=== PATIENT | male | born 1945 | race Caucasian/White ===

== ENCOUNTER → 2018-09-07 08:05 | Outpatient (CLI) | payer MEDICARE, OTHER, SELFPAY ==
--- NOTE | 2018-09-07 09:18 | PM.TREADMILL ---
Cardiac Stress Test Report Referral & Results Date Patient Seen: 09/07/18 Requesting provider: Gulshan Mora Indication: Dyspnea, shortness of breath upon exertion Rest ECG: Unremarkable Procedure Note: After both written and verbal informed consent the patient had an IV started by the diagnostic imaging RN and then was hooked up to the treadmill monitoring system. The patient was placed on the treadmill at 1 mile an hour with no elevation and was then injected with the Rose scan material. The Cardiolite was then immediately administered. The patient spent an additional 2-3 minutes on the treadmill before being returned to the [facility] in the supine position. The patient had a normal response to all infused materials. Impression: Normal response to infuse materials. Perfusion imaging be reported separately. Please note: Actual ECG tracings can be found in the PACS system.
--- NOTE | 2018-09-10 14:17 | DI.NM.S_ITS ---
DATE OF SERVICE: 09/07/2018 PROCEDURE: Pharmacological perfusion study. INDICATION: Dyspnea on exertion, syncope, history of atrial fibrillation, hypertension, hyperlipidemia. RADIOPHARMACEUTICAL: 25.2 mCi technetium-99m Myoview IV was injected at stress, and 24.9 mCi technetium-99m Myoview IV was injected at rest. CARDIAC STRESS: Patient underwent IV Lexiscan perfusion study under the supervision of an attending staff using standard IV Lexiscan protocol. Patient remained hemodynamically stable. No significant symptoms were reported. Baseline rhythm was sinus. Stress EKG did not reveal any obvious inducible ischemic changes. No significant arrhythmias seen. RAW DATA: There is increased subdiaphragmatic activity. Motion seen as well. GATED STUDY: Resting LV ejection fraction 61%. Stress LV ejection fraction 64%. No obvious wall motion abnormalities. Resting end-diastolic volume is 178 mL. No transient ischemic dilatation. TID ratio 0.94, which is within normal limits. Lung/heart ratio 0.28, which is within normal limits. MYOCARDIAL PERFUSION SCAN: Stress supine, resting supine, and stress prone images were compared to each other. Stress supine and resting supine images revealed small-sized minimally decreased perfusion of distal anterior septum, which improved during prone images; however, prone images developed new mid anterior wall defect which was not seen during stress supine images. I don't see any convincing reversible ischemia or obvious infarction pattern. CONCLUSION: I will call this study likely a normal myocardial perfusion study with evidence of some shifting tissue attenuation artifact as stated above. The patient's weight is 215 pounds. No convincing ischemia infarction pattern. Stress LV ejection fraction 64% without any obvious wall motion abnormalities. No transient ischemic dilatation. Normal lung/heart ratio. Overall, this appears to be a low-risk perfusion study. YassineDarryl swann - LIVING SUPERVISOR/fn/kv doc#: [id number]/job#: [id number] dd: 09/10/2018 13:07:00 dt: 09/10/2018 14:09:00 DICTATING MD/COPIES TO: Josué Kevin MD COPIES MNE: HANNAH
== END ==
PROVIDERS: Family Provider Surgery; PCP Internal Medicine; Visit Provider Internal Medicine
DX: R06.00 Dyspnea, unspecified (principal); R55 Syncope and collapse; I48.91 Unspecified atrial fibrillation; I10 Essential (primary) hypertension; E78.5 Hyperlipidemia, unspecified
CPT/HCPCS: 78452; 93016; 93017; 93018; A9502; J2785

== ENCOUNTER → 2018-10-10 09:40 | Outpatient (CLI) | payer MEDICARE, OTHER, SELFPAY ==
[2018-10-10 10:48] LABS: Cholesterol 273 mg/dL (140-199); HDL Cholesterol 57 mg/dL (40-60); LDL Cholesterol Calculated 196 mg/dL (<100); Triglycerides 102 mg/dL (35-150)
== END ==
PROVIDERS: Family Provider Surgery; PCP Internal Medicine; Visit Provider Internal Medicine Cardiovascular Disease
DX: I65.21 Occlusion and stenosis of right carotid artery (principal); I35.0 Nonrheumatic aortic (valve) stenosis
CPT/HCPCS: 36415; 80061

== ENCOUNTER → 2018-10-30 10:35 | Outpatient (CLI) | payer MEDICARE, OTHER, SELFPAY ==
--- NOTE | 2018-10-30 10:47 | DI.RAD.S_ITS ---
PROCEDURE: XR CHEST 2V INDICATIONS: ASPIRATION PNEUMONIA TECHNIQUE: 2 views of the chest were acquired. COMPARISON: [facility], , CHEST 1 VIEW, 07/23/2015, 12:34. FINDINGS: Surgical changes and devices: None. Lungs and pleura: Lungs are clear. No pleural effusions or pneumothorax. Mediastinum: Mediastinal contours are normal. Heart size is normal. Bones and chest wall: No suspicious bony abnormalities. Soft tissues appear unremarkable. IMPRESSION: No acute cardio pulmonary disease or Dictated by: Jeb Hdz M.D. on 10/30/2018 at 12:13 Approved by: Jeb Hdz M.D. on 10/30/2018 at 12:14
[2018-10-30 11:51] LABS: Add Manual Diff / Slide Review NO; Basophils Absolute Auto 0 /uL (0-100); Basophils Percent Auto 0.3 % (0-2); Eosinophils Absolute Auto 100 /uL (0-450); Eosinophils Percent Auto 1.6 % (2-4); Hematocrit 38.8 % (41-53); Hemoglobin 12.9 g/dL (13.5-17.5); Lymphocytes Absolute Auto 1200 /uL (1100-4500); Lymphocytes Percent Auto 26.4 % (25-40); Mean Corpuscular HGB Conc 33.2 % (30-36); Mean Corpuscular Hemoglobin 28.5 PG (26-34); Mean Corpuscular Volume 85.9 fL (80-100); Monocytes Absolute Auto 500 /uL (0-900); Monocytes Percent Auto 11.7 % (3-14); Neutrophils Absolute Auto 2600 /uL (1500-7000); Platelet Count 247 X10^3/uL (150-400); Red Blood Cell Count 4.52 X10^6/uL (4.5-5.9); Red Cell Distribution Width 15.3 % (11.6-14.8); White Blood Cell Count 4.4 X10^3/uL (4.5-11.0)
[2018-10-30 12:33] LABS: Blood Urea Nitrogen 18 mg/dL (9-20); Calcium 9.5 mg/dL (8.4-10.2); Carbon Dioxide 26 mmol/L (22-32); Chloride 102 mmol/L (98-107); Estimated Glomerular Filt Rate > 60.0 mL/min (>60); Glucose 101 mg/dL (80-110); HEMOLYSIS < 15 (0-50); Potassium 4.2 mmol/L (3.4-5.1); Sodium 138 mmol/L (137-145)
== END ==
PROVIDERS: Family Provider Surgery; PCP Internal Medicine; Visit Provider Internal Medicine
DX: J69.0 Pneumonitis due to inhalation of food and vomit (principal)
CPT/HCPCS: 36415; 71046; 80048; 85025

== ENCOUNTER → 2018-11-05 13:41 | Outpatient (CLI) | payer MEDICARE, OTHER, SELFPAY ==
--- NOTE | 2018-11-05 | DI.US.S_ITS ---
PROCEDURE: US ARTERIAL DUPLEX LE LT INDICATIONS: UNK TECHNIQUE: Color and pulse Doppler interrogation was performed of the left lower extremity arterial system, with image documentation. COMPARISON: None. FINDINGS: Common femoral artery: 75 cm/sec, with triphasic flow. Deep femoral artery: 211 cm/sec, with triphasic flow. Proximal superficial femoral artery: 87 cm/sec, with triphasic flow. Mid superficial femoral artery: 55 cm/sec, with triphasic flow. Distal superficial femoral artery: Occluded distal superficial femoral artery with multiple collateral vessels noted. Popliteal artery: 22 cm/sec, with monophasic flow. Posterior tibial artery: 36 cm/sec, with monophasic flow. Anterior tibial artery/dorsalis pedis: 15 cm/sec, with monophasic flow. Martinez-scale imaging description: The scattered plaque, most notably involving the distal superficial femoral artery IMPRESSION: 1. 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 Dictated by: Jimbo Cotton [facility] Interpreted: Herbert Flores MD on 11/05/2018 at 15:52 Approved by: Herbert Flores M.D. on 11/05/2018 at 16:35
== END ==
PROVIDERS: Family Provider Surgery; PCP Internal Medicine; Visit Provider Internal Medicine
DX: I70.202 Unspecified atherosclerosis of native arteries of extremities, left leg (principal)
CPT/HCPCS: 93926

== ENCOUNTER → 2018-12-10 12:45 | Outpatient (CLI) | payer MEDICARE, OTHER, SELFPAY ==
--- NOTE | 2018-12-10 | DI.RAD.S_ITS ---
PROCEDURE: FL BARIUM SWALLOW W SPEECH INDICATIONS: Dysphagia, oropharyngeal phase TECHNIQUE: Examination was conducted in conjunction with speech pathology per standard protocol. In the lateral projection, filming was performed of the patient swallowing. AP projection filming may also be performed with patient swallowing. COMPARISON: None. FINDINGS: Function: The oral preparatory phase appears normal, with proper containment. The subsequent oral propulsive phase, pharyngeal phase, and esophageal phase of swallowing also appear normal with all proffered substances. Silent laryngeal penetration was intermittently observed. No definite tracheal aspiration. There was vallecular pooling. Esophageal dysmotility was observed on the AP view. Morphology: No cricopharyngeal bar is identified. No cervical esophageal webs. No Zenker's diverticulum. No strictures. IMPRESSION: Intermittent silent laryngeal penetration. Dictated by: Favian Sandoval M.D. on 12/10/2018 at 15:06 Approved by: Favian Sandoval M.D. on 12/10/2018 at 15:08
--- NOTE | 2019-02-27 09:18 | ST.SWALLOW ---
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 Mazariegos Reason for Referral Unilateral VF paresis, dysphagia Setting Setting Outpatient Care Patient Information Identification Type Other Patient History The pt is familiar to this Clinician, as he is being seen in outpatient care. He underwent corotid artery surgery on 10/04/18 at [facility] in [place], after which he experienced difficulty swallowing and changes in vocal quality. He was seen during and after his hospital stay by Dr. 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 On 12/06/18, the pt underwent bulk injection to the right VF. He continues to have significant coughing of phlegm, especially before bed and upon waking in the morning , and difficulty swallowing, most notably with sticking sensation at right side of throat near the surgical incision site. He presents today for further evaluation of swallow function and safety to guide POC. Subjective Observations The pt arrived on time. Continues to c/o cough, hoarse voice, difficulty swallowing and describes feeling something like a flap of skin at the right side of throat at level of surgical site. He and his plan to move to [place], where they spends half the year, next week and questioned whether or not he should go. Patient Positioning Position View A/P Imaging Lateral View Textures Administered Trials Presented Thin Liquid via Spoon Thin Liquid via Cup [place] Liquid via Spoon [place] Liquid via Cup Honey Liquid via Spoon Pudding Thick Liquid via Spoon Regular Textures Barium Tablet Oral Phase Source: MBSIMP (TM) (C) Bolus Specific Scoring Grid Lip Closure No Impairment (WNL) Tongue Control During Bolus Hold No Impairment (WNL) Bolus Prep/Mastication No Impairment (WNL) Bolus Transport/Lingual Motion No Impairment (WNL) A/P Lingual Propulsion Delay Yes: Appears to be from dislike of barium taste Number of Seconds Delayed (seconds) 2-4 Oral Residue Mild Impairment Residue Clearing WFL Nasal Regurgitation No Additional Oral Phase Observations Residue of thin liquid observed to spill to vallecula post swallow. Pharyngeal Phase Source: MBSIMP (TM) (C) Bolus Specific Scoring Grid Delayed Initiation of Pharyngeal Swallow Yes Soft Palate Elevation No Impairment (WNL) Residue Along the Tongue Base Yes Clearance of Residue Along Tongue Base WFL Laryngeal Elevation WFL Anterior Hyoid Movement WFL Epiglottic Range of Motion No Impairment (WNL) Vallecular Residue Yes: Trace liquids Clearance of Vallecular Residue No Impairment (WNL) Laryngeal Vestibular Closure Mild Impairment Pharyngeal Stripping Wave Mild Impairment Pharyngeal Contraction No Impairment (WNL) Posterior Pharyngeal Wall Residue Yes Upper Esophageal Sphincter Opening No Impairment (WNL) Residue in the Pyriform Sinuses Yes: Trace liquids Clearance of Residue in the Pyriform No Impairment (WNL) Sinuses Esophageal Clearance Upright Position Moderate Impairment Pharyngoesophageal Backflow Observed Yes: Contained to esophagus; no backflow to pharynx Additional Pharyngeal Phase Observations Mild silent penetration into laryngeal vestibule upon initial thin liquid tsp. No cough response elicited. Pt was prompted to cough, which mostly but not entirely cleared residue. Flash penetration with thin liquid observed on 3rd of 3 consecutive swallows. No aspiration observed. Delayed swallow trigger to level of vallecula noted throughout with all trials, increased to pyriform sinuses with consecutive cup sips of thin liquid. Upon close video review, there appears to be a small diverticulum on posterior pharyngeal wall at level of epiglottis, as well as a cricopharyngeal bar. A/P View Textures Administered Trials Presented [place] Liquid via Spoon Pudding Thick Liquid via Spoon Barium Tablet A/P View Observations Pharyngeal Contraction No Impairment (WNL) Esophageal Function Slowed Clearing Poor Motility Reverse Peristalsis Stasis Esophageal Clearance Upright Position Moderate Impairment Additional Observations Deviation of bolus to left side at upper esophagus. 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 Esophageal dysmotility was observed during A/P view, warranting GI referral. It is possible a pharyngeal diverticulum may be the sourse of the pt's sensation of something like a flap in my throat; recommend follow up with ENT, either with [facility] or vial referral to ENT in [place], [place]. Rehabilitation Potential Good Patient Appropriate for Therapy Yes Recommendations Diet Liquids Order Thin Diet Order Regular Medication Recommendation As Tolerated Additional Dietary Needs Single Sips Aspiration Precautions Recommended Precautions Upright at 90 Degrees Small Bites/Sips Treatment Plan Therapy Recommendations Outpatient Speech Therapy Lingual Exercises Base of Tongue Exercises Vocal Fold Adduction Exercises Compensatory Strategy Education GERD/Vocal Hygiene Education Recommended Referrals GI Consult Additional Recommended Referrals Follow up with ENT Compensatory Strategies Recommendations Sitting Upright (90 deg) Small Bites and Sips Short Term Goals Pt will continue outpatient voice and dysphagia therapy until move to [place] targeting swallow and vocal fold adduction exercises to improve swallow and VF function and reduce risk of aspiration; GERD/LPR education and food/ lifestyle modifications; and vocal hygiene. Half-Way Goals Pt will perform swallow and voice exercises independently to improve swallow and VF function and reduce risk of aspiration. Pt will follow GERD/LPR diet and lifestyle modification recommendations independently to reduce risk of aspiration and effects of GERD/LPR. Pt will tolerate regular diet and thin liquids without s/sx of aspiration. 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 He was in agreement to GI referral and wished to inquire about services at [facility].
== END ==
PROVIDERS: PCP Internal Medicine; Visit Provider Specialist
DX: R13.12 Dysphagia, oropharyngeal phase (principal)
CPT/HCPCS: 74230; 92611

== ENCOUNTER 2018-12-10 15:30 | Outpatient (RCR) | payer MEDICARE, OTHER, SELFPAY ==
--- NOTE | 2019-02-27 09:27 | ST.OPDS ---
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 Follow-up education and treatment was provided same day as MBSS with recommendations for regular diet, thin liquids, meds as tolerated, general aspiration precautions, follow-up with ENT, and HEP of swallow exercises. The pt and his have since moved to [place], [place]. He is discharged from this clinic's skilled intervention at this time. Plan Therapy Recommendations Discharge from Speech Therapy
== END 2019-03-06 14:30 | disposition home or self-care (01) ==
LOC: SP 15:30
PROVIDERS: PCP Internal Medicine; Visit Provider Specialist
DX: J38.01 Paralysis of vocal cords and larynx, unilateral (principal)
CPT/HCPCS: 92526

== ENCOUNTER 2019-10-04 13:34 | Emergency (ER) | payer MEDICARE, OTHER, SELFPAY ==
[2019-10-04 13:37] VITALS: BP 133/83; PULSE 80; RESP 18; TEMP 36; O2SAT 99; BMI 31.1
[2019-10-04 14:08] LABS: Add Manual Diff / Slide Review NO; Basophils Absolute Auto 0 /uL (0-100); Basophils Percent Auto 0.2 % (0-2); Eosinophils Absolute Auto 100 /uL (0-450); Eosinophils Percent Auto 0.9 % (2-4); Hematocrit 34.3 % (41-53); Hemoglobin 11.4 g/dL (13.5-17.5); Lymphocytes Absolute Auto 1100 /uL (1100-4500); Lymphocytes Percent Auto 17.8 % (25-40); Mean Corpuscular HGB Conc 33.2 % (30-36); Mean Corpuscular Hemoglobin 28.6 PG (26-34); Mean Corpuscular Volume 86.1 fL (80-100); Monocytes Absolute Auto 500 /uL (0-900); Monocytes Percent Auto 8.1 % (3-14); Neutrophils Absolute Auto 4700 /uL (1500-7000); Platelet Count 232 X10^3/uL (150-400); Red Blood Cell Count 3.99 X10^6/uL (4.5-5.9); Red Cell Distribution Width 15.3 % (11.6-14.8); White Blood Cell Count 6.4 X10^3/uL (4.5-11.0)
[2019-10-04 14:16] LABS: Alanine Aminotransferase 21 IU/L (<50); Albumin Globulin Ratio 1.6 (1.0-2.8); Alkaline Phosphatase 82 U/L (38-126); Amylase 80 U/L (30-110); Aspartate Aminotransferase 24 IU/L (17-59); BUN Creatinine Ratio 17.3 (6-22); Bilirubin Total 0.6 mg/dL (0.2-1.3); Blood Urea Nitrogen 19 mg/dL (9-20); Calcium 8.8 mg/dL (8.4-10.2); Carbon Dioxide 27 mmol/L (22-32); Chloride 104 mmol/L (98-107); Estimated Glomerular Filt Rate > 60.0 mL/min (>60); Globulin 2.5 g/dL (1.7-4.1); Glucose 108 mg/dL (80-110); HEMOLYSIS < 15 (0-50); Lipase 50 U/L (23-300); Potassium 4.3 mmol/L (3.4-5.1); Sodium 138 mmol/L (137-145); Total Protein 6.5 g/dL (6.3-8.2)
[2019-10-04 14:38] LABS: Bacteria Urine None Seen; WBC Urine None Seen (0-5/HPF)
[2019-10-04 14:58] LABS: Culture Indicated Urine Cult Not Indicated; RBC Urine 0-1/HPF (0-5/HPF); Squamous Epithelial Cell Urine 0-1 /HPF (0-5/HPF)
--- NOTE | 2019-10-04 16:17 | DI.CT.S_ITS ---
PROCEDURE: CT ABDOMEN PELVIS W CON INDICATIONS: Left lower quadrant pain TECHNIQUE: After the administration of intravenous contrast, 5 mm thick sections acquired from the diaphragm to the symphysis. 5 mm coronal and sagittal reformats were acquired. For radiation dose reduction, the following was used: automated exposure control, adjustment of mA and/or kV according to patient size. COMPARISON: None. FINDINGS: Image quality: Excellent. ABDOMEN: Lung bases: Lung bases are clear. Heart size is normal. Small hiatal hernia. Solid organs: Low density nodules in the liver are most likely hepatic cysts. Liver is normal in size and enhancement. Gallbladder is normal. Biliary system is non dilated. Pancreas enhances normally. Spleen is normal in size and enhancement. No adrenal nodules. Kidneys demonstrate normal size and enhancement, without hydronephrosis. Peritoneum and bowel: There are chronic diverticulosis. There is focal thickening and pericolonic stranding at the junction of the distal descending colon and sigmoid colon, consistent with acute diverticulitis. There is no findings to suggest diverticular perforation. No diverticular abscess. Bowel loops demonstrate normal caliber. No free fluid or air. Nodes and vessels: No retroperitoneal or mesenteric adenopathy by size criteria. There is an infrarenal abdominal aortic aneurysm measuring 5.0 cm AP x 4.7 cm transverse. Miscellaneous: No ventral hernias. PELVIS: Genitourinary: Bladder wall thickness is normal. Enlarged prostate. Miscellaneous: There are mildly enlarged left inguinal lymph nodes measuring up to 1.2 cm in short axis. A small fat-containing left inguinal hernia is present. Bones: No suspicious bony lesions. No vertebral body compression fractures. Mild scoliosis. Degenerative and postsurgical changes in lumbar spine. IMPRESSION: 1. Acute diverticulitis involving the junction of the descending colon and sigmoid colon. No diverticular perforation or abscess. 2. A 5.0 x 4.7 cm infrarenal abdominal aortic aneurysm. 3. Left inguinal lymphadenopathy. This finding is nonspecific and may be secondary to infectious, inflammatory or neoplastic etiology. Recommend clinical correlation and follow up. 4. A small fat-containing left inguinal hernia. 5. Enlarged prostate. Dictated by: Jeb Hdz M.D. on 10/04/2019 at 16:48 Approved by: Jeb Hdz M.D. on 10/04/2019 at 16:59
[2019-10-04 16:56] VITALS: BP 148/86; PULSE 72; RESP 14; TEMP 36.7; O2SAT 97
--- NOTE | 2019-10-04 18:08 | ED_ITS ---
HPI - Abdominal Pain <JONATAN Sawyer - Last Filed: 10/04/19 18:11> General Chief Complaint: Abdominal Pain Stated Complaint: diverticulitis Time Seen by Provider: 10/04/19 13:58 Source: patient Mode of arrival: Ambulatory Limitations: no limitations History of Present Illness HPI narrative: The patient is a 73-year-old male nonsmoker with history of diverticulitis who presents with a chief complaint of left lower quadrant pain. Started yesterday. He is concerned about another episode of diverticulitis. He denies any fevers, nausea vomiting or diarrhea. He states that he is having regular bowel movements. Denies any blood in his stool. Denies any dysuria urgency or frequency. Denies any hematuria. States he had an episode of diverticulitis several months ago was placed on antibiotics and did very well. Related Data Home Medications Medication Instructions Recorded Confirmed apixaban [Eliquis] 5 mg PO BID 10/04/19 10/04/19 diclofenac sodium 1 % TOPICAL DIRECTED 10/04/19 10/04/19 diltiazem HCl 180 mg PO DAILY 10/04/19 10/04/19 lansoprazole 15 mg PO BID 10/04/19 10/04/19 lidocaine 1 patch TOPICAL DIRECTED 10/04/19 10/04/19 tadalafil mg 10/04/19 tamsulosin 0.4 mg PO QPM 10/04/19 10/04/19 valsartan [Diovan] 80 mg PO QAM 10/04/19 10/04/19 Previous Rx's Medication Instructions Recorded amoxicillin-pot clavulanate 1 tab PO Q8HR 10 Days #30 tab 10/04/19 [Augmentin] Allergies Allergy/AdvReac Type Severity Reaction Status Date / Time codeine [CODEINE] Allergy Unknown Verified 10/04/19 13:37 [id number] Reductase Allergy Unknown Verified 10/04/19 13:37 Inhibitor [[id number] REDUCTASE INHIBITOR] Review of Systems <JONATAN Sawyer - Last Filed: 10/04/19 18:11> Review of Systems Narrative: GENERAL: Denies chills, fatigue, malaise, fever, sweats. HEENT: Denies sinus pain, ear pain, sore throat, difficulty swallowing, dizziness. RESPIRATORY: Denies dyspnea, cough, wheezing, hemoptysis, sputum. CARDIOVASCULAR: Denies chest pain, palpitations, orthopnea, edema, GASTROINTESTINAL: See HPI : Denies dysuria, frequency, incontinence, hematuria, urinary retention. MUSCULOSKELETAL: denies weakness, joint pain, or bony pain SKIN: Denies rash, skin lesions, or other NEUROLOGIC: Denies weakness, headache, numbness, change in speech, confusion, seizures, incoordination. PSYCHIATRIC: No concerning psychosocial issues. 12 point review of systems is negative except for those stated above Patient History <JONATAN Sawyer - Last Filed: 10/04/19 18:11> Social History Smoking Status: Never smoker Smoking Status: Never smoker alcohol intake frequency: 0-2 drinks per day Substance Use Type: does not use Exam <JONATAN Sawyer - Last Filed: 10/04/19 18:11> Narrative Exam Narrative: GENERAL: This is a well-nourished, well-developed patient, in no acute distress HEAD: Atraumatic. Normocephalic. No temporal or scalp tenderness. EYES: Pupils equal round and reactive. Extraocular motions intact. No scleral icterus. No injection or drainage. ENT: Nose without bleeding, purulent drainage or septal hematoma. Throat without erythema, tonsillar hypertrophy or exudate. Uvula midline. Airway patent. NECK: Trachea midline. No JVD or lymphadenopathy. Supple, nontender, no meningeal signs. CARDIOVASCULAR: Regular rate and rhythm RESPIRATORY: Clear to auscultation. Breath sounds equal bilaterally. No wheezes, rales, or rhonchi. No cough. No increased respiratory effort. No accessory muscle use. GASTROINTESTINAL: Abdomen soft, pain to palpation left lower quadrant, nondistended. No hepato-splenomegaly, or palpable masses. No guarding. Active bowel sounds all 4 quadrants EXTREMITIES: No clubbing, cyanosis, or edema. No joint tenderness, effusion, or edema noted. BACK: Nontender without deformity or crepitance. No flank tenderness. NEURO: AOx3. SKIN: No rash or erythema visible skin Initial Vital Signs Initial Vital Signs: Vital Signs Temperature 96.8 F L 10/04/19 13:37 Pulse Rate 80 10/04/19 13:37 Respiratory Rate 18 10/04/19 13:37 Blood Pressure 133/83 10/04/19 13:37 Pulse Oximetry 99 10/04/19 13:37 <DO Manuel Suarez Last Filed: 10/04/19 19:06> Initial Vital Signs Initial Vital Signs: Vital Signs Temperature 96.8 F L 10/04/19 13:37 Pulse Rate 80 10/04/19 13:37 Respiratory Rate 18 10/04/19 13:37 Blood Pressure 133/83 10/04/19 13:37 Pulse Oximetry 99 10/04/19 13:37 Course <JONATAN Sawyer - Last Filed: 10/04/19 18:11> Orders Ordered: ED Orders 10/04/19 13:50 Amylase Stat Complete Blood Count AUTO DIFF Stat Comprehensive Metabolic Panel Stat Lipase Stat 10/04/19 13:55 Urine Microscopic Stat 10/04/19 16:17 CT abdomen pelvis w con Stat Vital Signs Vital signs: Vital Signs - 8 hr 10/04/19 13:37 10/04/19 16:56 Temperature 96.8 F L 98.1 F Pulse Rate 80 72 Respiratory Rate 18 14 Blood Pressure 133/83 Blood Pressure [Right Arm] 148/86 H Pulse Oximetry 99 97 <Nimco Whitney DO - Last Filed: 10/04/19 19:06> Orders Ordered: ED Orders 10/04/19 13:50 Amylase Stat Complete Blood Count AUTO DIFF Stat Comprehensive Metabolic Panel Stat Lipase Stat 10/04/19 13:55 Urine Microscopic Stat 10/04/19 16:17 CT abdomen pelvis w con Stat Vital Signs Vital signs: Vital Signs - 8 hr 10/04/19 13:37 10/04/19 16:56 Temperature 96.8 F L 98.1 F Pulse Rate 80 72 Respiratory Rate 18 14 Blood Pressure 133/83 Blood Pressure [Right Arm] 148/86 H Pulse Oximetry 99 97 MDM - Abdominal Pain <JONATAN Saweyr Last Filed: 10/04/19 18:11> Lab Data Result diagrams: 10/04/19 13:50 10/04/19 13:50 Labs: Lab Results 10/04/19 10/04/19 10/04/19 Range/Units 13:50 13:50 13:50 WBC 6.4 (4.5-11.0) X10^3/uL RBC 3.99 L (4.5-5.9) X10^6/uL Hgb 11.4 L (13.5-17.5) g/dL Hct 34.3 L (41-53) % MCV 86.1 (80-100) fL MCH 28.6 (26-34) PG MCHC 33.2 (30-36) % RDW 15.3 H (11.6-14.8) % Plt Count 232 (150-400) X10^3/uL Neut % (Auto) 73.0 (50-75) % Lymph % (Auto) 17.8 L (25-40) % [place] % (Auto) 8.1 (3-14) % Eos % (Auto) 0.9 L (2-4) % Baso % (Auto) 0.2 (0-2) % Neut # (Auto) 4700 (5260-1590) /uL Lymph # (Auto) 1100 (8787-2012) /uL [place] # (Auto) 500 (0-900) /uL Eos # (Auto) 100 (0-450) /uL Baso # (Auto) 0 (0-100) /uL Sodium 138 (137-145) mmol/L Potassium 4.3 (3.4-5.1) mmol/L Chloride 104 (98-107) mmol/L Carbon Dioxide 27 (22-32) mmol/L BUN 19 (9-20) mg/dL Creatinine 1.10 (0.66-1.25) mg/dL Estimated GFR > 60.0 (>60) mL/min BUN/Creatinine Ratio 17.3 (6-22) Glucose 108 (80-110) mg/dL Calcium 8.8 (8.4-10.2) mg/dL Total Bilirubin 0.6 (0.2-1.3) mg/dL AST 24 (17-59) IU/L ALT 21 (<50) IU/L Alkaline Phosphatase 82 (38-126) U/L Total Protein 6.5 (6.3-8.2) g/dL Albumin 4.0 (3.5-5.0) g/dL Globulin 2.5 (1.7-4.1) g/dL Albumin/Globulin Ratio 1.6 (1.0-2.8) Amylase 80 (30-110) U/L Lipase 50 (23-300) U/L Urine RBC (0-5/HPF) Urine WBC (0-5/HPF) Ur Squamous Epith Cells (0-5/HPF) Urine Bacteria (None) Ur Culture Indicated? 10/04/19 Range/Units 13:55 WBC (4.5-11.0) X10^3/uL RBC (4.5-5.9) X10^6/uL Hgb (13.5-17.5) g/dL Hct (41-53) % MCV (80-100) fL MCH (26-34) PG MCHC (30-36) % RDW (11.6-14.8) % Plt Count (150-400) X10^3/uL Neut % (Auto) (50-75) % Lymph % (Auto) (25-40) % [place] % (Auto) (3-14) % Eos % (Auto) (2-4) % Baso % (Auto) (0-2) % Neut # (Auto) (8393-6078) /uL Lymph # (Auto) (6087-0828) /uL [place] # (Auto) (0-900) /uL Eos # (Auto) (0-450) /uL Baso # (Auto) (0-100) /uL Sodium (137-145) mmol/L Potassium (3.4-5.1) mmol/L Chloride (98-107) mmol/L Carbon Dioxide (22-32) mmol/L BUN (9-20) mg/dL Creatinine (0.66-1.25) mg/dL Estimated GFR (>60) mL/min BUN/Creatinine Ratio (6-22) Glucose (80-110) mg/dL Calcium (8.4-10.2) mg/dL Total Bilirubin (0.2-1.3) mg/dL AST (17-59) IU/L ALT (<50) IU/L Alkaline Phosphatase (38-126) U/L Total Protein (6.3-8.2) g/dL Albumin (3.5-5.0) g/dL Globulin (1.7-4.1) g/dL Albumin/Globulin Ratio (1.0-2.8) Amylase (30-110) U/L Lipase (23-300) U/L Urine RBC 0-1/hpf (0-5/HPF) Urine WBC None seen (0-5/HPF) Ur Squamous Epith Cells 0-1 /hpf (0-5/HPF) Urine Bacteria None seen (None) Ur Culture Indicated? Cult not indicated Point of care testing: Urine Dip Bedside Urine Glucose Negative Bedside Urine Bilirubin - Negative Bedside Urine Ketone - Negative Urine Specific [place] 1.005 Bedside Urine Occult Blood +/- Bedside Urine pH 6.0 Bedside Urine Protein - Negative Bedside Urine Urobilinogen - Negative Bedside Urine Nitrite - Negative Bedside Urine Leukocytes - Negative Esterase Imaging Data CT scan - abdomen/pelvis: Radiologist's Impression: [address] [address] [address] Scan Report Signed Patient: Darryl Bentley BMR#: [id number] : 4Acct:[id number] Age/Sex: 73 / MDate of Service: 10/04/19 Loc: ED Accession Number: [id number] Procedure: CT abdomen pelvis w con Ordering Provider: Nimco Sanchez SQL SSRS SSIS DEVELOPER-BC PROCEDURE: CT ABDOMEN PELVIS W CON INDICATIONS: Left lower quadrant pain TECHNIQUE: After the administration of intravenous contrast, 5 mm thick sections acquired from the diaphragm to the symphysis. 5 mm coronal and sagittal reformats were acquired. For radiation dose reduction, the following was used: automated exposure control, adjustment of mA and/or kV according to patient size. COMPARISON: None. FINDINGS: Image quality: Excellent. ABDOMEN: Lung bases: Lung bases are clear. Heart size is normal. Small hiatal hernia. Solid organs: Low density nodules in the liver are most likely hepatic cysts. Liver is normal in size and enhancement. Gallbladder is normal. Biliary system is non dilated. Pancreas enhances normally. Spleen is normal in size and enhancement. No adrenal nodules. Kidneys demonstrate normal size and enhancement, without hydronephrosis. Peritoneum and bowel: There are chronic diverticulosis. There is focal thickening and pericolonic stranding at the junction of the distal descending colon and sigmoid colon, consistent with acute diverticulitis. There is no findings to suggest diverticular perforation. No diverticular abscess. Bowel loops demonstrate normal caliber. No free fluid or air. Nodes and vessels: No retroperitoneal or mesenteric adenopathy by size cri teria. There is an infrarenal abdominal aortic aneurysm measuring 5.0 cm AP x 4.7 cm transverse. Miscellaneous: No ventral hernias. PELVIS: Genitourinary: Bladder wall thickness is normal. Enlarged prostate. Miscellaneous: There are mildly enlarged left inguinal lymph nodes measuring up to 1.2 cm in short axis. A small fat-containing left inguinal hernia is present. Bones: No suspicious bony lesions. No vertebral body compression fractures. Mild scoliosis. Degenerative and postsurgical changes in lumbar spine. IMPRESSION: 1. Acute diverticulitis involving the junction of the descending colon and sigmoid colon. No diverticular perforation or abscess. 2. A 5.0 x 4.7 cm infrarenal abdominal aortic aneurysm. 3. Left inguinal lymphadenopathy. This finding is nonspecific and may be secondary to infectious, inflammatory or neoplastic etiology. Recommend clinical correlation and follow up. 4. A small fat-containing left inguinal hernia. 5. Enlarged prostate. Dictated by: Jeb Hdz M.D. on 10/04/2019 at 16:48 Approved by: Jeb Hdz M.D. on 10/04/2019 at 16:59 MDM Narrative Medical decision making narrative: The patient is a 73-year-old male who presents with a chief complaint of left lower quadrant pain. He appears nontoxic, denies any fevers vomiting or diarrhea. CT scan does illustrate diverticulitis. I discussed the option of Cipro and Flagyl, however the right interactions with his blood thinners. I discussed with the patient other treatment options, we elected to use Augmentin q.8 hours. The patient does not on any pain or nausea medications. I discussed at length the importance of follow-up with primary care provider. Patient has no questions or concerns upon discharge and states understanding of return precautions as well as follow-up care <Nimco Whitney, - Last Filed: 10/04/19 19:06> Lab Data Labs: Lab Results 10/04/19 10/04/19 10/04/19 Range/Units 13:50 13:50 13:50 WBC 6.4 (4.5-11.0) X10^3/uL RBC 3.99 L (4.5-5.9) X10^6/uL Hgb 11.4 L (13.5-17.5) g/dL Hct 34.3 L (41-53) % MCV 86.1 (80-100) fL MCH 28.6 (26-34) PG MCHC 33.2 (30-36) % RDW 15.3 H (11.6-14.8) % Plt Count 232 (150-400) X10^3/uL Neut % (Auto) 73.0 (50-75) % Lymph % (Auto) 17.8 L (25-40) % [place] % (Auto) 8.1 (3-14) % Eos % (Auto) 0.9 L (2-4) % Baso % (Auto) 0.2 (0-2) % Neut # (Auto) 4700 (8329-3756) /uL Lymph # (Auto) 1100 (9507-1405) /uL [place] # (Auto) 500 (0-900) /uL Eos # (Auto) 100 (0-450) /uL Baso # (Auto) 0 (0-100) /uL Sodium 138 (137-145) mmol/L Potassium 4.3 (3.4-5.1) mmol/L Chloride 104 (98-107) mmol/L Carbon Dioxide 27 (22-32) mmol/L BUN 19 (9-20) mg/dL Creatinine 1.10 (0.66-1.25) mg/dL Estimated GFR > 60.0 (>60) mL/min BUN/Creatinine Ratio 17.3 (6-22) Glucose 108 (80-110) mg/dL Calcium 8.8 (8.4-10.2) mg/dL Total Bilirubin 0.6 (0.2-1.3) mg/dL AST 24 (17-59) IU/L ALT 21 (<50) IU/L Alkaline Phosphatase 82 (38-126) U/L Total Protein 6.5 (6.3-8.2) g/dL Albumin 4.0 (3.5-5.0) g/dL Globulin 2.5 (1.7-4.1) g/dL Albumin/Globulin Ratio 1.6 (1.0-2.8) Amylase 80 (30-110) U/L Lipase 50 (23-300) U/L Urine RBC (0-5/HPF) Urine WBC (0-5/HPF) Ur Squamous Epith Cells (0-5/HPF) Urine Bacteria (None) Ur Culture Indicated? 10/04/19 Range/Units 13:55 WBC (4.5-11.0) X10^3/uL RBC (4.5-5.9) X10^6/uL Hgb (13.5-17.5) g/dL Hct (41-53) % MCV (80-100) fL MCH (26-34) PG MCHC (30-36) % RDW (11.6-14.8) % Plt Count (150-400) X10^3/uL Neut % (Auto) (50-75) % Lymph % (Auto) (25-40) % [place] % (Auto) (3-14) % Eos % (Auto) (2-4) % Baso % (Auto) (0-2) % Neut # (Auto) (3793-9140) /uL Lymph # (Auto) (3515-8105) /uL [place] # (Auto) (0-900) /uL Eos # (Auto) (0-450) /uL Baso # (Auto) (0-100) /uL Sodium (137-145) mmol/L Potassium (3.4-5.1) mmol/L Chloride (98-107) mmol/L Carbon Dioxide (22-32) mmol/L BUN (9-20) mg/dL Creatinine (0.66-1.25) mg/dL Estimated GFR (>60) mL/min BUN/Creatinine Ratio (6-22) Glucose (80-110) mg/dL Calcium (8.4-10.2) mg/dL Total Bilirubin (0.2-1.3) mg/dL AST (17-59) IU/L ALT (<50) IU/L Alkaline Phosphatase (38-126) U/L Total Protein (6.3-8.2) g/dL Albumin (3.5-5.0) g/dL Globulin (1.7-4.1) g/dL Albumin/Globulin Ratio (1.0-2.8) Amylase (30-110) U/L Lipase (23-300) U/L Urine RBC 0-1/hpf (0-5/HPF) Urine WBC None seen (0-5/HPF) Ur Squamous Epith Cells 0-1 /hpf (0-5/HPF) Urine Bacteria None seen (None) Ur Culture Indicated? Cult not indicated Point of care testing: Urine Dip Bedside Urine Glucose Negative Bedside Urine Bilirubin - Negative Bedside Urine Ketone - Negative Urine Specific [place] 1.005 Bedside Urine Occult Blood +/- Bedside Urine pH 6.0 Bedside Urine Protein - Negative Bedside Urine Urobilinogen - Negative Bedside Urine Nitrite - Negative Bedside Urine Leukocytes - Negative Esterase Discharge Plan Departure Patient Disposition: Home Clinical Impression: Diverticulitis Discharge Date/Time: 10/04/19 17:49 Instructions: DI for Diverticulitis Activity Restrictions/Additional Instructions: Today your CT scan shows diverticulitis. I have sent a prescription of Augmentin to [facility] in [facility]. Please take this 3 times a day for 10 days. Please follow-up with primary care provider the next few days. Please come back to the emergency department for any acute concerns such as inability keep down fluids etcetera. As discussed there were several incidental findings on your CT report including your abdominal aneurysm, or left inguinal inflamed lymph nodes, a left inguinal hernia etcetera. Please follow up with primary care provider. Please come back to the emergency department for any acute concerns Prescriptions: New amoxicillin-pot clavulanate [Augmentin] 875-125 mg tablet 1 tab PO Q8HR 10 Days Qty: 30 RF: 0 No Action diltiazem HCl 180 mg capsule,extended release 24 hr 180 mg PO DAILY RF: 0 valsartan [Diovan] 80 mg tablet 80 mg PO QAM RF: 0 tamsulosin 0.4 mg capsule 0.4 mg PO QPM RF: 0 lidocaine 5 % adhesive patch,medicated 1 patch topical DIRECTED RF: 0 lansoprazole 15 mg capsule,delayed release(DR/EC) 15 mg PO BID RF: 0 tadalafil 5 mg tablet RF: 0 diclofenac sodium 1 % gel 1 % TOPICAL DIRECTED RF: 0 Eliquis 5 mg tablet 5 mg PO BID RF: 0 Referrals: Gulshan Mora MD [Primary Care Provider] -
== END 2019-10-04 17:49 | disposition home or self-care (01) ==
PROVIDERS: Emergency Medicine; Emergency Provider Nurse Practitioner Family; PCP Internal Medicine
DX: K57.92 Diverticulitis of intestine, part unspecified, without perforation or abscess without bleeding (principal); K40.90 Unilateral inguinal hernia, without obstruction or gangrene, not specified as recurrent; I71.4 Abdominal aortic aneurysm, without rupture
CPT/HCPCS: 36415; 74177; 80053; 81003; 81015; 82150; 83690; 85025; 99284; Q9967

== ENCOUNTER → 2019-11-27 15:09 | Outpatient (CLI) | payer MEDICARE, OTHER, SELFPAY ==
[2019-11-27 16:34] LABS: Add Manual Diff / Slide Review NO; Basophils Absolute Auto 0 /uL (0-100); Basophils Percent Auto 0.2 % (0-2); Eosinophils Absolute Auto 100 /uL (0-450); Eosinophils Percent Auto 2.5 % (2-4); Hemoglobin 12.2 g/dL (13.5-17.5); Lymphocytes Absolute Auto 1400 /uL (1100-4500); Lymphocytes Percent Auto 30.2 % (25-40); Mean Corpuscular Hemoglobin 27.5 PG (26-34); Mean Corpuscular Volume 83.4 fL (80-100); Monocytes Absolute Auto 400 /uL (0-900); Monocytes Percent Auto 9.3 % (3-14); Neutrophils Absolute Auto 2600 /uL (1500-7000); Neutrophils Percent Auto 57.8 % (50-75); Platelet Count 225 X10^3/uL (150-400); Red Blood Cell Count 4.44 X10^6/uL (4.5-5.9); Red Cell Distribution Width 15.8 % (11.6-14.8); White Blood Cell Count 4.5 X10^3/uL (4.5-11.0)
[2019-11-27 16:47] LABS: Alanine Aminotransferase 27 IU/L (<50); Albumin 4.1 g/dL (3.5-5.0); Albumin Globulin Ratio 1.4 (1.0-2.8); Alkaline Phosphatase 82 U/L (38-126); Aspartate Aminotransferase 27 IU/L (17-59); Bilirubin Total 0.3 mg/dL (0.2-1.3); Blood Urea Nitrogen 19 mg/dL (9-20); Carbon Dioxide 27 mmol/L (22-32); Chloride 105 mmol/L (98-107); Estimated Glomerular Filt Rate > 60.0 mL/min (>60); Globulin 2.9 g/dL (1.7-4.1); Glucose 98 mg/dL (80-110); HEMOLYSIS < 15 (0-50); Potassium 4.7 mmol/L (3.4-5.1); Sodium 141 mmol/L (137-145)
== END ==
PROVIDERS: PCP Internal Medicine; Referring Provider Internal Medicine; Visit Provider Internal Medicine
DX: Z01.812 Encounter for preprocedural laboratory examination (principal)
CPT/HCPCS: 36415; 80053; 85025

== ENCOUNTER → 2020-01-21 11:53 | Outpatient (CLI) | payer MEDICARE, OTHER, SELFPAY ==
[2020-01-23 04:36] LABS: COVID19 Sendout Not Detected (Not Detected)
== END ==
PROVIDERS: PCP Internal Medicine; Visit Provider Family Medicine
DX: Z11.9 Encounter for screening for infectious and parasitic diseases, unspecified (principal)
CPT/HCPCS: 87635

== ENCOUNTER → 2020-01-28 13:21 | Outpatient (CLI) | payer MEDICARE, OTHER, SELFPAY ==
--- NOTE | 2020-01-28 | DI.RAD.S_ITS ---
PROCEDURE: XR CHEST 2V INDICATIONS: COUGH TECHNIQUE: 2 views of the chest were acquired. COMPARISON: [facility], CR, XR CHEST 2V, 10/30/2018, 10:49. FINDINGS: Surgical changes and devices: None. Lungs and pleura: No pneumothorax. Diffuse interstitial prominence. Bilateral pleural effusions. Patchy bibasilar opacities. No focal consolidations. Mediastinum: The cardiomediastinal contours remain stable. Heart size is normal. Bones and chest wall: No suspicious bony abnormalities. Soft tissues appear unremarkable. IMPRESSION: Diffuse interstitial prominence with patchy bibasilar opacities and bilateral pleural effusions. Findings may represent an infectious/inflammatory process given reported history. No focal consolidations. Pulmonary edema may have a similar appearance if clinically appropriate. Recommend follow up chest radiograph 4-6 weeks after treatment to document resolution of findings and/or return to baseline examination. Dictated by: Miky Cline M.D. on 01/28/2020 at 14:56 Approved by: Miky Cline M.D. on 01/28/2020 at 14:59
[2020-01-28 14:24] LABS: Add Manual Diff / Slide Review NO; Basophils Absolute Auto 0 /uL (0-100); Basophils Percent Auto 0.3 % (0-2); Eosinophils Absolute Auto 100 /uL (0-450); Eosinophils Percent Auto 1.6 % (2-4); Hematocrit 36.3 % (41-53); Hemoglobin 11.6 g/dL (13.5-17.5); Lymphocytes Absolute Auto 1400 /uL (1100-4500); Lymphocytes Percent Auto 16.8 % (25-40); Mean Corpuscular HGB Conc 32.1 % (30-36); Mean Corpuscular Hemoglobin 26.9 PG (26-34); Mean Corpuscular Volume 83.7 fL (80-100); Monocytes Absolute Auto 800 /uL (0-900); Monocytes Percent Auto 10.3 % (3-14); Neutrophils Absolute Auto 5800 /uL (1500-7000); Platelet Count 288 X10^3/uL (150-400); Red Blood Cell Count 4.33 X10^6/uL (4.5-5.9); Red Cell Distribution Width 17.8 % (11.6-14.8); White Blood Cell Count 8.1 X10^3/uL (4.5-11.0)
[2020-01-28 14:34] LABS: Alanine Aminotransferase 57 IU/L (<50); Albumin 3.7 g/dL (3.5-5.0); Albumin Globulin Ratio 1.5 (1.0-2.8); Alkaline Phosphatase 84 U/L (38-126); Aspartate Aminotransferase 28 IU/L (17-59); BUN Creatinine Ratio 24.8 (6-22); Bilirubin Total 0.6 mg/dL (0.2-1.3); Blood Urea Nitrogen 25 mg/dL (9-20); Calcium 8.9 mg/dL (8.4-10.2); Carbon Dioxide 27 mmol/L (22-32); Chloride 101 mmol/L (98-107); Estimated Glomerular Filt Rate > 60.0 mL/min (>60); Globulin 2.5 g/dL (1.7-4.1); Glucose 94 mg/dL (80-110); HEMOLYSIS < 15 (0-50); Potassium 4.8 mmol/L (3.4-5.1); Sodium 134 mmol/L (137-145); Total Protein 6.2 g/dL (6.3-8.2)
== END ==
PROVIDERS: PCP Internal Medicine; Referring Provider Internal Medicine; Visit Provider Internal Medicine
DX: R06.02 Shortness of breath (principal); R05 Cough
CPT/HCPCS: 36415; 71046; 80053; 85025

== ENCOUNTER → 2020-05-27 08:36 | Outpatient (CLI) | payer MEDICARE, OTHER, SELFPAY ==
[2020-05-28 06:26] LABS: COVID19 Sendout Not Detected (Not Detect)
== END ==
PROVIDERS: PCP Internal Medicine; Visit Provider Nurse Practitioner
DX: Z11.59 Encounter for screening for other viral diseases (principal)
CPT/HCPCS: 87635

== ENCOUNTER → 2022-09-08 17:10 | Outpatient (CLI) | payer MEDICARE, OTHER, SELFPAY ==
[2022-09-08 18:42] LABS: Influenza A - CEPHEID Flu A POSITIVE (NEGATIVE); Influenza B - CEPHEID Flu B NEGATIVE (NEGATIVE); Respiratory Syncytial Virus POSITIVE (Negative)
[2022-09-08 18:47] LABS: COVID-19 CEPHEID 4-PLEX PCR Negative (Negative)
== END ==
PROVIDERS: PCP Internal Medicine; Visit Provider Nurse Practitioner Family
DX: J06.9 Acute upper respiratory infection, unspecified (principal); Z20.822 Contact with and (suspected) exposure to COVID-19
CPT/HCPCS: 0241U

== ENCOUNTER → 2022-09-09 10:25 | Outpatient (CLI) | payer MEDICARE, OTHER, SELFPAY ==
--- NOTE | 2022-09-09 10:27 | DI.RAD.S_ITS ---
PROCEDURE: XR CHEST 2V INDICATIONS: Cough TECHNIQUE: 2 views of the chest were acquired. COMPARISON: [facility], CR, XR CHEST 2V, 01/28/2020, 13:38. FINDINGS: Surgical changes and devices: Median sternotomy and valvuloplasty changes. Left atrial appendage occlusion device. Partially visualized left total shoulder arthroplasty. Lungs and pleura: Lungs are clear. No pleural effusions or pneumothorax. Mediastinum: Mediastinal contours are normal. Heart size is normal. Bones and chest wall: No suspicious bony abnormalities. Soft tissues appear unremarkable. IMPRESSION: No acute cardiopulmonary process demonstrated radiographically. Dictated by: Nelson Gonzalez M.D. on 09/09/2022 at 11:03 Approved by: Nelson Gonzalez M.D. on 09/09/2022 at 11:10
== END ==
PROVIDERS: PCP Internal Medicine; Referring Provider Nurse Practitioner Family; Visit Provider Nurse Practitioner Family
DX: R05.9 Cough, unspecified (principal)
CPT/HCPCS: 71046

== ENCOUNTER → 2022-10-11 08:30 | Outpatient (CLI) | payer MEDICARE, OTHER, SELFPAY ==
[2022-10-11 10:13] LABS: Add Manual Diff / Slide Review NO; Basophils Absolute Auto 0 /uL (0-100); Basophils Percent Auto 0.5 % (0-2); Eosinophils Absolute Auto 400 /uL (0-450); Eosinophils Percent Auto 8.8 % (2-4); Hematocrit 35.2 % (41-53); Hemoglobin 11.7 g/dL (13.5-17.5); Lymphocytes Absolute Auto 1300 /uL (1100-4500); Lymphocytes Percent Auto 28.6 % (25-40); Mean Corpuscular HGB Conc 33.2 % (30-36); Mean Corpuscular Hemoglobin 28.5 PG (26-34); Monocytes Absolute Auto 500 /uL (0-900); Monocytes Percent Auto 10.2 % (3-14); Neutrophils Absolute Auto 2400 /uL (1500-7000); Neutrophils Percent Auto 51.9 % (50-75); Platelet Count 119 X10^3/uL (150-400); Red Blood Cell Count 4.09 X10^6/uL (4.5-5.9); Red Cell Distribution Width 15.7 % (11.6-14.8); White Blood Cell Count 4.6 X10^3/uL (4.5-11.0)
[2022-10-11 10:20] LABS: INR 1.3 (0.9-1.3); Prothrombin Time 14.7 SECONDS (10.1-12.7)
[2022-10-11 10:31] LABS: Alanine Aminotransferase 28 IU/L (<50); Albumin 3.8 g/dL (3.5-5.0); Albumin Globulin Ratio 1.5 (1.0-2.8); Alkaline Phosphatase 80 U/L (38-126); Aspartate Aminotransferase 31 IU/L (17-59); Bilirubin Total 0.8 mg/dL (0.2-1.3); Blood Urea Nitrogen 21 mg/dL (9-20); Calcium 8.7 mg/dL (8.4-10.2); Carbon Dioxide 26 mmol/L (22-32); Chloride 105 mmol/L (98-107); Cholesterol 193 mg/dL (140-199); Estimated Glomerular Filt Rate > 60 mL/min (>60); Globulin 2.6 g/dL (1.7-4.1); Glucose 95 mg/dL (80-110); HDL Cholesterol 60 mg/dL (40-60); HEMOLYSIS < 15 (0-50); LDL Cholesterol Calculated 112 mg/dL (<100); Potassium 4.4 mmol/L (3.4-5.1); Sodium 136 mmol/L (137-145); Total Protein 6.4 g/dL (6.3-8.2); Triglycerides 105 mg/dL (35-150)
[2022-10-11 10:45] LABS: Vitamin D 25 Hydroxy (D3) 54.9 ng/mL (30.0-100.0)
[2022-10-11 10:58] LABS: TSH w/ Reflex to FT4 2.16 uIU/mL (0.47-4.68)
== END ==
PROVIDERS: PCP Family Medicine; Referring Provider Family Medicine; Visit Provider Family Medicine
DX: I48.91 Unspecified atrial fibrillation (principal); E78.2 Mixed hyperlipidemia; I10 Essential (primary) hypertension; I70.212 Atherosclerosis of native arteries of extremities with intermittent claudication, left leg; Z86.73 Personal history of transient ischemic attack (TIA), and cerebral infarction without residual deficits; Z79.01 Long term (current) use of anticoagulants; Z79.899 Other long term (current) drug therapy; I71.40 Abdominal aortic aneurysm, without rupture, unspecified
CPT/HCPCS: 36415; 80053; 80061; 82306; 84443; 85025; 85610

== ENCOUNTER → 2022-10-13 12:19 | Outpatient (CLI) | payer MEDICARE, OTHER, SELFPAY ==
[2022-10-13 13:29] LABS: Creatinine Urine Random 92.7 mg/dL
[2022-10-13 13:40] LABS: Microalbumin Urine Random < 0.6 mg/dL (0-1.6)
== END ==
PROVIDERS: PCP Family Medicine; Referring Provider Family Medicine; Visit Provider Family Medicine
DX: I10 Essential (primary) hypertension (principal)
CPT/HCPCS: 82043; 82570

== ENCOUNTER → 2024-01-04 10:23 | Outpatient (CLI) | payer MEDICARE, OTHER, SELFPAY ==
[2024-01-04 11:35] LABS: COVID-19 CEPHEID 4-PLEX PCR Negative (Negative); Influenza A - CEPHEID Flu A NEGATIVE (NEGATIVE); Influenza B - CEPHEID Flu B NEGATIVE (NEGATIVE); Respiratory Syncytial Virus Negative (Negative)
== END ==
PROVIDERS: PCP Family Medicine; Visit Provider Physician Assistant Surgical
DX: R05.9 Cough, unspecified (principal)
CPT/HCPCS: 0241U

== ENCOUNTER → 2024-01-04 13:49 | Outpatient (CLI) | payer MEDICARE, OTHER, SELFPAY ==
--- NOTE | 2024-01-04 13:51 | DI.RAD.S_ITS ---
PROCEDURE: XR CHEST 2V INDICATIONS: Productive cough, rhonchi TECHNIQUE: 2 views of the chest were acquired. COMPARISON: [facility], CR, XR CHEST 2V, 09/09/2022, 10:29. FINDINGS: Surgical changes and devices: Stable CABG postsurgical change, cardiac valve prostheses and atrial appendage clip. Partially visualized left shoulder arthroplasty and lumbar spine fixation hardware. Lungs and pleura: Lungs are clear. No pleural effusions or pneumothorax. Mediastinum: Mediastinal contours are normal. Heart size is normal. Bones and chest wall: No suspicious bony abnormalities. Soft tissues appear unremarkable. IMPRESSION: No acute cardiopulmonary abnormality is seen. Dictated by: Vibha Robledo MD, PhD on 01/04/2024 at 14:09 Approved by: Vibha Robledo MD, PhD on 01/04/2024 at 14:10
== END ==
PROVIDERS: PCP Family Medicine; Referring Provider Physician Assistant Surgical; Visit Provider Physician Assistant Surgical
DX: R05.9 Cough, unspecified (principal)
CPT/HCPCS: 0241U; 71046

== ENCOUNTER 2024-03-08 16:16 | Inpatient (IN) | payer MEDICARE, OTHER, SELFPAY ==
[2024-03-08] VITALS (11 sets, daily range): BP systolic 127–145; BP diastolic 61–69; PULSE 74–89; RESP 15–21; TEMP 38; O2SAT 84–98
--- NOTE | 2024-03-08 16:43 | DI.US.S_ITS ---
PROCEDURE: US PERIPH VENOUS UP EXTREM RT INDICATIONS: has PICC, right arm swelling and pain TECHNIQUE: Real-time imaging, as well as color and pulse Doppler interrogation, was performed of the upper extremity deep veins from the inferior neck to the antecubital fossa. COMPARISON: None. FINDINGS: The internal jugular vein, visualized portions of the subclavian vein, axillary, and brachial veins are free of intraluminal thrombus. Where physically possible, the veins are normally compressible. Color and pulse Doppler demonstrate normal intraluminal flow, with expected phasicity and pulsatility. Additional scanning of the cephalic and basilic veins of the superficial system demonstrates normal compressibility, without thrombus. IMPRESSION: No findings of right upper extremity deep venous thrombosis can be seen. Dictated by: Hossein Diaz M.D. on 03/08/2024 at 18:26 Approved by: Hossein Diaz M.D. on 03/08/2024 at 18:26
--- NOTE | 2024-03-08 16:45 | DI.RAD.S_ITS ---
PROCEDURE: XR CHEST 1V INDICATIONS: suspected sepsis TECHNIQUE: One view of the chest was acquired. COMPARISON: [facility], CR, XR CHEST 2V, 01/04/2024, 13:59. FINDINGS: Surgical changes and devices: Valvuloplasty, mitral clip, midline sternotomy, right arm PICC line Lungs and pleura: Small left pleural effusion and minimal bibasilar atelectasis. Mediastinum: Mediastinal contours appear normal. Mild cardiomegaly. Bones and chest wall: No suspicious bony lesions. Overlying soft tissues appear unremarkable. IMPRESSION: Small left pleural effusion and minimal bibasilar atelectasis. Mild cardiomegaly. Dictated by: Hossein Diaz M.D. on 03/08/2024 at 17:40 Approved by: Hossein Diaz M.D. on 03/08/2024 at 17:42
[2024-03-08] MEDS: SODIUM CHLORIDE 0.9% 1,000 ML 1000 ML IV (17:23)
--- NOTE | 2024-03-08 18:12 | ED_ITS ---
HPI - Extremity Problem General Chief complaint: Extremity Problem,Nontraumatic Stated complaint: Right Arm Swelling Time Seen by Provider: 03/08/24 17:49 Source: patient and EMS Mode of arrival: EMS History of Present Illness HPI Narrative: 78-year-old male with history of CVA (residual bilateral lower extremity paralysis, upper extremity weakness), history of aortic valve replacement and mitral valve repair in 2019, recent history of valvular endocarditis ( uncertain which valve was infected) presents from [facility] for right upper extremity swelling and fever. History is obtained from at bedside. Patient has complicated medical history. In January of 2024 patient was flown to [place] for stroke where it was believed that symptoms were caused from infected heart valve. Patient was determined to not be a surgical candidate due to his comorbidities. He was told that he was going to need lifelong antibiotics following his procedure. After approximately 4 weeks in [place] he was discharged to [facility] in [place]. Approximately 1 week ago patient went to [facility] for cough and shortness of breath. He was told at that time he had congestive heart failure. At some point during patient's hospitalization he had a PICC line placed. Yesterday patient had a temperature of 100.0?, today nursing staff was concerned about his right upper extremity swelling and sent patient in for evaluation. states that patient has had swelling in his right upper extremity since his stroke. She does not think it was any worse than his usual. He has chronic weakness in his right arm following his stroke but is able to wiggle his fingers. Related Data Home Medications Medication Instructions Recorded Confirmed apixaban 5 mg tablet (Eliquis) 5 mg PO BID 10/04/19 01/15/24 diclofenac sodium 1 % topical gel 1 % topical DIRECTED 10/04/19 01/15/24 diltiazem HCl 180 mg capsule,24 180 mg PO DAILY 10/04/19 01/15/24 hr,extended release lansoprazole 15 mg capsule,delayed 15 mg PO BID 10/04/19 01/15/24 release lidocaine 5 % topical patch 1 patch topical DIRECTED 10/04/19 01/15/24 tadalafil 5 mg tablet mg 10/04/19 01/15/24 tamsulosin 0.4 mg capsule 0.4 mg PO QPM 10/04/19 01/15/24 valsartan 80 mg tablet (Diovan) 80 mg PO QAM 10/04/19 01/15/24 Previous Rx's Medication Instructions Recorded albuterol sulfate 90 mcg/actuation See Rx Instructions .Route 09/08/22 aerosol inhaler .COMPLEX #20.1 grams inhalational spacing device #1 ea 09/08/22 (Aerochamber MV spacer) benzonatate 200 mg capsule 200 mg PO BID PRN cough #30 caps 01/04/24 ipratropium bromide 21 mcg (0.03 2 spray intranasal BID PRN allergy 01/04/24 %) nasal spray symptoms #30 mL azithromycin 250 mg tablet See Rx Instructions PO .COMPLEX #6 01/15/24 tabs codeine 10 mg-guaifenesin 100 mg/5 5 ml PO ONCE #118 mL 01/15/24 mL oral liquid Allergies Allergy/AdvReac Type Severity Reaction Status Date / Time [id number] Reductase Allergy Unknown Verified 01/15/24 09:41 Inhibitor [QAFWIEA-CLT-WUN REDUCTASE INHIBITOR] Review of Systems Review of Systems Narrative: See HPI Patient History Social History Smoking Status: Never smoker Smoking Status: Never smoker alcohol intake frequency: 0-2 drinks per day Substance Use Type: does not use Exam Initial Vital Signs Initial Vital Signs: Vital Signs Temperature 100.4 F H 03/08/24 16:20 Pulse Rate 89 03/08/24 16:20 Respiratory Rate 16 03/08/24 16:20 Blood Pressure 145/67 H 03/08/24 16:20 Pulse Oximetry 96 03/08/24 16:20 Oxygen Delivery Method Room Air 03/08/24 16:20 Const: Awake, alert, debilitated, frail Cardiac: regular rate, regular rhythm RESP: unlabored, clear bilaterally, no wheezing GI: Soft, nontender, nondistended, no rebound, no guarding MSK: RUE swelling with nonpitting edema. PICC line in RUE with clean dry dressing Skin: Warm, Dry, intact, no rashes Neuro: BLE paralysis. Minimal movement of RUE, aphasia (all baseline per at bedside) Course Orders Ordered: Acetaminophen (Acetaminophen 325 Mg Tablet) 650 mg PO Q6H PRN PRN Reason: Pain, Mild (1-3) Amlodipine Besylate (Amlodipine 5 Mg Tablet) 2.5 mg PO BID [facility] Last Admin: 03/09/24 21:51 Dose: 2.5 mg Documented By: Admin: 03/09/24 11:00 Dose: 2.5 mg Documented By: OSBALDO Apixaban (Apixaban 5 Mg Tablet) 2.5 mg PO BID [facility] Last Admin: 03/09/24 21:50 Dose: 2.5 mg Documented By: Admin: 03/09/24 16:14 Dose: 2.5 mg Documented By: OSBALDO Furosemide (Furosemide 40 Mg Tablet) 40 mg PO DAILY [facility] Last Admin: 03/09/24 16:14 Dose: 40 mg Documented By: OSBALDO Gabapentin (Gabapentin 100 Mg Capsule) 100 mg PO TID [facility] Last Admin: 03/09/24 21:49 Dose: 100 mg Documented By: Admin: 03/09/24 16:15 Dose: 100 mg Documented By: OSBALDO Hydromorphone HCl (Hydromorphone 0.5 Mg Inj) 0.5 mg IV Q2H PRN PRN Reason: Pain, Severe (7-10) Last Admin: 03/09/24 18:15 Dose: 0.5 mg Documented By: OSBALDO Ceftriaxone Sodium 1,000 mg/ (Sodium Chloride) 100 mls @ 200 mls/hr IV Q24H [facility] Last Admin: 03/09/24 20:56 Dose: 200 mls/hr Documented By: Vancomycin HCl/Dextrose (Vancomycin) 1,500 mg in 300 mls @ 200 mls/hr IV Q18H [facility] Last Admin: 03/09/24 17:06 Dose: 200 mls/hr Documented By: OSBALDO Metoprolol Succinate (Metoprolol Er 25 Mg Tablet) 25 mg PO DAILY [facility] Last Admin: 03/09/24 16:14 Dose: 25 mg Documented By: OSBALDO Ondansetron HCl (Ondansetron 4 Mg/2 Ml Inj) 4 mg IV NOW PRN PRN Reason: Nausea And Vomiting Ondansetron HCl (Ondansetron 4 Mg Odt) 4 mg SL NOW PRN PRN Reason: Nausea And Vomiting Oxycodone HCl (Oxycodone Ir 5 Mg Tablet) 5 mg PO Q4HR PRN PRN Reason: Pain, Moderate (4-6) Last Admin: 03/09/24 21:49 Dose: 5 mg Documented By: Potassium Chloride (Potassium Chloride 20 Meq Tab) 20 meq PO DAILYCC [facility] Last Admin: 03/09/24 16:14 Dose: 20 meq Documented By: OSBALDO Sennosides (Sennosides 8.6 Mg Tablet) 8.6 mg PO BID [facility] Last Admin: 03/09/24 21:49 Dose: 8.6 mg Documented By: Admin: 03/09/24 16:15 Dose: 8.6 mg Documented By: OSBALDO Vancomycin HCl (Vancomycin Trough) 1 request [facility] 0430 [facility] Stop: 03/11/24 04:31 Vancomycin HCl (Vancomycin Peak) 1 request [facility] 07 [facility] Stop: 03/11/24 07:31 Discontinued Medications Sodium Chloride (Normal Saline 0.9%) 1,000 mls @ 1,000 mls/hr IV BOLUS ONE Stop: 03/08/24 17:43 Last Infusion: 03/08/24 19:00 Dose: Infused Documented By: Admin: 03/08/24 17:23 Dose: 1,000 mls/hr Documented By: DANICA Vancomycin HCl/Dextrose (Vancomycin) 2,000 mg in 400 mls @ 200 mls/hr IV NOW ONE Stop: 03/08/24 21:37 Last Admin: 03/08/24 19:48 Dose: 200 mls/hr Documented By: DANICA Ceftriaxone Sodium 2,000 mg/ (Sodium Chloride) 100 mls @ 200 mls/hr IV NOW ONE Stop: 03/08/24 19:39 Last Admin: 03/08/24 19:47 Dose: 200 mls/hr Documented By: DANICA Vital Signs Vital signs: Vital Signs - 8 hr 03/08/24 16:20 03/08/24 16:50 03/08/24 17:00 Temperature 100.4 F H Pulse Rate 89 89 89 Respiratory Rate 16 19 Blood Pressure 145/67 H Pulse Oximetry 96 97 98 Oxygen Delivery Method Room Air 03/08/24 17:30 Temperature Pulse Rate 82 Respiratory Rate 21 Blood Pressure Pulse Oximetry 95 Oxygen Delivery Method MDM - Extremity (Nontraumatic) Differential Diagnosis Differential diagnosis: Likely herpes zoster, gout and cellulitis Lab Data 03/08/24 18:25 03/08/24 18:25 Labs: Lab Results 03/08/24 03/08/24 Range/Units 18:12 18:25 WBC 14.5 H (4.5-11.0) X10^3/uL RBC 3.13 L (4.5-5.9) X10^6/uL Hgb 8.7 L (13.5-17.5) g/dL Hct 26.3 L (41-53) % MCV 84.1 (80-100) fL MCH 27.7 (26-34) PG MCHC 32.9 (30-36) % RDW 16.4 H (11.6-14.8) % Plt Count 258 (150-400) X10^3/uL Neut % (Auto) 82.0 H (50-75) % Lymph % (Auto) 8.6 L (25-40) % [place] % (Auto) 9.0 (3-14) % Eos % (Auto) 0.1 L (2-4) % Baso % (Auto) 0.3 (0-2) % Neut # (Auto) 84793 H (0685-0594) /uL Lymph # (Auto) 1300 (5978-7764) /uL [place] # (Auto) 1300 H (0-900) /uL Eos # (Auto) 0 (0-450) /uL Baso # (Auto) 0 (0-100) /uL PT 14.8 H (9.4-12.5) SECONDS INR 1.3 (0.9-1.3) APTT 32 (25.1-36.5) SECONDS Sodium 131 L (137-145) mmol/L Potassium 3.5 (3.4-5.1) mmol/L Chloride 99 (98-107) mmol/L Carbon Dioxide 31 (22-32) mmol/L BUN 33 H (9-20) mg/dL Creatinine 1.27 H (0.66-1.25) mg/dL Estimated GFR 57 L (>60) mL/min BUN/Creatinine Ratio 26.0 H (6-22) Glucose 115 H (80-110) mg/dL Lactate 1.1 (0.7-2.1) mmol/L Calcium 8.3 L (8.4-10.2) mg/dL Total Bilirubin 0.5 (0.2-1.3) mg/dL AST 26 (17-59) IU/L ALT 7 (<50) IU/L Alkaline Phosphatase 93 (38-126) U/L Total Protein 6.0 L (6.3-8.2) g/dL Albumin 3.0 L (3.5-5.0) g/dL Globulin 3.0 (1.7-4.1) g/dL Albumin/Globulin Ratio 1.0 (1.0-2.8) Lipase 56 (23-300) U/L Procalcitonin 0.281 (<0.5) ng/mL Chlamy pneumoniae PCR Not detected (Not Detect) Adenovirus (PCR) Not detected (Not Detect) B.parapertussis DNA PCR Not detected (Not Detecte) Coronavirus OC43 (PCR) Not detected (Not Detect) Coronavirus HKU1 (PCR) Not detected (Not Detect) Coronavirus 229E (PCR) Not detected (Not Detect) SARS-CoV-2 (PCR) Not detected (Not Detecte) Coronavirus NL63 (PCR) Not detected (Not Detect) Human Metapneumovir PCR Not detected (Not Detect) Influenza Type A (PCR) Not detected (Not Detect) Influenza Type B (PCR) Not detected (Not Detect) M. pneumoniae (PCR) Not detected (Not Detect) Parainfluenza 1 (PCR) Not detected (Not Detect) Parainfluenza 2 (PCR) Not detected (Not Detect) Parainfluenza 3 (PCR) Not detected (Not Detect) Parainfluenza 4 (PCR) Not detected (Not Detect) RSV (PCR) Not detected (Not Detect) Entero/Rhino (PCR) Not detected (Not Detect) Imaging Data Chest x-ray: Radiologist's Impression: PROCEDURE: XR CHEST 1V INDICATIONS: suspected sepsis TECHNIQUE: One view of the chest was acquired. COMPARISON: [facility], , XR CHEST 2V, 01/04/2024, 13:59. FINDINGS: Surgical changes and devices: Valvuloplasty, mitral clip, midline sternotomy, right arm PICC line Lungs and pleura: Small left pleural effusion and minimal bibasilar atelectasis. Mediastinum: Mediastinal contours appear normal. Mild cardiomegaly. Bones and chest wall: No suspicious bony lesions. Overlying soft tissues appear unremarkable. IMPRESSION: Small left pleural effusion and minimal bibasilar atelectasis. Mild cardiomegaly. Dictated by: Hossein Diaz M.D. on 03/08/2024 at 17:40 Approved by: Hossein Diaz M.D. on 03/08/2024 at 17:42 US - DVT: Radiologist's Impression: PROCEDURE: US PERIPH VENOUS UP EXTREM RT INDICATIONS: has PICC, right arm swelling and pain TECHNIQUE: Real-time imaging, as well as color and pulse Doppler interrogation, was performed of the upper extremity deep veins from the inferior neck to the antecubital fossa. COMPARISON: None. FINDINGS: The internal jugular vein, visualized portions of the subclavian vein, axillary, and brachial veins are free of intraluminal thrombus. Where physically possible, the veins are normally compressible. Color and pulse Doppler demonstrate normal intraluminal flow, with expected phasicity and pulsatility. Additional scanning of the cephalic and basilic veins of the superficial system demonstrates normal compressibility, without thrombus. IMPRESSION: No findings of right upper extremity deep venous thrombosis can be seen. Dictated by: Hossein Diaz M.D. on 03/08/2024 at 18:26 Approved by: Hossein Diaz M.D. on 03/08/2024 at 18:26 [facility] Narrative Medical decision making narrative: Ill-appearing gentleman presenting for fever and right upper extremity swelling. Multiple neurologic deficits or at baseline per following his embolic stroke. Patient is already on Ancef. Sepsis order set initiated, but given history of congestive heart failure fluids withheld. Blood cultures drawn and sent to lab. Laboratory work is significant for WBC count 14.5, hemoglobin 8.7, platelet count 258, sodium 131, potassium 3.5, creatinine 1.27, normal liver enzymes. Chest x-ray negative for acute findings. Ultrasound of the right upper extremity negative for DVT. Patient tissue perfusion reassessment completed at 2100. Patient given vancomycin and Rocephin to cover for MRSA and other suspected skin and soft tissue infection organisms. With otherwise normal workup suspicion is that patient may have infected PICC line. Plan to admit patient for further treatment. Discussed patient with Dr. Puente admitting hospitalist, who accepted patient. Discharge Plan Departure Patient Disposition: Admitted As Inpatient Clinical Impression: Problem of extremity, Localized swelling of right upper extremity, Sepsis Admit Date/Time: 03/08/24 23:10 Admit Provider: Alberto Casper
[2024-03-08 18:40] LABS: Add Manual Diff / Slide Review NO; Basophils Absolute Auto 0 /uL (0-100); Basophils Percent Auto 0.3 % (0-2); Eosinophils Absolute Auto 0 /uL (0-450); Eosinophils Percent Auto 0.1 % (2-4); Hematocrit 26.3 % (41-53); Hemoglobin 8.7 g/dL (13.5-17.5); Lymphocytes Absolute Auto 1300 /uL (1100-4500); Lymphocytes Percent Auto 8.6 % (25-40); Mean Corpuscular HGB Conc 32.9 % (30-36); Mean Corpuscular Hemoglobin 27.7 PG (26-34); Mean Corpuscular Volume 84.1 fL (80-100); Monocytes Absolute Auto 1300 /uL (0-900); Neutrophils Absolute Auto 11900 /uL (1500-7000); Platelet Count 258 X10^3/uL (150-400); Red Blood Cell Count 3.13 X10^6/uL (4.5-5.9); Red Cell Distribution Width 16.4 % (11.6-14.8); White Blood Cell Count 14.5 X10^3/uL (4.5-11.0)
[2024-03-08 18:47] LABS: INR 1.3 (0.9-1.3); Prothrombin Time 14.8 SECONDS (9.4-12.5)
[2024-03-08 18:49] LABS: PTT Partial Thromboplastin Tim 32 SECONDS (25.1-36.5)
[2024-03-08 18:50] LABS: Lactate (Lactic Acid) 1.1 mmol/L (0.7-2.1)
[2024-03-08 18:51] LABS: Alanine Aminotransferase 7 IU/L (<50); Alkaline Phosphatase 93 U/L (38-126); Aspartate Aminotransferase 26 IU/L (17-59); Bilirubin Total 0.5 mg/dL (0.2-1.3); Blood Urea Nitrogen 33 mg/dL (9-20); Calcium 8.3 mg/dL (8.4-10.2); Carbon Dioxide 31 mmol/L (22-32); Chloride 99 mmol/L (98-107); Estimated Glomerular Filt Rate 57 mL/min (>60); Glucose 115 mg/dL (80-110); HEMOLYSIS 16 (0-50); Lipase 56 U/L (23-300); Potassium 3.5 mmol/L (3.4-5.1); Sodium 131 mmol/L (137-145)
[2024-03-08 19:07] LABS: Procalcitonin 0.281 ng/mL (<0.5)
[2024-03-08 19:41] LABS: Adenovirus Not Detected (Not Detect); B. parapertussis Not Detected (Not Detecte); Bordetella pertussis Not Detected (Not Detect); Chlamydophila pneumoniae Not Detected (Not Detect); Coronavirus 229E Not Detected (Not Detect); Coronavirus HKU1 Not Detected (Not Detect); Coronavirus NL 63 Not Detected (Not Detect); Coronavirus OC43 Not Detected (Not Detect); Human Metapneumovirus Not Detected (Not Detect); Human Rhinovirus/Enterovirus Not Detected (Not Detect); Influenza A Not Detected (Not Detect); Influenza B Not Detected (Not Detect); Mycoplasma pneumoniae Not Detected (Not Detect); Parainfluenza Virus 1 Not Detected (Not Detect); Parainfluenza Virus 2 Not Detected (Not Detect); Parainfluenza Virus 3 Not Detected (Not Detect); Parainfluenza Virus 4 Not Detected (Not Detect); Respiratory Syncytial Virus Not Detected (Not Detect); SARS- CoV-2 Not Detected (Not Detecte)
[2024-03-08] MEDS: cefTRIAXone 2,000 MG in SODIUM CHLORIDE 0.9% 100 ML 200 MG IV (19:47)
[2024-03-08] MEDS: VANCOMYCIN 2,000 MG/400 ML PIGGYBACK 200 MG IV (19:48)
[2024-03-09] MEDS: AMLODIPINE 5 MG TABLET 2.5 MG PO ×2 (11:00→21:51)
[2024-03-09] MEDS: OXYCODONE IR 5 MG TABLET PO ×2 (11:25→21:49)
[2024-03-09] MEDS: FUROSEMIDE 40 MG TABLET PO (16:14)
[2024-03-09] MEDS: APIXABAN 5 MG TABLET 2.5 MG PO ×2 (16:14→21:50)
[2024-03-09] MEDS: METOPROLOL ER 25 MG TABLET PO (16:14)
[2024-03-09] MEDS: POTASSIUM CHLORIDE 20 MEQ TAB PO (16:14)
[2024-03-09] MEDS: GABAPENTIN 100 MG CAPSULE PO ×2 (16:15→21:49)
[2024-03-09] MEDS: SENNOSIDES 8.6 MG TABLET PO ×2 (16:15→21:49)
[2024-03-09 16:49] VITALS: BP 164/75; PULSE 87; RESP 18; TEMP 36.8; O2SAT 99
--- NOTE | 2024-03-09 17:02 | PM.PN.1 ---
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 This is improved today. Patient is non-verbal unable to talk at this time. No further fever today. Monitoring here to see if blood cultures remain negative, if positive again will need to reach out to his infectious disease provider Dr. Treviño. PICC line was removed, has peripheral IV access. Exam Vital Signs (past 8 hours): - 03/09/24 16:49 Temperature 98.3 F Pulse Rate 87 Respiratory Rate 18 Blood Pressure 164/75 H Pulse Oximetry 99 Oxygen Flow Rate 0 Oxygen Delivery Method Room Air Oxygen Flow Rate 0 Narrative Exam Narrative: Gen: No acute distress, non verbal, nods somewhat appropriately CV: RRR no m/r/g Pulm: CTA b/l Abd: S NT ND Ext: No edema or rash, mild LUE swelling, minimal erythema, no induration / purulence noted. Skin: approx 6 cm stage 2 sacral ulcer. and r upper back ulcer stage 2. Objective Labs 03/08/24 18:25 03/08/24 18:25 Labs: Laboratory Results - last 24 hr 03/08/24 03/08/24 18:12 18:25 WBC 14.5 H RBC 3.13 L Hgb 8.7 L Hct 26.3 L MCV 84.1 MCH 27.7 MCHC 32.9 RDW 16.4 H Plt Count 258 Neut % (Auto) 82.0 H Lymph % (Auto) 8.6 L [place] % (Auto) 9.0 Eos % (Auto) 0.1 L Baso % (Auto) 0.3 Neut # (Auto) 52929 H Lymph # (Auto) 1300 [place] # (Auto) 1300 H Eos # (Auto) 0 Baso # (Auto) 0 PT 14.8 H INR 1.3 APTT 32 Sodium 131 L Potassium 3.5 Chloride 99 Carbon Dioxide 31 BUN 33 H Creatinine 1.27 H Estimated GFR 57 L BUN/Creatinine Ratio 26.0 H Glucose 115 H Lactate 1.1 Calcium 8.3 L Total Bilirubin 0.5 AST 26 ALT 7 Alkaline Phosphatase 93 Total Protein 6.0 L Albumin 3.0 L Globulin 3.0 Albumin/Globulin Ratio 1.0 Lipase 56 Procalcitonin 0.281 Chlamy pneumoniae PCR Not detected Adenovirus (PCR) Not detected B.parapertussis DNA PCR Not detected Coronavirus OC43 (PCR) Not detected Coronavirus HKU1 (PCR) Not detected Coronavirus 229E (PCR) Not detected SARS-CoV-2 (PCR) Not detected Coronavirus NL63 (PCR) Not detected Human Metapneumovir PCR Not detected Influenza Type A (PCR) Not detected Influenza Type B (PCR) Not detected M. pneumoniae (PCR) Not detected Parainfluenza 1 (PCR) Not detected Parainfluenza 2 (PCR) Not detected Parainfluenza 3 (PCR) Not detected Parainfluenza 4 (PCR) Not detected RSV (PCR) Not detected Entero/Rhino (PCR) Not detected PFSH Social History Smoking Status: Never smoker Assessment & Plan Assessment & Plan narrative: 1. PICC line infection - PICC line was removed. Monitor blood cultures for 24-48 hours and for recurrence of fever. - added vanco per pharmacy - continue cefazolin 2g q8 (end date 03/19/2024) 2. 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 Stage 2 pressure ulcers, present on admission - frequent repositioning and local bedside wound care per nursing protocols. 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
[2024-03-09] MEDS: VANCOMYCIN 1,500 MG/300 ML PIGGYBACK 200 MG IV (17:06)
--- NOTE | 2024-03-09 17:30 | PC.NURSE ---
EMR downtime from 03/08/24 @ 1999 to 03/09/24 @ approximately 1600. Refer to paper documentation.
[2024-03-09] MEDS: HYDROMORPHONE 0.5 MG INJ IV (18:15)
[2024-03-09 18:34] VITALS: PULSE 68
[2024-03-09 20:36] VITALS: BP 136/84; PULSE 77; RESP 17; TEMP 37.1; O2SAT 95
[2024-03-09] MEDS: cefTRIAXone 1,000 MG in SODIUM CHLORIDE 0.9% 100 ML 200 MG IV (20:56)
[2024-03-10] VITALS (10 sets, daily range): BP systolic 124–150; BP diastolic 60–86; PULSE 72–125; RESP 18–20; TEMP 36.2–37; O2SAT 96–99
[2024-03-10 05:21] LABS: Add Manual Diff / Slide Review NO; Basophils Absolute Auto 0 /uL (0-100); Basophils Percent Auto 0.2 % (0-2); Eosinophils Absolute Auto 200 /uL (0-450); Eosinophils Percent Auto 1.8 % (2-4); Hematocrit 25.9 % (41-53); Hemoglobin 8.6 g/dL (13.5-17.5); Lymphocytes Absolute Auto 1000 /uL (1100-4500); Lymphocytes Percent Auto 10.3 % (25-40); Mean Corpuscular HGB Conc 33.3 % (30-36); Mean Corpuscular Hemoglobin 27.8 PG (26-34); Mean Corpuscular Volume 83.6 fL (80-100); Monocytes Absolute Auto 1200 /uL (0-900); Neutrophils Absolute Auto 7400 /uL (1500-7000); Neutrophils Percent Auto 75.7 % (50-75); Platelet Count 263 X10^3/uL (150-400); Red Cell Distribution Width 16.4 % (11.6-14.8); White Blood Cell Count 9.8 X10^3/uL (4.5-11.0)
[2024-03-10 05:31] LABS: Alanine Aminotransferase 7 IU/L (<50); Albumin 2.9 g/dL (3.5-5.0); Alkaline Phosphatase 97 U/L (38-126); Aspartate Aminotransferase 24 IU/L (17-59); Bilirubin Total 0.4 mg/dL (0.2-1.3); Blood Urea Nitrogen 33 mg/dL (9-20); Calcium 8.3 mg/dL (8.4-10.2); Carbon Dioxide 28 mmol/L (22-32); Chloride 98 mmol/L (98-107); Estimated Glomerular Filt Rate 55 mL/min (>60); Globulin 2.9 g/dL (1.7-4.1); Glucose 107 mg/dL (80-110); HEMOLYSIS < 15 (0-50); Magnesium 1.7 mg/dL (1.6-2.3); Potassium 3.3 mmol/L (3.4-5.1); Sodium 132 mmol/L (137-145); Total Protein 5.8 g/dL (6.3-8.2)
[2024-03-10] MEDS: HYDROMORPHONE 0.5 MG INJ IV ×2 (06:42→14:05)
[2024-03-10] MEDS: APIXABAN 5 MG TABLET 2.5 MG PO ×2 (08:28→20:40)
[2024-03-10] MEDS: AMLODIPINE 5 MG TABLET 2.5 MG PO ×2 (08:28→20:40)
[2024-03-10] MEDS: POTASSIUM CHLORIDE 20 MEQ TAB PO (08:28)
[2024-03-10] MEDS: METOPROLOL ER 25 MG TABLET PO ×2 (08:29→14:33)
[2024-03-10] MEDS: FUROSEMIDE 40 MG TABLET PO ×3 (08:29→20:40)
[2024-03-10] MEDS: GABAPENTIN 100 MG CAPSULE PO ×3 (08:29→20:41)
[2024-03-10] MEDS: SENNOSIDES 8.6 MG TABLET PO ×2 (08:30→20:40)
[2024-03-10] MEDS: CEFAZOLIN 2 GM/100 ML PREMIX 100 ML IV ×2 (10:32→18:46)
--- NOTE | 2024-03-10 12:52 | CM.DPNOTE ---
DCP Note TINT LAYER reviewed EMR/paper chart. Per hospitalist in morning rounds, pt blood cultures came back negative. Working on getting midline and pt can return back to [facility], likely tomorrow. TINT LAYER spoke with Jocelyne from and updated her, march reports that can take him back whenever. time pending. no new PASRR needed. TINT LAYER met with pt and spouse in room. In agreement with plan. P: dc to [facility] when medically stable, anticipate tomorrow(Monday). CM team will follow clsoely to coordinate time. KATY Bradley
--- NOTE | 2024-03-10 13:54 | PT.IIE ---
Addendum entered and electronically signed by Meka Rico PT 03/10/24 13:56: PT provides direct supervision during SPT evaluation Original Note: Physical Therapy Inpatient Evaluation/Re-Eval M1 PT/OT-IP Prior Functional Status Start: 03/10/24 11:43 Freq: NEEDED Status: Active Protocol: Document 03/10/24 12:30 JG (Rec: 03/10/24 13:51 JKayla [id number]) Medical Review Prior Functional Status Medical History Reviewed Yes Communication Unsure of baseline diet. For lunch, pt is eating what appears to be mechanical soft diet Mobility and Gait Pt is non-verbal with PT today , anticipate that he required lift for OOB given baseline LE functional paraplegia Activities of Daily Living and IADL's As above. At end of PT assessment, PT sets up lunch and pt can then self-feed using spoon with left hand for soft foods of mac and cheese Social History Additional Social History Comment Per rounds, pt was adm from [facility] where he was receiving IV anti-biotics. SNF is accessible. Unsure of his baseline mobility before SNF. M2 PT-IP Current Condition Start: 03/10/24 11:43 Freq: NEEDED Status: Active Protocol: Document 03/10/24 12:30 JKayla (Rec: 03/10/24 13:51 Traci [id number]) Physical Therapy Current Condition Current Condition Evaluation Date 03/10/24 Treatment Diagnosis Endocarditis and RUE swelling from PICC M3 PT-IP Subjective Start: 03/10/24 11:43 Freq: NEEDED Status: Active Protocol: Document 03/10/24 12:30 JG (Rec: 03/10/24 13:51 JOAO [id number]) Subjective Physical Therapy Visit Type Type Initial Evaluation Visit Start Time 12:30 Visit Stop Time 12:55 Number of HACK DRIVER Visits 0 Physical Therapy Visit Comments Patient Comments Pt is non-verbal today with PT . He does nod occ when being asked yes or no questions Therapy Pain Assessment Pain When Pain Assessed LLE PROM Pain Present Pain Present Pain Reported Location LLE Intensity 6 Scale Used Sandoval-Venegas (Faces) Pain Behaviors Facial Grimacing Right Arm Description With Movement M4 PT-IP Mobility and Gait Start: 03/10/24 11:43 Freq: NEEDED Status: Active Protocol: Document 03/10/24 12:30 JG (Rec: 03/10/24 13:51 JG [id number]) PT-Transfer Assessment Comments Mobility Comments Offered getting pt to EOB and when asked, pt nods, no. Goal was to assess sitting balance but pt declined attempt today. Given no AROM LEs, right shoulder and elbow, anticipate total assistance for rolling, bed mobility and OOB M5 PT-IP Objective Assessments Start: 03/10/24 11:43 Freq: NEEDED Status: Active Protocol: Document 03/10/24 12:30 Traci (Rec: 03/10/24 13:51 [id number]) Orientation Orientation/Cognition Level of Alertness Lethargic Language Function Ability Expressive Aphasia Comments Pt follows one-step commands consistently with joints that can move such as feeding himself with left hand, left arm AAROM movements, and R hand squeezing. Chart says baseline aphasia an unsure what time, will defer to CONTROLS OPERATOR [employer] Gross Range of Motion Upper Extremity ROM Assessment Bilaterally Impaired Impairments Unable to move R UE except for hand squeezing. L UE required active assistance from PT to move and was unable to achieve shoulder flexion over 90 deg. Right elbow contracture lacking grossly 20 deg extension and right elbow grossly functional to extension Lower Extremity ROM Assessment Bilaterally Impaired Impairments Pt was unable to move LE limbs B. PROM B LEs functional except for left hip abduction which is tight and causes grimace and all toes appear tight and flexed, likely PIP and DIP joint changes Strength Upper Extremity Strength Assessment Bilaterally Impaired Lower Extremity Strength Assessment Bilaterally Impaired Hip 0 Knee 0 Ankle 0 Comments Strength Comments MMT not performed d/t decreased command following and right blood bank laboratory professional is not functional though left blood bank laboratory professional and arm use of hand, wrist and elbow are functional for eating Coordination Assessment Gross Coordination Gross Coordination Impaired Sensation Assessment Comments Sensation Comments Unsure d/t unable to follow commands/report Muscle Tone Muscle Tone WNL No Comments Muscle Tone Comments Pt had muscle hypertonicity in B LE with knee flexion and R UE with elbow ext, left hip abduction M7 PT-IP Assessment and Plan Start: 03/10/24 11:43 Freq: NEEDED Status: Active Protocol: Document 03/10/24 12:30 JKayla (Rec: 03/10/24 13:51 [id number]) PT Summary Assessment and Plan Summary Assessment Summary Pt is a 78 year old male that presents with history of CVA and endocarditis. Pt likely has expressive aphasia and responds to one step commands in joints that he can move. Pt has increased muscle tone in LE B and R UE. Pt grimaces when moving the LLE into flexion and abduction. Pt presents edema L>R LE and medial side of R arm. Pt denied any attempt at bed mobility. From rounds, it appears that pt was heavy assistance at SNF and the plan is to d/c back for IV use. No acute skilled PT needs and recommend OOB with total lift and nsg. Frequency of Treatment Frequency Of Treatment Discharge Recommendations To Nursing Amount of Assist Needed Total Assistance,Mechanical Lift Discharge Recommendations PT Discharge Recommendations SNF Rehab Other Discharge Recommendations Will D/c to [facility] Transportation Needs at Discharge Stretcher/Ambulance
[2024-03-10] MEDS: POTASSIUM CHLORIDE 20 MEQ TAB 40 MEQ PO (14:33)
--- NOTE | 2024-03-10 16:14 | P.PN_ITS ---
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 This is improved today. Patient is non-verbal unable to talk at this time. No further fever today. Monitoring here to see if blood cultures remain negative, if positive again will need to reach out to his infectious disease provider Dr. Treviño. PICC line was removed, has peripheral IV access. Exam Vital Signs (past 8 hours): - 03/10/24 08:24 03/10/24 08:29 03/10/24 08:59 Temperature 97.1 F L Pulse Rate 72 87 90 Respiratory Rate 20 Blood Pressure 140/68 132/86 Pulse Oximetry 99 03/10/24 12:28 03/10/24 14:33 Temperature 97.5 F L Pulse Rate 89 125 H Respiratory Rate 18 Blood Pressure 150/76 H Pulse Oximetry 98 Oxygen Delivery Method Room Air Oxygen Flow Rate 0 Narrative Exam Narrative: Gen: No acute distress, non verbal, nods somewhat appropriately CV: RRR no m/r/g Pulm: CTA b/l Abd: S NT ND Ext: No edema or rash, RUE swelling minimal now no erythema or induration at previous PICC site. Skin: approx 6 cm stage 2 sacral ulcer. and r upper back ulcer stage 2. Objective Labs 03/10/24 04:50 03/10/24 04:50 Labs: Laboratory Results - last 24 hr 03/10/24 04:50 WBC 9.8 RBC 3.10 L Hgb 8.6 L Hct 25.9 L MCV 83.6 MCH 27.8 MCHC 33.3 RDW 16.4 H Plt Count 263 Neut % (Auto) 75.7 H Lymph % (Auto) 10.3 L [place] % (Auto) 12.0 Eos % (Auto) 1.8 L Baso % (Auto) 0.2 Neut # (Auto) 7400 H Lymph # (Auto) 1000 L [place] # (Auto) 1200 H Eos # (Auto) 200 Baso # (Auto) 0 Sodium 132 L Potassium 3.3 L Chloride 98 Carbon Dioxide 28 BUN 33 H Creatinine 1.32 H Estimated GFR 55 L BUN/Creatinine Ratio 25.0 H Glucose 107 Calcium 8.3 L Magnesium 1.7 Total Bilirubin 0.4 AST 24 ALT 7 Alkaline Phosphatase 97 Total Protein 5.8 L Albumin 2.9 L Globulin 2.9 Albumin/Globulin Ratio 1.0 PFSH Social History Smoking Status: Never smoker Assessment & Plan Assessment & Plan narrative: 1. PICC line infection - PICC line was removed. Monitor blood cultures for 48 hours and for recurrence of fever. - added vanco per pharmacy, but now discontinued with thus far negative cultures. - continue cefazolin 2g q8 (end date 03/19/2024) 2. 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 Stage 2 pressure ulcers, present on admission - frequent repositioning and local bedside wound care per nursing protocols. 4.paroxysmal afib with RVR - patient with sinus tachycardia, 130s today, has history of atrial fibrillation - gave extra dose of home metoprolol today, had been only on daily instead of usual BID dosing. - no signs of heart failure or acs. - continue telemetry, - continue home eliquis. 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
[2024-03-11 00:09] VITALS: BP 128/72; PULSE 86; RESP 18; TEMP 37; O2SAT 96
[2024-03-11] MEDS: CEFAZOLIN 2 GM/100 ML PREMIX 100 ML IV ×3 (01:10→17:41)
[2024-03-11 05:49] LABS: Add Manual Diff / Slide Review NO; Basophils Absolute Auto 0 /uL (0-100); Basophils Percent Auto 0.4 % (0-2); Eosinophils Absolute Auto 100 /uL (0-450); Eosinophils Percent Auto 1.5 % (2-4); Hematocrit 25.4 % (41-53); Hemoglobin 8.7 g/dL (13.5-17.5); Lymphocytes Absolute Auto 1200 /uL (1100-4500); Lymphocytes Percent Auto 13.4 % (25-40); Mean Corpuscular HGB Conc 34.2 % (30-36); Monocytes Absolute Auto 1000 /uL (0-900); Monocytes Percent Auto 10.7 % (3-14); Neutrophils Absolute Auto 6800 /uL (1500-7000); Platelet Count 286 X10^3/uL (150-400); Red Cell Distribution Width 16.2 % (11.6-14.8); White Blood Cell Count 9.1 X10^3/uL (4.5-11.0)
[2024-03-11 06:07] LABS: Alanine Aminotransferase 10 IU/L (<50); Alkaline Phosphatase 102 U/L (38-126); Aspartate Aminotransferase 27 IU/L (17-59); BUN Creatinine Ratio 28.9 (6-22); Bilirubin Total 0.3 mg/dL (0.2-1.3); Blood Urea Nitrogen 39 mg/dL (9-20); Calcium 8.6 mg/dL (8.4-10.2); Carbon Dioxide 27 mmol/L (22-32); Chloride 96 mmol/L (98-107); Estimated Glomerular Filt Rate 53 mL/min (>60); Glucose 108 mg/dL (80-110); HEMOLYSIS < 15 (0-50); Magnesium 1.5 mg/dL (1.6-2.3); Potassium 3.4 mmol/L (3.4-5.1); Sodium 130 mmol/L (137-145)
--- NOTE | 2024-03-11 08:57 | PC.NURSE ---
Addendum entered by Layne Colón R.N. 03/11/24 16:36: Patient has been incontinent of two large bowel movements this shift. He is total care and does not have any use of his legs as he had a cva in December.He is able to feed himself and does speak at times. Mag rider tolerated well, he was changed and put into a different bed. Patient also tolerating his iv antibiotics well. Addendum entered by Layne Colón R.N. 03/11/24 13:12: Patient had a long run of [employer], his blood pressures was 130s/60s. Dr. Vanegas is aware of this. Original Note: Patient is in good spirits this morning. He does talk but it takes him a moment to answer. Patient has a skin ulcer to r.upper back and to coccyx, area's are dressed and intact. Patient ate well at breakfast and fed himself. He is pleasant and appreciative of all care. He will be turned and repositioned to get off of his bottom and will also be floated with pillows.
[2024-03-11 09:12] VITALS: BP 128/72; PULSE 94; RESP 16; TEMP 36.7; O2SAT 97
[2024-03-11] MEDS: AMLODIPINE 5 MG TABLET 2.5 MG PO ×2 (09:39→20:25)
[2024-03-11] MEDS: POTASSIUM CHLORIDE 20 MEQ TAB PO (09:39)
[2024-03-11] MEDS: FUROSEMIDE 40 MG TABLET PO ×2 (09:40→20:26)
[2024-03-11] MEDS: SENNOSIDES 8.6 MG TABLET PO ×2 (09:40→20:26)
[2024-03-11] MEDS: GABAPENTIN 100 MG CAPSULE PO ×3 (09:40→20:26)
[2024-03-11] MEDS: METOPROLOL ER 25 MG TABLET PO ×2 (09:40→20:26)
[2024-03-11] MEDS: OXYCODONE IR 5 MG TABLET PO (09:40)
[2024-03-11] MEDS: APIXABAN 5 MG TABLET 2.5 MG PO ×2 (09:40→20:26)
--- NOTE | 2024-03-11 11:48 | CM.DPNOTE ---
DCP Note SUPERVISOR JOINERS reviewed EMR. Per hospitalist in morning multidisciplinary rounds, another day or so before stable for dc. Per RN, unclear midline/PICC plan at this time. SUPERVISOR JOINERS met with spouse and pt in room. Agree to retrn to [facility] whenever medically stable. KATY Vega kindly agreed to update [facility] at [facility], [facility] able to take pt tomorrow/when medically stable. P: ANticipate return to [facility] when stable. No PASRR needed. CM team will follow closely. KATY Bradley
--- NOTE | 2024-03-11 12:25 | PM.PN.1 ---
Subjective Subjective Interval history: He is doing well today. No fevers. No new complaints other than chronic back pain. He has a history of chronic pain and a lumbar fusion. He did have a very large bowel movement this morning. Exam Vital Signs (past 8 hours): - 03/11/24 09:12 Temperature 98.1 F Pulse Rate 94 H Respiratory Rate 16 Blood Pressure 128/72 Pulse Oximetry 97 Oxygen Delivery Method Room Air Oxygen Flow Rate 0 Narrative Exam Narrative: NAD, alert and oriented. Speaks very little Lungs are clear, normal rate and effort. Heart is regular, no murmur gallop or rub. Abdomen is soft, non distended. Extremities are free of edema. Minimal right upper extremity swelling and no redness. Skin: approx 6 cm stage 2 sacral ulcer. and r upper back ulcer stage 2. Objective Labs 03/11/24 04:55 03/11/24 04:55 Labs: Laboratory Results - last 24 hr 03/11/24 04:55 WBC 9.1 RBC 3.10 L Hgb 8.7 L Hct 25.4 L MCV 82.0 MCH 28.0 MCHC 34.2 RDW 16.2 H Plt Count 286 Neut % (Auto) 74.0 Lymph % (Auto) 13.4 L [place] % (Auto) 10.7 Eos % (Auto) 1.5 L Baso % (Auto) 0.4 Neut # (Auto) 6800 Lymph # (Auto) 1200 [place] # (Auto) 1000 H Eos # (Auto) 100 Baso # (Auto) 0 Sodium 130 L Potassium 3.4 Chloride 96 L Carbon Dioxide 27 BUN 39 H Creatinine 1.35 H Estimated GFR 53 L BUN/Creatinine Ratio 28.9 H Glucose 108 Calcium 8.6 Magnesium 1.5 L Total Bilirubin 0.3 AST 27 ALT 10 Alkaline Phosphatase 102 Total Protein 6.0 L Albumin 3.0 L Globulin 3.0 Albumin/Globulin Ratio 1.0 PFSH Social History Smoking Status: Never smoker Assessment & Plan Assessment & Plan narrative: 1. PICC line infection, ruled out. - PICC line was removed. Monitor blood cultures for 48 hours and for recurrence of fever. - added vanco per pharmacy, but now discontinued with thus far negative cultures. - continue cefazolin 2g q8 (end date 03/19/2024) 2. 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 - continue cefazolin 2g q8 hours as noted above 3. Stage 2 pressure ulcers, present on admission and stable. - frequent repositioning and local bedside wound care per nursing protocols. 4.paroxysmal afib with RVR, improved. - patient with sinus tachycardia, 130s today, has history of atrial fibrillation - gave extra dose of home metoprolol today, had been only on daily instead of usual BID dosing. - continue home eliquis. 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 Code: DNR, surrogate is patient's spouse
[2024-03-11] MEDS: MAGNESIUM SULFATE 2 GM/50 ML PIGGYBACK IV (13:30)
[2024-03-11 14:07] VITALS: BP 112/61; PULSE 82; RESP 19; TEMP 37.3; O2SAT 99
--- NOTE | 2024-03-11 16:00 | OT.IP.EVAL ---
Current Diagnoses Infection and inflammatory reaction due to cardiac valve prosthesis, initial encounter (03/08/24) Occupational Therapy Inpatient Evaluation/Re-Eval M1 PT/OT-IP Prior Functional Status Start: 03/10/24 11:43 Freq: NEEDED Status: Active Protocol: Document 03/11/24 16:53 CGR (Rec: 03/11/24 17:13 CGR [id number]) Medical Review Prior Functional Status Medical History Reviewed Yes Communication Pt is minimally verbal but able to communicate with a strong voice when he chooses. Mobility and Gait Pt is dep for mobility at baseline since his recent CVA. Activities of Daily Living and IADL's Pt is dep for most of his self care but was able to perform simple ADLs in bed or chair including feeding self. Social History Living Arrangements Assisted Living Additional Social History Comment Per chart, pt was admitted from [facility] ([facility] Pt is likely a longterm resident. M2 OT-IP Current Condition Start: 03/11/24 16:53 Freq: Status: Active Protocol: Document 03/11/24 16:53 CGR (Rec: 03/11/24 17:13 CGR [id number]) Occupational Therapy Current Condition Current Condition Evaluation Date 03/11/24 Treatment Diagnosis RUE swelling and fever, recent severe CVA with BLE involvement. Diagnosis Onset Date 03/08/24 M3 OT- IP Subjective and Pain Start: 03/11/24 16:53 Freq: Status: Active Protocol: Document 03/11/24 16:53 CGR (Rec: 03/11/24 17:13 CGR [id number]) OT- Subjective Occupational Therapy Visit Type Type Initial Evaluation Visit Start Time 15:24 Visit Stop Time 16:00 Notes Nursing present in room moving pt from one bed to another. OT Pain Assessment Pain When Pain Assessed At Rest Pain Present Pain Present Denied Pain M4 OT- IP ADL's Start: 03/11/24 16:53 Freq: Status: Active Protocol: Document 03/11/24 16:53 CGR (Rec: 03/11/24 17:13 CGR [id number]) OT RJI-Dcoo-Wemfdla Comments OT Self-Feeding Comments Per nursing, pt fed self breakfast this morning. OT ADL-Grooming General Evaluation Grooming Ability Standby Assistance Areas Needing Assistance Face Washing Comments OT Grooming Comments pt was able to wash face when given wet wash cloth. OT ADL-Oral Care General Eval Oral Care Ability Total Assistance Comments Oral Care Comments Pt given tooth brush and tooth paste after he agreed to brush his teeth but then never initiated the activity. OT ADL-Dressing General Eval Lower Body Dressing Ability Total Assistance Areas Needing Assistance Underpants/Brief,Socks Comments OT Dressing Comments Pt needed brief change OT ADL-Toileting General Evaluation Toileting Ability Total Assistance Areas Needing Assistance Manage Clothing Comments OT Toileting Comments Pt had BM. Pt needed total assist with cleaning in bed OT ADL-Bathing Comments OT Bathing Comments not performed M5 OT- IP IADL's Start: 03/11/24 16:53 Freq: Status: Active Protocol: Document 03/11/24 16:53 CGR (Rec: 03/11/24 17:13 CGR [id number]) OT-Instrumental Activities of Daily Living Deficits IADL Deficits Identified Deficits Home Safety Awareness Awareness of Need for Assistance at Home Decreased Awareness Medication Management Medication Management Caregiver Administers Money Management Money Management Caregiver Provides Assistance Meal Preparation Meal Preparation Caregiver Provides Assist Panel Edge Painter Panel Edge Painter Caregiver Provides Assist Driving Driving Comments Pt does not drive. M6 OT- IP Functional Cognition Start: 03/11/24 16:53 Freq: Status: Active Protocol: Document 03/11/24 16:53 CGR (Rec: 03/11/24 17:13 CGR [id number]) Cognitive Factors Limiting Selfcare Function Cognitive Ability Level of Alertness Alert Patient Orientation Name,Age,Birthday,Month,Date, Year,Day of Week,Place, Situation Attention Span Ability Capable of Focused Attention, Capable of Sustained Attention Ability to Follow Commands Able to Follow One Step Commands with Increased Time, Able to Follow One Step Commands with Repetition Cognitive Comments Cognitive Assessment Comments Pt is able to respond but often needs extra time. Pt typically chooses to speak in one word statements but is able to speak setences. Unsure of pt's true cognitive abilities. OT- Vision and Hearing OT- Hearing Assessment OT- Hearing Assessment Hearing Impaired OT- Vision Assessment Visual Attentiveness WFL Occular Pursuits WFL Vision Assessment Comments unsure if pt wears glasses. M7 OT- IP Mobility and Balance Start: 03/11/24 16:53 Freq: Status: Active Protocol: Document 03/11/24 16:53 CGR (Rec: 03/11/24 17:13 CGR [id number]) OT- Bed Mobility Assessment Rolling Type of Rolling Roll to Right,Roll to Left Level of Assistance Maximum Assistance,1 Person Assistance OT-Transfer Assessment Comments Mobility Comments pt is bedbound at baseline since recent CVA and flaccid BLE. OT- Gait Assessment Comments Gait Ability Comments Does not occur at baseline. OT- Balance Assessment Comments Other Balance Tests/Deviations/Treatment did not attempt sitting given : one person assist. M8 OT- IP Objective Assessments Start: 03/11/24 16:53 Freq: Status: Active Protocol: Document 03/11/24 16:53 CGR (Rec: 03/11/24 17:13 CGR [id number]) OT Gross Range of Motion Upper Extremity Range of Motion Assessment Right Impaired ROM Impairments R shld no AROM noted OT Strength Comments Strength Comments B arms and hands 4-/5, R shld flaccid, L shld 3-/5 OT- Coordination Assessment Upper Extremity Finger to Nose Test Within Functional Limits Finger Tapping Test Within Functional Limits OT Sensation Assessment Edema Edema Absent M9 OT- IP Assessment and Plan Start: 03/11/24 16:53 Freq: Status: Active Protocol: Document 03/11/24 16:53 CGR (Rec: 03/11/24 17:13 CGR [id number]) OT Summary Assessment and Plan Potential Rehabilitation Potential Fair Analytic Complexity at Evaluation High Summary OT Impairments Strength,Balance,Functional Cognition,Functional Mobility, Grooming,Dressing,Toileting, Bathing,Toilet Transfers, Shower Transfers,Activity Tolerance Progress Towards Goals Progressing Toward Goals Assessment Summary Pt presents as a high complexity evaluation after admission for R arm infection from PICC line. Pt has a recent hx of severe CVA with BLE involvement. Pt currently without movement to the R shld but otherwise RUE is equal in strength to LUE. Pt is able to feed self and is likley close to his new baseline level. Will continue to follow for 1-2 days for futher needs . Goals Self-Feeding Goal Independent Grooming Goal Independent OT-Other Goals increase BUE strength to 4/5, increase B shld strength to 4- /5 Days to Meet Goals 10 Frequency of Treatment Frequency Of Treatment Once a Day Treatment Plan OT Treatment Plan ADL Training,Functional Cognition Training,Functional Mobility,Therapeutic Exercises ,Patient/Family Education, Discharge Planning Other Treatment Recommendations and Next UE therex, cog assessment Treatment Focus Discharge Recommendations OT Discharge Recommendations SNF Rehab Transportation Needs at Discharge Stretcher/Ambulance
[2024-03-11 18:20] VITALS: BP 150/81
[2024-03-11 20:50] VITALS: BP 134/72; PULSE 84
[2024-03-12] VITALS: BP 134/75; PULSE 82; RESP 19; TEMP 36.5; O2SAT 98
[2024-03-12] MEDS: CEFAZOLIN 2 GM/100 ML PREMIX 100 ML IV ×2 (02:36→09:38)
[2024-03-12 04:30] VITALS: BP 113/64; PULSE 76; RESP 18; TEMP 36.6; O2SAT 94
[2024-03-12 05:29] LABS: Add Manual Diff / Slide Review NO; Basophils Absolute Auto 0 /uL (0-100); Basophils Percent Auto 0.2 % (0-2); Eosinophils Absolute Auto 100 /uL (0-450); Eosinophils Percent Auto 1.6 % (2-4); Hematocrit 24.9 % (41-53); Hemoglobin 8.3 g/dL (13.5-17.5); Lymphocytes Absolute Auto 1100 /uL (1100-4500); Lymphocytes Percent Auto 12.7 % (25-40); Mean Corpuscular HGB Conc 33.3 % (30-36); Mean Corpuscular Hemoglobin 27.4 PG (26-34); Mean Corpuscular Volume 82.4 fL (80-100); Monocytes Absolute Auto 800 /uL (0-900); Monocytes Percent Auto 9.7 % (3-14); Neutrophils Absolute Auto 6500 /uL (1500-7000); Neutrophils Percent Auto 75.8 % (50-75); Platelet Count 292 X10^3/uL (150-400); Red Blood Cell Count 3.03 X10^6/uL (4.5-5.9); Red Cell Distribution Width 16.3 % (11.6-14.8); White Blood Cell Count 8.6 X10^3/uL (4.5-11.0)
[2024-03-12 05:38] LABS: Alanine Aminotransferase 8 IU/L (<50); Albumin 2.8 g/dL (3.5-5.0); Alkaline Phosphatase 99 U/L (38-126); Aspartate Aminotransferase 29 IU/L (17-59); BUN Creatinine Ratio 30.1 (6-22); Bilirubin Total 0.3 mg/dL (0.2-1.3); Blood Urea Nitrogen 43 mg/dL (9-20); Calcium 8.3 mg/dL (8.4-10.2); Carbon Dioxide 30 mmol/L (22-32); Chloride 97 mmol/L (98-107); Estimated Glomerular Filt Rate 50 mL/min (>60); Globulin 2.9 g/dL (1.7-4.1); Glucose 111 mg/dL (80-110); HEMOLYSIS < 15 (0-50); Magnesium 1.9 mg/dL (1.6-2.3); Potassium 3.5 mmol/L (3.4-5.1); Sodium 131 mmol/L (137-145); Total Protein 5.7 g/dL (6.3-8.2)
[2024-03-12 08:00] VITALS: BP 119/59; PULSE 79; RESP 14; TEMP 37.1; O2SAT 95
[2024-03-12] MEDS: POTASSIUM CHLORIDE 20 MEQ TAB PO (09:24)
[2024-03-12] MEDS: GABAPENTIN 100 MG CAPSULE PO (09:24)
[2024-03-12] MEDS: FUROSEMIDE 40 MG TABLET PO (09:25)
[2024-03-12] MEDS: METOPROLOL ER 25 MG TABLET PO (09:25)
[2024-03-12] MEDS: AMLODIPINE 5 MG TABLET 2.5 MG PO (09:25)
[2024-03-12] MEDS: APIXABAN 5 MG TABLET 2.5 MG PO (09:26)
--- NOTE | 2024-03-12 09:53 | PC.NURSE ---
Patient is awake and ate his breakfast. He has a new midline to his l.upper arm that is working well. IV antibiotics infusing. He denies pain at this time and states that he is not ready for a pain medication yet. Held stool softner as patient had liquid/soft stool twice yesterday and both incontinent of xxl. in room visiting and he is resting now.
--- NOTE | 2024-03-12 11:39 | PM.DS.1 ---
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 This is improved today. Patient is non-verbal unable to talk at this time. No further fever today. Monitoring here to see if blood cultures remain negative, if positive again will need to reach out to his infectious disease provider Dr. Treviño. PICC line was removed, has peripheral IV access. H&P was performed by Dr. Puente (on paper, [facility] Discharge Providers Provider Date of admission: 03/08/24 23:10 Discharge Date: 03/12/24 Primary care physician: EMELI Dawson Consults: 03/10/24 10:45 Consult to Occupational Therapy Evaluate & Treat Comment: Physician Instructions: Evaluate and treat Consult to Physical Therapy Evaluate & Treat Comment: Physician Instructions: Evaluate and Treat Discussed with his Infectious diseases doctor bu phone, Dr. Treviño. Discharge provider: Waylon Vanegas MD Summary Hospital Course Discharge Diagnosis: 1. PICC line infection, ruled out. - PICC line was removed. Monitor blood cultures for 48 hours and for recurrence of fever. - added vanco per pharmacy, but now discontinued with thus far negative cultures. - continue cefazolin 2g q8 (end date 03/19/2024). End date reconfirmed with Dr. Terviño on 03/11. - New Midline placed 03/12. 2. 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 - continue cefazolin 2g q8 hours as noted above 3. Stage 2 pressure ulcers, present on admission and stable. - frequent repositioning and local bedside wound care per nursing protocols. 4.paroxysmal afib with RVR, improved. - patient with sinus tachycardia, 130s today, has history of atrial fibrillation - gave extra dose of home metoprolol today, had been only on daily instead of usual BID dosing. - continue home eliquis. 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 The PICC line was removed and the tip was cultured. He did have redness around the insertion site which resolved. He was treated with vancomycin for a short time in addition to his ongoing Ancef. His tip culture and other blood cultures remained negative. He was discussed very briefly with with Infectious Disease, and his ongoing IV antibiotic plan is unchanged with Ancef through March 19. A new midline was placed in the left arm on March 12 and he will be discharged back to [facility] to complete his antibiotics. Status at Discharge Cognitive/behavioral status at discharge: at baseline, oriented Functional status at discharge: bed bound Overall status at discharge: patient is back to baseline Time Spent with Patient Time spent: Greater than 30 minutes Exam Vital Signs (past 8 hours): - 03/12/24 04:30 03/12/24 08:00 Temperature 98 F 98.8 F Pulse Rate 76 79 Respiratory Rate 18 14 Blood Pressure 113/64 119/59 L Pulse Oximetry 94 95 Oxygen Flow Rate 0 0 Oxygen Delivery Method Room Air Oxygen Flow Rate 0 Narrative Exam Narrative: NAD, alert and oriented. Fluent speech. Lungs are clear, normal rate and effort. Heart is regular, no murmur gallop or rub. Abdomen is soft, non distended. Extremities are free of edema. Objective Labs 03/12/24 04:40 03/12/24 04:40 Labs: Laboratory Results - last 24 hr 03/12/24 04:40 WBC 8.6 RBC 3.03 L Hgb 8.3 L Hct 24.9 L MCV 82.4 MCH 27.4 MCHC 33.3 RDW 16.3 H Plt Count 292 Neut % (Auto) 75.8 H Lymph % (Auto) 12.7 L [place] % (Auto) 9.7 Eos % (Auto) 1.6 L Baso % (Auto) 0.2 Neut # (Auto) 6500 Lymph # (Auto) 1100 [place] # (Auto) 800 Eos # (Auto) 100 Baso # (Auto) 0 Sodium 131 L Potassium 3.5 Chloride 97 L Carbon Dioxide 30 BUN 43 H Creatinine 1.43 H Estimated GFR 50 L BUN/Creatinine Ratio 30.1 H Glucose 111 H Calcium 8.3 L Magnesium 1.9 Total Bilirubin 0.3 AST 29 ALT 8 Alkaline Phosphatase 99 Total Protein 5.7 L Albumin 2.8 L Globulin 2.9 Albumin/Globulin Ratio 1.0 PFSH Social History Smoking Status: Never smoker Discharge Assessment & Plan Assessment and Plan Assessment: 1. PICC line infection, ruled out. - PICC line was removed. - added vanco per pharmacy, but now discontinued with thus far negative cultures. 2. 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 - continue cefazolin 2g q8 hours through 03/19. Dr. Treviño, [facility]. 3. Stage 2 pressure ulcers, present on admission and stable. - frequent repositioning and local bedside wound care per nursing protocols. 4.paroxysmal afib with RVR, improved. Plan of Treatment: Stable for discharge to [facility] to resume nursing care, rehabilitation, and IV antibiotics. Discharge Plan Discharge Plan Patient Disposition: SNF Transfer to: [facility] Under care of provider: Dr. Robbins Provider Discharge Comment: Stable for discharge. IV antibiotics through 03/19 Discharge orders & Medications Prescriptions: Continued lidocaine 5 % adhesive patch,medicated 2 patch topical DAILY diclofenac sodium 1 % gel 1 % TOPICAL QID Eliquis 5 mg tablet 2.5 mg PO BID Patient Comments: TK 1 T PO BID furosemide 40 mg Tablet 40 mg PO BID sennosides [senna] 8.6 mg Tablet 8.6 mg PO DAILY ipratropium-albuterol 0.5 mg-3 mg(2.5 mg base)/3 mL Solution For Nebulization 3 ml INHALATION QID PRN (Reason: Shortness Of Breath Or Wheezing) tizanidine 2 mg Tablet 2 mg PO Q8H PRN (Reason: Muscle Spasm) polyethylene glycol 3350 17 gram Powder In Packet 17 g PO DAILY bacitracin 500 unit/gram Ointment 1 applic TOPICAL DAILY amlodipine 2.5 mg tablet 2.5 mg PO BID famotidine 20 mg Tablet 20 mg PO DAILY metoprolol succinate 25 mg tablet extended release 24 hr 25 mg PO BID doxazosin 2 mg Tablet 2 mg PO BEDTIME potassium chloride 20 mEq Tablet Extended Release 20 meq PO DAILY cefazolin 2 gram Recon Soln 2 g IM Q8H Repatha SureClick 140 mg/mL pen injector 140 mg SUBCUT Q2W tamsulosin 0.4 mg capsule 0.8 mg PO DAILY lansoprazole 15 mg capsule,delayed release(DR/EC) 15 mg PO BID No Action (DME) Aerochamber MV Spacer See Rx Instructions .ROUTE .MEDSUPPLY Qty: 1 0RF Rx Instructions: As directed Medication counseling provided by Pharmacist: No Follow up/Referrals: Christina Weiner ARNP [Primary Care Provider] - Discharge Health Status Multidrug resistant organism: No MDRO Diet/Activity/Treatments Diet: Regular Liquid consistency: Normal/Thin Food texture: Regular Activity: As tolerated. Skin/Wound/Dressing Care Report to your healthcare provider any signs of infection, such as:: chills, fever, increased pain and unusual drainage Special Rehabilitation Services Rehab type: Physical therapy and Occupational therapy Visit Report/Discharge Packet Stand Alone Forms: Patient Portal/API Discharge Data Primary Care Provider: Christina Weiner
--- NOTE | 2024-03-12 11:57 | CM.DPNOTE ---
Addendum entered by KATY Bradley 03/12/24 13:53: Per RN, concerned about pt being martha/being able to fit in a normal wheelchair. From [facility] at , bringing larger wheelchair for him and he was already a martha during his admission there before. DATA WAREHOUSING MANAGER updated RN. SL Original Note: DCP note DATA WAREHOUSING MANAGER reviewed EMR. Per hospitalist in morning multidisciplinary rounds, pt cleared to dc home today. He is getting a midline this morning and will resume original ABX plan with same end date/dose. Per [facility], able to take pt at 3pm today. No pasrr needed. DATA WAREHOUSING MANAGER updated spouse and pt in room. In agreement with plan. DATA WAREHOUSING MANAGER updated CAREER SERVICES REPRESENTATIVE/RN, gave RN report number. ROLY Ward kindly agreed to send dc information/signed med list to [facility] at [facility]. P: dc back to [facility] today at 3pm. CM team will continue to follow as needed. KATY Bradley
[2024-03-12] MEDS: POTASSIUM CHLORIDE 20 MEQ TAB 40 MEQ PO (13:26)
[2024-03-12 13:49] VITALS: BP 136/78; PULSE 81; TEMP 36.3; O2SAT 97
--- NOTE | 2024-03-12 15:04 | PC.NURSE ---
Report called to SNF
== END 2024-03-12 15:04 | DRG 314 ==
LOC: ED 18:00 → AC 03-09 11:36
PROVIDERS: Emergency Medicine; Admitting Provider Internal Medicine; Emergency Provider Emergency Medicine; PCP Family Medicine; Visit Provider Internal Medicine
DX: T82.6XXA Infection and inflammatory reaction due to cardiac valve prosthesis, initial encounter (principal); I33.9 Acute and subacute endocarditis, unspecified; I50.22 Chronic systolic (congestive) heart failure; B95.7 Other staphylococcus as the cause of diseases classified elsewhere; L89.112 Pressure ulcer of right upper back, stage 2; L89.152 Pressure ulcer of sacral region, stage 2; I48.0 Paroxysmal atrial fibrillation; D64.9 Anemia, unspecified; R33.9 Retention of urine, unspecified; I69.365 Other paralytic syndrome following cerebral infarction, bilateral; N18.32 Chronic kidney disease, stage 3b; Z79.01 Long term (current) use of anticoagulants; Z66 Do not resuscitate
CPT/HCPCS: 36415; 71045; 80053; 83605; 83690; 83735; 84145; 85025; 85610; 85730; 87040; 87070; 87205; 87633; 93005; 93010; 93971; 97162; 97167; 97535; 99283; 99284; J0690; J0696; J1170; J3475

== ENCOUNTER 2024-04-09 09:50 | Inpatient (IN) | payer MEDICARE, OTHER, SELFPAY ==
[2024-04-09] VITALS (22 sets, daily range): BP systolic 111–190; BP diastolic 56–83; PULSE 50–84; RESP 12–20; TEMP 36.7–37.4; O2SAT 94–99; BMI 29.3
--- NOTE | 2024-04-09 09:59 | DI.CT.S_ITS ---
PROCEDURE: CT ABDOMEN PELVIS W CON INDICATIONS: Sepsis/sacral wound TECHNIQUE: After the administration of intravenous contrast, axial sections acquired from the lung bases to the pubic symphysis. Coronal and sagittal reformats were performed. For radiation dose reduction, the following was used: automated exposure control, adjustment of mA and/or kV according to patient size. COMPARISON: [facility], CT, CT ABDOMEN PELVIS W CON, 10/04/2019, 16:22. FINDINGS: Image quality: Diagnostic. Lower Chest: Mild left effusion. ABDOMEN: Liver: Scattered simple hepatic cysts. Gallbladder: No radiopaque gallstones or wall thickening. Biliary ducts: No biliary dilation. Pancreas: No ductal dilation. Spleen: Size is within normal limits. Adrenal Glands: No adrenal nodules. Kidneys and Ureters: No hydronephrosis. No solid mass. No complex renal cystic lesion which requires follow up. Stomach and Bowel: Normal colonic caliber, without significant wall thickening. Diverticular present without inflammatory change. Peritoneum: No abnormal intraperitoneal fluid. No free air. Ventral Wall: No significant ventral hernia. Abdominal Nodes: No retroperitoneal or mesenteric adenopathy by size criteria. Vessels: There is been interval placement of aorto iliac endo graft. There are small areas of hyperdensity along the anterior right aspect of the endo graft within the lumen. PELVIS: Pelvic Organs: Unremarkable. Bladder: Incomplete evaluation secondary to limited distention with Agosto catheter. Pelvic Nodes: No enlarged lymph nodes. Miscellaneous: Prominent fat containing left inguinal hernia. There is a 1.5 x 3.0 cm focus of air with surrounding inflammatory change within the subcutaneous fat extending to the posterior central gluteal musculature posteriorly. It is seen on series 2, image 75. It extends to the margin of the sacrum without associated osseous erosion. Bones: No aggressive osseous abnormality. IMPRESSION: Mild left effusion. Multiple simple hepatic cysts. Interval placement of aorto iliac endo graft. There are small areas of hyperdensity within the lumen. These are suspected to be related to displaced wall calcifications rather than true endoleak. However, if concern persists, short interval imaging follow-up is recommended. Sacral decubitus ulcer without underlying osseous erosion. Diverticulosis. Dictated by: Thu Gonzales M.D. on 04/09/2024 at 11:18 Approved by: Thu Gonzales M.D. on 04/09/2024 at 11:26
--- NOTE | 2024-04-09 10:06 | ED_ITS ---
HPI - Weakness General Chief complaint: Weakness Stated complaint: hypotension Time Seen by Provider: 04/09/24 09:59 History of Present Illness HPI Narrative: Patient brought here by ambulance from [facility]. Patient has been there since his stroke, seen at [facility]. Patient was hypotensive systolic 70 and improved to 80 before EMS arrival. EMS had systolic of 90. Now it is 128/60. No IV fluids were given. Patient recently seen here for infected PICC line which was removed. Patient case was presented infectious Disease, Dr. Riojas, with [facility]. 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 Dr. Rose has been contacted for the wound culture but no antibiotics have been started. Wound care referral has been provided but however no treatment has been started. Patient interacting at baseline per , at bedside. Patient in no distress. Related Data Home Medications Medication Instructions Recorded Confirmed apixaban 5 mg tablet (Eliquis) 2.5 mg PO BID 10/04/19 04/09/24 diclofenac sodium 1 % topical gel 1 % topical QID 10/04/19 04/09/24 lidocaine 5 % topical patch 2 patch topical DAILY 10/04/19 04/09/24 amlodipine 2.5 mg tablet 2.5 mg PO BID 03/10/24 04/09/24 doxazosin 2 mg tablet 2 mg PO BEDTIME 03/10/24 04/09/24 evolocumab 140 mg/mL subcutaneous 140 mg SUBCUT Q2W 03/10/24 04/09/24 pen injector (Primitivo Abrams) famotidine 20 mg tablet 20 mg PO DAILY 03/10/24 04/09/24 furosemide 40 mg tablet 40 mg PO BID 03/10/24 04/09/24 ipratropium 0.5 mg-albuterol 3 mg 3 ml inhalation QID PRN Shortness 03/10/24 04/09/24 (2.5 mg base)/3 mL nebulization Of Breath Or Wheezing soln metoprolol succinate 25 mg 25 mg PO BID 03/10/24 04/09/24 tablet,extended release 24 hr polyethylene glycol 3350 17 gram 17 g PO DAILY 03/10/24 04/09/24 oral powder packet potassium chloride 20 mEq 20 meq PO DAILY 03/10/24 04/09/24 tablet,extended release sennosides 8.6 mg tablet (senna) 8.6 mg PO DAILY 03/10/24 04/09/24 tizanidine 2 mg tablet 2 mg PO Q8H PRN Muscle Spasm 03/10/24 04/09/24 lansoprazole 15 mg capsule,delayed 15 mg PO BID 03/11/24 04/09/24 release tamsulosin 0.4 mg capsule 0.8 mg PO DAILY 03/11/24 04/09/24 gabapentin 100 mg tablet 100 mg PO TID 04/09/24 04/09/24 hydrocodone 5 mg-acetaminophen 325 1 tab PO Q4-6H PRN Pain (Scale 04/09/24 04/09/24 mg tablet Score 4-6) Previous Rx's Medication Instructions Recorded inhalational spacing device #1 ea 09/08/22 (Aerochamber MV spacer) Allergies Allergy/AdvReac Type Severity Reaction Status Date / Time [id number] Reductase Allergy Unknown Verified 01/15/24 09:41 Inhibitor [[id number] REDUCTASE INHIBITOR] ciprofloxacin Allergy Verified 04/09/24 10:26 cortisone Allergy Verified 04/09/24 10:26 ezetimibe Allergy Verified 04/09/24 10:26 hydromorphone Allergy Verified 04/09/24 10:26 Review of Systems Review of Systems Narrative: GENERAL: negative chills, positive fatigue, malaise, negative fever, sweats. HEENT: negative sinus pain, ear pain, sore throat RESPIRATORY: negative dyspnea, cough CARDIOVASCULAR: negative chest pain, palpitations GASTROINTESTINAL: negative nausea, vomiting, abdominal pain : negative dysuria, frequency, hematuria MUSCULOSKELETAL: negative muscle or bony pain SKIN: negative rash, skin lesions NEUROLOGIC: negative weakness, numbness ROS Unobtainable: All systems reviewed & are unremarkable except as noted in HPI and below Patient History Social History Smoking Status: Never smoker alcohol intake: former Smoking Status: Never smoker alcohol intake frequency: 0-2 drinks per day Substance Use Type: does not use Exam Narrative Exam Narrative: GENERAL: in no distress, not toxic not dyspneic HEAD: Normocephalic. EYES: Pupils equal round ENT: Mucous membranes moist. NECK: Trachea midline. CARDIOVASCULAR: Regular rate and rhythm RESPIRATORY: Clear to auscultation. Breath sounds equal bilaterally. No wheezes, rales, or rhonchi. GASTROINTESTINAL: Abdomen soft, non-tender EXTREMITIES: No gross deformities. BACK: No flank tenderness. There is a large defect in the sacrum, decubitus ulcer/pressure ulcer stage IV bone and muscle tissue visualized. No discharge no foul odor. Above this about T12 area there is stage II 4 cm diameter area pressure ulcer. NEURO: Patient is awake alert oriented to self and date of and answers appropriately. SKIN: Warm and dry PSYCH: Not anxious, is cooperative Initial Vital Signs Initial Vital Signs: Vital Signs Temperature 98.7 F 04/09/24 09:51 Pulse Rate 70 04/09/24 09:51 Respiratory Rate 18 04/09/24 09:51 Blood Pressure 128/60 04/09/24 09:51 Pulse Oximetry 98 04/09/24 09:51 Oxygen Delivery Method Room Air 04/09/24 09:51 Course Orders Ordered: ED Orders 04/09/24 09:56 Complete Blood Count AUTO DIFF Stat Comprehensive Metabolic Panel Stat Lactate (Lactic Acid) Stat Procalcitonin Stat 04/09/24 09:59 CT abdomen pelvis w con Stat 04/09/24 10:10 Blood Culture Stat Acetaminophen (Acetaminophen 325 Mg Tablet) 650 mg PO Q6H PRN PRN Reason: Fever/Mild Pain (1-3) Last Admin: 04/09/24 14:39 Dose: 650 mg Documented By: SHABBIR Hydrocodone Bitart/Acetaminophen (Hydrocodone/Acet 5/325 Tablet) 1 tab PO Q4H PRN PRN Reason: Pain (Scale Score 4-6) Apixaban (Apixaban 5 Mg Tablet) 2.5 mg PO BID [facility] Diclofenac Sodium (Diclofenac 1% Gel 100 Gm) 1 applic TOP QID [facility] Last Admin: 04/09/24 17:40 Dose: 1 applic Documented By: SHABBIR Doxazosin Mesylate (Doxazosin 2 Mg Tablet) 2 mg PO BEDTIME [facility] Famotidine (Famotidine 20 Mg Tablet) 20 mg PO DAILY [facility] Gabapentin (Gabapentin 100 Mg Capsule) 100 mg PO TID [facility] Sodium Chloride (Normal Saline 0.9%) 1,000 mls @ 100 mls/hr IV CONT [facility] Last Admin: 04/09/24 14:39 Dose: 100 mls/hr Documented By: SHABBIR Piperacillin Sod/Tazobactam (Sod 4.5 gm/ Sodium Chloride) 100 mls @ 25 mls/hr IV Q8H [facility] Last Admin: 04/09/24 17:41 Dose: 25 mls/hr Documented By: SHABBIR Metoprolol Succinate (Metoprolol Er 25 Mg Tablet) 25 mg PO BID [facility] Naloxone HCl (Naloxone 0.4 Mg/Ml Vial) 0.2 mg IV Q2MIN PRN PRN Reason: Opiate Reversal Ondansetron HCl (Ondansetron 4 Mg/2 Ml Inj) 4 mg IV Q8HR PRN PRN Reason: Nausea And Vomiting Pantoprazole Sodium (Pantoprazole Dr 20 Mg Tablet) 20 mg PO 0700,2100 [facility] Polyethylene Glycol (Polyethylene Glycol 3350 17 Gm Powd.Pack) 17 gm PO DAILY [facility] Potassium Chloride (Potassium Chloride 20 Meq Tab) 20 meq PO DAILY [facility] Sennosides (Sennosides 8.6 Mg Tablet) 8.6 mg PO DAILY [facility] Tamsulosin HCl (Tamsulosin 0.4 Mg Capsule) 0.8 mg PO DAILY [facility] Tizanidine HCl (Tizanidine 4 Mg Tablet) 2 mg PO Q8H PRN PRN Reason: Muscle Spasm Discontinued Medications Lactated Ringer's (Lactated Ringers) 2,397 mls @ 799 mls/hr 30 ml/kg infuse over 3 hr (2397 ml) IV NOW ONE Stop: 04/09/24 12:58 Last Infusion: 04/09/24 14:03 Dose: 0 mls/hr Documented By: Admin: 04/09/24 10:20 Dose: 799 mls/hr Documented By: ALEA Piperacillin Sod/Tazobactam (Sod 4.5 gm/ Sodium Chloride) 100 mls @ 200 mls/hr IV NOW ONE Stop: 04/09/24 10:00 Last Infusion: 04/09/24 11:15 Dose: Infused Documented By: Admin: 04/09/24 10:19 Dose: 200 mls/hr Documented By: ALEA Vital Signs Vital signs: Vital Signs - 8 hr 04/09/24 11:00 04/09/24 11:30 04/09/24 11:38 Pulse Rate 66 64 63 Respiratory Rate 13 17 14 Blood Pressure Pulse Oximetry 94 97 99 04/09/24 11:38 04/09/24 12:00 04/09/24 12:01 Pulse Rate 68 68 Respiratory Rate 13 13 Blood Pressure 138/65 Pulse Oximetry 98 04/09/24 12:01 04/09/24 12:30 04/09/24 12:30 Pulse Rate 69 Respiratory Rate 12 Blood Pressure 155/65 H 187/81 H Pulse Oximetry 98 MDM - Weakness Lab Data 04/09/24 09:56 04/09/24 09:56 Labs: Lab Results 04/09/24 Range/Units 09:56 WBC 8.6 (4.5-11.0) X10^3/uL RBC 3.17 L (4.5-5.9) X10^6/uL Hgb 8.8 L (13.5-17.5) g/dL Hct 26.0 L (41-53) % MCV 82.0 (80-100) fL MCH 27.8 (26-34) PG MCHC 33.9 (30-36) % RDW 17.0 H (11.6-14.8) % Plt Count 331 (150-400) X10^3/uL Neut % (Auto) 73.4 (50-75) % Lymph % (Auto) 15.4 L (25-40) % [place] % (Auto) 9.3 (3-14) % Eos % (Auto) 1.5 L (2-4) % Baso % (Auto) 0.4 (0-2) % Neut # (Auto) 6300 (5905-1914) /uL Lymph # (Auto) 1300 (5909-4700) /uL [place] # (Auto) 800 (0-900) /uL Eos # (Auto) 100 (0-450) /uL Baso # (Auto) 0 (0-100) /uL Sodium 137 (137-145) mmol/L Potassium 3.9 (3.4-5.1) mmol/L Chloride 99 (98-107) mmol/L Carbon Dioxide 31 (22-32) mmol/L BUN 51 H (9-20) mg/dL Creatinine 1.60 H (0.66-1.25) mg/dL Estimated GFR 43 L (>60) mL/min BUN/Creatinine Ratio 31.9 H (6-22) Glucose 100 (80-110) mg/dL Lactate 1.2 (0.7-2.1) mmol/L Calcium 9.0 (8.4-10.2) mg/dL Total Bilirubin 0.4 (0.2-1.3) mg/dL AST 21 (17-59) IU/L ALT 10 (<50) IU/L Alkaline Phosphatase 88 (38-126) U/L Total Protein 6.9 (6.3-8.2) g/dL Albumin 3.6 (3.5-5.0) g/dL Globulin 3.3 (1.7-4.1) g/dL Albumin/Globulin Ratio 1.1 (1.0-2.8) Procalcitonin 0.207 (<0.5) ng/mL Imaging Data CT scan - abdomen/pelvis: Radiologist Impression: [address] [address] [address] Scan Report Signed Patient: Darryl Bentley MR#: [id number] : 1945 Acct:[id number] Age/Sex: 78 / M Date of Service: 04/09/24 Loc: ED Accession Number: [id number] Procedure: CT abdomen pelvis w con Ordering Provider: Gulshan Mccabe MD PROCEDURE: CT ABDOMEN PELVIS W CON INDICATIONS: Sepsis/sacral wound TECHNIQUE: After the administration of intravenous contrast, axial sections acquired from the lung bases to the pubic symphysis. Coronal and sagittal reformats were performed. For radiation dose reduction, the following was used: automated exposure control, adjustment of mA and/or kV according to patient size. COMPARISON: [facility], CT, CT ABDOMEN PELVIS W CON, 10/04/2019, 16:22. FINDINGS: Image quality: Diagnostic. Lower Chest: Mild left effusion. ABDOMEN: Liver: Scattered simple hepatic cysts. Gallbladder: No radiopaque gallstones or wall thickening. Biliary ducts: No biliary dilation. Pancreas: No ductal dilation. Spleen: Size is within normal limits. Adrenal Glands: No adrenal nodules. Kidneys and Ureters: No hydronephrosis. No solid mass. No complex renal cystic lesion which requires follow up. Stomach and Bowel: Normal colonic caliber, without significant wall thickening. Diverticular present without inflammatory change. Peritoneum: No abnormal intraperitoneal fluid. No free air. Ventral Wall: No significant ventral hernia. Abdominal Nodes: No retroperitoneal or mesenteric adenopathy by size criteria. Vessels: There is been interval placement of aorto iliac endo graft. There are small areas of hyperdensity along the anterior right aspect of the endo graft within the lumen. PELVIS: Pelvic Organs: Unremarkable. Bladder: Incomplete evaluation secondary to limited distention with Agosto catheter. Pelvic Nodes: No enlarged lymph nodes. Miscellaneous: Prominent fat containing left inguinal hernia. There is a 1.5 x 3.0 cm focus of air with surrounding inflammatory change within the subcutaneous fat extending to the posterior central gluteal musculature posteriorly. It is seen on series 2, image 75. It extends to the margin of the sacrum without associated osseous erosion. Bones: No aggressive osseous abnormality. IMPRESSION: Mild left effusion. Multiple simple hepatic cysts. Interval placement of aorto iliac endo graft. There are small areas of hyperdensity within the lumen. These are suspected to be related to displaced wall calcifications rather than true endoleak. However, if concern persists, short interval imaging follow-up is recommended. Sacral decubitus ulcer without underlying osseous erosion. Diverticulosis. Dictated by: Thu Gonzales M.D. on 04/09/2024 at 11:18 Approved by: Thu Gonzales M.D. on 04/09/2024 at 11:26 [facility] Narrative Medical decision making narrative: Patient brought here by ambulance from [facility]. Patient has been there since his stroke, seen at [facility]. Patient was hypotensive systolic 70 and improved to 80 before EMS arrival. EMS had systolic of 90. Now it is 128/60. No IV fluids were given. Patient recently seen here for infected PICC line which was removed. Patient case was presented infectious Disease, Dr. Riojas, with [facility]. 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 Dr. Riojas has been contacted for the wound culture but no antibiotics have been started. Wound care referral has been provided but however no treatment has been started. Patient interacting at baseline per , at bedside. Patient in no distress. After history and exam CBC CMP blood culture procalcitonin lactic acid Zosyn CT abdomen pelvis normal saline [facility] Medical records reviewed: Discharge summary April 11, 2024. Differential considered: Includes but not limited to sepsis sacral ulcer osteomyelitis dehydration Lab Test results independently reviewed as above. Pertinent findings: WBC 8.6 BUN 51 creatinine 1.6 procalcitonin 0.207 lactic acid 1.2 Imaging studies independently reviewed: CT abdomen pelvis focus of air defect extending to the gluteal musculature. Consultations: 10:25 a.m.. Spoke with Infectious Disease Dr. Arreola, recommend starting Zosyn until sensitivities returned. 11:30 a.m.. Spoke with Infectious Disease dr lopez, she received results of the wound culture and called here for the results but we have them already. She does agree Zosyn should be started 12:54 p.m.. Spoke with hospitalist, Dr Casper, will see pt for admission Treatments: Zosyn normal saline Re-evaluations: Updated patient and family for admission and they do agree. 1:00 p.m.. Patient briefly complained of seeing lines in his vision. He could not tell if it was left or right eye. at bedside. On examination isolating each eye he states now it has resolved. No headache. No limb numbness or tingling or weakness changes. Is at baseline from his stroke. CT head ordered. Patient is on Eliquis. Discussion: Appropriate for admission for wound management surgical management IV antibiotics. Infectious Disease involved general surgery involved hospitalist agrees for admission Diagnosis: Decubitus ulcer Discharge Plan Departure Patient Disposition: Admitted As Inpatient Clinical Impression: Decubitus ulcer Qualifiers: Pressure injury location: sacral region Pressure injury stage: stage 4 Q ualified Code(s): L89.154 - Pressure ulcer of sacral region, stage 4 Admit Date/Time: 04/09/24 12:52 Admit Provider: Alberto Casper
[2024-04-09 10:12] LABS: Add Manual Diff / Slide Review NO; Basophils Absolute Auto 0 /uL (0-100); Basophils Percent Auto 0.4 % (0-2); Eosinophils Absolute Auto 100 /uL (0-450); Eosinophils Percent Auto 1.5 % (2-4); Hemoglobin 8.8 g/dL (13.5-17.5); Lymphocytes Absolute Auto 1300 /uL (1100-4500); Lymphocytes Percent Auto 15.4 % (25-40); Mean Corpuscular HGB Conc 33.9 % (30-36); Mean Corpuscular Hemoglobin 27.8 PG (26-34); Monocytes Absolute Auto 800 /uL (0-900); Monocytes Percent Auto 9.3 % (3-14); Neutrophils Absolute Auto 6300 /uL (1500-7000); Neutrophils Percent Auto 73.4 % (50-75); Platelet Count 331 X10^3/uL (150-400); Red Blood Cell Count 3.17 X10^6/uL (4.5-5.9); White Blood Cell Count 8.6 X10^3/uL (4.5-11.0)
[2024-04-09] MEDS: PIPERACILLIN/TAZO 4.5 GM in SODIUM CHLORIDE 0.9% 100 ML IV ×2 (10:19→17:41)
[2024-04-09] MEDS: LACTATED RINGERS 2,397 ML 799 ML IV (10:20)
[2024-04-09 10:23] LABS: Alanine Aminotransferase 10 IU/L (<50); Albumin 3.6 g/dL (3.5-5.0); Albumin Globulin Ratio 1.1 (1.0-2.8); Alkaline Phosphatase 88 U/L (38-126); Aspartate Aminotransferase 21 IU/L (17-59); BUN Creatinine Ratio 31.9 (6-22); Bilirubin Total 0.4 mg/dL (0.2-1.3); Blood Urea Nitrogen 51 mg/dL (9-20); Carbon Dioxide 31 mmol/L (22-32); Chloride 99 mmol/L (98-107); Estimated Glomerular Filt Rate 43 mL/min (>60); Globulin 3.3 g/dL (1.7-4.1); Glucose 100 mg/dL (80-110); HEMOLYSIS < 15 (0-50); Potassium 3.9 mmol/L (3.4-5.1); Sodium 137 mmol/L (137-145); Total Protein 6.9 g/dL (6.3-8.2)
[2024-04-09 10:24] LABS: Lactate (Lactic Acid) 1.2 mmol/L (0.7-2.1)
[2024-04-09 10:38] LABS: Procalcitonin 0.207 ng/mL (<0.5)
--- NOTE | 2024-04-09 13:00 | DI.CT.S_ITS ---
PROCEDURE: CT HEAD/BRAIN WO CON INDICATIONS: Visual disturbance/history of stroke TECHNIQUE: Noncontrast 4.5 mm thick angled axial sections acquired from the foramen magnum to the vertex, with coronal and sagittal reformats. For radiation dose reduction, the following was used: automated exposure control, adjustment of mA and/or kV according to patient size. COMPARISON: [facility], CT, HEAD WITHOUT CONTRAST, 07/23/2015, 12:49. FINDINGS: Image quality: Mild streak artifact can be seen through the skull base. CSF spaces: Basal cisterns are patent. No extra-axial fluid collections. The ventricles are symmetric in size and shape. Brain: No intracranial bleeds or masses. There is cerebral volume loss for age, with resultant ventricular and sulcal prominence. There are periventricular and deep white matter chronic small vessel ischemic changes. Note is made of encephalomalacia involving the superior medial aspects of the frontal lobes, right worse than left. This is new compared to 2015. There is intracranial internal carotid artery atherosclerosis. Skull and face: Calvarium and visualized facial bones appear intact, without suspicious lesions. Sinuses: Visualized sinuses and mastoids are clear. IMPRESSION: No hans acute abnormality can be seen. No acute intracranial hemorrhage is seen. There are remote infarctions seen involving both VITO territories, right worse than left. If there is strong clinical suspicion for an acute stroke, please consider a brain MRI for further evaluation, as it is more sensitive (assuming that there is no contraindication to MRI). Dictated by: Loi Deal M.D. on 04/09/2024 at 12:19 Approved by: Loi Deal M.D. on 04/09/2024 at 12:21
--- NOTE | 2024-04-09 13:58 | PC.NURSE ---
Patient arrived to Room 216 at approximately 1330. He is transferred from [facility] to bed, max x2-3 assist. Patiet OX1-2, pleasant.Agosto in place. Wound to buttocks with packing. Per orders wound cx sent per MD orders. at bedside supportive. Oriented to room, call light in reach, home eva hose in place, bed alarm on, IVF per orders, q 2 turns, admission asssessment completed by lisa ROSAS. Continuous monitoring
[2024-04-09] MEDS: ACETAMINOPHEN 325 MG TABLET 650 MG PO (14:39)
[2024-04-09] MEDS: SODIUM CHLORIDE 0.9% 1,000 ML 100 ML IV (14:39)
--- NOTE | 2024-04-09 15:35 | PM.HP.1 ---
History of Present Illness History of Present Illness Date Patient Seen: 04/09/24 Time Patient Seen: 15:36 Chief complaint: hypotension Narrative: Darryl Bentley is a 78 y.o. 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 He was hypotensive, but responded to fluid administration in the ER. History is obtained via and discussion with ER provider, patient is able to intermittently express some words but not reliably. Patient has had worsening sacral wound, follows with ID at [facility] and is on suppressive chronic therapy. Culture report is not available except that a PCR that showed Proteus, Morganella, Prevotella, pseudomonas and E. faecalis. Discussed with infectious disease provider whom did not know what to make of this culture and whether it represented true infection or stool bacteria. In the ER, vitals are documented as unremarkable, though he was hypotensive at [facility]. Hg is stable at 8.8 from previous admission, Creatinine a bit higher at 1.6, WBC count was unremarkable. He has been backing off of BP medication recently due to hypotension as well. Infectious disease provider had referred him to the ER twice for hypotension recently, once with low Hg and another improved with fluids, but had not been admitted. [facility] Social History Smoking Status: Never smoker alcohol intake: former Meds Home Medications and Allergies Home Medications Medication Instructions Recorded Confirmed Type apixaban 5 mg tablet (Eliquis) 2.5 mg PO BID 10/04/19 04/09/24 History diclofenac sodium 1 % topical gel 1 % topical QID 10/04/19 04/09/24 History lidocaine 5 % topical patch 2 patch topical DAILY 10/04/19 04/09/24 History inhalational spacing device #1 ea 09/08/22 04/09/24 Rx (Aerochamber MV spacer) amlodipine 2.5 mg tablet 2.5 mg PO BID 03/10/24 04/09/24 History doxazosin 2 mg tablet 2 mg PO BEDTIME 03/10/24 04/09/24 History evolocumab 140 mg/mL subcutaneous 140 mg SUBCUT Q2W 03/10/24 04/09/24 History pen injector (Primitivo HouTyronejalen) famotidine 20 mg tablet 20 mg PO DAILY 03/10/24 04/09/24 History furosemide 40 mg tablet 40 mg PO BID 03/10/24 04/09/24 History ipratropium 0.5 mg-albuterol 3 mg 3 ml inhalation QID PRN Shortness 03/10/24 04/09/24 History (2.5 mg base)/3 mL nebulization Of Breath Or Wheezing soln metoprolol succinate 25 mg 25 mg PO BID 03/10/24 04/09/24 History tablet,extended release 24 hr polyethylene glycol 3350 17 gram 17 g PO DAILY 03/10/24 04/09/24 History oral powder packet potassium chloride 20 mEq 20 meq PO DAILY 03/10/24 04/09/24 History tablet,extended release sennosides 8.6 mg tablet (senna) 8.6 mg PO DAILY 03/10/24 04/09/24 History tizanidine 2 mg tablet 2 mg PO Q8H PRN Muscle Spasm 03/10/24 04/09/24 History lansoprazole 15 mg capsule,delayed 15 mg PO BID 03/11/24 04/09/24 History release tamsulosin 0.4 mg capsule 0.8 mg PO DAILY 03/11/24 04/09/24 History gabapentin 100 mg tablet 100 mg PO TID 04/09/24 04/09/24 History hydrocodone 5 mg-acetaminophen 325 1 tab PO Q4-6H PRN Pain (Scale 04/09/24 04/09/24 History mg tablet Score 4-6) Allergies Allergy/AdvReac Type Severity Reaction Status Date / Time Crtbfcy-YHW-YsN Reductase Allergy Unknown Verified 01/15/24 09:41 Inhibitor [KIWRRVT-OSS-KKO REDUCTASE INHIBITOR] ciprofloxacin Allergy Verified 04/09/24 10:26 cortisone Allergy Verified 04/09/24 10:26 ezetimibe Allergy Verified 04/09/24 10:26 hydromorphone Allergy Verified 04/09/24 10:26 Review of Systems Review of Systems Narrative: All other systems reviewed with the patient and spouse and are negative unless otherwise stated. Though noted limited ability to speak with the patient. Exam Vital Signs (past 8 hours): - 04/09/24 09:51 04/09/24 09:54 04/09/24 09:54 Temperature 98.7 F Pulse Rate 70 70 Respiratory Rate 18 13 Blood Pressure 128/60 128/60 Pulse Oximetry 98 99 Oxygen Delivery Method Room Air Oxygen Flow Rate 04/09/24 10:00 04/09/24 10:00 04/09/24 10:30 Temperature Pulse Rate 69 69 Respiratory Rate 12 Blood Pressure 134/61 Pulse Oximetry 98 98 Oxygen Delivery Method Oxygen Flow Rate 04/09/24 10:30 04/09/24 11:00 04/09/24 11:30 Temperature Pulse Rate 66 64 Respiratory Rate 13 17 Blood Pressure 148/73 H Pulse Oximetry 94 97 Oxygen Delivery Method Oxygen Flow Rate 04/09/24 11:38 04/09/24 11:38 04/09/24 12:00 Temperature Pulse Rate 63 68 Respiratory Rate 14 13 Blood Pressure 138/65 Pulse Oximetry 99 98 Oxygen Delivery Method Oxygen Flow Rate 04/09/24 12:01 04/09/24 12:01 04/09/24 12:30 Temperature Pulse Rate 68 69 Respiratory Rate 13 12 Blood Pressure 155/65 H Pulse Oximetry 98 Oxygen Delivery Method Oxygen Flow Rate 04/09/24 12:30 04/09/24 13:00 04/09/24 13:01 Temperature Pulse Rate 76 76 Respiratory Rate 12 12 Blood Pressure 187/81 H Pulse Oximetry 97 96 Oxygen Delivery Method Oxygen Flow Rate 04/09/24 13:01 04/09/24 13:12 04/09/24 13:12 Temperature Pulse Rate 77 Respiratory Rate 20 Blood Pressure 190/81 H 180/81 H Pulse Oximetry 95 Oxygen Delivery Method Oxygen Flow Rate 04/09/24 13:56 04/09/24 13:56 Temperature 99.4 F Pulse Rate 50 L Respiratory Rate 16 Blood Pressure 152/56 H Pulse Oximetry 96 96 Oxygen Delivery Method Room Air Oxygen Flow Rate 0 Oxygen Delivery Method Room Air Oxygen Flow Rate 0 Narrative Exam Narrative: Gen: No acute distress, occasional clear words, alert and interactive. CV: RRR no m/r/g Pulm: CTA b/l Abd: S NT ND Ext: No edema or rash, RUE swelling minimal now no erythema or induration at previous PICC site. Skin: sacral ulcer, approx 4 x2 cm, clean edges with no necrosis, packed, no apparent discharge. Objective Labs 04/09/24 09:56 04/09/24 09:56 Labs: Laboratory Results - last 24 hr 04/09/24 09:56 WBC 8.6 RBC 3.17 L Hgb 8.8 L Hct 26.0 L MCV 82.0 MCH 27.8 MCHC 33.9 RDW 17.0 H Plt Count 331 Neut % (Auto) 73.4 Lymph % (Auto) 15.4 L [place] % (Auto) 9.3 Eos % (Auto) 1.5 L Baso % (Auto) 0.4 Neut # (Auto) 6300 Lymph # (Auto) 1300 [place] # (Auto) 800 Eos # (Auto) 100 Baso # (Auto) 0 Sodium 137 Potassium 3.9 Chloride 99 Carbon Dioxide 31 BUN 51 H Creatinine 1.60 H Estimated GFR 43 L BUN/Creatinine Ratio 31.9 H Glucose 100 Lactate 1.2 Calcium 9.0 Total Bilirubin 0.4 AST 21 ALT 10 Alkaline Phosphatase 88 Total Protein 6.9 Albumin 3.6 Globulin 3.3 Albumin/Globulin Ratio 1.1 Procalcitonin 0.207 Assessment & Plan Assessment & Plan narrative: 1. Sepsis with hypotension, elevated creatinine (borderline YOUNG), possible acute metabolic encephalopathy possibly due to infected sacral ulcer - continue with zosyn, outside PCR reportedly with multiple bacteria including pseduomonas. Continue 4.5g q8 hr, increase if improved renal function to q6. - wound culture sent, though wound currently appears quite clean without purulence or necrosis. Discussed with surgery about if debridement is recommended. - follow up blood culture, also send UA. 2. elevated creatinine with CKD stage 3B. - baseline 1.3 to 1.4, now 1.6. Likely due to hypotension. Given IV fluids in the ER. Given previous heart failure will avoid further fluids. Hold home antihypertensives for now except for rate control metoprolol noted below. 3.paroxysmal afib, chronic - continue home metoprolol - no signs of heart failure or acs. - continue home eliquis. 4. normocytic Anemia with previous GI bleeding - - findings may be related to his recent hypotensive episodes. Will hold home medications for now and continue to follow this. He may have recurrent bleeding as well based on previous admission with low Hg but remained on blood thinner. Will monitor h/h. - continue home oral PPI - will continue apixaban for now, but if any drop will stop. 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 Discussed today with ER and infectious disease provider, general surgeon, and case management to contribute to the above history, assessment, and plan. I have utilized all available immediate resources to obtain, update, or review the patient's current medications. Time-Based Coding :: [TOTAL MINUTES] spent with patient and on the chart (including review of chart, obtaining history, exam, reviewing outside data, placing orders, documenting exam and treatment plan, and counseling patient) on [DATE].
--- NOTE | 2024-04-09 16:26 | DI.RAD.S_ITS ---
PROCEDURE: XR CHEST 1V INDICATIONS: possible sepsis TECHNIQUE: One view of the chest was acquired. COMPARISON: [facility], CR, XR CHEST 1V, 03/08/2024, 16:59. FINDINGS: Surgical changes and devices: CABG, valve, left shoulder arthroplasty Lungs and pleura: Lungs are clear. No pleural effusions or pneumothorax. Mediastinum: Mediastinal contours appear normal. Stable cardiomegaly. Bones and chest wall: No suspicious bony lesions. Overlying soft tissues appear unremarkable. IMPRESSION: Stable cardiomegaly. No evidence acute pulmonary process. Dictated by: Hossein Diaz M.D. on 04/09/2024 at 17:34 Approved by: Hossein Diaz M.D. on 04/09/2024 at 17:35
[2024-04-09 17:26] LABS: Appearance Urine UA CLEAR; Bilirubin Urine UA NEGATIVE (NEGATIVE); Color Urine UA YELLOW; Glucose Urine UA NEGATIVE (Negative); Ketones Urine UA NEGATIVE (NEGATIVE); Leukocyte Esterase Urine UA 2+ (NEGATIVE); Nitrite Urine UA POSITIVE (Negative); Occult Blood Urine UA 1+ (Negative); Protein Urine UA 1+ (Negative); Urobilinogen Urine UA 0.2 E.U./dL (0.2); pH Urine UA 6.5 (4.5-8.0)
[2024-04-09] MEDS: DICLOFENAC 1% GEL 100 GM 1 APPLIC TOP ×2 (17:40→21:10)
[2024-04-09 17:43] LABS: Urine Volume Low Vol <10mL (spun)
[2024-04-09 17:44] LABS: Bacteria Urine Many (>30); Culture Indicated Urine Specimen Cultured; RBC Urine 0-1/HPF (0-5/HPF); Squamous Epithelial Cell Urine None Seen (0-5/HPF); WBC Urine 30-100/HPF (0-5/HPF)
[2024-04-09] MEDS: GABAPENTIN 100 MG CAPSULE PO (21:09)
[2024-04-09] MEDS: DOXAZOSIN 2 MG TABLET PO (21:09)
[2024-04-09] MEDS: APIXABAN 5 MG TABLET 2.5 MG PO (21:09)
[2024-04-09] MEDS: METOPROLOL ER 25 MG TABLET PO (21:10)
[2024-04-09] MEDS: PANTOPRAZOLE DR 20 MG TABLET PO (21:11)
[2024-04-10] VITALS (12 sets, daily range): BP systolic 109–133; BP diastolic 38–86; PULSE 68–76; RESP 13–18; TEMP 36.2–37.1; O2SAT 94–98
[2024-04-10] MEDS: SODIUM CHLORIDE 0.9% 1,000 ML 100 ML IV (00:39)
[2024-04-10] MEDS: PIPERACILLIN/TAZO 4.5 GM in SODIUM CHLORIDE 0.9% 100 ML IV ×3 (02:28→17:19)
[2024-04-10] MEDS: PANTOPRAZOLE DR 20 MG TABLET PO ×2 (07:05→21:05)
[2024-04-10] MEDS: APIXABAN 5 MG TABLET 2.5 MG PO ×2 (08:38→21:04)
[2024-04-10] MEDS: TAMSULOSIN 0.4 MG CAPSULE 0.8 MG PO (08:38)
[2024-04-10] MEDS: METOPROLOL ER 25 MG TABLET PO ×2 (08:39→21:03)
[2024-04-10] MEDS: FAMOTIDINE 20 MG TABLET PO (08:39)
[2024-04-10] MEDS: GABAPENTIN 100 MG CAPSULE PO ×3 (08:39→20:57)
[2024-04-10] MEDS: SENNOSIDES 8.6 MG TABLET PO (08:39)
[2024-04-10] MEDS: POTASSIUM CHLORIDE 20 MEQ TAB PO (08:40)
[2024-04-10] MEDS: polyethylene glycoL 3350 17 GM POWD.PACK PO (08:40)
[2024-04-10] MEDS: DICLOFENAC 1% GEL 100 GM 1 APPLIC TOP ×2 (09:45→13:45)
[2024-04-10 09:48] LABS: Add Manual Diff / Slide Review NO; Basophils Absolute Auto 0 /uL (0-100); Basophils Percent Auto 0.3 % (0-2); Eosinophils Absolute Auto 200 /uL (0-450); Hematocrit 24.8 % (41-53); Hemoglobin 8.3 g/dL (13.5-17.5); Lymphocytes Absolute Auto 1100 /uL (1100-4500); Lymphocytes Percent Auto 16.8 % (25-40); Mean Corpuscular HGB Conc 33.6 % (30-36); Mean Corpuscular Hemoglobin 27.5 PG (26-34); Mean Corpuscular Volume 81.9 fL (80-100); Monocytes Absolute Auto 500 /uL (0-900); Monocytes Percent Auto 7.7 % (3-14); Neutrophils Absolute Auto 4700 /uL (1500-7000); Neutrophils Percent Auto 72.2 % (50-75); Platelet Count 282 X10^3/uL (150-400); Red Blood Cell Count 3.02 X10^6/uL (4.5-5.9); White Blood Cell Count 6.5 X10^3/uL (4.5-11.0)
[2024-04-10 10:09] LABS: BUN Creatinine Ratio 27.9 (6-22); Blood Urea Nitrogen 38 mg/dL (9-20); Calcium 8.6 mg/dL (8.4-10.2); Carbon Dioxide 28 mmol/L (22-32); Chloride 100 mmol/L (98-107); Estimated Glomerular Filt Rate 53 mL/min (>60); Glucose 122 mg/dL (80-110); HEMOLYSIS < 15 (0-50); Magnesium 1.6 mg/dL (1.6-2.3); Potassium 3.9 mmol/L (3.4-5.1); Sodium 136 mmol/L (137-145)
--- NOTE | 2024-04-10 11:17 | DIET.CONS ---
Dietary Consultation Note Admission Date: 04/09/2024 12:52 Assessment: 78 y M admitted w/ sepsis. PMH of endocarditis, CKD 3b. Nutrition screened for low MNA. Met with pt and spouse at bedside. Spouse reports weight loss r/t decreased po intake (<75% of some meal choices provided) due to suboptimal food options at SNF, son brings in food sometimes. Was recently started on Noah BID at [facility], pt reports tolerating it. Ex of meal option provided: kadie torres Nutrition focused physical exam: No significant findings. Areas assessed: temples, clavicle region, interosseous, buccal & orbital fat pads, triceps Ht: 185.42 cm Wt: 100.8 kg BMI: 29.3 UBW: 107 kg on 03/11/24 (5.8% weight loss in 1 month, severe) Last BM: 04/10/24 (04/10/24 10:59) MNA: 10 Sabas Score: 15 Diet: 04/09/24 Dinner General (Regular) Diet Diet Modifications: Nutrition Percent Meal Consumed 100% 04/10/24 10:59 Labs: RBC 3.02 X10^6/uL (4.5-5.9) L 04/10/24 09:37 Hgb 8.3 g/dL (13.5-17.5) L 04/10/24 09:37 Hct 24.8 % (41-53) L 04/10/24 09:37 Creatinine 1.36 mg/dL (0.66-1.25) H 04/10/24 09:37 Lactate 1.2 mmol/L (0.7-2.1) 04/09/24 09:56 Nutrition Diagnosis: Unintentional weight loss r/t increased nutrient needs (protein) in setting of wound healing and inadequate oral intake due to limited desirable food choices available as evidenced by 5.8% weight loss in 1 month, severe. Interventions: 1. ONS to supplement intakes <75% 2. Providing Noah BID EER: 90-100 g protein (1-1.1 g/kg of adjusted IBW, CKD3, wound, CHF, sepsis) Monitoring/Evaluations: po intakes, noha tolerance Electronically Signed by: Hermila Mora 04/10/24 11:17 Clinical Dietitian [address] [address]
--- NOTE | 2024-04-10 14:20 | PM.PN.1 ---
Subjective Subjective Interval history: Patient is without complaints today. Nursing staff reported choking with meals, reduced diet to soft and ordered speech evaluation. Exam Vital Signs (past 8 hours): - 04/10/24 07:00 04/10/24 08:00 04/10/24 08:39 Temperature 97.1 F L Pulse Rate 69 76 Respiratory Rate 13 Blood Pressure 119/45 L 133/86 Pulse Oximetry 96 96 Oxygen Delivery Method Room Air Oxygen Flow Rate 0 04/10/24 11:00 04/10/24 12:00 04/10/24 12:00 Temperature 97.7 F Pulse Rate 71 Respiratory Rate 15 Blood Pressure 133/64 133/64 Pulse Oximetry 97 97 Oxygen Delivery Method Oxygen Flow Rate 0 Oxygen Delivery Method Room Air Oxygen Flow Rate 0 Narrative Exam Narrative: Gen: No acute distress, occasional clear words, alert and interactive. CV: RRR no m/r/g Pulm: CTA b/l Abd: S NT ND Ext: No edema or rash, RUE swelling minimal now no erythema or induration at previous PICC site. Skin: sacral ulcer, approx 4 x2 cm, clean edges with no necrosis, packed, no apparent discharge. Objective Labs 04/10/24 09:37 04/10/24 09:37 Labs: Laboratory Results - last 24 hr 04/09/24 04/10/24 16:14 09:37 WBC 6.5 RBC 3.02 L Hgb 8.3 L Hct 24.8 L MCV 81.9 MCH 27.5 MCHC 33.6 RDW 17.0 H Plt Count 282 Neut % (Auto) 72.2 Lymph % (Auto) 16.8 L [place] % (Auto) 7.7 Eos % (Auto) 3.0 Baso % (Auto) 0.3 Neut # (Auto) 4700 Lymph # (Auto) 1100 [place] # (Auto) 500 Eos # (Auto) 200 Baso # (Auto) 0 Sodium 136 L Potassium 3.9 Chloride 100 Carbon Dioxide 28 BUN 38 H Creatinine 1.36 H Estimated GFR 53 L BUN/Creatinine Ratio 27.9 H Glucose 122 H Calcium 8.6 Magnesium 1.6 Urine Color Yellow Urine Appearance Clear Urine pH 6.5 Ur Specific [place] 1.010 Urine Protein 1+ H Urine Glucose (UA) Negative Urine Ketones Negative Urine Occult Blood 1+ H Urine Nitrate Positive H Urine Bilirubin Negative Urine Urobilinogen 0.2 Ur Leukocyte Esterase 2+ H Urine RBC 0-1/hpf Urine WBC 30-100/hpf H Ur Squamous Epith Cells None seen Urine Bacteria Many (>30) H Ur Culture Indicated? Specimen cultured Vol Urine Centrifuged Low vol <10ml (spun) A [facility] Social History Smoking Status: Never smoker alcohol intake: former Assessment & Plan Assessment & Plan narrative: 1. Sepsis with hypotension, elevated creatinine (borderline YOUNG), possible acute metabolic encephalopathy possibly due to infected sacral ulcer or acute cystitis - continue with zosyn, outside PCR reportedly with multiple bacteria including pseduomonas. Continue 4.5g q8 hr, increase if improved renal function to q6. - wound culture sent, though wound currently appears quite clean without purulence or necrosis. Discussed with surgery about if debridement is recommended formal evaluation pending. - follow up blood culture, urine culture pending but UA also positive. 2. elevated creatinine with CKD stage 3B. - baseline 1.3 to 1.4, on admit 1.6 now back to baseline at 1.36. Likely due to hypotension. Given IV fluids in the ER. Given previous heart failure will avoid further fluids. Hold home antihypertensives for now except for rate control metoprolol noted below. 3.paroxysmal afib, chronic - continue home metoprolol - no signs of heart failure or acs. - continue home eliquis. 4. normocytic Anemia with previous GI bleeding - - findings may be related to his recent hypotensive episodes. Will hold home medications for now and continue to follow this. He may have recurrent bleeding as well based on previous admission with low Hg but remained on blood thinner. Will monitor h/h. - continue home oral PPI - will continue apixaban for now, but if any drop will stop. Hg 8.6 > 8.3 today, will continue to follow with cbc. 5. Dysphagia - follow up speech eval, possibly related to encephalopathy. - diet changed to soft, okay with clear liquids per nursing. 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 Discussed today with general surgery, nursing staff, and case management to contribute to the above history, assessment, and plan. I have utilized all available immediate resources to obtain, update, or review the patient's current medications. Time-Based Coding :: [TOTAL MINUTES] spent with patient and on the chart (including review of chart, obtaining history, exam, reviewing outside data, placing orders, documenting exam and treatment plan, and counseling patient) on [DATE].
--- NOTE | 2024-04-10 14:31 | CM.DANOTE ---
Initial DCP Assessment Note Pt is an 78 yo male, originally was traveling between his home in [place] and his home in [place] before suffering a massive stroke with residual deficits. Patient has been at [facility] for rehab, spouse Geneva would like patient to return. PCP: Christina Weiner Payer: ROSALINO/Cinthya Reviewed chart, met w/patient and his Geneva, patient does not participate in this conversation. According to spouse, patient and spouse had been traveling back and forth between their [place] and [place] home, boating, until patient's CVA. Patient has been at [facility], patient/spouse's son lives in [place] and their DIL is a PASTE MIXING SUPERVISOR at [employer]. Spouse would like patient to return to [facility] upon discharge. Spouse planning on returning to [place] today, will return when able. Son/DIL will be here to visit patient and spouse available by phone. Plan: Discharge back to [facility] via wheelchair vs BLS. CM team following closely for coordination. KATY Dutton Discharge Planning/Care Management CM Discharge Assessment Start: 04/10/24 14:24 Freq: Status: Active Protocol: Document 04/10/24 14:24 PARISH (Rec: 04/10/24 14:31 PARISH [id number]) Discharge Planning Assessment Assigned Taffy Puller KATY Sheriff DPOA/Assigned Designee Name Geneva Bentley spouse Contact Information [phone] Advance Directives? No History Provided By Significant Other Prior Living Arrangements Skilled Nurse Facility Comment Patient had been living at home with spouse before having a stroke, has been at [facility] for rehab. Type of transporation used prior to Relies on Others admit Facility Name Admitted From: [facility] Willing to Return to Facility? Yes Independent with ADL's No Is patient alert and oriented? No: Unknown, patient has residual deficits after CVA Needs Assistance With Bathing,Eating,Grooming,Meal Prep,Toileting,Managing Medications,Home Chores / Shopping Comment Total care r/t residual deficits Patient/Family Preference Alf Facility Barriers to Discharge No Discharge Plan Alf Facility Transportation Arrangement W/c vs BLS Referrals Initiated Alf Additional Comment Return to [facility]+ anticipated
--- NOTE | 2024-04-10 17:20 | P.CONS_ITS ---
History of Present Illness Consult details Date Patient Seen: 04/10/24 Time Patient Seen: 17:20 Chief complaint: hypotension Narrative: The information was collected from the patient who is a questionable historian due to his recent stroke as well as the nurse at the bedside. The patient is an 78-year-old man who has suffered a recent embolic stroke and has presented with a full-thickness sacral decubitus wound. This has been dressed at the senior living every other day. He believes he has had the wound for about 2 months. Meds Home Medications and Allergies Home Medications Medication Instructions Recorded Confirmed Type apixaban 5 mg tablet (Eliquis) 2.5 mg PO BID 10/04/19 04/09/24 History diclofenac sodium 1 % topical gel 1 % topical QID 10/04/19 04/09/24 History lidocaine 5 % topical patch 2 patch topical DAILY 10/04/19 04/09/24 History inhalational spacing device #1 ea 09/08/22 04/09/24 Rx (Aerochamber MV spacer) amlodipine 2.5 mg tablet 2.5 mg PO BID 03/10/24 04/09/24 History doxazosin 2 mg tablet 2 mg PO BEDTIME 03/10/24 04/09/24 History evolocumab 140 mg/mL subcutaneous 140 mg SUBCUT Q2W 03/10/24 04/09/24 History pen injector (Primitivo Abrams) famotidine 20 mg tablet 20 mg PO DAILY 03/10/24 04/09/24 History furosemide 40 mg tablet 40 mg PO BID 03/10/24 04/09/24 History ipratropium 0.5 mg-albuterol 3 mg 3 ml inhalation QID PRN Shortness 03/10/24 04/09/24 History (2.5 mg base)/3 mL nebulization Of Breath Or Wheezing soln metoprolol succinate 25 mg 25 mg PO BID 03/10/24 04/09/24 History tablet,extended release 24 hr polyethylene glycol 3350 17 gram 17 g PO DAILY 03/10/24 04/09/24 History oral powder packet potassium chloride 20 mEq 20 meq PO DAILY 03/10/24 04/09/24 History tablet,extended release sennosides 8.6 mg tablet (senna) 8.6 mg PO DAILY 03/10/24 04/09/24 History tizanidine 2 mg tablet 2 mg PO Q8H PRN Muscle Spasm 03/10/24 04/09/24 History lansoprazole 15 mg capsule,delayed 15 mg PO BID 03/11/24 04/09/24 History release tamsulosin 0.4 mg capsule 0.8 mg PO DAILY 03/11/24 04/09/24 History gabapentin 100 mg tablet 100 mg PO TID 04/09/24 04/09/24 History hydrocodone 5 mg-acetaminophen 325 1 tab PO Q4-6H PRN Pain (Scale 04/09/24 04/09/24 History mg tablet Score 4-6) Allergies Allergy/AdvReac Type Severity Reaction Status Date / Time Cfbdjwi-EUY-RsO Reductase Allergy Unknown Verified 01/15/24 09:41 Inhibitor [GOLWWSI-APM-DDW REDUCTASE INHIBITOR] ciprofloxacin Allergy Verified 04/09/24 10:26 cortisone Allergy Verified 04/09/24 10:26 ezetimibe Allergy Verified 04/09/24 10:26 hydromorphone Allergy Verified 04/09/24 10:26 Exam Vital Signs (past 8 hours): - 04/10/24 11:00 04/10/24 12:00 04/10/24 12:00 Temperature 97.7 F Pulse Rate 71 Respiratory Rate 15 Blood Pressure 133/64 133/64 Pulse Oximetry 97 97 Oxygen Delivery Method Oxygen Flow Rate 0 04/10/24 15:00 04/10/24 16:00 Temperature 97.1 F L Pulse Rate 70 Respiratory Rate 18 Blood Pressure 109/38 L Pulse Oximetry 98 98 Oxygen Delivery Method Room Air Oxygen Flow Rate 0 Oxygen Delivery Method Room Air Oxygen Flow Rate 0 Narrative Exam Narrative: There is a 4 x 5 cm wound that has a proximally 2 cm deep over the sacrum There is some fibrinous exudate There is no erythema around the wound There is no purulence draining from the wound Objective Labs 04/10/24 09:37 04/10/24 09:37 Labs: Laboratory Results - last 24 hr 04/09/24 04/10/24 16:14 09:37 WBC 6.5 RBC 3.02 L Hgb 8.3 L Hct 24.8 L MCV 81.9 MCH 27.5 MCHC 33.6 RDW 17.0 H Plt Count 282 Neut % (Auto) 72.2 Lymph % (Auto) 16.8 L [place] % (Auto) 7.7 Eos % (Auto) 3.0 Baso % (Auto) 0.3 Neut # (Auto) 4700 Lymph # (Auto) 1100 [place] # (Auto) 500 Eos # (Auto) 200 Baso # (Auto) 0 Sodium 136 L Potassium 3.9 Chloride 100 Carbon Dioxide 28 BUN 38 H Creatinine 1.36 H Estimated GFR 53 L BUN/Creatinine Ratio 27.9 H Glucose 122 H Calcium 8.6 Magnesium 1.6 Urine Color Yellow Urine Appearance Clear Urine pH 6.5 Ur Specific [place] 1.010 Urine Protein 1+ H Urine Glucose (UA) Negative Urine Ketones Negative Urine Occult Blood 1+ H Urine Nitrate Positive H Urine Bilirubin Negative Urine Urobilinogen 0.2 Ur Leukocyte Esterase 2+ H Urine RBC 0-1/hpf Urine WBC 30-100/hpf H Ur Squamous Epith Cells None seen Urine Bacteria Many (>30) H Ur Culture Indicated? Specimen cultured Vol Urine Centrifuged Low vol <10ml (spun) [facility] Tobacco & Substance Use Smoking Status: Never smoker alcohol intake: former Assessment & Plan Assessment and plan (1) Decubitus ulcer: Qualifiers: Pressure injury location: sacral region Pressure injury stage: stage 4 Qualified Code(s): L89.154 - Pressure ulcer of sacral region, stage 4 Status: Acute Plan Full-thickness sacral decubitus wound. Recommend daily or even twice daily dressing changes with dry Kerlix gauze. Recommend offloading the sacrum. Time-Based Coding :: [TOTAL MINUTES] spent with patient and on the chart (including review of chart, obtaining history, exam, reviewing outside data, placing orders, documenting exam and treatment plan, and counseling patient) on [DATE].
--- NOTE | 2024-04-10 18:55 | PC.NURSE ---
Day shift: Notified MD Casper this AM of declining H&H and wound that needs to be packed. Requested wound care consult. Surgery consulted for wound - MD Delgado recommended BD dressing changes with dry gauze, no debridement at this time. Pt had 3 large loose BMs this shift. Turned [id number]. Denies pain. Noted during meals that patient coughing intermittently while eating. MD Casper ordered dysphagia diet and ORNAMENTAL MACHINE OPERATOR consult for swallow evaluation. Pt's states that swallowing has never been an issue before. IV fluids d/c'ed due to hx of heart failure. Will continue to monitor.
[2024-04-10] MEDS: DOXAZOSIN 2 MG TABLET PO (21:03)
[2024-04-11] VITALS (9 sets, daily range): BP systolic 114–130; BP diastolic 48–66; PULSE 71–96; RESP 14–17; TEMP 36.5–37.3; O2SAT 96–98
[2024-04-11] MEDS: PIPERACILLIN/TAZO 4.5 GM in SODIUM CHLORIDE 0.9% 100 ML IV ×3 (02:00→17:50)
[2024-04-11 05:31] LABS: Add Manual Diff / Slide Review NO; Basophils Absolute Auto 0 /uL (0-100); Basophils Percent Auto 0.8 % (0-2); Eosinophils Absolute Auto 200 /uL (0-450); Eosinophils Percent Auto 4.1 % (2-4); Hematocrit 22.3 % (41-53); Hemoglobin 7.4 g/dL (13.5-17.5); Lymphocytes Absolute Auto 1200 /uL (1100-4500); Lymphocytes Percent Auto 22.1 % (25-40); Mean Corpuscular HGB Conc 33.4 % (30-36); Mean Corpuscular Hemoglobin 27.4 PG (26-34); Mean Corpuscular Volume 82.1 fL (80-100); Monocytes Absolute Auto 600 /uL (0-900); Monocytes Percent Auto 10.5 % (3-14); Neutrophils Absolute Auto 3400 /uL (1500-7000); Neutrophils Percent Auto 62.5 % (50-75); Platelet Count 284 X10^3/uL (150-400); Red Blood Cell Count 2.71 X10^6/uL (4.5-5.9); Red Cell Distribution Width 17.4 % (11.6-14.8); White Blood Cell Count 5.5 X10^3/uL (4.5-11.0)
[2024-04-11 05:34] LABS: BUN Creatinine Ratio 23.9 (6-22); Blood Urea Nitrogen 33 mg/dL (9-20); Calcium 8.7 mg/dL (8.4-10.2); Carbon Dioxide 30 mmol/L (22-32); Chloride 104 mmol/L (98-107); Estimated Glomerular Filt Rate 52 mL/min (>60); Glucose 96 mg/dL (80-110); HEMOLYSIS < 15 (0-50); Potassium 3.8 mmol/L (3.4-5.1); Sodium 137 mmol/L (137-145)
[2024-04-11] MEDS: PANTOPRAZOLE DR 20 MG TABLET PO ×2 (06:15→21:01)
--- NOTE | 2024-04-11 09:27 | DIET.CONS2 ---
Dietary Inpatient Consultation Note Admission Date: 04/09/2024 12:52 Nutrition consulted for wound care. Nutrition consult completed yesterday, Noah being sent BID, pt also consumes Noah at SNF BID. 90% recorded po intakes in last 24 hours. DFM checked for adequate meal composition. Will continue to monitor po intakes and Noah tolerance. Diet: 04/10/24 Dinner Dysphagia Diet Diet Modifications: Food Texture: Level 6-Soft & Bite-sized Liquid Consistency: Level 0 - Thin Nutrition Percent Meal Consumed 100% 04/11/24 09:17 Percent Meal Consumed 100% 04/10/24 18:00 Percent Meal Consumed 50% 04/10/24 13:45 Percent Meal Consumed 100% 04/10/24 10:59 Electronically Signed by: Hermila Mora 04/11/24 09:27 Clinical Dietitian [address] [address]
[2024-04-11] MEDS: FAMOTIDINE 20 MG TABLET PO (09:50)
[2024-04-11] MEDS: METOPROLOL ER 25 MG TABLET PO ×2 (09:50→20:42)
[2024-04-11] MEDS: TAMSULOSIN 0.4 MG CAPSULE 0.8 MG PO (09:50)
[2024-04-11] MEDS: POTASSIUM CHLORIDE 20 MEQ TAB PO (09:50)
[2024-04-11] MEDS: DICLOFENAC 1% GEL 100 GM 1 APPLIC TOP ×2 (09:50→13:42)
[2024-04-11] MEDS: GABAPENTIN 100 MG CAPSULE PO ×3 (09:51→20:44)
[2024-04-11] MEDS: HYDROCODONE/ACET 5/325 TABLET 1 TAB PO (09:51)
--- NOTE | 2024-04-11 10:13 | ST.IPCSEOM ---
Visit Care Team Role Provider Type EMELI Dawson Primary Care Provider Physician Specialty: Nursing Address: [address] [place] [address], [id number] Email: Palak Flores PA-C Other Providers Advanced Public Employment Mediator Specialty: Medical Wound Care Address: [address] [place] [address], [id number] Email: [email or web address] Ritchie MD Other Providers Physician Specialty: General Surgery Address: [address] [place] [address], [id number] Email: Nia Brown DPM Other Providers Non-Staff Specialty: Podiatry Address: [address] [place] [address], [id number] Email: Alex Thakkar MD Other Providers Physician Specialty: Wound Care Address: [address] [place] [address], [id number] Email: [email or web address] Qasim Bright MD Other Providers Non-Staff Specialty: Wound Care Address: [address] [place] [address], [id number] Email: [email or web address] Gulshan Mccabe MD Emergency Provider Physician Referring Provider Specialty: Emergency Medicine Address: [address] [place] [address], [id number] Email: Alberto Casper DO Admit Provider Physician Attending Provider Specialty: Internal Medicine Address: [address] [place] [address], [id number] Email: Current Diagnoses Sepsis, unspecified organism (04/09/24) Pressure ulcer of sacral region, stage 4 (04/09/24) Speech-Language Pathology Swallow Evaluation YARD BRAKEMAN Clinical Swallow Evaluation Start: 04/11/24 09:35 Freq: Status: Active Protocol: Document 04/11/24 09:37 MG (Rec: 04/11/24 09:44 MG [id number]) Clinical Swallow Evaluation Session Time Visit Start Time 09:05 Visit Stop Time 09:30 Total Visit Minutes 25 Visit Information Visit Number 1 Setting Assessment Location Acute Care Visit Type Note Type Initial evaluation Next Note Type Next Note Type Treatment Note Patient Information Identification Type Name,Wristband History Per H&P: Pt is a 78 y.o. 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 He was hypotensive, but responded to fluid administration in the ER. History is obtained via and discussion with ER provider, patient is able to intermittently express some words but not reliably. Patient has had worsening sacral wound, follows with ID at [facility] and is on suppressive chronic therapy. Infectious disease provider had referred him to the ER twice for hypotension recently, once with low Hg and another improved with fluids, but had not been admitted. Subjective Observations Pt was resting in bed upon YARD BRAKEMAN entry. Pt had a family member visiting but left prior to the start of the evaluation. Pt was agreeable to YARD BRAKEMAN conducting a swallow evaluation due to nursing concerns with coughing during meals. Of note, the pt's cleared his breakfast tray and consumed coffee, orange slices and pancakes. Pt's family member reported no coughing episodes while eating . Pt's diet had been downgraded to 6 (soft and bite sized) and 0 (thin). Pt reported that he works with a speech therapist at [facility]. The pt has noted slow but clear speech and is able to follow directions and answer questions. Per note from the liquor grinder mill operator visit: the pt's spouse reports weight loss r/t decreased po intake (<75% of some meal choices provided) due to suboptimal food options at SNF, son brings in food sometimes. Was recently started on Noah BID at [facility], pt reports tolerating it. Reported by Patient/Caregiver Other Symptoms Coughing,Weight loss,Other Current Diet Soft & Bite-sized (IDDSI 6) Baseline Feeding Method Needs some assistance The IDDSI Framework Protocol: IDDSI.1 Objective Assessment Mental Status Alert,Responsive,Cooperative Oral Integrity WFL Dentition Within normal limits Lip Function Mild impairment Observation of Lips at Rest Left sided weakness/Drooping Pucker Within normal limits Lip Retraction Within normal limits Alternating Pucker/Lip Retraction Within normal limits Tongue Function Within normal limits Observations of Tongue at Rest Within normal limits Tongue Protrusion Within normal limits Tongue Retraction Within normal limits Tongue Lateralization Within normal limits Jaw Function Within normal limits Observation of Jaw at Rest Within normal limits Jaw Opening Within normal limits Jaw Closing Within normal limits Jaw Lateralization Within normal limits Jaw Protrusion Within normal limits Jaw Retraction Within normal limits Hard/Soft Palate Function Within normal limits Observations of Hard/Soft Palate Within normal limits Nasality Within normal limits Respiratory Sufficiency Within normal limits Comment Overall oral mechanism is within functional limits at this time. No overt weakness or reduced strength noted. At rest, there is a mild left lip droop but it did not impact oral movements. Food and Liquid Trials Position During Assessment Slightly reclined Liquids Trialed Ice chips,Thin (IDDSI 0) Solid Trials Purred (IDDSI 4),Minced & Moist (IDDSI 5),Soft & Bite- sized (IDDSI 6),Easy to Chew ( IDDSI 7) Administration Type Controlled cup sip,Cup consecutive sips,Straw,Needs some assistance Oral Impairment Within functional limits Oral Phase Comments No anterior spillage noted. Pt had adequate lip seal around straw. No residue noted in oral cavity after solid trials . Pharyngeal Impairment Within functional limits Pharyngeal Phase Comments Laryngeal palpation indicated adequate hyolaryngeal movement and anterior hyoid excursion. No overt s/sx of aspiration on all liquid and solid trials at this time. Fatigue/Endurance Endurance WNL The IDDSI Framework Protocol: IDDSI.1 Findings Swallowing Function Within normal limits Severity of Swallow Impairment Within functional limits Prognosis Good Comment Pt does not demonstrate dysphagia at this time. Weight loss may be due to uninterest in food at facility vs swallowing difficulties. Pt may benefit from continued follow up for speech therapy. Impact on Safety and Functioning No limitations Recommendations Instrumental Assessment No Swallowing Treatment Yes Frequency f/u for speech treatment Recommended Solids Regular (IDDSI 7) Recommended Liquids Thin (IDDSI 0) Safety Precautions/Swallowing Feed only when alert,Reduce Recommendations distractions,Remain upright ( 90 degrees) during all oral intake,Small bites and sips when eating,Slow rate; swallow between bites Medication Recommendations As Tolerated Discharge Recommendations snf facility,intermediate card tender care facility Education Patient/Caregiver Education Described results of evaluation,Patient expressed understanding of evaluation, Patient expressed agreement with goals & treatment plans, Patient expressed understanding of safety precautions,Patient expressed understanding of feeding recommendations Goals Short-term Goals Pt will use clear speech and word finding strategies with verbal cueing. Long-term Goals Pt will independently use clear speech and word finding strategies.
--- NOTE | 2024-04-11 10:56 | CM.DPNOTE ---
Addendum entered by Sylvia Andrews 04/11/24 11:01: Spoke to Shon at Ambulance to change date and time to [facility] for 04/12 at 1100 per Laquita. Original Note: Called Ambulance for BLS transport per Laquita for 1400 pickup. Spoke to Mark. Sylvia Andrews CM Lube Worker.
--- NOTE | 2024-04-11 13:20 | CM.DPNOTE ---
DCP Cont According to Dr Casper, patient may be ready for DC back to [facility]+R tomorrow. According to Radha at [facility], patient okay to return. BLS arranged for 1100 04/12. BLS deemed safest transport, d/t sacral ulcer and patient's prior CVA w/residual deficits. Plan: Discharge anticipated tomorrow if patient is medically stable, back to [facility] via BLS at 1100. Will plan to update spouse by phone tomorrow AM if patient is indeed medically ready for DC. no PASRR needed. JW
--- NOTE | 2024-04-11 13:35 | PM.PN.1 ---
Subjective Subjective Interval history: Patient is without complaints today. Speech stated patient can have regular diet again after evaluation. His h/h fell a bit today, stool was guiaiac negative. Exam Vital Signs (past 8 hours): - 04/11/24 08:00 04/11/24 09:50 04/11/24 12:00 Temperature 98.0 F 97.8 F Pulse Rate 71 71 73 Respiratory Rate 14 14 Blood Pressure 117/54 L 117/54 L 114/54 L Pulse Oximetry 96 96 Oxygen Flow Rate 0 0 04/11/24 12:00 Temperature Pulse Rate 96 H Respiratory Rate Blood Pressure 114/54 L Pulse Oximetry Oxygen Flow Rate Oxygen Delivery Method Room Air Oxygen Flow Rate 0 Narrative Exam Narrative: Gen: No acute distress, occasional clear words, alert and interactive. CV: RRR no m/r/g Pulm: CTA b/l Abd: S NT ND Ext: No edema or rash, RUE swelling minimal now no erythema or induration at previous PICC site. Skin: sacral ulcer, approx 4 x2 cm, clean edges with no necrosis, packed, no apparent discharge. Objective Labs 04/11/24 05:00 04/11/24 05:00 Labs: Laboratory Results - last 24 hr 04/11/24 05:00 WBC 5.5 RBC 2.71 L Hgb 7.4 L Hct 22.3 L MCV 82.1 MCH 27.4 MCHC 33.4 RDW 17.4 H Plt Count 284 Neut % (Auto) 62.5 Lymph % (Auto) 22.1 L Posey % (Auto) 10.5 Eos % (Auto) 4.1 H Baso % (Auto) 0.8 Neut # (Auto) 3400 Lymph # (Auto) 1200 Posey # (Auto) 600 Eos # (Auto) 200 Baso # (Auto) 0 Sodium 137 Potassium 3.8 Chloride 104 Carbon Dioxide 30 BUN 33 H Creatinine 1.38 H Estimated GFR 52 L BUN/Creatinine Ratio 23.9 H Glucose 96 Calcium 8.7 PFSH Social History Smoking Status: Never smoker alcohol intake: former Assessment & Plan Assessment & Plan narrative: 1. Sepsis with hypotension, elevated creatinine (borderline YOUNG), possible acute metabolic encephalopathy possibly due to infected sacral ulcer or acute cystitis - continue with zosyn, outside PCR reportedly with multiple bacteria including pseduomonas. Continue 4.5g q8 hr, increase if improved renal function to q6. - wound culture sent which shows proteus, though wound currently appears quite clean without purulence or necrosis. Discussed with surgery and appreciate consultation, no debridement was recommended. - will narrow once urine culture result finalizes, currently with proteus in wound and urine culture with gram negative bacilli. 2. elevated creatinine with CKD stage 3B. - baseline 1.3 to 1.4, on admit 1.6 now back to baseline at 1.38. Likely elevated due to hypotension. Given IV fluids in the ER. Given previous heart failure will avoid further fluids. Hold home antihypertensives for now except for rate control metoprolol noted below. 3.paroxysmal afib, chronic - continue home metoprolol - no signs of heart failure or acs. - continue home eliquis. 4. normocytic Anemia with previous GI bleeding - - findings may be related to his recent hypotensive episodes. Will hold home medications for now and continue to follow this. He may have recurrent bleeding as well based on previous admission with low Hg but remained on blood thinner. Will monitor h/h. - continue home oral PPI - will continue apixaban for now, but if any drop will stop. Hg 8.6 > 8.3 > 7.4 today, will continue to follow with cbc. If h/h continues to decline, will stop apixaban, though guaiac on stool today was negative. - Given his repeated ER visits and hypotension, will continue to watch his h/h today and into tomorrow as it is not clear if hypotension episodes were due to sepsis or anemia. 5. Dysphagia, resolved - appreciate speech eval, possibly related to encephalopathy. 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 Discussed today with general surgery, nursing staff, and case management to contribute to the above history, assessment, and plan. I have utilized all available immediate resources to obtain, update, or review the patient's current medications. Time-Based Coding :: [TOTAL MINUTES] spent with patient and on the chart (including review of chart, obtaining history, exam, reviewing outside data, placing orders, documenting exam and treatment plan, and counseling patient) on [DATE].
[2024-04-11] MEDS: MAG HYDROX/ALUM/SIMETH 30 ML UDC PO (15:11)
--- NOTE | 2024-04-11 16:17 | PM.CN ---
History of Present Illness Consult details Date Patient Seen: 04/11/24 Time Patient Seen: 15:45 Chief complaint: hypotension Narrative: The patient is an 78-year-old male with history of bio prosthetic aortic valve with septic stroke who was admitted to the hospital April 09, 2024 from [facility] rehab after a syncopal episode. He was found to be hyportensive but responded to fluid administration. The patient has had a sacral decubitus for about 3 months and [facility]. He reports some mild discomfort associated with the ulcer and some slight drainage but reports that it has been slowly improving. He was seen by the surgical service who did not feel that any surgical debridement was necessary. Upon admission the patient was started on IV antibiotics. The patient has been afebrile. Laboratory evaluation revealed anemia and CKD, no leukocytosis. The patient reports a good appetite. The patient is on chronic anticoagulation. Meds Home Medications and Allergies Home Medications Medication Instructions Recorded Confirmed Type apixaban 5 mg tablet (Eliquis) 2.5 mg PO BID 10/04/19 04/09/24 History diclofenac sodium 1 % topical gel 1 % topical QID 10/04/19 04/09/24 History lidocaine 5 % topical patch 2 patch topical DAILY 10/04/19 04/09/24 History inhalational spacing device #1 ea 09/08/22 04/09/24 Rx (Aerochamber MV spacer) amlodipine 2.5 mg tablet 2.5 mg PO BID 03/10/24 04/09/24 History doxazosin 2 mg tablet 2 mg PO BEDTIME 03/10/24 04/09/24 History evolocumab 140 mg/mL subcutaneous 140 mg SUBCUT Q2W 03/10/24 04/09/24 History pen injector (Repatha Trippick) famotidine 20 mg tablet 20 mg PO DAILY 03/10/24 04/09/24 History furosemide 40 mg tablet 40 mg PO BID 03/10/24 04/09/24 History ipratropium 0.5 mg-albuterol 3 mg 3 ml inhalation QID PRN Shortness 03/10/24 04/09/24 History (2.5 mg base)/3 mL nebulization Of Breath Or Wheezing soln metoprolol succinate 25 mg 25 mg PO BID 03/10/24 04/09/24 History tablet,extended release 24 hr polyethylene glycol 3350 17 gram 17 g PO DAILY 03/10/24 04/09/24 History oral powder packet potassium chloride 20 mEq 20 meq PO DAILY 03/10/24 04/09/24 History tablet,extended release sennosides 8.6 mg tablet (senna) 8.6 mg PO DAILY 03/10/24 04/09/24 History tizanidine 2 mg tablet 2 mg PO Q8H PRN Muscle Spasm 03/10/24 04/09/24 History lansoprazole 15 mg capsule,delayed 15 mg PO BID 03/11/24 04/09/24 History release tamsulosin 0.4 mg capsule 0.8 mg PO DAILY 03/11/24 04/09/24 History gabapentin 100 mg tablet 100 mg PO TID 04/09/24 04/09/24 History hydrocodone 5 mg-acetaminophen 325 1 tab PO Q4-6H PRN Pain (Scale 04/09/24 04/09/24 History mg tablet Score 4-6) ipratropium bromide 21 mcg (0.03 2 spray intranasal BID PRN 04/11/24 History %) nasal spray allergies valsartan 80 mg tablet mg PO 04/11/24 History Allergies Allergy/AdvReac Type Severity Reaction Status Date / Time Neobumw-LKL-QvN Reductase Allergy Unknown Verified 01/15/24 09:41 Inhibitor [BZSHRAF-KPE-DTY REDUCTASE INHIBITOR] ciprofloxacin Allergy Verified 04/09/24 10:26 cortisone Allergy Verified 04/09/24 10:26 ezetimibe Allergy Verified 04/09/24 10:26 hydromorphone Allergy Verified 04/09/24 10:26 Review of Systems Cardiovascular Comments: No chest pain Respiratory Comments: No shortness of breath Exam Vital Signs (past 8 hours): - 04/11/24 09:50 04/11/24 12:00 04/11/24 12:00 Temperature 97.8 F Pulse Rate 71 73 96 H Respiratory Rate 14 Blood Pressure 117/54 L 114/54 L 114/54 L Pulse Oximetry 96 Oxygen Flow Rate 0 Oxygen Delivery Method Room Air Oxygen Flow Rate 0 Const Other: Well-developed well-nourished male who is alert and oriented and in no apparent distress Resp Other: Unlabored respirations Skin Other: Stage III sacral decubitus with good granulation tissue, no sign of infection, minimal necrotic tissue Neuro Other: Hemiparesis from recent stroke Objective Labs 04/11/24 05:00 04/11/24 05:00 Labs: Laboratory Results - last 24 hr 04/11/24 05:00 WBC 5.5 RBC 2.71 L Hgb 7.4 L Hct 22.3 L MCV 82.1 MCH 27.4 MCHC 33.4 RDW 17.4 H Plt Count 284 Neut % (Auto) 62.5 Lymph % (Auto) 22.1 L Cedar % (Auto) 10.5 Eos % (Auto) 4.1 H Baso % (Auto) 0.8 Neut # (Auto) 3400 Lymph # (Auto) 1200 Cedar # (Auto) 600 Eos # (Auto) 200 Baso # (Auto) 0 Sodium 137 Potassium 3.8 Chloride 104 Carbon Dioxide 30 BUN 33 H Creatinine 1.38 H Estimated GFR 52 L BUN/Creatinine Ratio 23.9 H Glucose 96 Calcium 8.7 PFSH Tobacco & Substance Use Smoking Status: Never smoker alcohol intake: former Assessment & Plan Assessment and plan (1) Pressure ulcer of sacral region, stage 3: Status: Acute Assessment & Plan narrative: Stage III sacral decubitus. Recommend continuing b.i.d. dressing changes with dry gauze and Allyvyn, pressure offloading with frequent turning, protein supplementation, treat anemia, follow up at wound center after discharge. The patient would be a good candidate for negative pressure wound therapy. Time-Based Coding :: [45] spent with patient and on the chart (including review of chart, obtaining history, exam, reviewing outside data, placing orders, documenting exam and treatment plan, and counseling patient) on [04/11/24].
[2024-04-11] MEDS: DOXAZOSIN 2 MG TABLET PO (20:44)
[2024-04-12] MEDS: PIPERACILLIN/TAZO 4.5 GM in SODIUM CHLORIDE 0.9% 100 ML IV ×2 (02:59→09:41)
[2024-04-12 05:30] LABS: Add Manual Diff / Slide Review NO; Basophils Absolute Auto 0 /uL (0-100); Basophils Percent Auto 0.5 % (0-2); Eosinophils Absolute Auto 200 /uL (0-450); Eosinophils Percent Auto 3.8 % (2-4); Hematocrit 22.1 % (41-53); Hemoglobin 7.4 g/dL (13.5-17.5); Lymphocytes Absolute Auto 1300 /uL (1100-4500); Lymphocytes Percent Auto 22.2 % (25-40); Mean Corpuscular HGB Conc 33.4 % (30-36); Mean Corpuscular Hemoglobin 27.4 PG (26-34); Mean Corpuscular Volume 81.9 fL (80-100); Monocytes Absolute Auto 700 /uL (0-900); Neutrophils Absolute Auto 3500 /uL (1500-7000); Neutrophils Percent Auto 61.5 % (50-75); Platelet Count 283 X10^3/uL (150-400); Red Cell Distribution Width 17.2 % (11.6-14.8); White Blood Cell Count 5.7 X10^3/uL (4.5-11.0)
[2024-04-12 05:51] LABS: BUN Creatinine Ratio 24.6 (6-22); Blood Urea Nitrogen 35 mg/dL (9-20); Calcium 9.2 mg/dL (8.4-10.2); Carbon Dioxide 31 mmol/L (22-32); Chloride 103 mmol/L (98-107); Estimated Glomerular Filt Rate 50 mL/min (>60); Glucose 95 mg/dL (80-110); HEMOLYSIS < 15 (0-50); Potassium 3.9 mmol/L (3.4-5.1); Sodium 136 mmol/L (137-145)
[2024-04-12] MEDS: PANTOPRAZOLE DR 20 MG TABLET PO (07:07)
--- NOTE | 2024-04-12 08:30 | P.DS_ITS ---
History of Present Illness History of Present Illness Date Patient Seen: 04/12/24 Chief complaint: hypotension Narrative: Per admitting provider, Darryl Bentley is a 78 y.o. 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 He was hypotensive, but responded to fluid administration in the ER. History is obtained via and discussion with ER provider, patient is able to intermittently express some words but not reliably. Patient has had worsening sacral wound, follows with ID at [facility] and is on suppressive chronic therapy. Culture report is not available except that a PCR that showed Proteus, Morganella, Prevotella, pseudomonas and E. faecalis. Discussed with infectious disease provider whom did not know what to make of this culture and whether it represented true infection or stool bacteria. In the ER, vitals are documented as unremarkable, though he was hypotensive at [facility]. Hg is stable at 8.8 from previous admission, Creatinine a bit higher at 1.6, WBC count was unremarkable. He has been backing off of BP medication recently due to hypotension as well. Infectious disease provider had referred him to the ER twice for hypotension recently, once with low Hg and another improved with fluids, but had not been admitted. Discharge Providers Provider Date of admission: 04/09/24 12:52 Discharge Date: 04/12/24 Primary care physician: EMELI Dawson Consults: 04/09/24 16:34 Consult to General Surgery Routine Comment: Consulting Provider: [place] Ritchie Reason for consultation: sacral ulcer Has provider been notified: Yes 04/10/24 14:00 Consult to Speech Therapy Evaluate & Treat Comment: Physician Instructions: Evaluate and treat 04/10/24 15:30 Consult to Wound Care Routine Comment: for sacral pressure sore Consulting Provider: Nathaniel Wound Care 04/10/24 19:13 Consult to Dietitian, Adult Routine Comment: Reason For Exam: wound care consult Discharge provider: Alberto Casper DO Summary Hospital Course Discharge Diagnosis: Please see hospital course by problem list noted below. Hospital Course: 1. Sepsis with hypotension, elevated creatinine (borderline YOUNG), possible acute metabolic encephalopathy possibly due to infected sacral ulcer or more likely acute cystitis due to pseudomonas. - patient presented with elevated creatining and confusion. Initial thought was infected sacral wound by ER, but my evaluation of his wound showed a fairly clean ulcer. Swab was taken which grew only proteus prior to discharge. Surgery evaluated for debridement of his sacral wound but was not recommended. Wound care evaluated the wound prior to discharge with recommendations for outpatient care provided. - Urine culture was checked shortly after arrival, urine cultures grew a sensitive pseudomonas. He is allergic to fluoroquinolones. Continue zosyn 4.5 mg q8 hr for another 4 days at SNF after discharge for completion of Psuedomonal UTI. 2. elevated creatinine with CKD stage 3B. - baseline 1.3 to 1.4, on admit 1.6 now back to baseline at 1.38. Likely elevated due to hypotension. Given IV fluids in the ER. Given previous heart failure will avoid further fluids. Hold home antihypertensives for now except for rate control metoprolol noted below. 3.paroxysmal afib, chronic - continued home metoprolol - no signs of heart failure or acs. - continued home eliquis. 4. normocytic Anemia with previous GI bleeding - unclear if hypotension due to anemia or iatrogenic from medications. His BP is normal only on oral metoprolol. Will resume furosemide at much lower dosing on discharge to avoid volume overload with chronic heart failure. Otherwise off of all medications. - Hg stable at 7.4. Guaiac testing was negative. Recommend repeat blood count in a couple of days to make sure not continuing to fall and that it remains either stable or uptrending. If continues to fall, previous admissions to [facility] have recommended possible cessation of his eliquis. - continue home oral PPI 5. Dysphagia, resolved - appreciate speech eval, possibly related to above encephalopathy. 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 CV: RRR no m/r/g Pulm: CTA b/l Abd: S NT ND Ext: No edema or rash, RUE swelling minimal now no erythema or induration at previous PICC site. Skin: sacral ulcer, approx 4 x2 cm, clean edges with no necrosis, packed, no apparent discharge. Objective Labs 04/12/24 04:49 04/12/24 04:49 Labs: Laboratory Results - last 24 hr 04/12/24 04:49 WBC 5.7 RBC 2.70 L Hgb 7.4 L Hct 22.1 L MCV 81.9 MCH 27.4 MCHC 33.4 RDW 17.2 H Plt Count 283 Neut % (Auto) 61.5 Lymph % (Auto) 22.2 L Ashley % (Auto) 12.0 Eos % (Auto) 3.8 Baso % (Auto) 0.5 Neut # (Auto) 3500 Lymph # (Auto) 1300 Ashley # (Auto) 700 Eos # (Auto) 200 Baso # (Auto) 0 Sodium 136 L Potassium 3.9 Chloride 103 Carbon Dioxide 31 BUN 35 H Creatinine 1.42 H Estimated GFR 50 L BUN/Creatinine Ratio 24.6 H Glucose 95 Calcium 9.2 PFSH Social History Smoking Status: Never smoker alcohol intake: former Discharge Plan Discharge Plan Patient Disposition: SNF Transfer to: [facility] Provider Discharge Comment: 78 M admitted with sepsis. Sacral wound appears to not be infected, but culture did grow a proteus. Continue dressing changes and outpatient wound care follow up recommended. More likely source was urine which grew pseudomonas. Hold chronic suppressive antibiotics while completing zosyn for pseudomonal urine infection but then resume after completion. A number of his BP medications have also been stopped or drastically reduced due to normal BP off of them and recent hypotension episodes requiring ER visits. Recommend repeat Hg/Hct in a couple of days as well. Hg is stable at discharge at 7.4, stools were guaiac negative and there is no obvious bleeding but consider stopping patient's Apixaban should h/h continue to decline. Wound physician recommendations are noted in wound treatment section below. Discharge orders & Medications Prescriptions: New acetaminophen 325 mg Tablet 650 mg PO Q6H PRN (Reason: Fever/Mild Pain (1-3)) Qty: 30 0RF Zosyn in dextrose (iso-osm) 4.5 gram/100 mL piggyback 4.5 g IV Q8H 4 Days Continued (DME) Aerochamber MV Spacer See Rx Instructions .ROUTE .MEDSUPPLY Qty: 1 0RF Rx Instructions: As directed lidocaine 5 % adhesive patch,medicated 2 patch topical DAILY diclofenac sodium 1 % gel 1 % TOPICAL QID Eliquis 5 mg tablet 2.5 mg PO BID Patient Comments: TK 1 T PO BID sennosides [senna] 8.6 mg Tablet 8.6 mg PO DAILY ipratropium-albuterol 0.5 mg-3 mg(2.5 mg base)/3 mL Solution For Nebulization 3 ml INHALATION QID PRN (Reason: Shortness Of Breath Or Wheezing) tizanidine 2 mg Tablet 2 mg PO Q8H PRN (Reason: Muscle Spasm) polyethylene glycol 3350 17 gram Powder In Packet 17 g PO DAILY famotidine 20 mg Tablet 20 mg PO DAILY metoprolol succinate 25 mg tablet extended release 24 hr 25 mg PO BID doxazosin 2 mg Tablet 2 mg PO BEDTIME potassium chloride 20 mEq Tablet Extended Release 20 meq PO DAILY Repatha SureClick 140 mg/mL pen injector 140 mg SUBCUT Q2W tamsulosin 0.4 mg capsule 0.8 mg PO DAILY lansoprazole 15 mg capsule,delayed release(DR/EC) 15 mg PO BID gabapentin 100 mg Tablet 100 mg PO TID ipratropium bromide 21 mcg (0.03 %) spray,non-aerosol 2 spray intranasal BID PRN (Reason: allergies) hydrocodone-acetaminophen 5-325 mg Tablet 1 tab PO Q4-6H PRN (Reason: Pain (Scale Score 4-6)) Qty: 15 0RF Changed furosemide 40 mg Tablet 20 mg PO DAILY Qty: 30 0RF Discontinued amlodipine 2.5 mg tablet 2.5 mg PO BID valsartan 80 mg tablet PO Follow up/Referrals: Christina Weiner ARNP [Primary Care Provider] - Discharge Health Status Multidrug resistant organism: No MDRO Precautions: [place] Diet/Activity/Treatments Diet: Diet as Tolerated Liquid consistency: Normal/Thin Food texture: Regular Activity: As tolerated no restrictions Skin/Wound/Dressing Care Skin care: Frequent turning due to sacral pressure ulcer Other wound treatment: Stage III sacral decubitus. Recommend continuing b.i.d. dressing changes with dry gauze and Allyvyn, pressure offloading with frequent turning, protein supplementation, treat anemia, follow up at wound center after discharge. The patient would be a good candidate for negative pressure wound therapy. Special Rehabilitation Services Reason for rehabilitation: Therapy following stroke and Recovery r/t decondition Rehab type: Physical therapy, Occupational therapy and Speech therapy Visit Report/Discharge Packet Stand Alone Forms: Patient Portal/API Discharge Data Primary Care Provider: Christina Weiner
[2024-04-12 09:00] VITALS: BP 128/68; PULSE 67; RESP 18; TEMP 36.6; O2SAT 97
[2024-04-12] MEDS: DICLOFENAC 1% GEL 100 GM 1 APPLIC TOP (09:25)
[2024-04-12] MEDS: polyethylene glycoL 3350 17 GM POWD.PACK PO (09:26)
[2024-04-12 09:27] VITALS: BP 128/68; PULSE 67
[2024-04-12] MEDS: SENNOSIDES 8.6 MG TABLET PO (09:27)
[2024-04-12] MEDS: METOPROLOL ER 25 MG TABLET PO (09:27)
[2024-04-12] MEDS: POTASSIUM CHLORIDE 20 MEQ TAB PO (09:27)
[2024-04-12] MEDS: FAMOTIDINE 20 MG TABLET PO (09:27)
[2024-04-12] MEDS: GABAPENTIN 100 MG CAPSULE PO (09:27)
[2024-04-12] MEDS: TAMSULOSIN 0.4 MG CAPSULE 0.8 MG PO (09:27)
--- NOTE | 2024-04-12 10:17 | CM.DPNOTE ---
DC Note Discharge to [facility] today via BLS. According to Dr Casper, patient will need 4 days of IV Zosyn and midline being placed this morning. Radha at [facility] updated. BLS rescheduled from 1100 to 1300. POL, face sheet and completed and signed PCS form available for BLS crew. SOLIS Ward, assisting with this coordination. Updated spouse by phone who remains agreeable to plan. Plan: Discharge back to [facility] today via BLS JW
--- NOTE | 2024-04-12 12:44 | ST.IPTN ---
Visit Care Team Role Provider Type EMELI Dawson Primary Care Provider Physician Address: [address] [place] [address], [address] Palak Flores PA-C Other Providers Advanced S[employer] Liner Address: [address] [place] [address], [id number] [place] Ritchie MD Other Providers Physician Address: [address] [place] [id number] Nia Brown DPM Other Providers Non-Staff Address: [address] [place] [address], [id number] Alex Thakkar MD Other Providers Physician Address: [address] [place] [address], [id number] Qasim Bright MD Other Providers Non-Staff Address: [address] [place] [id number] Gulshan Mccabe MD Emergency Provider Physician Referring Provider Address: [address] [place] [id number] Alberto Casper DO Admit Provider Physician Attending Provider Address: [address] [place] [id number] CORPORATE ASSOCIATE Treatment Note CORPORATE ASSOCIATE Treatment Note Start: 04/12/24 12:30 Freq: Status: Active Protocol: Document 04/12/24 12:30 ISSAC (Rec: 04/12/24 12:44 ISSAC [id number]) Speech Pathology Treatment Note Session Time Visit Start Time 12:05 Visit Stop Time 12:30 Total Visit Minutes 25 Visit Information Visit Number 2 Setting Treatment Setting Acute Care General Information Patient History Per H&P: Pt is a 78 y.o. 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 He was hypotensive, but responded to fluid administration in the ER. History is obtained via and discussion with ER provider, patient is able to intermittently express some words but not reliably. Patient has had worsening sacral wound, follows with ID at [facility] and is on suppressive chronic therapy. Infectious disease provider had referred him to the ER twice for hypotension recently, once with low Hg and another improved with fluids, but had not been admitted. Subjective Identification Type Name,ID Wristband Observations/Patient Presentation Pt laying in bed with slight left lean. ST and RADIOLOGIC ELECTRONIC SPECIALIST positioned Pt upright in bed for initation of PO trials. Pt compliant with positioning and therapy. Pt oriented to name, , month, some confusion with year stating 2022. Objective Treatment Activities Therapeutic PO trials, safe swallow education Assessment Patient Response to Treatment Excellent Assessment of Improvement Pt seen for dysphagia treatment. Pt presented with regular solids, soft solids and thin liquids via straw. Pt consumed teresita cracker, salmon and about 8 oz of thin water via straw. Pt able to feed self provided mild cues. For solids Pt demonstrated slight impulsivity characerized by large bites and benefited from cues to take smaller bites and slow rate. Pt with prolonged mastication however adequate bolus formation and control, no overt s/s of aspiration. For thin liquids Pt exhibited adequate suction, good oral acceptance and containment, suspected loss of bolus resulting in premature spillage, 1x mild throat clear , no additional overt s/s of aspiration. ST educated Pt on safe swallowing strategies, however unable to determine if Pt comprehends. ST recommends continuation of regular solids and thin liquids with safe swallowing strategies in place, such as slow rate, small bites, upright 90 degrees all meals and for at least 30 minutes after meals with consistent oral care before/after meals.
[2024-04-12 13:00] VITALS: BP 126/51; PULSE 50; RESP 17; TEMP 36.4; O2SAT 98
[2024-04-12 14:09] VITALS: PULSE 50
== END 2024-04-12 13:45 | DRG 871 ==
LOC: ED 09:59 → AC 12:53
PROVIDERS: Admitting Provider Internal Medicine; Emergency Provider Emergency Medicine; PCP Family Medicine; Referring Provider Emergency Medicine; Visit Provider Internal Medicine
DX: A41.9 Sepsis, unspecified organism (principal); G93.41 Metabolic encephalopathy; L89.153 Pressure ulcer of sacral region, stage 3; I13.0 Hypertensive heart and chronic kidney disease with heart failure and stage 1 through stage 4 chronic kidney disease, or unspecified chronic kidney disease; I50.22 Chronic systolic (congestive) heart failure; N30.00 Acute cystitis without hematuria; N18.32 Chronic kidney disease, stage 3b; I48.0 Paroxysmal atrial fibrillation; D64.9 Anemia, unspecified; R33.9 Retention of urine, unspecified; G47.33 Obstructive sleep apnea (adult) (pediatric); R13.10 Dysphagia, unspecified; R55 Syncope and collapse; B96.5 Pseudomonas (aeruginosa) (mallei) (pseudomallei) as the cause of diseases classified elsewhere; B96.4 Proteus (mirabilis) (morganii) as the cause of diseases classified elsewhere; Z66 Do not resuscitate; Z95.2 Presence of prosthetic heart valve; Z79.01 Long term (current) use of anticoagulants; Z86.73 Personal history of transient ischemic attack (TIA), and cerebral infarction without residual deficits
CPT/HCPCS: 36415; 70450; 71045; 74177; 80048; 80053; 81001; 83605; 83735; 84145; 85025; 87040; 87070; 87075; 87077; 87086; 87186; 87205; 92526; 92610; 96365; 99284; 99285; A9270; J2543; Q9967

== ENCOUNTER → 2024-04-16 10:02 | Outpatient (CLI) | payer MEDICARE, OTHER, SELFPAY ==
[2024-04-09 13:39] VITALS: BMI 29.3
== END ==
PROVIDERS: PCP Internal Medicine; Referring Provider Internal Medicine; Visit Provider Surgery
DX: L89.154 Pressure ulcer of sacral region, stage 4 (principal); R60.0 Localized edema; L53.9 Erythematous condition, unspecified; I50.9 Heart failure, unspecified; I25.10 Atherosclerotic heart disease of native coronary artery without angina pectoris; Z79.01 Long term (current) use of anticoagulants
CPT/HCPCS: 11042; 99213; 99214

== ENCOUNTER 2024-04-23 08:59 | Emergency (ER) | payer MEDICARE, OTHER, SELFPAY ==
[2024-04-09 13:39] VITALS: BMI 29.3
[2024-04-23] VITALS (7 sets, daily range): BP systolic 100–134; BP diastolic 52–63; PULSE 65–74; RESP 12–18; TEMP 36.4; O2SAT 96–98; BMI 25.7
[2024-04-23 09:13] LABS: Add Manual Diff / Slide Review NO; Basophils Absolute Auto 0 /uL (0-100); Basophils Percent Auto 0.3 % (0-2); Eosinophils Absolute Auto 200 /uL (0-450); Eosinophils Percent Auto 3.2 % (2-4); Hematocrit 24.2 % (41-53); Lymphocytes Absolute Auto 1200 /uL (1100-4500); Lymphocytes Percent Auto 18.4 % (25-40); Mean Corpuscular HGB Conc 33.1 % (30-36); Mean Corpuscular Hemoglobin 27.8 PG (26-34); Mean Corpuscular Volume 84.1 fL (80-100); Monocytes Absolute Auto 600 /uL (0-900); Monocytes Percent Auto 9.9 % (3-14); Neutrophils Absolute Auto 4400 /uL (1500-7000); Neutrophils Percent Auto 68.2 % (50-75); Platelet Count 246 X10^3/uL (150-400); Red Blood Cell Count 2.88 X10^6/uL (4.5-5.9); Red Cell Distribution Width 18.4 % (11.6-14.8); White Blood Cell Count 6.5 X10^3/uL (4.5-11.0)
--- NOTE | 2024-04-23 09:17 | EKG_ITS ---
[address] [address] Test Date: 2024-04-23 Pat Name: Darryl Bentley Department: Room: Gender: Male Outdoor Education Teacher: MASHA : 1945 Requested By: Order Number: [id number] Reading MD: Waylon Vanegas Measurements Intervals [place] Rate: 74 P: 83 OK: 178 QRS: -35 QRSD: 102 T: 94 QT: 440 QTc: 488 Interpretive Statements Sinus rhythm with frequent premature ventricular complexes in a pattern of bigeminy Left axis deviation Minimal voltage criteria for LVH, may be normal variant ( Gildardo product ) Nonspecific T wave abnormality VENTRICULAR BIGEMINY Electronically Signed On 04-25-2024 7:37:16 PDT by Waylon Vanegas
--- NOTE | 2024-04-23 09:19 | ED.GENADULT ---
HPI - General Adult General Chief complaint: Weakness Stated complaint: low BP, recent d/c for infection Time Seen by Provider: 04/23/24 09:02 Source: patient and EMS Mode of arrival: EMS History of Present Illness HPI narrative: 78-year-old male with history of bioprosthetic aortic valve endocarditis (on chronic cephalosporins), embolic stroke with residual paraplegia, paroxysmal atrial fibrillation, peripheral vascular disease, history of AAA status post repair hypertension presents by EMS from [facility] for syncopal episode versus unresponsive episode. Patient was eating breakfast when he apparently went unresponsive. His blood pressure was measured to be quite low at the half-way. Patient recently started on new blood pressure medication. Recently admitted to [facility] for similar episode, found to have a large stage III sacral decubitus ulcer. Patient has been undergoing regular wound care and dressing changes at rehab facility. On arrival patient was alert, oriented, stated that he felt well and had no complaints. Related Data Home Medications Medication Instructions Recorded Confirmed apixaban 5 mg tablet (Eliquis) 2.5 mg PO BID 10/04/19 04/09/24 diclofenac sodium 1 % topical gel 1 % topical QID 10/04/19 04/09/24 lidocaine 5 % topical patch 2 patch topical DAILY 10/04/19 04/09/24 doxazosin 2 mg tablet 2 mg PO BEDTIME 03/10/24 04/09/24 evolocumab 140 mg/mL subcutaneous 140 mg SUBCUT Q2W 03/10/24 04/09/24 pen injector (Primitivo Abrams) famotidine 20 mg tablet 20 mg PO DAILY 03/10/24 04/09/24 ipratropium 0.5 mg-albuterol 3 mg 3 ml inhalation QID PRN Shortness 03/10/24 04/09/24 (2.5 mg base)/3 mL nebulization Of Breath Or Wheezing soln metoprolol succinate 25 mg 25 mg PO BID 03/10/24 04/09/24 tablet,extended release 24 hr polyethylene glycol 3350 17 gram 17 g PO DAILY 03/10/24 04/09/24 oral powder packet potassium chloride 20 mEq 20 meq PO DAILY 03/10/24 04/09/24 tablet,extended release sennosides 8.6 mg tablet (senna) 8.6 mg PO DAILY 03/10/24 04/09/24 tizanidine 2 mg tablet 2 mg PO Q8H PRN Muscle Spasm 03/10/24 04/09/24 lansoprazole 15 mg capsule,delayed 15 mg PO BID 03/11/24 04/09/24 release tamsulosin 0.4 mg capsule 0.8 mg PO DAILY 03/11/24 04/09/24 gabapentin 100 mg tablet 100 mg PO TID 04/09/24 04/09/24 ipratropium bromide 21 mcg (0.03 2 spray intranasal BID PRN 04/11/24 %) nasal spray allergies Previous Rx's Medication Instructions Recorded inhalational spacing device #1 ea 09/08/22 (Aerochamber MV spacer) acetaminophen 325 mg tablet 650 mg (2 x 325 mg) PO Q6H PRN 04/12/24 Fever/Mild Pain (1-3) #30 tabs furosemide 40 mg tablet 20 mg (1/2 x 40 mg) PO DAILY #30 04/12/24 tabs hydrocodone 5 mg-acetaminophen 325 1 tab PO Q4-6H PRN Pain (Scale 04/12/24 mg tablet Score 4-6) #15 tabs Allergies Allergy/AdvReac Type Severity Reaction Status Date / Time [id number]-GvL Reductase Allergy Unknown Verified 01/15/24 09:41 Inhibitor [[id number] REDUCTASE INHIBITOR] ciprofloxacin Allergy Verified 04/09/24 10:26 cortisone Allergy Verified 04/09/24 10:26 ezetimibe Allergy Verified 04/09/24 10:26 hydromorphone Allergy Verified 04/09/24 10:26 Patient History Social History Smoking Status: Never smoker alcohol intake: former Smoking Status: Never smoker alcohol intake frequency: 0-2 drinks per day Substance Use Type: does not use Exam Initial Vital Signs Initial Vital Signs: Vital Signs Temperature 97.5 F L 04/23/24 09:12 Pulse Rate 74 04/23/24 09:12 Respiratory Rate 16 04/23/24 09:12 Blood Pressure 100/52 L 04/23/24 09:12 Pulse Oximetry 96 04/23/24 09:12 Oxygen Delivery Method Room Air 04/23/24 09:12 Const: Awake, alert, debilitated, frail, appears chronically unwell Cardiac: regular rate, regular rhythm RESP: unlabored, clear bilaterally, no wheezing Skin: Stage III sacral decubitus ulcer with clean dry dressing, no foul-smelling drainage, no surrounding erythema Neuro: A/O x3, CN II-XII grossly intact, bilateral paralysis of lower extremities, chronic Course Orders Ordered: ED Orders 04/23/24 08:55 CBC Auto Diff [Complete Blood Count AUTO DIFF] Stat CMP [Comprehensive Metabolic Panel] Stat 04/23/24 09:06 EKG-12 Lead Stat Vital Signs Vital signs: Vital Signs - 8 hr 04/23/24 09:12 04/23/24 09:30 04/23/24 10:30 Temperature 97.5 F L Pulse Rate 74 68 66 Respiratory Rate 16 18 18 Blood Pressure 100/52 L 105/57 L 110/55 L Pulse Oximetry 96 Oxygen Delivery Method Room Air Medical Decision Making Lab Data 04/23/24 08:55 04/23/24 08:55 Labs: Lab Results 04/23/24 Range/Units 08:55 WBC 6.5 (4.5-11.0) X10^3/uL RBC 2.88 L (4.5-5.9) X10^6/uL Hgb 8.0 L (13.5-17.5) g/dL Hct 24.2 L (41-53) % MCV 84.1 (80-100) fL MCH 27.8 (26-34) PG MCHC 33.1 (30-36) % RDW 18.4 H (11.6-14.8) % Plt Count 246 (150-400) X10^3/uL Neut % (Auto) 68.2 (50-75) % Lymph % (Auto) 18.4 L (25-40) % [place] % (Auto) 9.9 (3-14) % Eos % (Auto) 3.2 (2-4) % Baso % (Auto) 0.3 (0-2) % Neut # (Auto) 4400 (5117-9335) /uL Lymph # (Auto) 1200 (7629-0636) /uL [place] # (Auto) 600 (0-900) /uL Eos # (Auto) 200 (0-450) /uL Baso # (Auto) 0 (0-100) /uL Sodium 134 L (137-145) mmol/L Potassium 4.5 (3.4-5.1) mmol/L Chloride 103 (98-107) mmol/L Carbon Dioxide 26 (22-32) mmol/L BUN 23 H (9-20) mg/dL Creatinine 1.07 (0.66-1.25) mg/dL Estimated GFR > 60 (>60) mL/min BUN/Creatinine Ratio 21.5 (6-22) Glucose 126 H (80-110) mg/dL Calcium 8.8 (8.4-10.2) mg/dL Total Bilirubin 0.4 (0.2-1.3) mg/dL AST 19 (17-59) IU/L ALT 14 (<50) IU/L Alkaline Phosphatase 81 (38-126) U/L Total Protein 6.2 L (6.3-8.2) g/dL Albumin 3.5 (3.5-5.0) g/dL Globulin 2.7 (1.7-4.1) g/dL Albumin/Globulin Ratio 1.3 (1.0-2.8) ECG Data Interpretation: Sinus rhythm, PVCs present in bigeminy pattern. Does do T wave changes MDM Narrative Medical decision making narrative: Chronically unwell but not acutely toxic patient presenting for syncopal episode versus unresponsive episode at his half-way. Recently started on olmesartan for hypertension. Upon arrival to the emergency department patient was awake, alert, oriented at his baseline, denying complaints. EMS states that facility when it patient checked out due to his recent decubitus ulcer as well as recent anemia requiring transfusion of several units of packed red blood cells. Laboratory work reviewed. WBC count 6.5, hemoglobin 8.0, sodium 134, potassium 4.5, creatinine 1.07, glucose 126. When patient was discharged from the hospital 2 weeks ago his hemoglobin was 7.4. Patient has remained hemodynamically stable, alert, oriented, has had no further episodes of hypotension and has continued to deny complaints. Patient's sacral decubitus ulcer appears to be clean, dry, well dressed, no secondary signs of infection at this time. Discussed patient's case and care with [place], who stated that patient has an upcoming cardiology appointment in 2 days. She states that this is the 2nd time that patient was had an unresponsive episode while eating breakfast. I counseled to bring this matter to the attention of patient's Cardiology team to see if they have any further recommendations for his care. Patient discharged back to [facility] rehab in stable condition. Discharge Plan Departure Patient Disposition: Home Clinical Impression: Hypotension Instructions: DI for Hypotension Activity Restrictions/Additional Instructions: Continue your medications as prescribed. Talk to your heart doctor about the possibility of a heart monitor when you see them on . Continue to take your antibiotics as prescribed. Prescriptions: No Action (DME) Aerochamber MV Spacer See Rx Instructions .ROUTE .MEDSUPPLY Qty: 1 0RF Rx Instructions: As directed lidocaine 5 % adhesive patch,medicated 2 patch topical DAILY diclofenac sodium 1 % gel 1 % TOPICAL QID Eliquis 5 mg tablet 2.5 mg PO BID Patient Comments: TK 1 T PO BID sennosides [senna] 8.6 mg Tablet 8.6 mg PO DAILY ipratropium-albuterol 0.5 mg-3 mg(2.5 mg base)/3 mL Solution For Nebulization 3 ml INHALATION QID PRN (Reason: Shortness Of Breath Or Wheezing) tizanidine 2 mg Tablet 2 mg PO Q8H PRN (Reason: Muscle Spasm) polyethylene glycol 3350 17 gram Powder In Packet 17 g PO DAILY famotidine 20 mg Tablet 20 mg PO DAILY metoprolol succinate 25 mg tablet extended release 24 hr 25 mg PO BID doxazosin 2 mg Tablet 2 mg PO BEDTIME potassium chloride 20 mEq Tablet Extended Release 20 meq PO DAILY Repatha SureClick 140 mg/mL pen injector 140 mg SUBCUT Q2W tamsulosin 0.4 mg capsule 0.8 mg PO DAILY lansoprazole 15 mg capsule,delayed release(DR/EC) 15 mg PO BID gabapentin 100 mg Tablet 100 mg PO TID ipratropium bromide 21 mcg (0.03 %) spray,non-aerosol 2 spray intranasal BID PRN (Reason: allergies) acetaminophen 325 mg Tablet 650 mg PO Q6H PRN (Reason: Fever/Mild Pain (1-3)) Qty: 30 0RF furosemide 40 mg Tablet 20 mg PO DAILY Qty: 30 0RF hydrocodone-acetaminophen 5-325 mg Tablet 1 tab PO Q4-6H PRN (Reason: Pain (Scale Score 4-6)) Qty: 15 0RF Referrals: Elmer Robbins MD [Primary Care Provider] - Stand Alone Forms: Patient Portal/API
[2024-04-23 09:24] LABS: Alanine Aminotransferase 14 IU/L (<50); Albumin 3.5 g/dL (3.5-5.0); Albumin Globulin Ratio 1.3 (1.0-2.8); Alkaline Phosphatase 81 U/L (38-126); Aspartate Aminotransferase 19 IU/L (17-59); BUN Creatinine Ratio 21.5 (6-22); Bilirubin Total 0.4 mg/dL (0.2-1.3); Blood Urea Nitrogen 23 mg/dL (9-20); Calcium 8.8 mg/dL (8.4-10.2); Carbon Dioxide 26 mmol/L (22-32); Chloride 103 mmol/L (98-107); Estimated Glomerular Filt Rate > 60 mL/min (>60); Globulin 2.7 g/dL (1.7-4.1); Glucose 126 mg/dL (80-110); HEMOLYSIS < 15 (0-50); Potassium 4.5 mmol/L (3.4-5.1); Sodium 134 mmol/L (137-145); Total Protein 6.2 g/dL (6.3-8.2)
== END 2024-04-23 12:17 | disposition home or self-care (01) ==
PROVIDERS: Emergency Provider Emergency Medicine; PCP Internal Medicine; Referring Provider Emergency Medicine
DX: I95.9 Hypotension, unspecified (principal)
CPT/HCPCS: 80053; 85025; 93005; 99281; 99283; 99284

== ENCOUNTER → 2024-04-29 09:11 | Outpatient (CLI) | payer MEDICARE, OTHER, SELFPAY ==
[2024-04-09 13:39] VITALS: BMI 29.3
== END ==
LOC: WC 09:12
PROVIDERS: PCP Internal Medicine; Visit Provider Physician Assistant
DX: L89.154 Pressure ulcer of sacral region, stage 4 (principal); R60.0 Localized edema; L53.9 Erythematous condition, unspecified; R21 Rash and other nonspecific skin eruption; Z79.01 Long term (current) use of anticoagulants
CPT/HCPCS: 11042; 97605; 99213

== ENCOUNTER → 2024-05-02 10:31 | Outpatient (CLI) | payer MEDICARE, OTHER, SELFPAY ==
[2024-04-09 13:39] VITALS: BMI 29.3
== END ==
LOC: WC 10:32
PROVIDERS: PCP Internal Medicine; Visit Provider Nurse Practitioner Family
DX: L89.154 Pressure ulcer of sacral region, stage 4 (principal); Z79.01 Long term (current) use of anticoagulants; Z79.2 Long term (current) use of antibiotics; I50.9 Heart failure, unspecified; I25.10 Atherosclerotic heart disease of native coronary artery without angina pectoris
CPT/HCPCS: 11042; 87070; 87075; 87077; 87147; 87186; 87205; 99213

== ENCOUNTER → 2024-05-06 13:12 | Outpatient (CLI) | payer MEDICARE, OTHER, SELFPAY ==
[2024-04-09 13:39] VITALS: BMI 29.3
== END ==
LOC: WC 13:13
PROVIDERS: PCP Internal Medicine; Visit Provider Surgery
DX: L89.154 Pressure ulcer of sacral region, stage 4 (principal); R60.0 Localized edema; L53.9 Erythematous condition, unspecified; R21 Rash and other nonspecific skin eruption; Z79.01 Long term (current) use of anticoagulants; Z74.01 Bed confinement status
CPT/HCPCS: 11042; 97605

== ENCOUNTER → 2024-05-09 09:42 | Outpatient (CLI) | payer MEDICARE, OTHER, SELFPAY ==
[2024-04-09 13:39] VITALS: BMI 29.3
== END ==
LOC: WC 09:43
PROVIDERS: PCP Internal Medicine; Visit Provider Surgery
DX: L89.154 Pressure ulcer of sacral region, stage 4 (principal); R60.0 Localized edema; L53.9 Erythematous condition, unspecified; R21 Rash and other nonspecific skin eruption
CPT/HCPCS: 97605

== ENCOUNTER → 2024-05-13 10:00 | Outpatient (CLI) | payer MEDICARE, OTHER, SELFPAY ==
[2024-04-09 13:39] VITALS: BMI 29.3
== END ==
PROVIDERS: PCP Internal Medicine; Visit Provider Surgery
DX: L89.154 Pressure ulcer of sacral region, stage 4 (principal); S21.201A Unspecified open wound of right back wall of thorax without penetration into thoracic cavity, initial encounter; L98.8 Other specified disorders of the skin and subcutaneous tissue; Z79.01 Long term (current) use of anticoagulants; R60.0 Localized edema; L53.9 Erythematous condition, unspecified; R21 Rash and other nonspecific skin eruption
CPT/HCPCS: 11042; 97602

== ENCOUNTER 2024-05-14 11:29 | Inpatient (IN) | payer MEDICARE, OTHER, SELFPAY ==
[2024-04-09 13:39] VITALS: BMI 29.3
[2024-05-14] VITALS (17 sets, daily range): BP systolic 136–163; BP diastolic 62–91; PULSE 82–106; RESP 15–24; TEMP 36.8–39.3; O2SAT 91–97; BMI 29.4
--- NOTE | 2024-05-14 11:40 | EKG_ITS ---
[place] [id number] [place] [id number] Test Date: 2024-05-14 Pat Name: Darryl Bentley Department: [facility] Room: Gender: Male Scale Reclamation Tender: MARISSA : 1945 Requested By: Order Number: [id number] Reading MD: Partha Villatoro MD Measurements Intervals [place] Rate: 105 P: 75 [place]: 212 QRS: -36 QRSD: 98 T: 68 QT: 328 QTc: 433 Interpretive Statements Sinus tachycardia with 1st degree AV block Left axis deviation Minimal voltage criteria for LVH, may be normal variant ( [place] product ) Electronically Signed On 05-14-2024 16:30:06 PDT by Partha Villatoro MD
--- NOTE | 2024-05-14 11:40 | DI.RAD.S_ITS ---
PROCEDURE: XR CHEST 1V INDICATIONS: suspected sepsis TECHNIQUE: One view of the chest was acquired. COMPARISON: [facility], CR, XR CHEST 1V, 04/09/2024, 16:35. FINDINGS: Surgical changes and devices: CABG. Valvular replacement. Intact sternotomy wires. Lumbar posterior fusion hardware. Lungs and pleura: Left basilar patchy consolidation. No pleural effusions or pneumothorax. Mediastinum: Mediastinal contours appear normal. Cardiomegaly, stable. Aortic arch is calcified, indicating atherosclerosis. Bones and chest wall: No suspicious bony lesions. Overlying soft tissues appear unremarkable. IMPRESSION: 1. Left basilar patchy consolidation which may reflect atelectasis, aspiration and/or pneumonia. 2. Stable cardiomegaly. Dictated by: Lawrence Davidson M.D. on 05/14/2024 at 12:37 Approved by: Lawrence Davidson M.D. on 05/14/2024 at 12:39
--- NOTE | 2024-05-14 11:50 | DI.CT.S_ITS ---
PROCEDURE: CT HEAD/BRAIN WO CON INDICATIONS: altered on eliquis TECHNIQUE: Noncontrast 4.5 mm thick angled axial sections acquired from the foramen magnum to the vertex, with coronal and sagittal reformats. For radiation dose reduction, the following was used: automated exposure control, adjustment of mA and/or kV according to patient size. COMPARISON: [facility], CT, CT HEAD/BRAIN WO CON, 04/09/2024, 13:08. [facility], CT, HEAD WITHOUT CONTRAST, 07/23/2015, 12:49. FINDINGS: Image quality: Diagnostic. CSF spaces: Basal cisterns are patent. No extra-axial fluid collections. The ventricles are symmetric in size and shape. Brain: No intracranial bleeds or masses. There is cerebral volume loss for age, with resultant ventricular and sulcal prominence. There are periventricular and deep white matter chronic small vessel ischemic changes. 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 Symmetric calcification can be seen involving the basal ganglia, which is considered to be normal for age. There is intracranial internal carotid artery atherosclerosis. Skull and face: Calvarium and visualized facial bones appear intact, without suspicious lesions. Sinuses: Visualized sinuses and mastoids are clear. IMPRESSION: No acute intracranial hemorrhage is seen. 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 No acute intracranial hemorrhage is seen. Dictated by: Loi Deal M.D. on 05/14/2024 at 12:31 Approved by: Loi Deal M.D. on 05/14/2024 at 12:32
[2024-05-14 11:56] LABS: Add Manual Diff / Slide Review NO; Basophils Absolute Auto 100 /uL (0-100); Basophils Percent Auto 0.3 % (0-2); Eosinophils Absolute Auto 0 /uL (0-450); Hematocrit 32.8 % (41-53); Hemoglobin 10.7 g/dL (13.5-17.5); Lymphocytes Absolute Auto 1200 /uL (1100-4500); Lymphocytes Percent Auto 5.8 % (25-40); Mean Corpuscular HGB Conc 32.5 % (30-36); Mean Corpuscular Hemoglobin 27.5 PG (26-34); Mean Corpuscular Volume 84.6 fL (80-100); Monocytes Absolute Auto 1000 /uL (0-900); Monocytes Percent Auto 4.9 % (3-14); Neutrophils Absolute Auto 17700 /uL (1500-7000); Platelet Count 251 X10^3/uL (150-400); Red Blood Cell Count 3.87 X10^6/uL (4.5-5.9); White Blood Cell Count 19.9 X10^3/uL (4.5-11.0)
[2024-05-14] MEDS: ACETAMINOPHEN IV 1,000 MG/100 ML VIAL 400 MG IV (11:56)
[2024-05-14 12:01] LABS: Appearance Urine UA SL CLOUDY; Bilirubin Urine UA NEGATIVE (NEGATIVE); Color Urine UA YELLOW; Glucose Urine UA NEGATIVE (Negative); Ketones Urine UA NEGATIVE (NEGATIVE); Leukocyte Esterase Urine UA 1+ (NEGATIVE); Nitrite Urine UA POSITIVE (Negative); Occult Blood Urine UA 2+ (Negative); Protein Urine UA 1+ (Negative); Specific Gravity Urine UA 1.025 (1.000-1.035); Urobilinogen Urine UA 0.2 E.U./dL (0.2); pH Urine UA 5.5 (4.5-8.0)
[2024-05-14 12:06] LABS: INR 1.1 (0.9-1.3); Prothrombin Time 12.9 SECONDS (9.4-12.5)
[2024-05-14 12:07] LABS: Urine Volume Low Vol <10mL (spun)
[2024-05-14 12:08] LABS: PTT Partial Thromboplastin Tim 42 SECONDS (25.1-36.5)
[2024-05-14 12:08] LABS: Bacteria Urine Moderate (10-30); Culture Indicated Urine Specimen Cultured; RBC Urine 1-5/HPF (0-5/HPF); Squamous Epithelial Cell Urine 1-5 /HPF (0-5/HPF); WBC Urine 5-10/HPF (0-5/HPF)
[2024-05-14 12:11] LABS: Alanine Aminotransferase 12 IU/L (<50); Albumin 4.3 g/dL (3.5-5.0); Albumin Globulin Ratio 1.4 (1.0-2.8); Alkaline Phosphatase 110 U/L (38-126); Aspartate Aminotransferase 18 IU/L (17-59); BUN Creatinine Ratio 25.5 (6-22); Bilirubin Total 0.7 mg/dL (0.2-1.3); Blood Urea Nitrogen 25 mg/dL (9-20); Calcium 9.9 mg/dL (8.4-10.2); Carbon Dioxide 28 mmol/L (22-32); Chloride 103 mmol/L (98-107); Estimated Glomerular Filt Rate > 60 mL/min (>60); Globulin 3.1 g/dL (1.7-4.1); Glucose 103 mg/dL (80-110); HEMOLYSIS < 15 (0-50); Lipase 30 U/L (23-300); Potassium 4.5 mmol/L (3.4-5.1); Sodium 138 mmol/L (137-145); Total Protein 7.4 g/dL (6.3-8.2)
[2024-05-14] MEDS: SODIUM CHLORIDE 0.9% 500 ML 1000 ML IV (12:25)
[2024-05-14 12:28] LABS: Procalcitonin 0.097 ng/mL (<0.5)
[2024-05-14 12:33] LABS: Adenovirus Not Detected (Not Detect); B. parapertussis Not Detected (Not Detecte); Bordetella pertussis Not Detected (Not Detect); Chlamydophila pneumoniae Not Detected (Not Detect); Coronavirus 229E Not Detected (Not Detect); Coronavirus HKU1 Not Detected (Not Detect); Coronavirus NL 63 Not Detected (Not Detect); Coronavirus OC43 Not Detected (Not Detect); Human Metapneumovirus Not Detected (Not Detect); Human Rhinovirus/Enterovirus Not Detected (Not Detect); Influenza A Not Detected (Not Detect); Influenza B Not Detected (Not Detect); Mycoplasma pneumoniae Not Detected (Not Detect); Parainfluenza Virus 1 Not Detected (Not Detect); Parainfluenza Virus 2 Not Detected (Not Detect); Parainfluenza Virus 3 Not Detected (Not Detect); Parainfluenza Virus 4 Not Detected (Not Detect); Respiratory Syncytial Virus Not Detected (Not Detect); SARS- CoV-2 Not Detected (Not Detecte)
[2024-05-14] MEDS: CEFEPIME 2 GM in SODIUM CHLORIDE 0.9% 100 ML IV (12:33)
--- NOTE | 2024-05-14 12:37 | PC.NURSE ---
Patient has decubitius ulcer with dressing and packing in place. Skin around it is pink and warm, no obvious signs of infection noted.
--- NOTE | 2024-05-14 12:40 | PC.NURSE ---
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 He does not respond to all questions and mainly responds with yes/no answers. He denies dizziness or lightheaded, reports SOB with cough and sacrum pain. Pt repositioned onto his left side with 3x pillows. Call light in reach.
[2024-05-14 12:53] LABS: Lactate (Lactic Acid) 1.3 mmol/L (0.7-2.1)
--- NOTE | 2024-05-14 13:12 | ED_ITS ---
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 Staff reports that he was maybe hypotensive last night but that quickly resolved this morning he was staring off into space. No facial droop or obvious unilateral weakness. Upon arrival here he has a temperature of 102?. He is is able to answer some questions but is extremely hard of hearing he. He only complains of pain in his buttock. He denies any sort of cough chest pain shortness of breath abdominal pain. Related Data Home Medications Medication Instructions Recorded Confirmed apixaban 5 mg tablet (Eliquis) 2.5 mg PO BID 10/04/19 04/09/24 diclofenac sodium 1 % topical gel 1 % topical QID 10/04/19 04/09/24 lidocaine 5 % topical patch 2 patch topical DAILY 10/04/19 04/09/24 doxazosin 2 mg tablet 2 mg PO BEDTIME 03/10/24 04/09/24 evolocumab 140 mg/mL subcutaneous 140 mg SUBCUT Q2W 03/10/24 04/09/24 pen injector (Primitivo Abrams) famotidine 20 mg tablet 20 mg PO DAILY 03/10/24 04/09/24 ipratropium 0.5 mg-albuterol 3 mg 3 ml inhalation QID PRN Shortness 03/10/24 04/09/24 (2.5 mg base)/3 mL nebulization Of Breath Or Wheezing soln metoprolol succinate 25 mg 25 mg PO BID 03/10/24 04/09/24 tablet,extended release 24 hr polyethylene glycol 3350 17 gram 17 g PO DAILY 03/10/24 04/09/24 oral powder packet potassium chloride 20 mEq 20 meq PO DAILY 03/10/24 04/09/24 tablet,extended release sennosides 8.6 mg tablet (senna) 8.6 mg PO DAILY 03/10/24 04/09/24 tizanidine 2 mg tablet 2 mg PO Q8H PRN Muscle Spasm 03/10/24 04/09/24 lansoprazole 15 mg capsule,delayed 15 mg PO BID 03/11/24 04/09/24 release tamsulosin 0.4 mg capsule 0.8 mg PO DAILY 03/11/24 04/09/24 gabapentin 100 mg tablet 100 mg PO TID 04/09/24 04/09/24 ipratropium bromide 21 mcg (0.03 2 spray intranasal BID PRN 04/11/24 %) nasal spray allergies Previous Rx's Medication Instructions Recorded inhalational spacing device #1 ea 09/08/22 (Aerochamber MV spacer) acetaminophen 325 mg tablet 650 mg (2 x 325 mg) PO Q6H PRN 04/12/24 Fever/Mild Pain (1-3) #30 tabs furosemide 40 mg tablet 20 mg (1/2 x 40 mg) PO DAILY #30 04/12/24 tabs hydrocodone 5 mg-acetaminophen 325 1 tab PO Q4-6H PRN Pain (Scale 04/12/24 mg tablet Score 4-6) #15 tabs Allergies Allergy/AdvReac Type Severity Reaction Status Date / Time Pdzifte-QNH-ZtZ Reductase Allergy Unknown Verified 05/14/24 11:39 Inhibitor [[id number] REDUCTASE INHIBITOR] ciprofloxacin Allergy Verified 05/14/24 11:39 cortisone Allergy Verified 05/14/24 11:39 ezetimibe Allergy Verified 05/14/24 11:39 hydromorphone Allergy Verified 05/14/24 11:39 Patient History Social History household members: none Smoking Status: Never smoker alcohol intake: former Smoking Status: Never smoker alcohol intake frequency: 0-2 drinks per day Substance Use Type: does not use Exam Initial Vital Signs Initial Vital Signs: Vital Signs Pulse Oximetry 94 05/14/24 11:31 GENERAL: Alert very pleasant 78-year-old male and in no acute distress. HEENT: Head atraumatic,EOMI, pupils reactive, face symmetric, moist mucous membranes CARDIOVASCULAR: Regular rate and rhythm without murmurs, rubs or gallops. RESPIRATORY: Breath sounds equal bilaterally, no wheezes rales or rhonchi. ABDOMEN: Soft, nontender. Normoactive bowel sounds all 4 quadrants. No guarding or rebound. EXTREMITIES: Normal range of motion, no clubbing or edema. Neurovascularly intact NEUROLOGICAL: Alert oriented to person place and time moving all extremities SKIN: Wound and thoracic area dressed with bandage I did look at it no gross drainage, sacral wound also surrounding erythema no gross drainage wound care dressing in place Course Orders Ordered: ED Orders 05/14/24 11:38 Respiratory Panel (Film Array) Stat 05/14/24 11:40 XR chest 1V Stat EKG-12 Lead Stat RT Consult Eval and Treat NOW 05/14/24 11:46 Complete Blood Count AUTO DIFF Stat Comprehensive Metabolic Panel Stat Lactate (Lactic Acid) Stat Lipase Stat PTT Partial Thromboplastin Andrew Stat Procalcitonin Stat Prothrombin Time INR Stat 05/14/24 11:50 CT head/brain wo con Stat Urinalysis and Microscopic Stat Urine Culture Stat 05/14/24 12:09 Blood Culture Stat 05/15/24 05:00 Complete Blood Count AUTO DIFF DAILY Comprehensive Metabolic Panel DAILY Magnesium DAILY 05/16/24 05:00 Complete Blood Count AUTO DIFF DAILY Comprehensive Metabolic Panel DAILY Magnesium DAILY 05/17/24 05:00 Complete Blood Count AUTO DIFF DAILY Comprehensive Metabolic Panel DAILY Magnesium DAILY Acetaminophen (Acetaminophen 325 Mg Tablet) 650 mg PO Q6H PRN PRN Reason: Fever/Mild Pain (1-3) Naloxone HCl (Naloxone 0.4 Mg/Ml Vial) 0.2 mg IV Q2MIN PRN PRN Reason: Opiate Reversal Ondansetron HCl (Ondansetron 4 Mg Odt) 4 mg PO Q8HR PRN PRN Reason: Nausea And Vomiting Sodium Chloride (Sodium Chloride 0.9% Flush) 10 ml IV PRN PRN PRN Reason: Flush Sodium Chloride (Sodium Chloride 0.9% Flush) 10 ml IV BID JERRI Discontinued Medications Hydromorphone HCl (Hydromorphone 0.5 Mg Inj) 0.5 mg IV NOW ONE Stop: 05/14/24 14:46 Last Admin: 05/14/24 14:51 Dose: 0.5 mg Documented By: SB Sodium Chloride (Normal Saline 0.9%) 1,000 mls @ 1,000 mls/hr IV BOLUS ONE Stop: 05/14/24 12:39 Last Admin: 05/14/24 11:55 Dose: Not Given Documented By: HODAN Acetaminophen (Ofirmev) 1,000 mg in 100 mls @ 400 mls/hr IV NOW ONE Stop: 05/14/24 11:58 Last Infusion: 05/14/24 12:15 Dose: Infused Documented By: Admin: 05/14/24 11:56 Dose: 400 mls/hr Documented By: ENZO Sodium Chloride (Normal Saline 0.9%) 500 mls @ 1,000 mls/hr IV BOLUS ONE Stop: 05/14/24 12:25 Last Infusion: 05/14/24 13:00 Dose: Infused Documented By: Admin: 05/14/24 12:25 Dose: 1,000 mls/hr Documented By: ANNETTE Cefepime HCl 2 gm/ Sodium (Chloride) 100 mls @ 200 mls/hr IV NOW ONE Stop: 05/14/24 12:22 Last Infusion: 05/14/24 13:00 Dose: Infused Documented By: Admin: 05/14/24 12:33 Dose: 200 mls/hr Documented By: ANNETTE Vancomycin HCl/Dextrose (Vancomycin) 1,500 mg in 300 mls @ 200 mls/hr IV NOW ONE Stop: 05/14/24 13:51 Last Infusion: 05/14/24 15:15 Dose: Infused Documented By: Admin: 05/14/24 13:40 Dose: 200 mls/hr Documented By: ANNETTE Ondansetron HCl (Ondansetron 4 Mg/2 Ml Inj) 4 mg IV NOW PRN PRN Reason: Nausea And Vomiting Ondansetron HCl (Ondansetron 4 Mg Odt) 4 mg SL NOW PRN PRN Reason: Nausea And Vomiting Vital Signs Vital signs: Vital Signs - 8 hr 05/14/24 11:31 05/14/24 11:32 05/14/24 11:32 Temperature 102.7 F H Pulse Rate 106 H Respiratory Rate 18 Blood Pressure 144/62 H Pulse Oximetry 94 94 93 Oxygen Delivery Method Room Air 05/14/24 11:32 05/14/24 11:35 05/14/24 11:35 Temperature Pulse Rate 105 H Respiratory Rate 20 Blood Pressure 159/68 H 144/62 H Pulse Oximetry 93 Oxygen Delivery Method 05/14/24 12:00 05/14/24 12:00 05/14/24 12:26 Temperature Pulse Rate 101 H 98 H Respiratory Rate 18 15 Blood Pressure 163/79 H Pulse Oximetry 96 97 Oxygen Delivery Method Room Air 05/14/24 12:26 05/14/24 12:30 05/14/24 12:30 Temperature Pulse Rate 92 H Respiratory Rate 15 Blood Pressure 163/78 H 152/71 H Pulse Oximetry 96 Oxygen Delivery Method Room Air 05/14/24 12:39 05/14/24 13:00 05/14/24 13:00 Temperature 101.4 F H Pulse Rate 90 Respiratory Rate 16 Blood Pressure 146/66 H Pulse Oximetry 91 Oxygen Delivery Method 05/14/24 13:30 05/14/24 13:30 05/14/24 14:00 Temperature Pulse Rate 86 Respiratory Rate 24 Blood Pressure 145/70 H 136/69 Pulse Oximetry 95 Oxygen Delivery Method Room Air 05/14/24 14:00 05/14/24 14:30 05/14/24 14:30 Temperature 100.6 F H 100.4 F H Pulse Rate 84 89 Respiratory Rate 16 20 Blood Pressure 146/70 H Pulse Oximetry 95 95 Oxygen Delivery Method Room Air MDM - Fever Lab Data 05/14/24 11:46 05/14/24 11:46 Labs: Lab Results 05/14/24 05/14/24 05/14/24 Range/Units 11:38 11:46 11:50 WBC 19.9 H (4.5-11.0) X10^3/uL RBC 3.87 L (4.5-5.9) X10^6/uL Hgb 10.7 L (13.5-17.5) g/dL Hct 32.8 L (41-53) % MCV 84.6 (80-100) fL MCH 27.5 (26-34) PG MCHC 32.5 (30-36) % RDW 18.0 H (11.6-14.8) % Plt Count 251 (150-400) X10^3/uL Neut % (Auto) 89.0 H (50-75) % Lymph % (Auto) 5.8 L (25-40) % [place] % (Auto) 4.9 (3-14) % Eos % (Auto) 0.0 L (2-4) % Baso % (Auto) 0.3 (0-2) % Neut # (Auto) 07739 H (9059-4475) /uL Lymph # (Auto) 1200 (2463-2539) /uL [place] # (Auto) 1000 H (0-900) /uL Eos # (Auto) 0 (0-450) /uL Baso # (Auto) 100 (0-100) /uL PT 12.9 H (9.4-12.5) SECONDS INR 1.1 (0.9-1.3) APTT 42 H (25.1-36.5) SECONDS Sodium 138 (137-145) mmol/L Potassium 4.5 (3.4-5.1) mmol/L Chloride 103 (98-107) mmol/L Carbon Dioxide 28 (22-32) mmol/L BUN 25 H (9-20) mg/dL Creatinine 0.98 (0.66-1.25) mg/dL Estimated GFR > 60 (>60) mL/min BUN/Creatinine Ratio 25.5 H (6-22) Glucose 103 (80-110) mg/dL Lactate 1.3 (0.7-2.1) mmol/L Calcium 9.9 (8.4-10.2) mg/dL Total Bilirubin 0.7 (0.2-1.3) mg/dL AST 18 (17-59) IU/L ALT 12 (<50) IU/L Alkaline Phosphatase 110 (38-126) U/L Total Protein 7.4 (6.3-8.2) g/dL Albumin 4.3 (3.5-5.0) g/dL Globulin 3.1 (1.7-4.1) g/dL Albumin/Globulin Ratio 1.4 (1.0-2.8) Lipase 30 (23-300) U/L Procalcitonin 0.097 (<0.5) ng/mL Urine Color Yellow Urine Appearance Sl cloudy Urine pH 5.5 (4.5-8.0) Ur Specific [place] 1.025 (1.000-1.035) Urine Protein 1+ H (Negative) Urine Glucose (UA) Negative (Negative) g/dL Urine Ketones Negative (NEGATIVE) Urine Occult Blood 2+ H (Negative) Urine Nitrate Positive H (Negative) Urine Bilirubin Negative (NEGATIVE) Urine Urobilinogen 0.2 (0.2) E.U./dL Ur Leukocyte Esterase 1+ H (NEGATIVE) Urine RBC 1-5/hpf (0-5/HPF) Urine WBC 5-10/hpf H (0-5/HPF) Ur Squamous Epith Cells 1-5 /hpf (0-5/HPF) Urine Bacteria Moderate (10-30) H (None) Ur Culture Indicated? Specimen cultured Vol Urine Centrifuged Low vol <10ml (spun) A Chlamy pneumoniae PCR Not detected (Not Detect) Adenovirus (PCR) Not detected (Not Detect) B.parapertussis DNA PCR Not detected (Not Detecte) Coronavirus OC43 (PCR) Not detected (Not Detect) Coronavirus HKU1 (PCR) Not detected (Not Detect) Coronavirus 229E (PCR) Not detected (Not Detect) SARS-CoV-2 (PCR) Not detected (Not Detecte) Coronavirus NL63 (PCR) Not detected (Not Detect) Human Metapneumovir PCR Not detected (Not Detect) Influenza Type A (PCR) Not detected (Not Detect) Influenza Type B (PCR) Not detected (Not Detect) M. pneumoniae (PCR) Not detected (Not Detect) Parainfluenza 1 (PCR) Not detected (Not Detect) Parainfluenza 2 (PCR) Not detected (Not Detect) Parainfluenza 3 (PCR) Not detected (Not Detect) Parainfluenza 4 (PCR) Not detected (Not Detect) RSV (PCR) Not detected (Not Detect) Entero/Rhino (PCR) Not detected (Not Detect) Imaging Data CT scan - head: Radiologist's Impression: PROCEDURE: CT HEAD/BRAIN WO CON INDICATIONS: altered on eliquis TECHNIQUE: Noncontrast 4.5 mm thick angled axial sections acquired from the foramen magnum to the vertex, with coronal and sagittal reformats. For radiation dose reduction, the following was used: automated exposure control, adjustment of mA and/or kV according to patient size. COMPARISON: [facility], CT, CT HEAD/BRAIN WO CON, 04/09/2024, 13:08. [facility], CT, HEAD WITHOUT CONTRAST, 07/23/2015, 12:49. FINDINGS: Image quality: Diagnostic. CSF spaces: Basal cisterns are patent. No extra-axial fluid collections. The ventricles are symmetric in size and shape. Brain: No intracranial bleeds or masses. There is cerebral volume loss for age, with resultant ventricular and sulcal prominence. There are periventricular and deep white matter chronic small vessel ischemic changes. 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 Symmetric calcification can be seen involving the basal ganglia, which is considered to be normal for age. There is intracranial internal carotid artery atherosclerosis. Skull and face: Calvarium and visualized facial bones appear intact, without suspicious lesions. Sinuses: Visualized sinuses and mastoids are clear. IMPRESSION: No acute intracranial hemorrhage is seen. 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 No acute intracranial hemorrhage is seen. Dictated by: Loi Deal M.D. on 05/14/2024 at 12:31 Chest x-ray: Radiologist's Impression: PROCEDURE: XR CHEST 1V INDICATIONS: suspected sepsis TECHNIQUE: One view of the chest was acquired. COMPARISON: [facility], , XR CHEST 1V, 04/09/2024, 16:35. FINDINGS: Surgical changes and devices: CABG. Valvular replacement. Intact sternotomy wires. Lumbar posterior fusion hardware. Lungs and pleura: Left basilar patchy consolidation. No pleural effusions or pneumothorax. Mediastinum: Mediastinal contours appear normal. Cardiomegaly, stable. Aortic arch is calcified, indicating atherosclerosis. Bones and chest wall: No suspicious bony lesions. Overlying soft tissues appear unremarkable. IMPRESSION: 1. Left basilar patchy consolidation which may reflect atelectasis, aspiration and/or pneumonia. 2. Stable cardiomegaly. Dictated by: Lawrence Davidson M.D. on 05/14/2024 at 12:37 ECG Data Attestation: I personally reviewed and interpreted this ECG as follows: Prior ECG tracings: available for review Interpretation: Tachycardia rate 1 0 T-wave in lead [address] elevation or depression previous EKGs showed PVCs MDM Narrative Medical decision making narrative: MDM CC: Altered mental status fever Complicating co-morbidities: Multiple stroke lives at long-term care facility history of endocarditis, vascular disease TIAs Data collected from: [facility] rehab notes, EMS Medical records reviewed: Previous admission Differential considered: Intracranial hemorrhage, sepsis viral syndrome UTI pneumonia Exam documented above, pertinent findings include: Chronic pressure sores noted in thoracic area and sacral area wound care dressings in place no gross drainage or surrounding erythema or acute infection chronic Agosto indwelling catheter patient is awake and alert following commands seems mildly confused able to answer simple questions very hard of hearing Lab Test results independently reviewed as above. Pertinent findings: WBC 19.9 with left shift lactate 1.3 procalcitonin 0.097 CMP: Sodium 138 potassium 4.5 chloride 103 carbon dioxide 28 BUN 25 creatinine 0.9 glucose 103 bilirubin 0.7 AST 18 ALT 12 alk-phos 110 lipase 30 CBC does show anemia but actually improved hemoglobin today is 10.7 hematocrit 32.8 previously 05/25.2 Viral panel negative Urinalysis positive for nitrate and leukocyte Prior urine from May 02 does show Proteus with resistance to tetracycline and Bactrim Independently reviewed EKG as above: Sinus tachycardia Imaging studies independently reviewed: In head CT no intracranial hemorrhage chest x-ray does show possible pneumonia Consultations: Dr. Casper accepts Treatments: Cefepime vancomycin Re-evaluations: [ ] Discussion: Patient presents today with altered mental status he is found to have a fever of 102 leukocytosis probable UTI and possible pneumonia. He has not hypoxic or complaining of any shortness of breath. He is chronic wounds which do not look acutely infected today. He has previously been on antibiotics for endocarditis he was started on cefepime and vancomycin. He is not showing any signs of severe sepsis he has a lactic acid of 1.3 it is normotensive. Fever and tachycardia improved with Tylenol it is small about a fluid which he seemed to tolerate Discharge Plan Departure Patient Disposition: Admitted As Inpatient Clinical Impression: Acute UTI, Pneumonia Admit Date/Time: 05/14/24 14:59 Admit Provider: Alberto Casper
--- NOTE | 2024-05-14 13:20 | PC.NURSE ---
mouth swabs to patient. Pt tolerated well. Requested Ice water. He drank a cup of ice water without incident. no choking. tolerated it in sips. hob elevated.
[2024-05-14] MEDS: VANCOMYCIN 1,500 MG/300 ML PIGGYBACK 200 MG IV (13:40)
--- NOTE | 2024-05-14 13:41 | PC.NURSE ---
TUBE BUILDER note: patient repositioned at 1330. Pillows placed between legs, right buttocks and right side/back.
--- NOTE | 2024-05-14 13:45 | PC.NURSE ---
@ 1330 pt's diaz he presented with was discontinued and removed. New, temp sensing diaz placed at 1335.
[2024-05-14] MEDS: HYDROMORPHONE 0.5 MG INJ IV (14:51)
--- NOTE | 2024-05-14 15:15 | PC.NURSE ---
Pt's [place] called requesting update. Informed of pt's status. [place] mentions being able to book a flight from [place] to come see patient if he is critical condition.
--- NOTE | 2024-05-14 17:54 | PM.HP.1 ---
History of Present Illness History of Present Illness Date Patient Seen: 05/14/24 Time Patient Seen: 17:54 Chief complaint: AMS Narrative: Darryl Bentley is a 78 y.o. 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 History obtained from review of chart and discussion with ER provider, patient states he does not recall the last two days and is unsure why he is in the hospital. He had a fever of 102 in the ER, was possibly hypotensive yesterday but this improved per staff reports at his SNF. Labs are notable for leukocytosis with WBC 19K, with 89% neutrophils. Chemistries are unremarkable. UA shows 5-10 WBC with moderate bacteria, some squamous cells. He was admitted for acute metabolic encephalopathy, rule out sepsis in setting of urinary tract infection from chronic diaz. Diaz was changed in the ER. [facility] Medical History (Updated 05/14/24 @ 18:13 by Alberto Casper DO) HTN (hypertension) TIA (transient ischemic attack) Paroxysmal atrial fibrillation Endocarditis NGHIA (obstructive sleep apnea) Septic embolism Pressure ulcer of sacral region, stage 3 Social History household members: none Smoking Status: Never smoker alcohol intake: former Meds Home Medications and Allergies Home Medications Medication Instructions Recorded Confirmed Type apixaban 5 mg tablet (Eliquis) 2.5 mg PO BID 10/04/19 04/09/24 History diclofenac sodium 1 % topical gel 1 % topical QID 10/04/19 04/09/24 History lidocaine 5 % topical patch 2 patch topical DAILY 10/04/19 04/09/24 History inhalational spacing device #1 ea 09/08/22 04/09/24 Rx (Aerochamber MV spacer) doxazosin 2 mg tablet 2 mg PO BEDTIME 03/10/24 04/09/24 History evolocumab 140 mg/mL subcutaneous 140 mg SUBCUT Q2W 03/10/24 04/09/24 History pen injector (Repathbolivar Abrams) famotidine 20 mg tablet 20 mg PO DAILY 03/10/24 04/09/24 History ipratropium 0.5 mg-albuterol 3 mg 3 ml inhalation QID PRN Shortness 03/10/24 04/09/24 History (2.5 mg base)/3 mL nebulization Of Breath Or Wheezing soln metoprolol succinate 25 mg 25 mg PO BID 03/10/24 04/09/24 History tablet,extended release 24 hr polyethylene glycol 3350 17 gram 17 g PO DAILY 03/10/24 04/09/24 History oral powder packet potassium chloride 20 mEq 20 meq PO DAILY 03/10/24 04/09/24 History tablet,extended release sennosides 8.6 mg tablet (senna) 8.6 mg PO DAILY 03/10/24 04/09/24 History tizanidine 2 mg tablet 2 mg PO Q8H PRN Muscle Spasm 03/10/24 04/09/24 History lansoprazole 15 mg capsule,delayed 15 mg PO BID 03/11/24 04/09/24 History release tamsulosin 0.4 mg capsule 0.8 mg PO DAILY 03/11/24 04/09/24 History gabapentin 100 mg tablet 100 mg PO TID 04/09/24 04/09/24 History ipratropium bromide 21 mcg (0.03 2 spray intranasal BID PRN 04/11/24 History %) nasal spray allergies acetaminophen 325 mg tablet 650 mg (2 x 325 mg) PO Q6H PRN 04/12/24 Rx Fever/Mild Pain (1-3) #30 tabs furosemide 40 mg tablet 20 mg (1/2 x 40 mg) PO DAILY #30 04/12/24 04/09/24 Rx tabs hydrocodone 5 mg-acetaminophen 325 1 tab PO Q4-6H PRN Pain (Scale 04/12/24 Rx mg tablet Score 4-6) #15 tabs Allergies Allergy/AdvReac Type Severity Reaction Status Date / Time [id number] Reductase Allergy Unknown Verified 05/14/24 11:39 Inhibitor [[id number] REDUCTASE INHIBITOR] ciprofloxacin Allergy Verified 05/14/24 11:39 cortisone Allergy Verified 05/14/24 11:39 ezetimibe Allergy Verified 05/14/24 11:39 hydromorphone Allergy Verified 05/14/24 11:39 Review of Systems Review of Systems Narrative: Unreliable currently as patient does not recall recent events but All other systems reviewed with the patient and are negative unless otherwise stated. Exam Vital Signs (past 8 hours): - 05/14/24 11:31 05/14/24 11:32 05/14/24 11:32 Temperature 102.7 F H Pulse Rate 106 H Respiratory Rate 18 Blood Pressure 144/62 H Pulse Oximetry 94 94 93 Oxygen Delivery Method Room Air Oxygen Flow Rate 05/14/24 11:32 05/14/24 11:35 05/14/24 11:35 Temperature Pulse Rate 105 H Respiratory Rate 20 Blood Pressure 159/68 H 144/62 H Pulse Oximetry 93 Oxygen Delivery Method Oxygen Flow Rate 05/14/24 12:00 05/14/24 12:00 05/14/24 12:26 Temperature Pulse Rate 101 H 98 H Respiratory Rate 18 15 Blood Pressure 163/79 H Pulse Oximetry 96 97 Oxygen Delivery Method Room Air Oxygen Flow Rate 05/14/24 12:26 05/14/24 12:30 05/14/24 12:30 Temperature Pulse Rate 92 H Respiratory Rate 15 Blood Pressure 163/78 H 152/71 H Pulse Oximetry 96 Oxygen Delivery Method Room Air Oxygen Flow Rate 05/14/24 12:39 05/14/24 13:00 05/14/24 13:00 Temperature 101.4 F H Pulse Rate 90 Respiratory Rate 16 Blood Pressure 146/66 H Pulse Oximetry 91 Oxygen Delivery Method Oxygen Flow Rate 05/14/24 13:30 05/14/24 13:30 05/14/24 14:00 Temperature Pulse Rate 86 Respiratory Rate 24 Blood Pressure 145/70 H 136/69 Pulse Oximetry 95 Oxygen Delivery Method Room Air Oxygen Flow Rate 05/14/24 14:00 05/14/24 14:30 05/14/24 14:30 Temperature 100.6 F H 100.4 F H Pulse Rate 84 89 Respiratory Rate 16 20 Blood Pressure 146/70 H Pulse Oximetry 95 95 Oxygen Delivery Method Room Air Oxygen Flow Rate 05/14/24 15:00 05/14/24 15:00 05/14/24 15:40 Temperature 100.4 F H 99.2 F Pulse Rate 82 88 Respiratory Rate 22 17 Blood Pressure 139/63 142/71 H Pulse Oximetry 93 95 Oxygen Delivery Method Room Air Oxygen Flow Rate 0 05/14/24 15:51 05/14/24 15:51 Temperature 99.2 F Pulse Rate 95 H Respiratory Rate 15 Blood Pressure 142/71 H Pulse Oximetry 94 94 Oxygen Delivery Method Room Air Oxygen Flow Rate 0 0 Oxygen Delivery Method Room Air Oxygen Flow Rate 0 Narrative Exam Narrative: Gen: No acute distress, alert and interactive. CV: RRR no m/r/g Pulm: CTA b/l Abd: S NT ND Ext: No edema or rash Skin: sacral ulcer, no erythema or discharge, no concern for infection. Neuro: oriented to name and hospital. Objective ECG Impression: Sinus tachycardia with 1st degree AV block Left axis deviation Minimal voltage criteria for LVH No significant changes from prior tracings, no acute ischemia as interpreted by me. Labs 05/14/24 11:46 05/14/24 11:46 Labs: Laboratory Results - last 24 hr 05/14/24 05/14/24 05/14/24 11:38 11:46 11:50 WBC 19.9 H RBC 3.87 L Hgb 10.7 L Hct 32.8 L MCV 84.6 MCH 27.5 MCHC 32.5 RDW 18.0 H Plt Count 251 Neut % (Auto) 89.0 H Lymph % (Auto) 5.8 L [place] % (Auto) 4.9 Eos % (Auto) 0.0 L Baso % (Auto) 0.3 Neut # (Auto) 04467 H Lymph # (Auto) 1200 [place] # (Auto) 1000 H Eos # (Auto) 0 Baso # (Auto) 100 PT 12.9 H INR 1.1 APTT 42 H Sodium 138 Potassium 4.5 Chloride 103 Carbon Dioxide 28 BUN 25 H Creatinine 0.98 Estimated GFR > 60 BUN/Creatinine Ratio 25.5 H Glucose 103 Lactate 1.3 Calcium 9.9 Total Bilirubin 0.7 AST 18 ALT 12 Alkaline Phosphatase 110 Total Protein 7.4 Albumin 4.3 Globulin 3.1 Albumin/Globulin Ratio 1.4 Lipase 30 Procalcitonin 0.097 Urine Color Yellow Urine Appearance Sl cloudy Urine pH 5.5 Ur Specific [place] 1.025 Urine Protein 1+ H Urine Glucose (UA) Negative Urine Ketones Negative Urine Occult Blood 2+ H Urine Nitrate Positive H Urine Bilirubin Negative Urine Urobilinogen 0.2 Ur Leukocyte Esterase 1+ H Urine RBC 1-5/hpf Urine WBC 5-10/hpf H Ur Squamous Epith Cells 1-5 /hpf Urine Bacteria Moderate (10-30) H Ur Culture Indicated? Specimen cultured Vol Urine Centrifuged Low vol <10ml (spun) A Chlamy pneumoniae PCR Not detected Adenovirus (PCR) Not detected B.parapertussis DNA PCR Not detected Coronavirus OC43 (PCR) Not detected Coronavirus HKU1 (PCR) Not detected Coronavirus 229E (PCR) Not detected SARS-CoV-2 (PCR) Not detected Coronavirus NL63 (PCR) Not detected Human Metapneumovir PCR Not detected Influenza Type A (PCR) Not detected Influenza Type B (PCR) Not detected M. pneumoniae (PCR) Not detected Parainfluenza 1 (PCR) Not detected Parainfluenza 2 (PCR) Not detected Parainfluenza 3 (PCR) Not detected Parainfluenza 4 (PCR) Not detected RSV (PCR) Not detected Entero/Rhino (PCR) Not detected Assessment & Plan Assessment & Plan narrative: 1. Rule out sepsis, acute cystitis with acute metabolic encephalopathy due to acute cystitis in setting of chronic indwelling diaz catheter. - continue cefepime for now, follow up blood and urine cultures. - light IV fluids okay - reported hypotension yesterday, none today. - LA 1.3. - SOFA score of 1 for encephalopathy, will continue to monitor for end organ damage. 2.paroxysmal afib - continue home metoprolol - no signs of heart failure or acs. - continue home eliquis 2.5 mg BID 3. normocytic Anemia with previous GI bleeding - h/h stable from previous admission, continue to follow. 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 - Urinary retention with chronic diaz catheter - continue home flomax. - NGHIA - chronic pressure ulcers of the back and sacrum. Continue local wound care. No evidence of active infection. Code: DNR, surrogate is patient's spouse Dispo: inpatient, likely return to [facility] once improved. I have utilized all available immediate resources to obtain, update, or review the patient's current medications. Additional history obtained via discussions with the ER provider. These discussions contributed to the creation of the above assessment and plan. I have reviewed patient's presenting documentation, labs, and imaging personally. Time-Based Coding :: [TOTAL MINUTES] spent with patient and on the chart (including review of chart, obtaining history, exam, reviewing outside data, placing orders, documenting exam and treatment plan, and counseling patient) on [DATE]. Quality VTE Deep Vein Thrombosis/Pulmonary Embolism Present on Admission: No
--- NOTE | 2024-05-14 18:59 | PC.NURSE ---
Pt arrived to the room via stretcher and transferred into bed via slider board. Pt is confused. Pt has cellphone, t shirt, and cellphone charm filter operator helper with him. Pt oriented to room, how to use the call meraz, bed alarmed placed on, and all questions answered.
[2024-05-14] MEDS: SODIUM CHLORIDE 0.9% FLUSH 10 ML IV (22:43)
[2024-05-14] MEDS: APIXABAN 5 MG TABLET 2.5 MG PO (22:43)
[2024-05-14] MEDS: METOPROLOL ER 25 MG TABLET PO (22:44)
[2024-05-15] VITALS (15 sets, daily range): BP systolic 134–160; BP diastolic 76–91; PULSE 72–96; RESP 16–21; TEMP 36.7–37.3; O2SAT 81–98
[2024-05-15] MEDS: CEFEPIME 2 GM in SODIUM CHLORIDE 0.9% 100 ML IV ×2 (00:47→13:07)
[2024-05-15 05:30] LABS: Add Manual Diff / Slide Review NO; Basophils Absolute Auto 0 /uL (0-100); Basophils Percent Auto 0.2 % (0-2); Eosinophils Absolute Auto 0 /uL (0-450); Eosinophils Percent Auto 0.1 % (2-4); Hematocrit 27.2 % (41-53); Hemoglobin 9.1 g/dL (13.5-17.5); Lymphocytes Absolute Auto 900 /uL (1100-4500); Lymphocytes Percent Auto 8.3 % (25-40); Mean Corpuscular HGB Conc 33.6 % (30-36); Mean Corpuscular Hemoglobin 28.2 PG (26-34); Mean Corpuscular Volume 84.1 fL (80-100); Monocytes Absolute Auto 500 /uL (0-900); Monocytes Percent Auto 4.9 % (3-14); Neutrophils Absolute Auto 9000 /uL (1500-7000); Neutrophils Percent Auto 86.5 % (50-75); Platelet Count 208 X10^3/uL (150-400); Red Blood Cell Count 3.23 X10^6/uL (4.5-5.9); Red Cell Distribution Width 17.8 % (11.6-14.8); White Blood Cell Count 10.4 X10^3/uL (4.5-11.0)
[2024-05-15 05:41] LABS: Alanine Aminotransferase 10 IU/L (<50); Albumin 3.4 g/dL (3.5-5.0); Albumin Globulin Ratio 1.3 (1.0-2.8); Alkaline Phosphatase 83 U/L (38-126); Aspartate Aminotransferase 20 IU/L (17-59); BUN Creatinine Ratio 24.5 (6-22); Bilirubin Total 0.5 mg/dL (0.2-1.3); Blood Urea Nitrogen 24 mg/dL (9-20); Calcium 9.1 mg/dL (8.4-10.2); Carbon Dioxide 24 mmol/L (22-32); Chloride 103 mmol/L (98-107); Estimated Glomerular Filt Rate > 60 mL/min (>60); Globulin 2.6 g/dL (1.7-4.1); Glucose 98 mg/dL (80-110); HEMOLYSIS < 15 (0-50); Magnesium 1.8 mg/dL (1.6-2.3); Potassium 3.8 mmol/L (3.4-5.1); Sodium 132 mmol/L (137-145)
[2024-05-15] MEDS: PANTOPRAZOLE DR 20 MG TABLET PO (06:49)
[2024-05-15] MEDS: APIXABAN 5 MG TABLET 2.5 MG PO ×2 (09:17→22:10)
[2024-05-15] MEDS: TAMSULOSIN 0.4 MG CAPSULE 0.8 MG PO (09:18)
[2024-05-15] MEDS: SODIUM CHLORIDE 0.9% FLUSH 10 ML IV ×2 (09:18→22:10)
[2024-05-15] MEDS: METOPROLOL ER 25 MG TABLET PO ×2 (09:18→21:56)
--- NOTE | 2024-05-15 13:38 | CM.DANOTE ---
Initial DCP Assessment Note Pt is a 78 yo male, currently receiving rehab at [facility], arrives with UTI, admitted for further work up and management. 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 Patient and spouse had originally been indp and living and traveling together often between [facility] and [place], [place], etc. Since patient's medical decline and stroke, patient has has multiple hospitalizations and SNF stays at [facility] and [facility]. Placed call to spouse Geneva P [phone] to complete initial assessment. Geneva currently in [place] working on their boat and rental. Son and RAE live in [place] (RAE Bynum is a PT at [facility]) and visit patient. Geneva requests patient return to [facility] upon discharge. Appreciative for the communication. CM team will plan to follow closely for discharge coordination. KATY Dutton Discharge Planning/Care Management CM Discharge Assessment Start: 05/15/24 13:33 Freq: Status: Active Protocol: Document 05/15/24 13:34 PARISH (Rec: 05/15/24 13:38 PARISH [id number]) Discharge Planning Assessment Assigned Sensitometrist KATY Sheriff DPOA/Assigned Designee Name Geneva Bentley spouse Contact Information [phone] Advance Directives? Yes Advance Directives on File No History Provided By Family Member,Significant Other Prior Living Arrangements House Comment Originally living at home with spouse, has been at [facility] since early March 2024. Household Members none Type of transporation used prior to Relies on Others admit Facility Name Admitted From: [facility] Willing to Return to Facility? Yes Independent with ADL's No Is patient alert and oriented? No: Hx CVA Needs Assistance With Bathing,Grooming,Meal Prep, Toileting,Managing Medications ,Home Chores / Shopping Patient/Family Preference Long Term Facility Barriers to Discharge No Comment Return to [facility] when medically stable for discharge . Discharge Plan Long Term Facility Transportation Arrangement W/c vs BLS Referrals Initiated Long Term Additional Comment Return to [facility] anticipated SNF/HH Preference Return to [facility]
--- NOTE | 2024-05-15 16:20 | PM.PN.1 ---
Subjective Subjective Interval history: Patient feels a bit anxious, wants to get back to [facility] for rehab jose. He denies complaints, feels okay today. Advised him as to why he is in the hospital, was agreeable to stay. Exam Vital Signs (past 8 hours): - 05/15/24 09:18 05/15/24 10:47 05/15/24 11:00 Pulse Rate 74 96 H Blood Pressure 134/76 Pulse Oximetry 98 Oxygen Delivery Method Room Air Oxygen Flow Rate 0 Oxygen Delivery Method Room Air Oxygen Flow Rate 0 Narrative Exam Narrative: Gen: No acute distress, alert and interactive. CV: RRR no m/r/g Pulm: CTA b/l Abd: S NT ND Ext: No edema or rash Skin: sacral ulcer, no erythema or discharge, no concern for infection. Neuro: oriented to name and hospital. Objective Labs 05/15/24 05:04 05/15/24 05:04 Labs: Laboratory Results - last 24 hr 05/15/24 05:04 WBC 10.4 RBC 3.23 L Hgb 9.1 L Hct 27.2 L MCV 84.1 MCH 28.2 MCHC 33.6 RDW 17.8 H Plt Count 208 Neut % (Auto) 86.5 H Lymph % (Auto) 8.3 L [place] % (Auto) 4.9 Eos % (Auto) 0.1 L Baso % (Auto) 0.2 Neut # (Auto) 9000 H Lymph # (Auto) 900 L [place] # (Auto) 500 Eos # (Auto) 0 Baso # (Auto) 0 Sodium 132 L Potassium 3.8 Chloride 103 Carbon Dioxide 24 BUN 24 H Creatinine 0.98 Estimated GFR > 60 BUN/Creatinine Ratio 24.5 H Glucose 98 Calcium 9.1 Magnesium 1.8 Total Bilirubin 0.5 AST 20 ALT 10 Alkaline Phosphatase 83 Total Protein 6.0 L Albumin 3.4 L Globulin 2.6 Albumin/Globulin Ratio 1.3 [facility] Medical History (Updated 05/14/24 @ 18:13 by Alberto Casper DO) HTN (hypertension) TIA (transient ischemic attack) Paroxysmal atrial fibrillation Endocarditis NGHIA (obstructive sleep apnea) Septic embolism Pressure ulcer of sacral region, stage 3 Social History household members: none Smoking Status: Never smoker alcohol intake: former Assessment & Plan Assessment & Plan narrative: 1. Rule out sepsis, acute cystitis with acute metabolic encephalopathy due to acute cystitis due to chronic indwelling diaz catheter, improving - continue cefepime for now, follow up blood and urine cultures. - light IV fluids initially, can stop today. - reported hypotension day prior to admission, none since - LA 1.3. - SOFA score of 1 for encephalopathy, will continue to monitor for end organ damage. 2.paroxysmal afib - continue home metoprolol - no signs of heart failure or acs. - continue home eliquis 2.5 mg BID 3. normocytic Anemia with previous GI bleeding - h/h stable from previous admission, continue to follow. 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 - Urinary retention with chronic diaz catheter - continue home flomax. - NGHIA - chronic pressure ulcers of the back and sacrum. Continue local wound care. No evidence of active infection. Code: DNR, surrogate is patient's spouse Dispo: inpatient, likely return to [facility] once improved. I have utilized all available immediate resources to obtain, update, or review the patient's current medications. Additional history obtained via discussions with bedside RN, case management, therapy, and pharmacy staff. These discussions contributed to the creation of the above assessment and plan. I have reviewed patient's presenting documentation, labs, and imaging personally. Time-Based Coding :: [TOTAL MINUTES] spent with patient and on the chart (including review of chart, obtaining history, exam, reviewing outside data, placing orders, documenting exam and treatment plan, and counseling patient) on [DATE]. Quality VTE Deep Vein Thrombosis/Pulmonary Embolism Present on Admission: No
[2024-05-16] VITALS (14 sets, daily range): BP systolic 144–178; BP diastolic 66–97; PULSE 72–85; RESP 16–20; TEMP 36.4–37.3; O2SAT 94–98
[2024-05-16] MEDS: CEFEPIME 2 GM in SODIUM CHLORIDE 0.9% 100 ML IV ×2 (00:06→15:52)
[2024-05-16] MEDS: PANTOPRAZOLE DR 20 MG TABLET PO (05:43)
[2024-05-16 06:14] LABS: Add Manual Diff / Slide Review NO; Basophils Absolute Auto 0 /uL (0-100); Basophils Percent Auto 0.2 % (0-2); Eosinophils Absolute Auto 200 /uL (0-450); Eosinophils Percent Auto 2.7 % (2-4); Hematocrit 27.3 % (41-53); Hemoglobin 9.1 g/dL (13.5-17.5); Lymphocytes Absolute Auto 1400 /uL (1100-4500); Lymphocytes Percent Auto 18.5 % (25-40); Mean Corpuscular HGB Conc 33.4 % (30-36); Mean Corpuscular Volume 83.8 fL (80-100); Monocytes Absolute Auto 800 /uL (0-900); Monocytes Percent Auto 10.9 % (3-14); Neutrophils Absolute Auto 5100 /uL (1500-7000); Neutrophils Percent Auto 67.7 % (50-75); Platelet Count 207 X10^3/uL (150-400); Red Blood Cell Count 3.26 X10^6/uL (4.5-5.9); Red Cell Distribution Width 17.9 % (11.6-14.8); White Blood Cell Count 7.5 X10^3/uL (4.5-11.0)
[2024-05-16 06:19] LABS: Alanine Aminotransferase 9 IU/L (<50); Albumin 3.3 g/dL (3.5-5.0); Albumin Globulin Ratio 1.2 (1.0-2.8); Alkaline Phosphatase 76 U/L (38-126); Aspartate Aminotransferase 20 IU/L (17-59); BUN Creatinine Ratio 25.5 (6-22); Bilirubin Total 0.4 mg/dL (0.2-1.3); Blood Urea Nitrogen 24 mg/dL (9-20); Calcium 9.3 mg/dL (8.4-10.2); Carbon Dioxide 25 mmol/L (22-32); Chloride 105 mmol/L (98-107); Estimated Glomerular Filt Rate > 60 mL/min (>60); Globulin 2.8 g/dL (1.7-4.1); Glucose 109 mg/dL (80-110); HEMOLYSIS < 15 (0-50); Magnesium 1.9 mg/dL (1.6-2.3); Potassium 3.9 mmol/L (3.4-5.1); Sodium 134 mmol/L (137-145); Total Protein 6.1 g/dL (6.3-8.2)
[2024-05-16] MEDS: METOPROLOL ER 25 MG TABLET PO ×2 (08:44→20:03)
[2024-05-16] MEDS: TAMSULOSIN 0.4 MG CAPSULE 0.8 MG PO ×2 (08:44→08:45)
[2024-05-16] MEDS: SODIUM CHLORIDE 0.9% FLUSH 10 ML IV ×4 (08:47→20:03)
[2024-05-16] MEDS: APIXABAN 5 MG TABLET 2.5 MG PO ×2 (10:46→20:03)
--- NOTE | 2024-05-16 15:06 | PM.PN.1 ---
Subjective Subjective Interval history: He denies complaints, feels okay today. Still awaiting cultures, urine with GNB. Exam Vital Signs (past 8 hours): - 05/16/24 08:00 05/16/24 08:44 05/16/24 09:45 Pulse Rate 74 Respiratory Rate 18 Blood Pressure 162/82 H 158/66 H Oxygen Delivery Method Room Air Oxygen Flow Rate 0 Narrative Exam Narrative: Gen: No acute distress, alert and interactive. CV: RRR no m/r/g Pulm: CTA b/l Abd: S NT ND Ext: No edema or rash Skin: sacral ulcer, no erythema or discharge, no concern for infection. Neuro: oriented to name and hospital. Objective Labs 05/16/24 05:43 05/16/24 05:43 Labs: Laboratory Results - last 24 hr 05/16/24 05:43 WBC 7.5 RBC 3.26 L Hgb 9.1 L Hct 27.3 L MCV 83.8 MCH 28.0 MCHC 33.4 RDW 17.9 H Plt Count 207 Neut % (Auto) 67.7 Lymph % (Auto) 18.5 L [place] % (Auto) 10.9 Eos % (Auto) 2.7 Baso % (Auto) 0.2 Neut # (Auto) 5100 Lymph # (Auto) 1400 [place] # (Auto) 800 Eos # (Auto) 200 Baso # (Auto) 0 Sodium 134 L Potassium 3.9 Chloride 105 Carbon Dioxide 25 BUN 24 H Creatinine 0.94 Estimated GFR > 60 BUN/Creatinine Ratio 25.5 H Glucose 109 Calcium 9.3 Magnesium 1.9 Total Bilirubin 0.4 AST 20 ALT 9 Alkaline Phosphatase 76 Total Protein 6.1 L Albumin 3.3 L Globulin 2.8 Albumin/Globulin Ratio 1.2 [facility] Medical History (Updated 05/14/24 @ 18:13 by Alberto Casper DO) HTN (hypertension) TIA (transient ischemic attack) Paroxysmal atrial fibrillation Endocarditis NGHIA (obstructive sleep apnea) Septic embolism Pressure ulcer of sacral region, stage 3 Social History household members: none Smoking Status: Never smoker alcohol intake: former Assessment & Plan Assessment & Plan narrative: 1. Rule out sepsis, acute cystitis with acute metabolic encephalopathy due to acute cystitis due to chronic indwelling diaz catheter, improving - continue cefepime for now, follow up blood and urine cultures. Has a history of pseudomonas in the urine, so will need to await culture results prior to discharge to make sure he is on the appropriate antibiotic therapy. - light IV fluids initially, now off. - reported hypotension day prior to admission, none since - LA 1.3. - SOFA score of 1 for encephalopathy, will continue to monitor for end organ damage. 2.paroxysmal afib - continue home metoprolol - no signs of heart failure or acs. - continue home eliquis 2.5 mg BID 3. normocytic Anemia with previous GI bleeding - h/h stable from previous admission, continue to follow. 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 - Urinary retention with chronic diaz catheter - continue home flomax. - NGHIA - chronic pressure ulcers of the back and sacrum. Continue local wound care. No evidence of active infection. Code: DNR, surrogate is patient's spouse Dispo: inpatient, likely return to [facility] once improved may need IV antibiotics, but awaiting urinary cultures prior to discharge, possible ready in 1-2 days. I have utilized all available immediate resources to obtain, update, or review the patient's current medications. Additional history obtained via discussions with bedside RN, case management. These discussions contributed to the creation of the above assessment and plan. I have reviewed patient's presenting documentation, labs, and imaging personally. Time-Based Coding :: [TOTAL MINUTES] spent with patient and on the chart (including review of chart, obtaining history, exam, reviewing outside data, placing orders, documenting exam and treatment plan, and counseling patient) on [DATE]. Quality VTE Deep Vein Thrombosis/Pulmonary Embolism Present on Admission: No
--- NOTE | 2024-05-16 18:20 | PC.NURSE ---
Pt A/O,Denies discomfort this shift. SL x 2 intact/patent. Tele SR/ BBB per ICU staff. Having multiple soft BMs this afternoon. Pt Scrotal area reddened, dsg to coxccy area changed. IV ABO ordered. Call light w/in reach, Bed alarm on for pt safety. Continue w/plan of care.
[2024-05-17] VITALS (13 sets, daily range): BP systolic 150–169; BP diastolic 82–89; PULSE 72–79; RESP 16–20; TEMP 36.4–37.2; O2SAT 95–98
[2024-05-17] MEDS: CEFEPIME 2 GM in SODIUM CHLORIDE 0.9% 100 ML IV ×2 (00:38→13:21)
[2024-05-17] MEDS: PANTOPRAZOLE DR 20 MG TABLET PO (06:11)
[2024-05-17 06:42] LABS: Add Manual Diff / Slide Review NO; Basophils Absolute Auto 0 /uL (0-100); Basophils Percent Auto 0.4 % (0-2); Eosinophils Absolute Auto 200 /uL (0-450); Eosinophils Percent Auto 3.7 % (2-4); Lymphocytes Absolute Auto 1300 /uL (1100-4500); Lymphocytes Percent Auto 20.1 % (25-40); Mean Corpuscular HGB Conc 33.3 % (30-36); Mean Corpuscular Hemoglobin 27.7 PG (26-34); Monocytes Absolute Auto 700 /uL (0-900); Monocytes Percent Auto 10.2 % (3-14); Neutrophils Absolute Auto 4300 /uL (1500-7000); Neutrophils Percent Auto 65.6 % (50-75); Platelet Count 217 X10^3/uL (150-400); Red Blood Cell Count 3.26 X10^6/uL (4.5-5.9); Red Cell Distribution Width 17.9 % (11.6-14.8); White Blood Cell Count 6.5 X10^3/uL (4.5-11.0)
[2024-05-17 06:45] LABS: Alanine Aminotransferase 10 IU/L (<50); Albumin 3.3 g/dL (3.5-5.0); Albumin Globulin Ratio 1.2 (1.0-2.8); Alkaline Phosphatase 77 U/L (38-126); Aspartate Aminotransferase 18 IU/L (17-59); BUN Creatinine Ratio 30.3 (6-22); Bilirubin Total 0.4 mg/dL (0.2-1.3); Blood Urea Nitrogen 27 mg/dL (9-20); Calcium 9.2 mg/dL (8.4-10.2); Carbon Dioxide 25 mmol/L (22-32); Chloride 105 mmol/L (98-107); Estimated Glomerular Filt Rate > 60 mL/min (>60); Globulin 2.7 g/dL (1.7-4.1); Glucose 107 mg/dL (80-110); HEMOLYSIS < 15 (0-50); Magnesium 1.9 mg/dL (1.6-2.3); Sodium 135 mmol/L (137-145)
--- NOTE | 2024-05-17 07:46 | P.PN_ITS ---
Subjective Subjective Interval history: Interval summary: 78 M with the septic embolic strokes, here with UTI due to catheter. Urine cultures with GNB. Awaiting culture results before return to SNF on appropriate antibiotics. Has hx of pseudomonas, improving on cefepime.? S: He feels much improved. No abdominal pain, or dyspnea. No confusion. Exam Vital Signs (past 8 hours): - 05/17/24 00:00 05/17/24 02:31 05/17/24 03:00 Temperature 97.5 F L Pulse Rate 73 73 Respiratory Rate 20 Blood Pressure 158/84 H 158/84 H Pulse Oximetry 98 98 Oxygen Delivery Method Room Air Oxygen Flow Rate 0 05/17/24 04:00 Temperature Pulse Rate Respiratory Rate 19 Blood Pressure Pulse Oximetry Oxygen Delivery Method Oxygen Flow Rate Oxygen Delivery Method Room Air Oxygen Flow Rate 0 Narrative Exam Narrative: NAD, alert and oriented. Fluent speech. Lungs are clear, normal rate and effort. Heart is regular, no murmur gallop or rub. Abdomen is soft, non distended. Extremities are free of edema. Objective Labs 05/17/24 06:20 05/17/24 06:20 Labs: Laboratory Results - last 24 hr 05/17/24 06:20 WBC 6.5 RBC 3.26 L Hgb 9.0 L Hct 27.0 L MCV 83.0 MCH 27.7 MCHC 33.3 RDW 17.9 H Plt Count 217 Neut % (Auto) 65.6 Lymph % (Auto) 20.1 L Kern % (Auto) 10.2 Eos % (Auto) 3.7 Baso % (Auto) 0.4 Neut # (Auto) 4300 Lymph # (Auto) 1300 Kern # (Auto) 700 Eos # (Auto) 200 Baso # (Auto) 0 Sodium 135 L Potassium 4.0 Chloride 105 Carbon Dioxide 25 BUN 27 H Creatinine 0.89 Estimated GFR > 60 BUN/Creatinine Ratio 30.3 H Glucose 107 Calcium 9.2 Magnesium 1.9 Total Bilirubin 0.4 AST 18 ALT 10 Alkaline Phosphatase 77 Total Protein 6.0 L Albumin 3.3 L Globulin 2.7 Albumin/Globulin Ratio 1.2 ON LICENSE OF [facility] Medical History HTN (hypertension) TIA (transient ischemic attack) Paroxysmal atrial fibrillation Endocarditis NGHIA (obstructive sleep apnea) Septic embolism Pressure ulcer of sacral region, stage 3 Social History household members: none Smoking Status: Never smoker alcohol intake: former Assessment & Plan Assessment & Plan narrative: 1. Sepsis secondary to acute cystitis with acute septic encephalopathy (associated with chronic indwelling diaz catheter), present on admission and improving - continue cefepime for now, follow up blood and urine cultures. Has a history of pseudomonas in the urine, so will need to await culture results prior to discharge to make sure he is on the appropriate antibiotic therapy. - light IV fluids initially, now off. -Pseudomonas in urine, sensitive to fluoroquinolones. 2. Paroxysmal afib, present on admission and stable. - continue home metoprolol - no signs of heart failure or acs. - continue home eliquis 2.5 mg BID 3. Normocytic Anemia with previous GI bleeding, present on admission stable. - h/h stable from previous admission, continue to follow. Chronic medical conditions, present on admission and stable. 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 - Urinary retention with chronic diaz catheter - continue home flomax. - NGHIA - chronic pressure ulcers of the back and sacrum. Continue local wound care. No evidence of active infection. Code: DNR, surrogate is patient's spouse Dispo: inpatient, likely return to [facility] on 05/18 on oral fluoroquinolones. Time-Based Coding :: 25 min spent with patient and on the chart (including review of chart, obtaining history, exam, reviewing outside data, placing orders, documenting exam and treatment plan, and counseling patient) on 05/17. Quality VTE Deep Vein Thrombosis/Pulmonary Embolism Present on Admission: No
[2024-05-17] MEDS: METOPROLOL ER 25 MG TABLET PO ×2 (10:33→20:11)
[2024-05-17] MEDS: TAMSULOSIN 0.4 MG CAPSULE 0.8 MG PO (10:34)
[2024-05-17] MEDS: APIXABAN 5 MG TABLET 2.5 MG PO ×2 (10:34→20:12)
[2024-05-17] MEDS: SODIUM CHLORIDE 0.9% FLUSH 10 ML IV ×4 (10:35→20:13)
--- NOTE | 2024-05-17 11:29 | CM.DPNOTE ---
DCP Cont Patient discussed in multidisciplinary rounds this morning; expected to discharge tomorrow 05/18. Updated Radha at [facility] who confirms patient welcome back tomorrow. No PASRR needed. CM team following closely for coordination. JW
[2024-05-17] MEDS: NYSTATIN POWDER 15GM 1 APPLIC TOP (20:13)
[2024-05-18] MEDS: CEFEPIME 2 GM in SODIUM CHLORIDE 0.9% 100 ML IV (00:23)
[2024-05-18 03:00] VITALS: BP 154/85; PULSE 72; RESP 16; TEMP 36.8; O2SAT 97
[2024-05-18 06:36] LABS: Hematocrit 26.7 % (41-53); Mean Corpuscular HGB Conc 33.5 % (30-36); Mean Corpuscular Hemoglobin 27.7 PG (26-34); Mean Corpuscular Volume 82.7 fL (80-100); Platelet Count 234 X10^3/uL (150-400); Red Blood Cell Count 3.23 X10^6/uL (4.5-5.9); Red Cell Distribution Width 17.5 % (11.6-14.8); White Blood Cell Count 5.8 X10^3/uL (4.5-11.0)
[2024-05-18 06:46] LABS: BUN Creatinine Ratio 30.8 (6-22); Blood Urea Nitrogen 28 mg/dL (9-20); Calcium 9.2 mg/dL (8.4-10.2); Carbon Dioxide 25 mmol/L (22-32); Chloride 105 mmol/L (98-107); Estimated Glomerular Filt Rate > 60 mL/min (>60); Glucose 98 mg/dL (80-110); HEMOLYSIS < 15 (0-50); Potassium 3.8 mmol/L (3.4-5.1); Sodium 134 mmol/L (137-145)
[2024-05-18] MEDS: PANTOPRAZOLE DR 20 MG TABLET PO (07:39)
[2024-05-18 07:51] VITALS: O2SAT 97
[2024-05-18 08:00] VITALS: BP 161/72; PULSE 71; RESP 16; TEMP 36.8; O2SAT 97
[2024-05-18] MEDS: TAMSULOSIN 0.4 MG CAPSULE 0.8 MG PO (10:13)
[2024-05-18] MEDS: SODIUM CHLORIDE 0.9% FLUSH 10 ML IV (10:13)
[2024-05-18] MEDS: APIXABAN 5 MG TABLET 2.5 MG PO (10:13)
[2024-05-18 10:16] VITALS: BP 161/72; PULSE 71
[2024-05-18] MEDS: METOPROLOL ER 25 MG TABLET PO (10:16)
[2024-05-18 11:11] VITALS: O2SAT 97
[2024-05-18] MEDS: CIPROFLOXACIN 250 MG TABLET 500 MG PO (11:51)
--- NOTE | 2024-05-18 11:59 | PM.DS.1 ---
History of Present Illness History of Present Illness Chief complaint: AMS Narrative: Darryl Bentley is a 78 y.o. 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 History obtained from review of chart and discussion with ER provider, patient states he does not recall the last two days and is unsure why he is in the hospital. He had a fever of 102 in the ER, was possibly hypotensive yesterday but this improved per staff reports at his SNF. Labs are notable for leukocytosis with WBC 19K, with 89% neutrophils. Chemistries are unremarkable. UA shows 5-10 WBC with moderate bacteria, some squamous cells. He was admitted for acute metabolic encephalopathy, rule out sepsis in setting of urinary tract infection from chronic diaz. Diaz was changed in the ER. Discharge Providers Provider Date of admission: 05/14/24 14:59 Discharge Date: 05/18/24 Primary care physician: Elmer Robbins MD Consults: None. Discharge provider: Waylon Vanegas MD Summary Hospital Course Discharge Diagnosis: 1. Sepsis secondary to acute cystitis with acute septic encephalopathy (associated with chronic indwelling diaz catheter), present on admission and improving - treated with cefepime in hospital. - Pseudomonas in urine, sensitive to fluoroquinolones. 2. Paroxysmal afib, present on admission and stable. - continue home metoprolol - no signs of heart failure or acs. - continue home eliquis 2.5 mg BID 3. Normocytic Anemia with previous GI bleeding, present on admission stable. - h/h stable from previous admission, continue to follow. Chronic medical conditions, present on admission and stable. 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 - Urinary retention with chronic diza catheter - continue home flomax. - NGHIA - chronic pressure ulcers of the back and sacrum. Continue local wound care. No evidence of active infection. Code: DNR, surrogate is patient's spouse Hospital Course: He was admitted with sepsis and encephalopathy and urine grew out Pseudomonas, 100,000 CFU. He respond to cefepime men attained his normal mental status. He does transfer with a Wally lift at [email or web address] In the day of discharge he was back at baseline and ready to go back to his residential facility. Status at Discharge Cognitive/behavioral status at discharge: oriented Functional status at discharge: bed bound Overall status at discharge: patient is back to baseline Time Spent with Patient Time spent: Greater than 30 minutes Exam Vital Signs (past 8 hours): - 05/18/24 07:51 05/18/24 08:00 05/18/24 10:16 Temperature 98.3 F Pulse Rate 71 71 Respiratory Rate 16 Blood Pressure 161/72 H 161/72 H Pulse Oximetry 97 97 Oxygen Delivery Method Room Air 05/18/24 11:11 Temperature Pulse Rate Respiratory Rate Blood Pressure Pulse Oximetry 97 Oxygen Delivery Method Room Air Oxygen Delivery Method Room Air Oxygen Flow Rate 0 Narrative Exam Narrative: NAD, alert and oriented. Fluent speech. Lungs are clear, normal rate and effort. Heart is regular, no murmur gallop or rub. Abdomen is soft, non distended. Extremities are free of edema. Objective Imaging Chest x-ray: Radiologist's impression: 1. Left basilar patchy consolidation which may reflect atelectasis, aspiration and/or pneumonia. 2. Stable cardiomegaly. CT scan - head: Radiologist's impression: No acute intracranial hemorrhage is seen. 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 No acute intracranial hemorrhage is seen. Labs 05/18/24 06:20 05/18/24 06:20 Labs: Laboratory Results - last 24 hr 05/18/24 06:20 WBC 5.8 RBC 3.23 L Hgb 9.0 L Hct 26.7 L MCV 82.7 MCH 27.7 MCHC 33.5 RDW 17.5 H Plt Count 234 Sodium 134 L Potassium 3.8 Chloride 105 Carbon Dioxide 25 BUN 28 H Creatinine 0.91 Estimated GFR > 60 BUN/Creatinine Ratio 30.8 H Glucose 98 Calcium 9.2 PFSH Medical History HTN (hypertension) TIA (transient ischemic attack) Paroxysmal atrial fibrillation Endocarditis NGHIA (obstructive sleep apnea) Septic embolism Pressure ulcer of sacral region, stage 3 Social History household members: none Smoking Status: Never smoker alcohol intake: former Discharge Assessment & Plan Assessment and Plan Assessment: 1. Sepsis secondary to acute cystitis with acute septic encephalopathy (associated with chronic indwelling diaz catheter), present on admission and improving - treated with cefepime in hospital. - Pseudomonas in urine, sensitive to fluoroquinolones. 2. Paroxysmal afib, present on admission and stable. - continue home metoprolol - no signs of heart failure or acs. - continue home eliquis 2.5 mg BID 3. Normocytic Anemia with previous GI bleeding, present on admission stable. - h/h stable from previous admission, continue to follow. Plan of Treatment: Return to [facility] for ongoing care and an additional 9 days of antibiotics, Cipro p.o. b.i.d.. Discharge Plan Discharge Plan Patient Disposition: SNF Transfer to: [facility] Discharge orders & Medications Prescriptions: New ciprofloxacin HCl [Cipro] 500 mg tablet 500 mg PO BID Qty: 14 0RF Continued (DME) Aerochamber MV Spacer See Rx Instructions .ROUTE .MEDSUPPLY Qty: 1 0RF Rx Instructions: As directed lidocaine 5 % adhesive patch,medicated 2 patch topical DAILY diclofenac sodium 1 % gel 1 % TOPICAL QID Eliquis 5 mg tablet 2.5 mg PO BID Patient Comments: TK 1 T PO BID sennosides [senna] 8.6 mg Tablet 8.6 mg PO DAILY ipratropium-albuterol 0.5 mg-3 mg(2.5 mg base)/3 mL Solution For Nebulization 3 ml INHALATION QID PRN (Reason: Shortness Of Breath Or Wheezing) tizanidine 2 mg Tablet 2 mg PO Q8H PRN (Reason: Muscle Spasm) polyethylene glycol 3350 17 gram Powder In Packet 17 g PO DAILY PRN (Reason: Constipation) famotidine 20 mg Tablet 20 mg PO DAILY metoprolol succinate 25 mg tablet extended release 24 hr 25 mg PO BID doxazosin 2 mg Tablet 2 mg PO BEDTIME potassium chloride 20 mEq Tablet Extended Release 20 meq PO DAILY Repatha SureClick 140 mg/mL pen injector 140 mg SUBCUT Q2W tamsulosin 0.4 mg capsule 0.8 mg PO DAILY@1700 lansoprazole 15 mg capsule,delayed release(DR/EC) 15 mg PO BID gabapentin 100 mg Tablet 100 mg PO TID PRN (Reason: Pain (Scale Score 1-3)) ipratropium bromide 21 mcg (0.03 %) spray,non-aerosol 2 spray intranasal BID PRN (Reason: allergies) acetaminophen 325 mg Tablet 650 mg PO Q6H PRN (Reason: Fever/Mild Pain (1-3)) Qty: 30 0RF furosemide 40 mg Tablet 20 mg PO DAILY Qty: 30 0RF valsartan 80 mg tablet 80 mg PO BID amlodipine 2.5 mg tablet 2.5 mg PO BID Changed hydrocodone-acetaminophen 5-325 mg tablet 1 tab PO Q4H PRN (Reason: Pain (Scale Score 4-6)) Qty: 20 0RF Follow up/Referrals: Elmer Robbins MD [Primary Care Provider] - Discharge Health Status Multidrug resistant organism: No MDRO Diet/Activity/Treatments Diet: Regular Skin/Wound/Dressing Care Report to your healthcare provider any signs of infection, such as:: chills, fever and increased pain Visit Report/Discharge Packet Stand Alone Forms: Patient Portal/API Discharge Data Primary Care Provider: Elmer Robbins Quality VTE Deep Vein Thrombosis/Pulmonary Embolism Present on Admission: No
[2024-05-18 12:27] VITALS: BP 154/85; PULSE 80; RESP 18; TEMP 36.6; O2SAT 99
--- NOTE | 2024-05-18 12:53 | PC.NURSE ---
Addendum entered by Arturo Waldron R.N. 05/18/24 15:59: LATE ENTRY: Patient was placed in personal WC via martha lift, was able to communicate comfort needs of repositioning. Patient was in stable conditon at time of departure. Facility personal retrieved personal belongings and d/c packet. Original Note: Report called to nurse on staff at [facility]. All questions concerns where addressed. Patient to go back to facility with Cath. intact.
--- NOTE | 2024-05-18 13:21 | CM.DPNOTE ---
DC Note Patient has been discharged back to [facility] today. Placed call to spouse Geneva, had to LM requesting CB for update. 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 Emailed signed med list and Rx to March at [facility]. PARISH
== END 2024-05-18 14:15 | DRG 698 ==
LOC: ED 14:19 → AC 15:00
PROVIDERS: Hospitalist; Admitting Provider Internal Medicine; Emergency Provider Emergency Medicine; PCP Internal Medicine; Referring Provider Emergency Medicine; Visit Provider Internal Medicine
DX: T83.511A Infection and inflammatory reaction due to indwelling urethral catheter, initial encounter (principal); A41.9 Sepsis, unspecified organism; G93.41 Metabolic encephalopathy; N30.00 Acute cystitis without hematuria; I50.22 Chronic systolic (congestive) heart failure; G47.33 Obstructive sleep apnea (adult) (pediatric); I48.0 Paroxysmal atrial fibrillation; D50.0 Iron deficiency anemia secondary to blood loss (chronic); R33.9 Retention of urine, unspecified; L89.159 Pressure ulcer of sacral region, unspecified stage; B96.5 Pseudomonas (aeruginosa) (mallei) (pseudomallei) as the cause of diseases classified elsewhere; I11.0 Hypertensive heart disease with heart failure; Z79.01 Long term (current) use of anticoagulants; Z66 Do not resuscitate; Z86.73 Personal history of transient ischemic attack (TIA), and cerebral infarction without residual deficits; Z95.2 Presence of prosthetic heart valve
CPT/HCPCS: 36415; 70450; 71045; 80048; 80053; 81001; 82962; 83605; 83690; 83735; 84145; 85025; 85027; 85610; 85730; 87040; 87086; 87186; 87633; 93005; 93010; 96365; 96366; 96367; 96375; 99284; A9270; J0136; J0692; J1170

== ENCOUNTER → 2024-05-23 10:20 | Outpatient (CLI) | payer MEDICARE, OTHER, SELFPAY ==
[2024-05-14 15:51] VITALS: BMI 29.4
== END ==
PROVIDERS: PCP Internal Medicine; Visit Provider Surgery
DX: L89.154 Pressure ulcer of sacral region, stage 4 (principal); R60.0 Localized edema; L53.9 Erythematous condition, unspecified; S21.201A Unspecified open wound of right back wall of thorax without penetration into thoracic cavity, initial encounter; L98.8 Other specified disorders of the skin and subcutaneous tissue; Z79.01 Long term (current) use of anticoagulants; Z74.01 Bed confinement status
CPT/HCPCS: 11042; 97602

== ENCOUNTER → 2024-05-23 11:01 | Outpatient (CLI) | payer MEDICARE, OTHER, SELFPAY ==
[2024-05-14 15:51] VITALS: BMI 29.4
--- NOTE | 2024-05-23 11:02 | DI.RAD.S_ITS ---
PROCEDURE: XR SACRUM COCCYX MIN 2V INDICATIONS: pressure ulcer on sacrum, stage 4 TECHNIQUE: 3 views of the sacrum and coccyx acquired. COMPARISON: None. FINDINGS: Bones: No fractures or dislocations. No suspicious bony lesions. No bony sclerotic related changes involving the sacrum. Partially imaged interbody fusion hardware involving the lower lumbar spine. A partially imaged bifurcated abdominal aortic endo graft is also seen within the pelvis. Soft tissues: Visualized bowel gas pattern is normal. Agosto catheter is present within the urinary bladder. No suspicious soft tissue densities. Soft tissue defect within the posterior sacral soft tissues likely corresponding to known sacral decubitus ulcer. IMPRESSION: Soft tissue defect within the posterior sacrum likely related to known sacral decubitus ulcer. No underlying bony sclerotic or lytic changes. Dictated by: Waylon Tillman M.D. on 05/23/2024 at 17:31 Approved by: Waylon Tillman M.D. on 05/23/2024 at 17:33
== END ==
PROVIDERS: PCP Internal Medicine; Referring Provider Surgery; Visit Provider Surgery
DX: L89.154 Pressure ulcer of sacral region, stage 4 (principal)
CPT/HCPCS: 72220

== ENCOUNTER → 2024-05-30 10:21 | Outpatient (CLI) | payer MEDICARE, OTHER, SELFPAY ==
[2024-05-14 15:51] VITALS: BMI 29.4
== END ==
PROVIDERS: PCP Internal Medicine; Visit Provider Surgery
DX: L89.154 Pressure ulcer of sacral region, stage 4 (principal); R21 Rash and other nonspecific skin eruption; R60.0 Localized edema; I50.9 Heart failure, unspecified; I25.10 Atherosclerotic heart disease of native coronary artery without angina pectoris; M62.81 Muscle weakness (generalized); Z79.01 Long term (current) use of anticoagulants
CPT/HCPCS: 11042; 99213

== ENCOUNTER → 2024-06-06 09:57 | Outpatient (CLI) | payer MEDICARE, OTHER, SELFPAY ==
[2024-05-14 15:51] VITALS: BMI 29.4
== END ==
PROVIDERS: PCP Internal Medicine; Visit Provider Surgery
DX: L89.154 Pressure ulcer of sacral region, stage 4 (principal); S21.201A Unspecified open wound of right back wall of thorax without penetration into thoracic cavity, initial encounter; L98.8 Other specified disorders of the skin and subcutaneous tissue; R60.0 Localized edema; R21 Rash and other nonspecific skin eruption; Z79.01 Long term (current) use of anticoagulants
CPT/HCPCS: 11042; 99213

== ENCOUNTER → 2024-06-13 09:25 | Outpatient (CLI) | payer MEDICARE, OTHER, SELFPAY ==
[2024-05-14 15:51] VITALS: BMI 29.4
== END ==
LOC: WC 09:26
PROVIDERS: PCP Internal Medicine; Visit Provider Surgery
DX: L89.154 Pressure ulcer of sacral region, stage 4 (principal); R60.0 Localized edema; S21.201A Unspecified open wound of right back wall of thorax without penetration into thoracic cavity, initial encounter; M62.81 Muscle weakness (generalized); Z79.01 Long term (current) use of anticoagulants; I50.9 Heart failure, unspecified; I25.10 Atherosclerotic heart disease of native coronary artery without angina pectoris; I39 Endocarditis and heart valve disorders in diseases classified elsewhere; Z79.2 Long term (current) use of antibiotics
CPT/HCPCS: 11042; 99213

== ENCOUNTER → 2024-06-20 10:02 | Outpatient (CLI) | payer MEDICARE, OTHER, SELFPAY ==
[2024-05-14 15:51] VITALS: BMI 29.4
== END ==
LOC: WC 10:03
PROVIDERS: PCP Internal Medicine; Visit Provider Surgery
DX: L89.154 Pressure ulcer of sacral region, stage 4 (principal); R60.0 Localized edema; R21 Rash and other nonspecific skin eruption; Z79.01 Long term (current) use of anticoagulants
CPT/HCPCS: 11042

== ENCOUNTER → 2024-07-02 11:53 | Outpatient (CLI) | payer MEDICARE, OTHER, SELFPAY ==
[2024-05-14 15:51] VITALS: BMI 29.4
== END ==
PROVIDERS: PCP Internal Medicine; Referring Provider Internal Medicine; Visit Provider Surgery
DX: L89.154 Pressure ulcer of sacral region, stage 4 (principal); S21.201A Unspecified open wound of right back wall of thorax without penetration into thoracic cavity, initial encounter; L98.8 Other specified disorders of the skin and subcutaneous tissue; T21.1 Burn of first degree of trunk; R60.0 Localized edema; R21 Rash and other nonspecific skin eruption; Z79.01 Long term (current) use of anticoagulants
CPT/HCPCS: 11042

== ENCOUNTER → 2024-07-09 14:47 | Outpatient (CLI) | payer MEDICARE, OTHER, SELFPAY ==
[2024-05-14 15:51] VITALS: BMI 29.4
== END ==
LOC: WC 14:50
PROVIDERS: PCP Internal Medicine; Visit Provider Surgery
DX: L89.154 Pressure ulcer of sacral region, stage 4 (principal); R21 Rash and other nonspecific skin eruption; R60.0 Localized edema; S21.201A Unspecified open wound of right back wall of thorax without penetration into thoracic cavity, initial encounter; L98.8 Other specified disorders of the skin and subcutaneous tissue; T21.1 Burn of first degree of trunk; Z79.01 Long term (current) use of anticoagulants; Z74.01 Bed confinement status
CPT/HCPCS: 11042

== ENCOUNTER → 2024-07-16 14:36 | Outpatient (CLI) | payer MEDICARE, OTHER, SELFPAY ==
[2024-05-14 15:51] VITALS: BMI 29.4
== END ==
LOC: WC 14:37
PROVIDERS: PCP Internal Medicine; Visit Provider Surgery
DX: L89.154 Pressure ulcer of sacral region, stage 4 (principal); S21.201A Unspecified open wound of right back wall of thorax without penetration into thoracic cavity, initial encounter; B35.9 Dermatophytosis, unspecified; R60.0 Localized edema; Z79.01 Long term (current) use of anticoagulants
CPT/HCPCS: 11042; 99213

== ENCOUNTER → 2024-07-23 14:30 | Outpatient (CLI) | payer MEDICARE, OTHER, SELFPAY ==
[2024-05-14 15:51] VITALS: BMI 29.4
== END ==
LOC: WC 14:34
PROVIDERS: PCP Internal Medicine; Visit Provider Surgery
DX: L89.154 Pressure ulcer of sacral region, stage 4 (principal); L92.9 Granulomatous disorder of the skin and subcutaneous tissue, unspecified; R21 Rash and other nonspecific skin eruption; Z79.01 Long term (current) use of anticoagulants
CPT/HCPCS: 11042

== ENCOUNTER → 2024-07-30 13:37 | Outpatient (CLI) | payer MEDICARE, OTHER, SELFPAY ==
[2024-05-14 15:51] VITALS: BMI 29.4
== END ==
LOC: WC 13:39
PROVIDERS: PCP Internal Medicine; Visit Provider Surgery
DX: L89.154 Pressure ulcer of sacral region, stage 4 (principal); R60.0 Localized edema; R21 Rash and other nonspecific skin eruption; I50.9 Heart failure, unspecified; I25.10 Atherosclerotic heart disease of native coronary artery without angina pectoris; Z79.01 Long term (current) use of anticoagulants
CPT/HCPCS: 11042; 87070; 87075; 87077; 87186; 87205; 99213

== ENCOUNTER → 2024-08-02 11:48 | Outpatient (CLI) | payer MEDICARE, OTHER, SELFPAY ==
[2024-05-14 15:51] VITALS: BMI 29.4
== END ==
LOC: WC 11:49
PROVIDERS: PCP Internal Medicine; Visit Provider Physician Assistant
DX: L89.154 Pressure ulcer of sacral region, stage 4 (principal); R60.0 Localized edema; R21 Rash and other nonspecific skin eruption
CPT/HCPCS: 99212

== ENCOUNTER → 2024-08-05 13:46 | Outpatient (CLI) | payer MEDICARE, OTHER, SELFPAY ==
[2024-05-14 15:51] VITALS: BMI 29.4
== END ==
LOC: WC 13:48
PROVIDERS: PCP Internal Medicine; Visit Provider Surgery
DX: L89.154 Pressure ulcer of sacral region, stage 4 (principal); R60.0 Localized edema; R21 Rash and other nonspecific skin eruption
CPT/HCPCS: 99213

== ENCOUNTER → 2024-08-07 14:29 | Outpatient (CLI) | payer MEDICARE, OTHER, SELFPAY ==
[2024-05-14 15:51] VITALS: BMI 29.4
== END ==
PROVIDERS: PCP Internal Medicine; Visit Provider Surgery
DX: L89.154 Pressure ulcer of sacral region, stage 4 (principal); L08.89 Other specified local infections of the skin and subcutaneous tissue; R60.0 Localized edema; Z79.01 Long term (current) use of anticoagulants
CPT/HCPCS: 11042

== ENCOUNTER → 2024-08-09 14:56 | Outpatient (CLI) | payer MEDICARE, OTHER, SELFPAY ==
[2024-05-14 15:51] VITALS: BMI 29.4
== END ==
PROVIDERS: PCP Internal Medicine; Visit Provider Physician Assistant
DX: L89.154 Pressure ulcer of sacral region, stage 4 (principal); R60.0 Localized edema
CPT/HCPCS: 99213

== ENCOUNTER → 2024-08-12 14:05 | Outpatient (CLI) | payer MEDICARE, OTHER, SELFPAY ==
[2024-05-14 15:51] VITALS: BMI 29.4
== END ==
PROVIDERS: PCP Internal Medicine; Visit Provider Surgery
DX: L89.154 Pressure ulcer of sacral region, stage 4 (principal); R60.0 Localized edema
CPT/HCPCS: 99213

== ENCOUNTER → 2024-08-14 13:55 | Outpatient (CLI) | payer MEDICARE, OTHER, SELFPAY ==
[2024-05-14 15:51] VITALS: BMI 29.4
== END ==
PROVIDERS: PCP Internal Medicine; Visit Provider Surgery
DX: L89.154 Pressure ulcer of sacral region, stage 4 (principal); R60.0 Localized edema; Z79.01 Long term (current) use of anticoagulants
CPT/HCPCS: 11042

== ENCOUNTER → 2024-08-16 13:07 | Outpatient (CLI) | payer MEDICARE, OTHER, SELFPAY ==
[2024-05-14 15:51] VITALS: BMI 29.4
== END ==
PROVIDERS: PCP Internal Medicine; Visit Provider Physician Assistant
DX: L89.154 Pressure ulcer of sacral region, stage 4 (principal); R60.0 Localized edema
CPT/HCPCS: 99213

== ENCOUNTER → 2024-08-19 13:29 | Outpatient (CLI) | payer MEDICARE, OTHER, SELFPAY ==
[2024-05-14 15:51] VITALS: BMI 29.4
== END ==
PROVIDERS: PCP Internal Medicine; Visit Provider Surgery
DX: L89.154 Pressure ulcer of sacral region, stage 4 (principal); R60.0 Localized edema
CPT/HCPCS: 99212

== ENCOUNTER 2024-08-19 14:18 | Emergency (ER) | payer MEDICARE, OTHER, SELFPAY ==
[2024-05-14 15:51] VITALS: BMI 29.4
[2024-08-19] VITALS (9 sets, daily range): BP systolic 115–139; BP diastolic 59–68; PULSE 65–68; RESP 12–16; TEMP 36.6; O2SAT 97–99
--- NOTE | 2024-08-19 14:38 | EKG_ITS ---
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
--- NOTE | 2024-08-19 14:38 | DI.RAD.S_ITS ---
PROCEDURE: XR CHEST 1V INDICATIONS: chest pain TECHNIQUE: One view of the chest was acquired. COMPARISON: [facility], CR, XR CHEST 1V, 05/14/2024, 11:46. [facility], CR, XR CHEST 1V, 04/09/2024, 16:35. FINDINGS: Surgical changes and devices: Prosthetic heart valve. Suspected atrial appendage clip. Sternotomy. Left shoulder arthroplasty. Lungs and pleura: Lungs are clear. No pleural effusions or pneumothorax. Mediastinum: Mediastinal contours appear normal. Heart size is normal. Bones and chest wall: No suspicious bony lesions. Overlying soft tissues appear unremarkable. IMPRESSION: No acute cardiopulmonary abnormality is seen. Dictated by: José Miguel Stewart M.D. on 08/19/2024 at 15:12 Approved by: José Miguel Stewart M.D. on 08/19/2024 at 15:13
[2024-08-19 15:04] LABS: Add Manual Diff / Slide Review NO; Basophils Absolute Auto 100 /uL (0-100); Basophils Percent Auto 0.7 % (0-2); Eosinophils Absolute Auto 400 /uL (0-450); Eosinophils Percent Auto 4.7 % (2-4); Hematocrit 36.3 % (41-53); Hemoglobin 11.8 g/dL (13.5-17.5); Lymphocytes Absolute Auto 1700 /uL (1100-4500); Mean Corpuscular HGB Conc 32.6 % (30-36); Mean Corpuscular Hemoglobin 26.4 PG (26-34); Mean Corpuscular Volume 80.9 fL (80-100); Monocytes Absolute Auto 900 /uL (0-900); Monocytes Percent Auto 10.4 % (3-14); Neutrophils Absolute Auto 5400 /uL (1500-7000); Neutrophils Percent Auto 64.2 % (50-75); Platelet Count 210 X10^3/uL (150-400); Red Blood Cell Count 4.49 X10^6/uL (4.5-5.9); Red Cell Distribution Width 18.3 % (11.6-14.8); White Blood Cell Count 8.4 X10^3/uL (4.5-11.0)
[2024-08-19 15:07] LABS: Prothrombin Time 11.4 SECONDS (9.4-12.5)
[2024-08-19 15:10] LABS: PTT Partial Thromboplastin Tim 26 SECONDS (25.1-36.5)
[2024-08-19 15:12] LABS: Alanine Aminotransferase 15 IU/L (<50); Albumin 3.7 g/dL (3.5-5.0); Albumin Globulin Ratio 1.2 (1.0-2.8); Alkaline Phosphatase 91 U/L (38-126); Aspartate Aminotransferase 23 IU/L (17-59); Bilirubin Total 0.5 mg/dL (0.2-1.3); Blood Urea Nitrogen 31 mg/dL (9-20); Calcium 9.2 mg/dL (8.4-10.2); Carbon Dioxide 30 mmol/L (22-32); Chloride 102 mmol/L (98-107); Creatine Kinase 49 U/L (55-170); Estimated Glomerular Filt Rate > 60 mL/min (>60); Globulin 3.2 g/dL (1.7-4.1); Glucose 97 mg/dL (80-110); HEMOLYSIS 39 (0-50); Lipase 46 U/L (23-300); Magnesium 1.8 mg/dL (1.6-2.3); Potassium 4.6 mmol/L (3.4-5.1); Sodium 134 mmol/L (137-145); Total Protein 6.9 g/dL (6.3-8.2)
[2024-08-19 15:24] LABS: NT-proBNP (BNP-Adult 18+) 1430 pg/mL (<450); Troponin I 0.022 ng/mL (0.01-0.034)
--- NOTE | 2024-08-19 16:04 | ED.ARRPALP ---
HPI - Arrhythmia/Palpitations General Chief Complaint: Arrhythmia/Palpitations Stated Complaint: heart rate mid 30's, endocartitis, sent by wound c Time Seen by Provider: 08/19/24 16:04 Source: patient, RN notes reviewed and old records reviewed Mode of arrival: Wheelchair Limitations: no limitations History of Present Illness HPI narrative: 78-year-old male who currently resides at [facility] history of bioprosthetic aortic valve endocarditis with embolic/septic stroke secondary to Staphylococcus lugdunensis, chronic sacral DU, paroxysmal atrial fibrillation on Eliquis, AAA with repair, peripheral vascular disease with femoral popliteal bypass, hypertension presents with low heart rate from wound care. Patient was at a regular wound care appointment was found to have a heart rate in the 30s. Was asymptomatic but referred to the ED. patient states he did not appreciate any symptoms no lightheadedness no diaphoresis, no chest pain, no shortness of breath, no nausea or vomiting, no new GI or urinary symptoms. He has not had any fevers or chills. He states the wound on his sacrum has been slow to heal but has not been worsening. Patient's son notes that he has had occasional lows in his blood pressure particularly in the morning. Patient does note he thinks there may have been a tablet leftover from last night that he did not take and he may have taken it this morning. He does not know exactly what it was but states that might have something to do with it. Patient is accompanied by his son. He follows with Dr. Kaiser for cardiology. Related Data Home Medications Medication Instructions Recorded Confirmed apixaban 5 mg tablet (Eliquis) 2.5 mg PO BID 10/04/19 05/15/24 diclofenac sodium 1 % topical gel 1 % topical QID 10/04/19 05/15/24 lidocaine 5 % topical patch 2 patch topical DAILY 10/04/19 05/15/24 doxazosin 2 mg tablet 2 mg PO BEDTIME 03/10/24 05/15/24 evolocumab 140 mg/mL subcutaneous 140 mg SUBCUT Q2W 03/10/24 05/15/24 pen injector (Primitivo Abrams) famotidine 20 mg tablet 20 mg PO DAILY 03/10/24 05/15/24 ipratropium 0.5 mg-albuterol 3 mg 3 ml inhalation QID PRN Shortness 03/10/24 05/15/24 (2.5 mg base)/3 mL nebulization Of Breath Or Wheezing soln metoprolol succinate 25 mg 25 mg PO BID 03/10/24 05/15/24 tablet,extended release 24 hr polyethylene glycol 3350 17 gram 17 g PO DAILY PRN Constipation 03/10/24 05/15/24 oral powder packet potassium chloride 20 mEq 20 meq PO DAILY 03/10/24 05/15/24 tablet,extended release sennosides 8.6 mg tablet (senna) 8.6 mg PO DAILY 03/10/24 05/15/24 tizanidine 2 mg tablet 2 mg PO Q8H PRN Muscle Spasm 03/10/24 05/15/24 lansoprazole 15 mg capsule,delayed 15 mg PO BID 03/11/24 05/15/24 release tamsulosin 0.4 mg capsule 0.8 mg PO DAILY@1700 03/11/24 05/15/24 gabapentin 100 mg tablet 100 mg PO TID PRN Pain (Scale 04/09/24 05/15/24 Score 1-3) ipratropium bromide 21 mcg (0.03 2 spray intranasal BID PRN 04/11/24 05/15/24 %) nasal spray allergies amlodipine 2.5 mg tablet 2.5 mg PO BID 05/15/24 05/15/24 valsartan 80 mg tablet 80 mg PO BID 05/15/24 05/15/24 Previous Rx's Medication Instructions Recorded inhalational spacing device #1 ea 09/08/22 (Aerochamber MV spacer) acetaminophen 325 mg tablet 650 mg (2 x 325 mg) PO Q6H PRN 04/12/24 Fever/Mild Pain (1-3) #30 tabs furosemide 40 mg tablet 20 mg (1/2 x 40 mg) PO DAILY #30 04/12/24 tabs ciprofloxacin HCl 500 mg tablet 500 mg PO BID #14 tabs 05/18/24 (Cipro) hydrocodone 5 mg-acetaminophen 325 1 tab PO Q4H PRN Pain (Scale Score 05/18/24 mg tablet 4-6) #20 tabs Allergies Allergy/AdvReac Type Severity Reaction Status Date / Time Rrgbxzp-QZX-HnH Reductase Allergy Unknown Verified 05/14/24 11:39 Inhibitor [[id number] REDUCTASE INHIBITOR] ciprofloxacin Allergy Verified 05/14/24 11:39 cortisone Allergy Verified 05/14/24 11:39 ezetimibe Allergy Verified 05/14/24 11:39 hydromorphone Allergy Verified 05/14/24 11:39 Review of Systems Review of Systems ROS Unobtainable: All systems reviewed & are unremarkable except as noted in HPI and below Patient History Medical History HTN (hypertension) TIA (transient ischemic attack) Paroxysmal atrial fibrillation Endocarditis NGHIA (obstructive sleep apnea) Septic embolism Pressure ulcer of sacral region, stage 3 Social History household members: none Smoking Status: Never smoker alcohol intake: former Smoking Status: Never smoker alcohol intake frequency: 0-2 drinks per day Substance Use Type: does not use Exam Narrative Exam Narrative: GENERAL: Alert and oriented x three, elderly male in mild distress HEENT: Head normocephalic, atraumatic, EOMI, pupils reactive, face symmetric, moist mucous membranes NECK: Supple, full range of motion CARDIOVASCULAR: Regular rate and rhythm without murmurs, rubs or gallops. No JVD. No edema bilateral lower extremities RESPIRATORY: Breath sounds equal bilaterally, no wheezes rales or rhonchi. ABDOMEN: Soft, nontender. Normoactive bowel sounds all 4 quadrants. No guarding or rebound, rigidity, no mass : No CVA tenderness EXTREMITIES: Patient is in wheelchair. Decreased use bilateral lower extremities. No edema bilateral lower extremities. NEUROLOGICAL: Cranial nerves II through XII grossly intact. SKIN: Warm, dry, no petechiae, no rashes or lesions. Initial Vital Signs Initial Vital Signs: Vital Signs Temperature 97.8 F 08/19/24 14:32 Pulse Rate 68 08/19/24 14:32 Respiratory Rate 16 08/19/24 14:32 Blood Pressure 129/68 08/19/24 14:32 Pulse Oximetry 99 08/19/24 14:32 Oxygen Delivery Method Room Air 08/19/24 14:32 Course Orders Ordered: ED Orders 08/19/24 14:38 XR chest 1V Stat EKG-12 Lead Stat 08/19/24 14:50 Complete Blood Count AUTO DIFF Stat Comprehensive Metabolic Panel Stat Lipase Stat Magnesium Stat NT-proBNP (BNP-Adult 18+) Stat PTT Partial Thromboplastin Andrew Stat Prothrombin Time INR Stat Troponin & CK Cardiac Panel Stat Vital Signs Vital signs: Vital Signs - 8 hr 08/19/24 14:32 08/19/24 14:41 08/19/24 14:42 Temperature 97.8 F Pulse Rate 68 68 68 Respiratory Rate 16 Blood Pressure 129/68 Pulse Oximetry 99 97 98 Oxygen Delivery Method Room Air 08/19/24 14:42 08/19/24 15:00 08/19/24 15:01 Temperature Pulse Rate 67 66 Respiratory Rate 16 12 Blood Pressure 133/67 Pulse Oximetry 99 Oxygen Delivery Method 08/19/24 15:01 08/19/24 15:30 08/19/24 15:31 Temperature Pulse Rate 67 67 Respiratory Rate 13 14 Blood Pressure 115/59 L Pulse Oximetry Oxygen Delivery Method 08/19/24 15:31 Temperature Pulse Rate Respiratory Rate Blood Pressure 134/68 Pulse Oximetry Oxygen Delivery Method MDM - Arrhythmia/Palpitations Lab Data 08/19/24 14:50 08/19/24 14:50 Labs: Lab Results 08/19/24 Range/Units 14:50 WBC 8.4 (4.5-11.0) X10^3/uL RBC 4.49 L (4.5-5.9) X10^6/uL Hgb 11.8 L (13.5-17.5) g/dL Hct 36.3 L (41-53) % MCV 80.9 (80-100) fL MCH 26.4 (26-34) PG MCHC 32.6 (30-36) % RDW 18.3 H (11.6-14.8) % Plt Count 210 (150-400) X10^3/uL Neut % (Auto) 64.2 (50-75) % Lymph % (Auto) 20.0 L (25-40) % [place] % (Auto) 10.4 (3-14) % Eos % (Auto) 4.7 H (2-4) % Baso % (Auto) 0.7 (0-2) % Neut # (Auto) 5400 (6396-9429) /uL Lymph # (Auto) 1700 (7085-6416) /uL [place] # (Auto) 900 (0-900) /uL Eos # (Auto) 400 (0-450) /uL Baso # (Auto) 100 (0-100) /uL PT 11.4 (9.4-12.5) SECONDS INR 1.0 (0.9-1.3) APTT 26 (25.1-36.5) SECONDS Sodium 134 L (137-145) mmol/L Potassium 4.6 (3.4-5.1) mmol/L Chloride 102 (98-107) mmol/L Carbon Dioxide 30 (22-32) mmol/L BUN 31 H (9-20) mg/dL Creatinine 1.00 (0.66-1.25) mg/dL Estimated GFR > 60 (>60) mL/min BUN/Creatinine Ratio 31.0 H (6-22) Glucose 97 (80-110) mg/dL Calcium 9.2 (8.4-10.2) mg/dL Magnesium 1.8 (1.6-2.3) mg/dL Total Bilirubin 0.5 (0.2-1.3) mg/dL AST 23 (17-59) IU/L ALT 15 (<50) IU/L Alkaline Phosphatase 91 (38-126) U/L Total Creatine Kinase 49 L (55-170) U/L Troponin I 0.022 (0.01-0.034) ng/mL NT-Pro-B Natriuret Pep 1430 H (<450) pg/mL Total Protein 6.9 (6.3-8.2) g/dL Albumin 3.7 (3.5-5.0) g/dL Globulin 3.2 (1.7-4.1) g/dL Albumin/Globulin Ratio 1.2 (1.0-2.8) Lipase 46 (23-300) U/L Imaging Data Chest x-ray: Radiologist's Impresson: [address] [address] XRay Report Signed Patient: Darryl Bentley MR#: [id number] : 1945 Acct:[id number] Age/Sex: 78 / M Date of Service: 08/19/24 Loc: ED Accession Number: [id number] Procedure: XR chest 1V Ordering Provider: Nimco Whitney D.O. PROCEDURE: XR CHEST 1V INDICATIONS: chest pain TECHNIQUE: One view of the chest was acquired. COMPARISON: [facility], ROMI, XR CHEST 1V, 05/14/2024, 11:46. [facility], CR, XR CHEST 1V, 04/09/2024, 16:35. FINDINGS: Surgical changes and devices: Prosthetic heart valve. Suspected atrial appendage clip. Sternotomy. Left shoulder arthroplasty. Lungs and pleura: Lungs are clear. No pleural effusions or pneumothorax. Mediastinum: Mediastinal contours appear normal. Heart size is normal. Bones and chest wall: No suspicious bony lesions. Overlying soft tissues appear unremarkable. IMPRESSION: No acute cardiopulmonary abnormality is seen. Dictated by: José Miguel Stewart M.D. on 08/19/2024 at 15:12 Approved by: José Miguel Stewart M.D. on 08/19/2024 at 15:13 ECG Data Attestation: I personally reviewed and interpreted this ECG as follows: Prior ECG tracings: available for review Interpretation: Sinus rhythm first-degree AV block rate of 68 KS 220 QRS of 100 QTC of [address] elevation depression noted. Patient has prior from 05/14/2024 nonspecific change. MDM Narrative Medical decision making narrative: 78-year-old male with heart rate reported in the 30s at wound care clinic earlier today. Patient has been asymptomatic. Does have a history of atrial fibrillation is on Eliquis also takes metoprolol. Notes he may have taken an extra tablet of his evening medications as there was 1 stuck to the bottom of his plastic cup this morning on his tray he took it but does not know exactly what it was. Labs show white count 8.4 hemoglobin 11.8 improved from hemoglobin of 9 in May of 2024, platelets are 210. Coags are negative. Sodium is 134 electrolytes are otherwise appropriate BUN 31 creatinine is 1 glucose is 97 LFTs are negative total CK is 49 troponin is 0.022 no priors with a BNP of 1430 Chest x-ray shows no acute change EKG shows sinus rhythm first-degree AV block. 78-year-old male appears to be in sinus rhythm patient has had occasional PVCs here in the department but has not been significantly bradycardic, he has otherwise been asymptomatic. Patient desires to return back to his living facility. Workup does not show any major acute changes and felt appropriate for discharge with plan to continue to monitor his heart rate. Discussed with patient and family we have not been able to capture any major arrhythmias here but would recommend that they check his heart rate regularly and follow up. Discharge Plan Departure Patient Disposition: Home Clinical Impression: Asymptomatic PVCs Activity Restrictions/Additional Instructions: You have had frequent PVCs here in the department but no other major rhythm changes. I would recommend following up with your game producer and having your heart rate checked intermittently at your facility. Please return if you are having any lightheadedness, passing out, chest pain or shortness of breath, any nausea or vomiting, new swelling in extremities or other new or concerning changes. Prescriptions: No Action (DME) Aerochamber MV Spacer See Rx Instructions .ROUTE .MEDSUPPLY Qty: 1 0RF Rx Instructions: As directed lidocaine 5 % adhesive patch,medicated 2 patch topical DAILY diclofenac sodium 1 % gel 1 % TOPICAL QID Eliquis 5 mg tablet 2.5 mg PO BID Patient Comments: TK 1 T PO BID sennosides [senna] 8.6 mg Tablet 8.6 mg PO DAILY ipratropium-albuterol 0.5 mg-3 mg(2.5 mg base)/3 mL Solution For Nebulization 3 ml INHALATION QID PRN (Reason: Shortness Of Breath Or Wheezing) tizanidine 2 mg Tablet 2 mg PO Q8H PRN (Reason: Muscle Spasm) polyethylene glycol 3350 17 gram Powder In Packet 17 g PO DAILY PRN (Reason: Constipation) famotidine 20 mg Tablet 20 mg PO DAILY metoprolol succinate 25 mg tablet extended release 24 hr 25 mg PO BID doxazosin 2 mg Tablet 2 mg PO BEDTIME potassium chloride 20 mEq Tablet Extended Release 20 meq PO DAILY Repatha SureClick 140 mg/mL pen injector 140 mg SUBCUT Q2W tamsulosin 0.4 mg capsule 0.8 mg PO DAILY@1700 lansoprazole 15 mg capsule,delayed release(DR/EC) 15 mg PO BID gabapentin 100 mg Tablet 100 mg PO TID PRN (Reason: Pain (Scale Score 1-3)) ipratropium bromide 21 mcg (0.03 %) spray,non-aerosol 2 spray intranasal BID PRN (Reason: allergies) acetaminophen 325 mg Tablet 650 mg PO Q6H PRN (Reason: Fever/Mild Pain (1-3)) Qty: 30 0RF furosemide 40 mg Tablet 20 mg PO DAILY Qty: 30 0RF valsartan 80 mg tablet 80 mg PO BID amlodipine 2.5 mg tablet 2.5 mg PO BID ciprofloxacin HCl [Cipro] 500 mg tablet 500 mg PO BID Qty: 14 0RF hydrocodone-acetaminophen 5-325 mg tablet 1 tab PO Q4H PRN (Reason: Pain (Scale Score 4-6)) Qty: 20 0RF Referrals: Elmer Robbins MD [Primary Care Provider] - Stand Alone Forms: Patient Portal/API/Survey
== END 2024-08-19 16:45 | disposition home or self-care (01) ==
PROVIDERS: Emergency Provider Emergency Medicine; PCP Internal Medicine
DX: I49.3 Ventricular premature depolarization (principal); R07.9 Chest pain, unspecified; I44.0 Atrioventricular block, first degree; L89.154 Pressure ulcer of sacral region, stage 4; R60.0 Localized edema; Z79.01 Long term (current) use of anticoagulants; Z79.899 Other long term (current) drug therapy
CPT/HCPCS: 36415; 71045; 80053; 82550; 83690; 83735; 83880; 84484; 85025; 85610; 85730; 93005; 99212; 99284

== ENCOUNTER → 2024-08-21 13:51 | Outpatient (CLI) | payer MEDICARE, OTHER, SELFPAY ==
[2024-05-14 15:51] VITALS: BMI 29.4
== END ==
PROVIDERS: PCP Internal Medicine; Referring Provider Internal Medicine; Visit Provider Surgery
DX: L89.154 Pressure ulcer of sacral region, stage 4 (principal); R60.0 Localized edema; I38 Endocarditis, valve unspecified; Z79.01 Long term (current) use of anticoagulants; Z79.2 Long term (current) use of antibiotics
CPT/HCPCS: 11042

== ENCOUNTER → 2024-08-23 13:44 | Outpatient (CLI) | payer MEDICARE, OTHER, SELFPAY ==
[2024-05-14 15:51] VITALS: BMI 29.4
== END ==
LOC: WC 13:45
PROVIDERS: PCP Internal Medicine; Visit Provider Physician Assistant
DX: L89.154 Pressure ulcer of sacral region, stage 4 (principal); R60.0 Localized edema
CPT/HCPCS: 99212

== ENCOUNTER → 2024-08-26 14:14 | Outpatient (CLI) | payer MEDICARE, OTHER, SELFPAY ==
[2024-05-14 15:51] VITALS: BMI 29.4
== END ==
PROVIDERS: PCP Internal Medicine; Visit Provider Surgery
DX: L89.154 Pressure ulcer of sacral region, stage 4 (principal); R60.0 Localized edema
CPT/HCPCS: 99213

== ENCOUNTER → 2024-08-28 14:16 | Outpatient (CLI) | payer MEDICARE, OTHER, SELFPAY ==
[2024-05-14 15:51] VITALS: BMI 29.4
== END ==
PROVIDERS: PCP Internal Medicine; Visit Provider Physician Assistant
DX: L89.154 Pressure ulcer of sacral region, stage 4 (principal); I25.10 Atherosclerotic heart disease of native coronary artery without angina pectoris; I50.9 Heart failure, unspecified; M62.81 Muscle weakness (generalized); Z79.01 Long term (current) use of anticoagulants
CPT/HCPCS: 11042; 99213

== ENCOUNTER → 2024-09-02 15:33 | Outpatient (CLI) | payer MEDICARE, OTHER, SELFPAY ==
[2024-05-14 15:51] VITALS: BMI 29.4
== END ==
PROVIDERS: PCP Internal Medicine; Visit Provider Surgery
DX: L89.154 Pressure ulcer of sacral region, stage 4 (principal); R60.0 Localized edema
CPT/HCPCS: 99213

== ENCOUNTER → 2024-09-04 15:16 | Outpatient (CLI) | payer MEDICARE, OTHER, SELFPAY ==
[2024-05-14 15:51] VITALS: BMI 29.4
== END ==
PROVIDERS: PCP Internal Medicine; Visit Provider Surgery
DX: L89.154 Pressure ulcer of sacral region, stage 4 (principal); R60.0 Localized edema; Z79.01 Long term (current) use of anticoagulants; Z74.01 Bed confinement status
CPT/HCPCS: 11042

== ENCOUNTER → 2024-09-06 14:17 | Outpatient (CLI) | payer MEDICARE, OTHER, SELFPAY ==
[2024-05-14 15:51] VITALS: BMI 29.4
== END ==
PROVIDERS: PCP Internal Medicine; Visit Provider Physician Assistant
DX: L89.154 Pressure ulcer of sacral region, stage 4 (principal); R60.0 Localized edema
CPT/HCPCS: 99213

== ENCOUNTER → 2024-09-11 10:26 | Outpatient (CLI) | payer MEDICARE, OTHER, SELFPAY ==
[2024-05-14 15:51] VITALS: BMI 29.4
== END ==
PROVIDERS: PCP Internal Medicine; Visit Provider Surgery
DX: L89.154 Pressure ulcer of sacral region, stage 4 (principal); Z79.01 Long term (current) use of anticoagulants
CPT/HCPCS: 11042

== ENCOUNTER → 2024-09-13 13:10 | Outpatient (CLI) | payer MEDICARE, OTHER, SELFPAY ==
[2024-05-14 15:51] VITALS: BMI 29.4
== END ==
LOC: WC 13:11
PROVIDERS: PCP Internal Medicine; Visit Provider Physician Assistant
DX: L89.154 Pressure ulcer of sacral region, stage 4 (principal)
CPT/HCPCS: 99213

== ENCOUNTER → 2024-09-17 14:06 | Outpatient (CLI) | payer MEDICARE, OTHER, SELFPAY ==
[2024-05-14 15:51] VITALS: BMI 29.4
== END ==
LOC: WC 14:24
PROVIDERS: PCP Internal Medicine; Visit Provider Surgery
DX: L89.154 Pressure ulcer of sacral region, stage 4 (principal); I33.9 Acute and subacute endocarditis, unspecified; Z79.2 Long term (current) use of antibiotics; Z79.01 Long term (current) use of anticoagulants
CPT/HCPCS: 11042

== ENCOUNTER → 2024-09-20 13:09 | Outpatient (CLI) | payer MEDICARE, OTHER, SELFPAY ==
[2024-05-14 15:51] VITALS: BMI 29.4
== END ==
PROVIDERS: PCP Internal Medicine; Visit Provider Physician Assistant
DX: L89.154 Pressure ulcer of sacral region, stage 4 (principal)
CPT/HCPCS: 99213

== ENCOUNTER → 2024-09-26 09:25 | Outpatient (CLI) | payer MEDICARE, OTHER, SELFPAY ==
[2024-05-14 15:51] VITALS: BMI 29.4
== END ==
PROVIDERS: PCP Internal Medicine; Visit Provider Physician Assistant
DX: L89.154 Pressure ulcer of sacral region, stage 4 (principal)
CPT/HCPCS: 99213

== ENCOUNTER 2024-09-29 09:14 | Emergency (ER) | payer MEDICARE, OTHER, SELFPAY ==
[2024-05-14 15:51] VITALS: BMI 29.4
[2024-09-29] VITALS (13 sets, daily range): BP systolic 125–185; BP diastolic 59–90; PULSE 69–86; RESP 10–20; TEMP 36.6; O2SAT 92–98; BMI 29.0
--- NOTE | 2024-09-29 09:14 | DI.CT.S_ITS ---
PROCEDURE: CT STROKE INDICATIONS: on eliquis, diffculty speaking TECHNIQUE: Noncontrast 4.5 mm thick angled axial sections acquired from the foramen magnum to the vertex, with coronal reformats. For radiation dose reduction, the following was used: automated exposure control, adjustment of mA and/or kV according to patient size. COMPARISON: [facility], CT, CT HEAD/BRAIN WO CON, 05/14/2024, 12:19. FINDINGS: Image quality: Diagnostic CSF spaces: Basal cisterns are patent. Lateral ventricles are symmetric. Volume: Vascular calcifications. Periventricular white matter disease is commonly seen with chronic microangiopathy. Volume loss is present. These findings are moderate Brain: Encephalomalacia of the VITO territories bilaterally. No significant new loss of acosta-white differentiation. No hematoma identified. Craniofacial structures: No displaced fracture. Sinuses are clear. Orbits are intact. IMPRESSION: No acute intracranial pathology. Called to Dr. Hernandez at time of report signing. If there is high concern for infarct, consider MRI. This study fulfills neurological imaging criteria for inclusion or exclusion of acute stroke therapies based on available published neurological imaging guidelines. Dictated by: Aditya Polanco M.D. on 09/29/2024 at 8:27 Approved by: Aditya Polanco M.D. on 09/29/2024 at 8:29
--- NOTE | 2024-09-29 09:14 | DI.CT.S_ITS ---
PROCEDURE: CT ANGIO HEAD AND NECK INDICATIONS: on eliquis, diffculty speaking TECHNIQUE: After the administration of intravenous contrast, 1 mm thick sections acquired from the aortic arch through the [place] of [place]. 3-dimensional idylhdw-ujsfcnsbj-qyfxuluquy (MIP) and/or volume rendering reformats were acquired of the central intracranial vasculature and neck separately. For radiation dose reduction, the following was used: automated exposure control, adjustment of mA and/or kV according to patient size. COMPARISON: [facility], CT, CT STROKE, 09/29/2024, 9:19. FINDINGS: Image quality: Diagnostic HEAD ANGIOGRAPHY: Anterior circulation: ICAs: Loxa-mi-uiovomrc cavernous carotid calcifications ACAs: Diminutive appearance of the right VITO in the pericallosal segment MCAs: Patent AComm: No aneurysm Venous sinuses: No occlusive thrombus where visualized. Posterior circulation: Dominance: Right Vertebral arteries: Mild calcifications Basilar artery: Patent PComms: Dominant on the left medical service technician: Patent NECK ANGIOGRAPHY: Aortic arch and subclavian arteries: Mild calcifications CCAs: Mild calcifications ICA origins (by NASCET criteria): Mild calcifications on the left, with greater component of noncalcified plaque. There is about 50-70% narrowing at the left origin. No significant right-sided narrowing ICAs: Patent. Mild calcifications ECAs: Origins are patent. Vertebral arteries: Moderate calcifications at the left-sided origin. Otherwise patent. Soft tissues: Mildly enlarged partially visualized mediastinal lymph nodes, for example AP window node measures up to 1.2 cm in short axis. Lung apices: No apical pneumothorax Bones: Sternotomy wires. Spine degenerative changes. IMPRESSION: Diminutive appearance of the right VITO in the pericallosal region. Please note that encephalomalacia of the bilateral VITO territories was seen indicating prior infarcts in these regions on noncontrast head CT. Otherwise, no large vessel occlusion. Moderate narrowing of the left vertebral origin. 50-70% narrowing at the left ICA origin. If there is high concern for acute infarct, consider MRI. Indeterminate mildly enlarged mediastinal lymph nodes partially seen. Any quantitative measurements of stenosis were performed using NASCET criteria. Dictated by: Aditya Polanco M.D. on 09/29/2024 at 8:42 Approved by: Aditya Polanco M.D. on 09/29/2024 at 8:49
--- NOTE | 2024-09-29 09:21 | ED.NEUROSD ---
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 He resides at long-term care facility according to staff his left side went completely weak symptoms lasted for about 5 minutes and completely resolved. He seems to be back at baseline at bedside was not there when it happened however she reports chronic bilateral lower extremity weakness. She says she was told that he had shaking all over and a glazed look on his eyes however patient reports that he is was aware of everything. No foaming at the mouth tongue biting or evidence of seizure. Symptoms lasted a very short time and at all completely resolved Related Data Home Medications Medication Instructions Recorded Confirmed apixaban 5 mg tablet (Eliquis) 2.5 mg PO BID 10/04/19 05/15/24 diclofenac sodium 1 % topical gel 1 % topical QID 10/04/19 05/15/24 lidocaine 5 % topical patch 2 patch topical DAILY 10/04/19 05/15/24 doxazosin 2 mg tablet 2 mg PO BEDTIME 03/10/24 05/15/24 evolocumab 140 mg/mL subcutaneous 140 mg SUBCUT Q2W 03/10/24 05/15/24 pen injector (Primitivo Abrams) famotidine 20 mg tablet 20 mg PO DAILY 03/10/24 05/15/24 ipratropium 0.5 mg-albuterol 3 mg 3 ml inhalation QID PRN Shortness 03/10/24 05/15/24 (2.5 mg base)/3 mL nebulization Of Breath Or Wheezing soln metoprolol succinate 25 mg 25 mg PO BID 03/10/24 05/15/24 tablet,extended release 24 hr polyethylene glycol 3350 17 gram 17 g PO DAILY PRN Constipation 03/10/24 05/15/24 oral powder packet potassium chloride 20 mEq 20 meq PO DAILY 03/10/24 05/15/24 tablet,extended release sennosides 8.6 mg tablet (senna) 8.6 mg PO DAILY 03/10/24 05/15/24 tizanidine 2 mg tablet 2 mg PO Q8H PRN Muscle Spasm 03/10/24 05/15/24 lansoprazole 15 mg capsule,delayed 15 mg PO BID 03/11/24 05/15/24 release tamsulosin 0.4 mg capsule 0.8 mg PO DAILY@1700 03/11/24 05/15/24 gabapentin 100 mg tablet 100 mg PO TID PRN Pain (Scale 04/09/24 05/15/24 Score 1-3) ipratropium bromide 21 mcg (0.03 2 spray intranasal BID PRN 04/11/24 05/15/24 %) nasal spray allergies amlodipine 2.5 mg tablet 2.5 mg PO BID 05/15/24 05/15/24 valsartan 80 mg tablet 80 mg PO BID 05/15/24 05/15/24 Previous Rx's Medication Instructions Recorded inhalational spacing device #1 ea 09/08/22 (Aerochamber MV spacer) acetaminophen 325 mg tablet 650 mg (2 x 325 mg) PO Q6H PRN 04/12/24 Fever/Mild Pain (1-3) #30 tabs furosemide 40 mg tablet 20 mg (1/2 x 40 mg) PO DAILY #30 04/12/24 tabs ciprofloxacin HCl 500 mg tablet 500 mg PO BID #14 tabs 05/18/24 (Cipro) hydrocodone 5 mg-acetaminophen 325 1 tab PO Q4H PRN Pain (Scale Score 05/18/24 mg tablet 4-6) #20 tabs Allergies Allergy/AdvReac Type Severity Reaction Status Date / Time Bovwoou-DKW-HtN Reductase Allergy Unknown Verified 05/14/24 11:39 Inhibitor [XZQMHAN-IJI-GSK REDUCTASE INHIBITOR] ciprofloxacin Allergy Verified 05/14/24 11:39 cortisone Allergy Verified 05/14/24 11:39 ezetimibe Allergy Verified 05/14/24 11:39 hydromorphone Allergy Verified 05/14/24 11:39 Patient History Medical History HTN (hypertension) TIA (transient ischemic attack) Paroxysmal atrial fibrillation Endocarditis NGHIA (obstructive sleep apnea) Septic embolism Pressure ulcer of sacral region, stage 3 Social History household members: none Smoking Status: Never smoker alcohol intake: former Smoking Status: Never smoker alcohol intake frequency: 0-2 drinks per day Exam Initial Vital Signs Initial Vital Signs: Vital Signs Temperature 97.9 F 09/29/24 09:19 Pulse Rate 75 09/29/24 09:19 Respiratory Rate 16 09/29/24 09:19 Blood Pressure 185/90 H 09/29/24 09:19 Pulse Oximetry 96 09/29/24 09:19 Oxygen Delivery Method Room Air 09/29/24 09:19 GENERAL: Alert 78-year-old male and in [no acute] distress. HEENT: Head atraumatic,EOMI, pupils reactive, face symmetric, [moist] mucous membranes CARDIOVASCULAR: Regular rate and rhythm without murmurs, rubs or gallops. RESPIRATORY: Breath sounds equal bilaterally, no wheezes rales or rhonchi. ABDOMEN: Soft, nontender. Normoactive bowel sounds all 4 quadrants. No guarding or rebound. EXTREMITIES: Normal range of motion, no clubbing or edema. Neurovascularly intact NEUROLOGICAL: Alert and oriented x4. Bilateral arm strength equal able to hold for 10 seconds no facial droop no dysphagia no aphasia SKIN: Warm, dry, no laceration, no petechiae, no rashes or lesions. Scores NIH Stroke Scale Level of Conciousness: Alert, keenly responsive Ask month/age: Answers both questions correctly. Open/close eyes, close hand: Performs both tasks correctly Best gaze horizontal: Normal Visual pruett: No visual loss Facial palsy: Normal symetrical movement Left arm drift: No drift for full 10 sec Right arm drift: No drift for full 10 sec Left leg drift: No movement Right leg drift: No movement Limb ataxia: Absent Sensory on face/arms/legs: Normal, no sensory loss Best language: No aphasia, normal Dysarthria: Normal Extinction or inattention: No abnormality Total NIH Stroke scale score: 8 Course Orders Ordered: ED Orders 09/29/24 09:[address] angio head and neck Stat 09/29/24 09:15 Complete Blood Count AUTO DIFF Stat Comprehensive Metabolic Panel Stat Lipase Stat PTT Partial Thromboplastin Andrew Stat Prothrombin Time INR Stat Troponin & CK Cardiac Panel Stat 09/29/24 09:20 XR chest 1V Stat EKG-12 Lead Stat Vital Signs Vital signs: Vital Signs - 8 hr 09/29/24 11:00 09/29/24 11:00 09/29/24 11:30 Pulse Rate 73 Respiratory Rate 13 Blood Pressure 142/64 H 133/69 Pulse Oximetry 96 09/29/24 11:30 09/29/24 12:00 09/29/24 12:00 Pulse Rate 72 71 Respiratory Rate 12 Blood Pressure 135/70 Pulse Oximetry 95 96 09/29/24 12:30 09/29/24 12:30 09/29/24 13:00 Pulse Rate 70 69 Respiratory Rate 13 11 L Blood Pressure 151/75 H Pulse Oximetry 93 98 09/29/24 13:01 09/29/24 13:01 Pulse Rate 69 Respiratory Rate 10 L Blood Pressure 125/59 L Pulse Oximetry 98 MDM - Neuro Symptoms/Deficit Lab Data 09/29/24 09:15 09/29/24 09:15 Labs: Lab Results 09/29/24 Range/Units 09:15 WBC 8.8 (4.5-11.0) X10^3/uL RBC 4.65 (4.5-5.9) X10^6/uL Hgb 12.4 L (13.5-17.5) g/dL Hct 38.2 L (41-53) % MCV 82.3 (80-100) fL MCH 26.6 (26-34) PG MCHC 32.4 (30-36) % RDW 18.6 H (11.6-14.8) % Plt Count 194 (150-400) X10^3/uL Neut % (Auto) 61.9 (50-75) % Lymph % (Auto) 25.8 (25-40) % [place] % (Auto) 9.2 (3-14) % Eos % (Auto) 2.8 (2-4) % Baso % (Auto) 0.3 (0-2) % Neut # (Auto) 5500 (3982-6098) /uL Lymph # (Auto) 2300 (6010-4861) /uL [place] # (Auto) 800 (0-900) /uL Eos # (Auto) 200 (0-450) /uL Baso # (Auto) 0 (0-100) /uL PT 11.4 (9.4-12.5) SECONDS INR 1.0 (0.9-1.3) APTT 41 H (25.1-36.5) SECONDS Sodium 137 (137-145) mmol/L Potassium 4.0 (3.4-5.1) mmol/L Chloride 103 (98-107) mmol/L Carbon Dioxide 26 (22-32) mmol/L BUN 26 H (9-20) mg/dL Creatinine 1.04 (0.66-1.25) mg/dL Estimated GFR > 60 (>60) mL/min BUN/Creatinine Ratio 25.0 H (6-22) Glucose 96 (80-110) mg/dL Calcium 9.5 (8.4-10.2) mg/dL Total Bilirubin 0.6 (0.2-1.3) mg/dL AST 22 (17-59) IU/L ALT 19 (<50) IU/L Alkaline Phosphatase 110 (38-126) U/L Total Creatine Kinase 47 L (55-170) U/L Troponin I 0.023 (0.01-0.034) ng/mL Total Protein 6.9 (6.3-8.2) g/dL Albumin 4.1 (3.5-5.0) g/dL Globulin 2.8 (1.7-4.1) g/dL Albumin/Globulin Ratio 1.5 (1.0-2.8) Lipase 38 (23-300) U/L Imaging Data CT scan - head: Radiologist's Impression: PROCEDURE: CT STROKE INDICATIONS: on eliquis, diffculty speaking TECHNIQUE: Noncontrast 4.5 mm thick angled axial sections acquired from the foramen magnum to the vertex, with coronal reformats. For radiation dose reduction, the following was used: automated exposure control, adjustment of mA and/or kV according to patient size. COMPARISON: [facility], CT, CT HEAD/BRAIN WO CON, 05/14/2024, 12:19. FINDINGS: Image quality: Diagnostic CSF spaces: Basal cisterns are patent. Lateral ventricles are symmetric. Volume: Vascular calcifications. Periventricular white matter disease is commonly seen with chronic microangiopathy. Volume loss is present. These findings are moderate Brain: Encephalomalacia of the VITO territories bilaterally. No significant new loss of acosta-white differentiation. No hematoma identified. Craniofacial structures: No displaced fracture. Sinuses are clear. Orbits are intact. IMPRESSION: No acute intracranial pathology. Called to Dr. Hernandez at time of report signing. If there is high concern for infarct, consider MRI. This study fulfills neurological imaging criteria for inclusion or exclusion of acute stroke therapies based on available published neurological imaging guidelines. Dictated by: Aditya Polanco M.D. on 09/29/2024 at 8:27 Approved by: Aditya Polanco M.D. on 09/29/2024 at 8:29 CTA - brain/neck: Radiologist's Impression: PROCEDURE: CT ANGIO HEAD AND NECK INDICATIONS: on eliquis, diffculty speaking TECHNIQUE: After the administration of intravenous contrast, 1 mm thick sections acquired from the aortic arch through the [place]. 3-dimensional sjejalb-yjjhajgix-lzpydwtkrr (MIP) and/or volume rendering reformats were acquired of the central intracranial vasculature and neck separately. For radiation dose reduction, the following was used: automated exposure control, adjustment of mA and/or kV according to patient size. COMPARISON: [facility], CT, CT STROKE, 09/29/2024, 9:19. FINDINGS: Image quality: Diagnostic HEAD ANGIOGRAPHY: Anterior circulation: ICAs: Rayg-to-uilzphdf cavernous carotid calcifications ACAs: Diminutive appearance of the right VITO in the pericallosal segment MCAs: Patent AComm: No aneurysm Venous sinuses: No occlusive thrombus where visualized. 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 There is about 50-70% narrowing at the left origin. No significant right-sided narrowing ICAs: Patent. Mild calcifications ECAs: Origins are patent. Vertebral arteries: Moderate calcifications at the left-sided origin. Otherwise patent. Soft tissues: Mildly enlarged partially visualized mediastinal lymph nodes, for example AP window node measures up to 1.2 cm in short axis. Lung apices: No apical pneumothorax Bones: Sternotomy wires. Spine degenerative changes. IMPRESSION: Diminutive appearance of the right VITO in the pericallosal region. Please note that encephalomalacia of the bilateral VITO territories was seen indicating prior infarcts in these regions on noncontrast head CT. Otherwise, no large vessel occlusion. Moderate narrowing of the left vertebral origin. 50-70% narrowing at the left ICA origin. If there is high concern for acute infarct, consider MRI. Indeterminate mildly enlarged mediastinal lymph nodes partially seen. Any quantitative measurements of stenosis were performed using NASCET criteria. Dictated by: Aditya Polanco M.D. on 09/29/2024 at 8:42 Chest x-ray: Radiologist's Impression: PROCEDURE: XR CHEST 1V INDICATIONS: stroke TECHNIQUE: One view of the chest was acquired. COMPARISON: [facility], CR, XR CHEST 1V, 08/19/2024, 14:52. [facility], CR, XR CHEST 1V, 05/14/2024, 11:46. FINDINGS: Surgical changes and devices: Left shoulder arthroplasty. Sternotomy wires and mediastinal clips. Lungs and pleura: Mildly prominent interstitium. Low lung volumes. Probable left lung base scarring. Mediastinum: Heart size is at the upper limit of normal, unchanged Bones and chest wall: Degenerative changes IMPRESSION: Low lung volumes. No dense consolidation or pleural effusion on this single view study. Mildly prominent interstitium could represent edema or atypical infection. Dictated by: Aditya Polanco M.D. on 09/29/2024 at 9:00 Approved by: Aditya Polanco M.D. on 09/29/2024 at 9:01 ECG Data Attestation: I personally reviewed and interpreted this ECG as follows: Prior ECG tracings: available for review Interpretation: Sinus rhythm rate 77 [place] interval 212 QRS 106 QTC 482 PVC noted no acute ischemia MDM Narrative Medical decision making narrative: MDM CC: Code stroke Complicating co-morbidities: Prior stroke with lower extremity weakness AFib on Eliquis Corroborating data: Patient's at at bedside and EMS Data collected from: Medical records reviewed: Previous admissions Differential considered: TIA, CVA sepsis Exam documented above, pertinent findings include: Awake alert oriented no aphasia no dysphagia strength in upper extremities equal abdomen is soft Lab Test results independently reviewed as above. Pertinent findings: Independently reviewed EKG as above Sinus rhythm PVC Imaging studies independently reviewed: Head CT no intracranial abnormality no intracranial hemorrhage CT angio encephalomalacia of bilateral VITO territories indicating prior infarcts in these regions, no large vessel occlusion, narrowing of the left vertebral or Consultations: None Treatments: None Re-evaluations: Patient remains at baseline Discussion: Patient 78-year-old male complicated history prior CVAs on Eliquis presenting today with shaking all over possible left-sided weakness all resolved within 5 minutes. Blood work has been reviewed overall reassuring imaging today has not show any abnormality he does have some left ICA narrowing 50-70% which does not correlate with left-sided weakness Discussion with patient and at bedside offered admission for observation. They were told there is nothing further anyone can do with his heart and they do not want any monitoring they would prefer to go home. Seems reasonable. I do not think patient had a seizure he was aware of the whole time possible rigors although no leukocytosis or infection symptoms CVA was considered with possible left-sided weakness however he has not had any further left-sided weakness here. He does have some narrowing of the left ICA, which does not correlate with left-sided weakness Discharge Plan Departure Patient Disposition: Home Clinical Impression: Near syncope Instructions: DI for Transient Ischemic Attack Activity Restrictions/Additional Instructions: *You have been diagnosed with fainting *What to do: Unclear what happened today. It is possibly had a mini stroke called a TIA. But the shaking all over does not correlate with this. Blood work and imaging today appears stable. *Continue to take medications as directed *Follow up with your primary care provider in 2-3 days or call [phone] *Return to ER if you should have recurrent episode increasing weakness difficulty speaking or any new, worsening or concerning symptoms Prescriptions: No Action (DME) Aerochamber MV Spacer See Rx Instructions .ROUTE .MEDSUPPLY Qty: 1 0RF Rx Instructions: As directed lidocaine 5 % adhesive patch,medicated 2 patch topical DAILY diclofenac sodium 1 % gel 1 % TOPICAL QID Eliquis 5 mg tablet 2.5 mg PO BID Patient Comments: TK 1 T PO BID sennosides [senna] 8.6 mg Tablet 8.6 mg PO DAILY ipratropium-albuterol 0.5 mg-3 mg(2.5 mg base)/3 mL Solution For Nebulization 3 ml INHALATION QID PRN (Reason: Shortness Of Breath Or Wheezing) tizanidine 2 mg Tablet 2 mg PO Q8H PRN (Reason: Muscle Spasm) polyethylene glycol 3350 17 gram Powder In Packet 17 g PO DAILY PRN (Reason: Constipation) famotidine 20 mg Tablet 20 mg PO DAILY metoprolol succinate 25 mg tablet extended release 24 hr 25 mg PO BID doxazosin 2 mg Tablet 2 mg PO BEDTIME potassium chloride 20 mEq Tablet Extended Release 20 meq PO DAILY Repatha SureClick 140 mg/mL pen injector 140 mg SUBCUT Q2W tamsulosin 0.4 mg capsule 0.8 mg PO DAILY@1700 lansoprazole 15 mg capsule,delayed release(DR/EC) 15 mg PO BID gabapentin 100 mg Tablet 100 mg PO TID PRN (Reason: Pain (Scale Score 1-3)) ipratropium bromide 21 mcg (0.03 %) spray,non-aerosol 2 spray intranasal BID PRN (Reason: allergies) acetaminophen 325 mg Tablet 650 mg PO Q6H PRN (Reason: Fever/Mild Pain (1-3)) Qty: 30 0RF furosemide 40 mg Tablet 20 mg PO DAILY Qty: 30 0RF valsartan 80 mg tablet 80 mg PO BID amlodipine 2.5 mg tablet 2.5 mg PO BID ciprofloxacin HCl [Cipro] 500 mg tablet 500 mg PO BID Qty: 14 0RF hydrocodone-acetaminophen 5-325 mg tablet 1 tab PO Q4H PRN (Reason: Pain (Scale Score 4-6)) Qty: 20 0RF Referrals: Elmer Robbins MD [Primary Care Provider] - Stand Alone Forms: Patient Portal/API/Survey
[2024-09-29 09:31] LABS: Add Manual Diff / Slide Review NO; Basophils Absolute Auto 0 /uL (0-100); Basophils Percent Auto 0.3 % (0-2); Eosinophils Absolute Auto 200 /uL (0-450); Eosinophils Percent Auto 2.8 % (2-4); Hematocrit 38.2 % (41-53); Hemoglobin 12.4 g/dL (13.5-17.5); Lymphocytes Absolute Auto 2300 /uL (1100-4500); Lymphocytes Percent Auto 25.8 % (25-40); Mean Corpuscular HGB Conc 32.4 % (30-36); Mean Corpuscular Hemoglobin 26.6 PG (26-34); Mean Corpuscular Volume 82.3 fL (80-100); Monocytes Absolute Auto 800 /uL (0-900); Monocytes Percent Auto 9.2 % (3-14); Neutrophils Absolute Auto 5500 /uL (1500-7000); Neutrophils Percent Auto 61.9 % (50-75); Platelet Count 194 X10^3/uL (150-400); Red Blood Cell Count 4.65 X10^6/uL (4.5-5.9); Red Cell Distribution Width 18.6 % (11.6-14.8); White Blood Cell Count 8.8 X10^3/uL (4.5-11.0)
--- NOTE | 2024-09-29 09:35 | EKG_ITS ---
[facility] [address] [place] [address] Test Date: 2024-09-29 Pat Name: Darryl Bentley Department: [facility] Room: Gender: Male Adult Secondary Education Instructor: MARISSA : 1945 Requested By: Order Number: [id number] Reading MD: Waylon Vanegas Measurements Intervals [place] Rate: 77 P: 71 MO: 212 QRS: -24 QRSD: 106 T: 63 QT: 426 QTc: 482 Interpretive Statements Sinus rhythm with 1st degree AV block with frequent premature ventricular complexes Minimal voltage criteria for LVH, may be normal variant ( Gildardo product ) Prolonged QT Electronically Signed On 10-03-2024 9:36:30 PST by Waylon Vanegas
[2024-09-29 09:36] LABS: Prothrombin Time 11.4 SECONDS (9.4-12.5)
[2024-09-29 09:39] LABS: PTT Partial Thromboplastin Tim 41 SECONDS (25.1-36.5)
[2024-09-29 09:40] LABS: Alanine Aminotransferase 19 IU/L (<50); Albumin 4.1 g/dL (3.5-5.0); Albumin Globulin Ratio 1.5 (1.0-2.8); Alkaline Phosphatase 110 U/L (38-126); Aspartate Aminotransferase 22 IU/L (17-59); Bilirubin Total 0.6 mg/dL (0.2-1.3); Blood Urea Nitrogen 26 mg/dL (9-20); Calcium 9.5 mg/dL (8.4-10.2); Carbon Dioxide 26 mmol/L (22-32); Chloride 103 mmol/L (98-107); Creatine Kinase 47 U/L (55-170); Estimated Glomerular Filt Rate > 60 mL/min (>60); Globulin 2.8 g/dL (1.7-4.1); Glucose 96 mg/dL (80-110); HEMOLYSIS < 15 (0-50); Lipase 38 U/L (23-300); Sodium 137 mmol/L (137-145); Total Protein 6.9 g/dL (6.3-8.2)
[2024-09-29 09:52] LABS: Troponin I 0.023 ng/mL (0.01-0.034)
--- NOTE | 2024-09-29 10:19 | PC.NURSE ---
pt is paralyzed from mid abdomen down. he reports that he felt like he had a seizure. arrived to ER with no new deficits.
== END 2024-09-29 13:41 | disposition home or self-care (01) ==
PROVIDERS: Emergency Provider Emergency Medicine; PCP Internal Medicine; Referring Provider Emergency Medicine
DX: R55 Syncope and collapse (principal); R53.1 Weakness; I48.91 Unspecified atrial fibrillation; I65.22 Occlusion and stenosis of left carotid artery; R29.708 NIHSS score 8; I10 Essential (primary) hypertension; Z79.01 Long term (current) use of anticoagulants; Z95.4 Presence of other heart-valve replacement; Z86.73 Personal history of transient ischemic attack (TIA), and cerebral infarction without residual deficits
CPT/HCPCS: 70450; 70496; 70498; 71045; 80053; 82550; 83690; 84484; 85025; 85610; 85730; 93005; 99284; Q9967

== ENCOUNTER → 2024-10-01 15:16 | Outpatient (CLI) | payer MEDICARE, OTHER, SELFPAY ==
[2024-05-14 15:51] VITALS: BMI 29.4
== END ==
PROVIDERS: PCP Internal Medicine; Visit Provider Surgery
DX: L89.154 Pressure ulcer of sacral region, stage 4 (principal); M62.81 Muscle weakness (generalized); I50.9 Heart failure, unspecified; I25.10 Atherosclerotic heart disease of native coronary artery without angina pectoris; I38 Endocarditis, valve unspecified; Z79.01 Long term (current) use of anticoagulants; Z74.09 Other reduced mobility; Z79.2 Long term (current) use of antibiotics
CPT/HCPCS: 11042; 99213

== ENCOUNTER → 2024-10-04 10:53 | Outpatient (CLI) | payer MEDICARE, OTHER, SELFPAY ==
[2024-05-14 15:51] VITALS: BMI 29.4
== END ==
PROVIDERS: PCP Internal Medicine; Referring Provider Internal Medicine; Visit Provider Physician Assistant
DX: L89.154 Pressure ulcer of sacral region, stage 4 (principal)
CPT/HCPCS: 99213

== ENCOUNTER → 2024-10-08 14:11 | Outpatient (CLI) | payer MEDICARE, OTHER, SELFPAY ==
[2024-05-14 15:51] VITALS: BMI 29.4
== END ==
PROVIDERS: PCP Internal Medicine; Referring Provider Internal Medicine; Visit Provider Surgery
DX: L89.154 Pressure ulcer of sacral region, stage 4 (principal); I50.9 Heart failure, unspecified; I25.10 Atherosclerotic heart disease of native coronary artery without angina pectoris; Z74.09 Other reduced mobility
CPT/HCPCS: 11042

== ENCOUNTER → 2024-10-11 14:51 | Outpatient (CLI) | payer MEDICARE, OTHER, SELFPAY ==
[2024-05-14 15:51] VITALS: BMI 29.4
== END ==
LOC: WC 14:53
PROVIDERS: PCP Internal Medicine; Visit Provider Physician Assistant
DX: L89.154 Pressure ulcer of sacral region, stage 4 (principal); L53.9 Erythematous condition, unspecified; R23.0 Cyanosis; L98.8 Other specified disorders of the skin and subcutaneous tissue; R23.3 Spontaneous ecchymoses
CPT/HCPCS: 99213

== ENCOUNTER → 2024-10-15 14:24 | Outpatient (CLI) | payer MEDICARE, OTHER, SELFPAY ==
[2024-05-14 15:51] VITALS: BMI 29.4
== END ==
PROVIDERS: PCP Internal Medicine; Visit Provider Surgery
DX: L89.154 Pressure ulcer of sacral region, stage 4 (principal); L53.9 Erythematous condition, unspecified; Z74.09 Other reduced mobility; Z79.01 Long term (current) use of anticoagulants
CPT/HCPCS: 11042

== ENCOUNTER → 2024-10-18 13:25 | Outpatient (CLI) | payer MEDICARE, OTHER, SELFPAY ==
[2024-05-14 15:51] VITALS: BMI 29.4
== END ==
PROVIDERS: PCP Internal Medicine; Visit Provider Physician Assistant
DX: L89.154 Pressure ulcer of sacral region, stage 4 (principal); L53.9 Erythematous condition, unspecified
CPT/HCPCS: 99213

== ENCOUNTER → 2024-10-22 14:39 | Outpatient (CLI) | payer MEDICARE, OTHER, SELFPAY ==
[2024-05-14 15:51] VITALS: BMI 29.4
== END ==
PROVIDERS: PCP Internal Medicine; Visit Provider Surgery
DX: L89.154 Pressure ulcer of sacral region, stage 4 (principal); L53.8 Other specified erythematous conditions; I73.9 Peripheral vascular disease, unspecified; Z79.01 Long term (current) use of anticoagulants
CPT/HCPCS: 11042

== ENCOUNTER → 2024-10-29 13:54 | Outpatient (CLI) | payer MEDICARE, OTHER, SELFPAY ==
[2024-05-14 15:51] VITALS: BMI 29.4
== END ==
LOC: WC 13:59
PROVIDERS: PCP Internal Medicine; Visit Provider Surgery
DX: L89.154 Pressure ulcer of sacral region, stage 4 (principal); L53.8 Other specified erythematous conditions; Z79.01 Long term (current) use of anticoagulants
CPT/HCPCS: 11042; 99213

== ENCOUNTER → 2024-11-05 13:39 | Outpatient (CLI) | payer MEDICARE, OTHER, SELFPAY ==
[2024-05-14 15:51] VITALS: BMI 29.4
== END ==
PROVIDERS: PCP Internal Medicine; Referring Provider Internal Medicine; Visit Provider Surgery
DX: L89.154 Pressure ulcer of sacral region, stage 4 (principal); L53.8 Other specified erythematous conditions
CPT/HCPCS: 11042

== ENCOUNTER → 2024-11-14 09:23 | Outpatient (CLI) | payer MEDICARE, OTHER, SELFPAY ==
[2024-05-14 15:51] VITALS: BMI 29.4
== END ==
LOC: WC 09:24
PROVIDERS: PCP Internal Medicine; Visit Provider Surgery
DX: L89.154 Pressure ulcer of sacral region, stage 4 (principal); L53.9 Erythematous condition, unspecified; B35.9 Dermatophytosis, unspecified; I38 Endocarditis, valve unspecified; Z74.09 Other reduced mobility; Z79.01 Long term (current) use of anticoagulants; Z79.2 Long term (current) use of antibiotics
CPT/HCPCS: 11042

== ENCOUNTER → 2024-11-21 13:34 | Outpatient (CLI) | payer MEDICARE, OTHER, SELFPAY ==
[2024-05-14 15:51] VITALS: BMI 29.4
== END ==
PROVIDERS: PCP Internal Medicine; Visit Provider Surgery
DX: L89.154 Pressure ulcer of sacral region, stage 4 (principal); L53.9 Erythematous condition, unspecified; R21 Rash and other nonspecific skin eruption; Z74.09 Other reduced mobility; Z79.01 Long term (current) use of anticoagulants; I50.9 Heart failure, unspecified; I38 Endocarditis, valve unspecified; Z79.899 Other long term (current) drug therapy
CPT/HCPCS: 99212; 99213

== ENCOUNTER → 2024-11-22 13:59 | Outpatient (CLI) | payer MEDICARE, OTHER, SELFPAY ==
[2024-05-14 15:51] VITALS: BMI 29.4
--- NOTE | 2024-11-22 14:01 | DI.RAD.S_ITS ---
PROCEDURE: XR PELVIS 1-2V INDICATIONS: Possible osteomyelitis TECHNIQUE: 2 view(s) of the pelvis acquired. COMPARISON: None. FINDINGS: Bones: No fractures or dislocations. No suspicious bony lesions. 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 Hardware is noted and incompletely visualized within the lower lumbar spine. Bilateral common iliac stent graft partially visualized. Soft tissues: Visualized bowel gas pattern is normal. No suspicious soft tissue calcifications. Two radiodense rings are noted overlying the left hemipelvis. IMPRESSION: Degenerative change without evidence of acute osseous abnormality. Dictated by: Dontae Moyer M.D. on 11/23/2024 at 8:06 Approved by: Dontae Moyer M.D. on 11/23/2024 at 8:08
== END ==
PROVIDERS: PCP Internal Medicine; Referring Provider Surgery; Visit Provider Surgery
DX: L89.154 Pressure ulcer of sacral region, stage 4 (principal)
CPT/HCPCS: 72170

== ENCOUNTER → 2024-11-28 14:46 | Outpatient (CLI) | payer MEDICARE, OTHER, SELFPAY ==
[2024-05-14 15:51] VITALS: BMI 29.4
--- NOTE | 2024-11-28 | OV.WND_ITS ---
PROGRESS NOTE DETAILS PATIENT NAME: BESSY BLANCAS PATIENT NUMBER: [id number] CLINICIAN: ADRIENNE YUN RN PATIENT DATE OF : 1945 PHYSICIAN / ORDER SCHEDULE CLERK: LC PARKER PATIENT SUBJECTIVE CHIEF COMPLAINT THIS INFORMATION WAS OBTAINED FROM THE PATIENT. I HAVE NO PAIN TODAY. GENERAL NOTES SACRAL PRESSURE ULCER ALLERGIES CODEINE (SEVERITY: MILD, REACTION: RASH), PMOJFBA-KFI-CSF REDUCTASE INHIBITORS (SEVERITY: SEVERE, REACTION: MUSCLE TISSUE BREAKDOWN (MYALGIAS0), EZETIMIBE (REACTION: ELEVATED CK), LACTOSE (REACTION: GI UPSET), CIPROFLOXACIN, CORTISONE, HYDROMORPHONE HPI THIS INFORMATION WAS OBTAINED FROM THE PATIENT. 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 THE PATIENT IS RECEIVING DRESSING CHANGES WITH COLLAGEN AND PURASYN HOWEVER HE DID NOT HAVE A DRESSING IN PLACE WHEN HE CAME IN THE CLINIC TODAY. HE IS CURRENTLY RESIDING AT A LONGTERM FACILITY WERE HE HAS BEEN RECEIVING HIS WOUND CARE AND IS MOVING TO ASSISTED LIVING NEXT WEEK. THE PATIENT REPORTS A POOR APPETITE AND IS TAKING PROTEIN SUPPLEMENTS TWICE A DAY. HE IS NONAMBULATORY AND SPENDS ALL DAY IN A BED. THE PATIENT DOES NOT HAVE A PRIOR HISTORY OF HAVING ANY PRESSURE ULCERS. HE IS ON CHRONIC ANTICOAGULATION AND IS ON CEFADROXIL 500 MG B.I.D. INDEFINITELY FOR HISTORY OF ENDOCARDITIS. ON EXAM TODAY THE SACRAL ULCER APPPEARS TO BE HEALED. LABS: 11/22/24: X-RAY PELVIS: DEGENERATIVE CHANGE WITHOUT EVIDENCE OF ACUTE OSSEOUS ABNORMALITY. 07/30/24: CULTURES GREW PSEUDOMONAS AERUGINOSA 05/18/24: WBC 5.8, HEMOGLOBIN 9.0, HCT 26.7, ELECTROLYTES UNREMARKABLE, GFR GREATER THAN 60 05/02/24: CULTURE GREW PROTEUS MIRABILIS AND STREPTOCOCCUS GROUP B 04/23/24: WBC 6.5, HEMOGLOBIN 8.0, HCT 24.2, ELECTROLYTES UNREMARKABLE, GFR GREATER THAN 60 04/12/24: WBC 5.7, HEMOGLOBIN 7.4, HCT 22.1, ELECTROLYTES UNREMARKABLE, BUN 35, CREATININE 1.42, GFR 50 04/09/24: CT SCAN REVEALED SACRAL DECUBITUS ULCER WITHOUT UNDERLYING OSSEOUS EROSION. 04/09/24: WOUND CULTURE GREW PROTEUS MIRABILIS MEDICAL HISTORY BESSY BLANCAS [id number] 1945 THIS INFORMATION WAS OBTAINED FROM THE PATIENT. PATIENT HAS A MEDICAL HISTORY OF: PERIPHERAL ARTERIAL DISEASE (SEEN BY DR. 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 YES? COMPLETE ALL QUESTIONS.: NO SURGICAL HISTORY THIS INFORMATION WAS OBTAINED FROM THE PATIENT. PATIENT HAS A SURGICAL HISTORY OF: DENTAL IMPLANTS.- CARPAL TUNNEL- APPENDECTOMY- SURGERY 2 TIMES ON RIGHT LEG FOR COMPARTMENT SYNDROME- (JULY 2015) TONSILECTOMY- ADENOIDECTOMY- OPEN HEART SURGERY- (2019) PROSTHETIC AORTIC VALVE- OBJECTIVE VITALS HEIGHT/LENGTH: 73 IN (185.42 CM), WEIGHT: 230.4 LBS (104.73 KGS), BMI: 30.4, TEMPERATURE: 97.7 ?F (36.5 ?C), PULSE: 59 BPM, RESPIRATORY RATE: 16 BREATHS/MIN, BLOOD PRESSURE: 153/63 MMHG, PULSE OXIMETRY: 95 %. PHYSICAL EXAM BESSY BLANCAS [id number] 1945 CONSTITUTIONAL: VITAL SIGNS REVIEWED AND NOTED. WELL DEVELOPED, WELL NOURISHED, AND IN NO ACUTE DISTRESS. ALERT AND ORIENTED X3. RESPIRATORY: EVEN RESPIRATIONS WITHOUT USE OF ACCESSORY MUSCLES. NO INTERCOASTAL RETRACTIONS NOTED. EVEN AND NON LABORED RESPIRATION. INTEGUMENTARY (HAIR, SKIN): MINOR PERIWOUND SKIN TEAR. NO SWELLING OR TENDERNESS. SEE WOUND ASSESSMENT. SKIN WARM AND DRY. NO RASHES. NEUROLOGICAL: DECREASED LOWER EXTREMITY SENSATION. PSYCHIATRIC: ORIENTATION TO TIME, PLACE AND PERSON: NORMAL AFFECT WITH NORMAL THOUGHT PATTERN. WOUND ASSESSMENT(S) WOUND #3 SACRAL IS A CHRONIC STAGE 4 PRESSURE INJURY PRESSURE ULCER ACQUIRED ON 01/01/2024 AND HAS RECEIVED AN OUTCOME OF HEALED - NO NEW WOUND(S). INITIAL WOUND ENCOUNTER MEASUREMENTS ARE 0CM LENGTH X 0CM WIDTH WITH NO MEASURABLE DEPTH, WITH AN AREA OF 0 SQ CM.INITIAL WOUND ENCOUNTER PREVIOUS MEASUREMENTS FROM 11/21/2024 ARE 0.2CM LENGTH X 0.2CM WIDTH X 0.3CM DEPTH, WITH AN AREA OF 0.04 SQ CM AND A VOLUME OF 0.012 CUBIC CM. ADIPOSE IS EXPOSED. HYPERGRANULATION WAS NOTED. NO TUNNELING HAS BEEN NOTED. NO SINUS TRACT HAS BEEN NOTED. NO UNDERMINING HAS BEEN NOTED. THERE IS A SCANT AMOUNT OF SEROUS DRAINAGE NOTED WHICH HAS NO ODOR. THE PATIENT REPORTS A WOUND PAIN OF LEVEL 0/10. THE WOUND MARGIN IS ROLLED WOUND BED HAS YES, BRIGHT RED, PINK, SPONGY, GRANULATION, YES SLOUGH, NO ESCHAR, YES EPITHELIALIZATION. THE PERIWOUND SKIN EXHIBITED RASH AND ERYTHEMA. THE PERIWOUND SKIN DID NOT EXHIBIT BRAWNY INDURATION, EDEMA, EXCORIATION, INDURATION, CALLUS, CREPITUS, FLUCTUANCE, MACERATION, ATROPHIE EDUARDO, CYANOSIS, ECCHYMOSIS, HEMOSIDEROSIS, PALLOR AND RUBOR. THE PERIWOUND SKIN WAS MOIST. THE PERIWOUND SKIN WAS NOT FRIABLE AND DRY/SCALY. THE TEMPERATURE OF THE PERIWOUND SKIN IS WNL. PERIWOUND SKIN DOES NOT EXHIBIT SIGNS OR SYMPTOMS OF INFECTION. LOCAL PULSE IS N/A. ADDITIONAL INFORMATION OTHER DEVITALIZED TISSUE PRESENT: BIOFILM ASSESSMENT ACTIVE PROBLEMS ICD-10 (ENCOUNTER DIAGNOSIS) L89.154 - PRESSURE ULCER OF SACRAL REGION, STAGE 4 (ENCOUNTER DIAGNOSIS) I69.359 - HEMIPLEGIA AND HEMIPARESIS FOLLOWING CEREBRAL INFARCTION AFFECTING UNSPECIFIED SIDE (ENCOUNTER DIAGNOSIS) B35.9 - DERMATOPHYTOSIS, UNSPECIFIED GENERAL NOTES STAGE IV SACRAL DECUBITUS HEALED THE FOLLOWING FACTORS HAVE BEEN IDENTIFIED THAT MAY AFFECT WOUND HEALING: DEVITALIZED TISSUE BIOFILM PRESSURE IMMOBILITY ADVANCED AGE ANTICOAGULATION GOALS: REMOVE DEVITALIZED TISSUE REMOVE AND PREVENT BIOFILM BESSY BLANCAS [id number] 1945 REDUCE PRESSURE PROTEIN SUPPLEMENTATION WOUND CLOSURE PREVENT RECURRENCE PLAN: DISCONTINUE DRESSING CHANGES, CONTINUE BARRIER CREAM TO PERIWOUND SKIN, CONTINUE PRESSURE OFFLOADING, FREQUENT TURNING. FOLLOW UP IN 2 WEEKS FOR SURVEILLANCE. CONTINUE PROTEIN SUPPLEMENTS TWICE A DAY. PLAN ADDITIONAL ORDERS: HAND HYGIENE HAND HYGIENE - WASH HANDS BEFORE AND AFTER WOUND CARE. CALL THE WOUND CENTER AT [phone] IF YOU HAVE SIGNS OR SYMPTOMS OF INFECTION, FEVER CHILLS OR SHAKES, INCREASED DRAINAGE, INCREASED ODOR OR UNUSUAL REDNESS. AFTER WOUND CENTER HOURS PLEASE NOTIFY YOUR PCP OR GO TO THE EMERGENCY ROOM. - PLEASE GIVE OUR CLINIC A CALL IF THE WOUND OPENS BACK UP. OFF-LOADING / PRESSURE RELIEF WHEELCHAIR CUSHION. SPECIALTY BED/MATTRESS FOR PRESSURE REDUCTION. SEAT LIFTS OR SHIFT POSITION IN CHAIR EVERY 15 MINUTES. TURN EVERY 2 HOURS. AVOID POSITION DIRECTING PRESSURE TO WOUND SITE. LIMIT SIDE LYING TO 30 DEGREE TILT. LIMIT HOB ELEVATION TO 30 DEGREES IN BED. DIETARY TAKE VITAMIN C 1000MG BY MOUTH DAILY. TAKE ZINC 25MG BY MOUTH DAILY. INCREASE THE PROTEIN IN YOUR DIET. HOME HEALTH HOME HEALTH CARE: IF YOU HAVE ANY QUESTIONS OR CONCERNS PLEASE CONTACT THE WOUND CENTER. - SIGNATURE HOME HEALTH: PLEASE HOLD SERVICES FOR ONE WEEK UNTIL PATIENT CAN RETURN TO CLINIC FOR SURVEILLANCE VISIT. FOLLOW-UP APPOINTMENTS RETURN APPOINTMENT 2 WEEKS - FOR SURVEILLANCE APPT OTHER ORDERS: - ASSISTED LIVING FACILITY: PLEASE APPLY BARRIER CREAM TO BUTTOCKS DAILY WITH BRIEF CHANGES. SCRIBING ATTESTATION I ATTEST, THE NURSE, THAT I SCRIBED THESE ORDERS FOR THE WOUND CARE PROVIDER. PROVIDER REVIEW AND ATTESTATION: REVIEWED AND EVALUATED LABS. REVIEWED HOSPITAL RECORDS. DISCUSSED THE PLAN OF CARE @ BEDSIDE WITH - THE PATIENT I AGREE AND ATTEST TO THE ABOVE INFORMATION PROVIDED FROM OTHER LICENSED PROFESSIONALS. PLAN OF CARE: 01. ENSURE/ESTABLISH OPTIMAL BLOOD FLOW : - REVIEWED, NOT APPLICABLE 02. ASSESS FOR/TREAT INFECTION : - EVALUATE FOR SIGNS AND SYMPTOMS OF INFECTION AND DOCUMENT FINDINGS. STATUS: COMPLETED DATE: 11/28/2024 03. DEBRIDE WEEKLY OR MORE OFTEN PRN : - EVALUATE PATIENT IN CENTER WEEKLY TO ASSESS WOUND BED AND MARGINS FOR NEED FOR DEBRIDEMENT. STATUS: COMPLETED DATE: 11/28/2024 - DEBRIDEMENT BY ANY METHOD TO REMOVE DEVITALIZED/NECROTIC TISSUE TO PROMOTE HEALING AND PREVENT FURTHER COMPLICATIONS. GOAL IS TO STIMULATE AND/OR MAINTAIN ACUTE PHASE OF WOUND HEALING BY REDUCING BACTERIAL BURDEN AND DEVITALIZED/NON-VIABLE TISSUE. STATUS: COMPLETED DATE: 11/28/2024 04. OPTIMIZE GLUCOSE CONTROL AND NUTRITION : - ORDER/REVIEW PERTINENT LABS TO EVALUATE RENAL FUNCTION, GLUCOSE CONTROL, AND NUTRITIONAL STATUS. BESSY BLANCAS [id number] 1945 STATUS: COMPLETED DATE: 11/21/2024 - COMPLETE A NUTRITION RISK ASSESSMENT. STATUS: COMPLETED DATE: 11/28/2024 - ORDER NUTRITION CONSULT BASED UPON RESULTS OF NUTRITION RISK ASSESSMENT. 05. OFFLOADING PLAN : - EVALUATE PLAN FOR OFFLOADING STATUS: COMPLETED DATE: 11/28/2024 - PROVIDE EDUCATION MATERIALS/DISCUSS OFFLOADING STRATEGIES APPROPRIATE. STATUS: COMPLETED DATE: 11/28/2024 - ASSESS TOLERANCE AND COMPLIANCE OF OFFLOADING. STATUS: COMPLETED DATE: 11/28/2024 06. OPTIMIZE HOST FACTORS: - ASSESS AND REVIEW PATIENT HISTORY FOR WOUND ETIOLOGY, CO-MORBID CONDITIONS, MEDICATION REGIME, AND SMOKING HISTORY. STATUS: COMPLETED DATE: 11/28/2024 - ASSESS LIFESTYLE FACTORS SUCH SMOKING, ALCOHOL/DRUG ABUSE, EATING HABITS/MALNUTRITION AND ACTIVITY LEVEL. STATUS: COMPLETED DATE: 11/28/2024 07. DRESSING SELECTION : - EVALUATE FOR DRESSING-RELATED FACTORS, SUCH AVAILABILITY, WEAR TIME, ADAPTABILITY AND USE TO BETTER OPTIMIZE WOUND HEALING AND PATIENT COMPLIANCE. STATUS: COMPLETED DATE: 11/28/2024 - EDUCATE THE PATIENT/FAMILY/CAREGIVER TO MONITOR DRESSING DAILY. CHANGE DRESSING ONLY NEEDED BUT NEVER LESS FREQUENTLY THAN WEEKLY SO THAT WOUND BED CAN BE REASSESSED. STATUS: COMPLETED DATE: 11/28/2024 08. ADVANCED MODALITIES : - SET TREATMENT GOALS ACCORDING TO PATIENT AND/OR CAREGIVER?S ABILITY/ COMPLIANCE. STATUS: COMPLETED DATE: 11/21/2024 - RE-EVALUATE PLAN OF CARE IF NO EVIDENCE OF HEALING (40% IN 4 WEEKS). STATUS: COMPLETED DATE: 11/28/2024 - PLASTIC SURGERY CONSULT TO EVALUATE FOR CLOSURE RECOMMENDATIONS - GRAFT/FLAP. 09. FALL PREVENTION : - COMPLETE FALL ASSESSMENT. STATUS: COMPLETED DATE: 04/16/2024 10. PAIN MANAGEMENT : - COMPLETE PAIN ASSESSMENT STATUS: COMPLETED DATE: 11/28/2024 - INSTRUCT THE PATIENT TO CALL ?TIME-OUT? IF PAIN IS TOO INTENSE DURING PROCEDURE. STATUS: COMPLETED DATE: 11/28/2024 11. MEASURABLE GOALS FOR WOUND HEALING AND/OR HYPERBARIC OXYGEN THERAPY : - WOUND CLOSURE STATUS: COMPLETED DATE: 11/28/2024 - IMPROVE QUALITY OF LIFE STATUS: COMPLETED DATE: 11/28/2024 12. DURATION/FREQUENCY OF WOUND CARE VISITS : - 1X WEEKLY FOR 30 DAYS STATUS: COMPLETED DATE: 11/28/2024 BESSY BLANCAS [id number] 1945 ELECTRONIC SIGNATURE(S) SIGNED BY: DATE: LC PARKER MD 12/04/2024 11:56:48 (PT) 11/28/2024 3:55:52 PM VERSION ELECTRONICALLY DATE: SIGNED BY: LC PARKER MD 11/28/2024 15:58:03 (PT) ENTERED BY: JESUS MANUEL DOMINGUEZ ON 12/03/2024 10:55:01 (PT) BESSY BLANCAS [id number] 1945
== END ==
PROVIDERS: PCP Internal Medicine; Visit Provider Surgery
DX: L89.154 Pressure ulcer of sacral region, stage 4 (principal); I69.359 Hemiplegia and hemiparesis following cerebral infarction affecting unspecified side; B35.9 Dermatophytosis, unspecified; L53.8 Other specified erythematous conditions; Z74.01 Bed confinement status
CPT/HCPCS: 99213

== ENCOUNTER → 2024-12-12 13:34 | Outpatient (CLI) | payer MEDICARE, OTHER, SELFPAY ==
[2024-05-14 15:51] VITALS: BMI 29.4
== END ==
LOC: WC 13:36
PROVIDERS: PCP Internal Medicine; Visit Provider Surgery
DX: L89.154 Pressure ulcer of sacral region, stage 4 (principal); L53.8 Other specified erythematous conditions; I69.359 Hemiplegia and hemiparesis following cerebral infarction affecting unspecified side; R21 Rash and other nonspecific skin eruption; Z79.01 Long term (current) use of anticoagulants
CPT/HCPCS: 97602; 99212; 99213

== ENCOUNTER → 2024-12-17 08:48 | Outpatient (CLI) | payer MEDICARE, OTHER, SELFPAY ==
[2024-05-14 15:51] VITALS: BMI 29.4
== END ==
PROVIDERS: PCP Internal Medicine; Referring Provider Internal Medicine; Visit Provider Surgery
DX: L53.8 Other specified erythematous conditions (principal); L89.154 Pressure ulcer of sacral region, stage 4; L59.8 Other specified disorders of the skin and subcutaneous tissue related to radiation; Z79.01 Long term (current) use of anticoagulants
CPT/HCPCS: 99213

== ENCOUNTER 2024-12-24 15:20 | Emergency (ER) | payer MEDICARE, OTHER, SELFPAY ==
[2024-05-14 15:51] VITALS: BMI 29.4
[2024-12-24] VITALS (11 sets, daily range): BP systolic 148–183; BP diastolic 67–86; PULSE 36–72; RESP 12–18; TEMP 36.5; O2SAT 94–98; BMI 31.6
--- NOTE | 2024-12-24 15:29 | EKG_ITS ---
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
--- NOTE | 2024-12-24 16:59 | DI.RAD.S_ITS ---
PROCEDURE: XR CHEST 1V INDICATIONS: chest pain TECHNIQUE: One view of the chest was acquired. COMPARISON: [facility], CR, XR CHEST 1V, 09/29/2024, 9:42. FINDINGS: Surgical changes and devices: Partially visualized left shoulder arthroplasty. Median sternotomy and atrial appendage clip. Lungs and pleura: Lungs are clear. No pleural effusions or pneumothorax. Mediastinum: Mediastinal contours appear normal. Heart size is normal. Bones and chest wall: No suspicious bony lesions. Overlying soft tissues appear unremarkable. IMPRESSION: No acute cardiopulmonary abnormality is seen. Approved by: Xenia Maloney M.D.,Ph.D. on 12/24/2024 at 17:37
[2024-12-24 17:08] LABS: INR 1.1 (0.9-1.3)
[2024-12-24 17:11] LABS: PTT Partial Thromboplastin Tim 42 SECONDS (25.1-36.5)
[2024-12-24 17:13] LABS: Alanine Aminotransferase 16 IU/L (<50); Albumin Globulin Ratio 1.4 (1.0-2.8); Alkaline Phosphatase 86 U/L (38-126); Aspartate Aminotransferase 24 IU/L (17-59); BUN Creatinine Ratio 23.8 (6-22); Bilirubin Total 0.4 mg/dL (0.2-1.3); Blood Urea Nitrogen 24 mg/dL (9-20); Calcium 9.4 mg/dL (8.4-10.2); Carbon Dioxide 28 mmol/L (22-32); Chloride 102 mmol/L (98-107); Creatine Kinase 81 U/L (55-170); Estimated Glomerular Filt Rate > 60 mL/min (>60); Globulin 2.8 g/dL (1.7-4.1); Glucose 101 mg/dL (80-110); HEMOLYSIS < 15 (0-50); Lipase 57 U/L (23-300); Magnesium 1.9 mg/dL (1.6-2.3); Potassium 4.4 mmol/L (3.4-5.1); Sodium 136 mmol/L (137-145); Total Protein 6.8 g/dL (6.3-8.2)
[2024-12-24 17:14] LABS: Add Manual Diff / Slide Review NO; Basophils Absolute Auto 0 /uL (0-100); Basophils Percent Auto 0.3 % (0-2); Eosinophils Absolute Auto 200 /uL (0-450); Eosinophils Percent Auto 3.9 % (2-4); Hematocrit 37.3 % (41-53); Lymphocytes Absolute Auto 1800 /uL (1100-4500); Lymphocytes Percent Auto 30.1 % (25-40); Mean Corpuscular Hemoglobin 26.6 PG (26-34); Mean Corpuscular Volume 83.1 fL (80-100); Monocytes Absolute Auto 700 /uL (0-900); Neutrophils Absolute Auto 3300 /uL (1500-7000); Neutrophils Percent Auto 54.7 % (50-75); Platelet Count 207 X10^3/uL (150-400); Red Blood Cell Count 4.49 X10^6/uL (4.5-5.9); Red Cell Distribution Width 16.5 % (11.6-14.8)
[2024-12-24 17:25] LABS: NT-proBNP (BNP-Adult 18+) 2690 pg/mL (<450); Troponin I 0.014 ng/mL (0.01-0.034)
--- NOTE | 2024-12-24 17:27 | ED.ARRPALP ---
HPI - Arrhythmia/Palpitations General Chief Complaint: Arrhythmia/Palpitations Stated Complaint: Low HR Time Seen by Provider: 12/24/24 16:55 History of Present Illness HPI narrative: 79-year-old gentleman history of CVA status post quadriplegic was working with physical therapy today when they noticed that the heart rate dropped to the 30s and got concerned and had him come and be evaluated. He is on metoprolol 25 mg extended release once daily no new changes in his medication dosages. Denies weight gain, leg swelling, headache, dizziness, chest pain, shortness of breath, fever, chills, belly pain, back pain. Other than what is stated 14 point review of system is negative Related Data Home Medications Medication Instructions Recorded Confirmed apixaban 5 mg tablet (Eliquis) 2.5 mg PO BID 10/04/19 05/15/24 diclofenac sodium 1 % topical gel 1 % topical QID 10/04/19 05/15/24 lidocaine 5 % topical patch 2 patch topical DAILY 10/04/19 05/15/24 doxazosin 2 mg tablet 2 mg PO BEDTIME 03/10/24 05/15/24 evolocumab 140 mg/mL subcutaneous 140 mg SUBCUT Q2W 03/10/24 05/15/24 pen injector (Primitivo Abrams) famotidine 20 mg tablet 20 mg PO DAILY 03/10/24 05/15/24 ipratropium 0.5 mg-albuterol 3 mg 3 ml inhalation QID PRN Shortness 03/10/24 05/15/24 (2.5 mg base)/3 mL nebulization Of Breath Or Wheezing soln metoprolol succinate 25 mg 25 mg PO BID 03/10/24 05/15/24 tablet,extended release 24 hr polyethylene glycol 3350 17 gram 17 g PO DAILY PRN Constipation 03/10/24 05/15/24 oral powder packet potassium chloride 20 mEq 20 meq PO DAILY 03/10/24 05/15/24 tablet,extended release sennosides 8.6 mg tablet (senna) 8.6 mg PO DAILY 03/10/24 05/15/24 tizanidine 2 mg tablet 2 mg PO Q8H PRN Muscle Spasm 03/10/24 05/15/24 lansoprazole 15 mg capsule,delayed 15 mg PO BID 03/11/24 05/15/24 release tamsulosin 0.4 mg capsule 0.8 mg PO DAILY@1700 03/11/24 05/15/24 gabapentin 100 mg tablet 100 mg PO TID PRN Pain (Scale 04/09/24 05/15/24 Score 1-3) ipratropium bromide 21 mcg (0.03 2 spray intranasal BID PRN 04/11/24 05/15/24 %) nasal spray allergies amlodipine 2.5 mg tablet 2.5 mg PO BID 05/15/24 05/15/24 valsartan 80 mg tablet 80 mg PO BID 05/15/24 05/15/24 Previous Rx's Medication Instructions Recorded inhalational spacing device #1 ea 09/08/22 (Aerochamber MV spacer) acetaminophen 325 mg tablet 650 mg (2 x 325 mg) PO Q6H PRN 04/12/24 Fever/Mild Pain (1-3) #30 tabs furosemide 40 mg tablet 20 mg (1/2 x 40 mg) PO DAILY #30 04/12/24 tabs ciprofloxacin HCl 500 mg tablet 500 mg PO BID #14 tabs 05/18/24 (Cipro) hydrocodone 5 mg-acetaminophen 325 1 tab PO Q4H PRN Pain (Scale Score 05/18/24 mg tablet 4-6) #20 tabs furosemide 40 mg tablet (Lasix) 40 mg PO DAILY #2 tabs 12/24/24 Allergies Allergy/AdvReac Type Severity Reaction Status Date / Time [id number] Reductase Allergy Unknown Verified 05/14/24 11:39 Inhibitor [[id number] REDUCTASE INHIBITOR] ciprofloxacin Allergy Verified 05/14/24 11:39 cortisone Allergy Verified 05/14/24 11:39 ezetimibe Allergy Verified 05/14/24 11:39 hydromorphone Allergy Verified 05/14/24 11:39 Review of Systems Review of Systems ROS Unobtainable: All systems reviewed & are unremarkable except as noted in HPI and below Patient History Medical History HTN (hypertension) TIA (transient ischemic attack) Paroxysmal atrial fibrillation Endocarditis NGHIA (obstructive sleep apnea) Septic embolism Pressure ulcer of sacral region, stage 3 Social History household members: none Smoking Status: Never smoker alcohol intake: former Smoking Status: Never smoker alcohol intake frequency: 0-2 drinks per day Exam Narrative Exam Narrative: GENERAL: [79] year old patient appears stated age. Well-developed patient, in mild distress. HEAD: Atraumatic. Normocephalic. EYES: Pupils equal round and reactive. Extraocular motions intact. No scleral icterus. No injection or drainage. ENT: Nose without bleeding, purulent drainage. Throat without erythema, tonsillar hypertrophy or exudate. Airway patent. NECK: Trachea midline. Non tender CARDIOVASCULAR: Regular rate and rhythm without murmurs, gallops, or rubs. RESPIRATORY: Faint crackles at the bases b/l GASTROINTESTINAL: Abdomen soft, non-tender, nondistended. EXTREMITIES: No edema or joint tenderness. +1 pitting edema pretibial b/l BACK: Nontender without deformity or crepitance. No flank tenderness. NEURO: AOx3 but is a baseline paraplegic SKIN: No rash or erythema of visible areas Initial Vital Signs Initial Vital Signs: Vital Signs Blood Pressure 183/77 H 12/24/24 15:25 Course Course Additional Information: [address] [address] XRay Report Signed Patient: Darryl Bentley MR#: [id number] : 1945 Acct:[id number] Age/Sex: 79 / M Date of Service: 12/24/24 Loc: ED Accession Number: [id number] Procedure: XR chest 1V Ordering Provider: Partha Son D.O. PROCEDURE: XR CHEST 1V INDICATIONS: chest pain TECHNIQUE: One view of the chest was acquired. COMPARISON: [facility], , XR CHEST 1V, 09/29/2024, 9:42. FINDINGS: Surgical changes and devices: Partially visualized left shoulder arthroplasty. Median sternotomy and atrial appendage clip. Lungs and pleura: Lungs are clear. No pleural effusions or pneumothorax. Mediastinum: Mediastinal contours appear normal. Heart size is normal. Bones and chest wall: No suspicious bony lesions. Overlying soft tissues appear unremarkable. IMPRESSION: No acute cardiopulmonary abnormality is seen. Orders Ordered: ED Orders 12/24/24 15:20 Complete Blood Count AUTO DIFF Stat Comprehensive Metabolic Panel Stat Lipase Stat Magnesium Stat NT-proBNP (BNP-Adult 18+) Stat PTT Partial Thromboplastin Andrew Stat Prothrombin Time INR Stat Troponin & CK Cardiac Panel Stat 12/24/24 15:29 EKG-12 Lead Routine 12/24/24 16:59 XR chest 1V Stat Discontinued Medications Furosemide (Furosemide 40 Mg/4 Ml Vial) 40 mg IV NOW ONE Stop: 12/24/24 17:37 Last Admin: 12/24/24 18:04 Dose: 40 mg Documented By: DUNG Vital Signs Vital signs: Vital Signs - 8 hr 12/24/24 15:25 12/24/24 15:26 12/24/24 15:30 Temperature Pulse Rate 71 Respiratory Rate 14 Blood Pressure 183/77 H 161/70 H Pulse Oximetry 97 Oxygen Delivery Method 12/24/24 15:30 12/24/24 15:33 12/24/24 16:00 Temperature 97.7 F Pulse Rate 70 36 L 69 Respiratory Rate 13 16 12 Blood Pressure 165/68 H Pulse Oximetry 96 97 97 Oxygen Delivery Method Room Air Room Air 12/24/24 16:01 12/24/24 16:01 12/24/24 16:31 Temperature Pulse Rate 69 71 Respiratory Rate 13 12 Blood Pressure 148/67 H 166/71 H Pulse Oximetry 98 95 Oxygen Delivery Method 12/24/24 17:01 12/24/24 17:31 12/24/24 18:00 Temperature Pulse Rate 67 72 67 Respiratory Rate 14 14 18 Blood Pressure 177/85 H 158/70 H 183/86 H Pulse Oximetry 94 96 95 Oxygen Delivery Method Room Air 12/24/24 18:03 Temperature Pulse Rate 68 Respiratory Rate 15 Blood Pressure 155/70 H Pulse Oximetry 95 Oxygen Delivery Method Room Air MDM - Arrhythmia/Palpitations Medical Records Medical records narrative: All labwork, imaging, ekg, RN note, triage note, medication list, old records from previous visits, vital signs all reviewed. Pt given lasix 40mg IV x 1 here and d/c home on lasix 40mg q d x 2days. Differential diagnosis symptomatic bradycardia, thyroid disease, sepsis, uti, pneumonia, electrolyte derangement, chf, stemi, nstemi. Follow with PCP this week. Return with new or worsening symptoms Lab Data 12/24/24 15:20 12/24/24 15:20 Labs: Lab Results 12/24/24 Range/Units 15:20 WBC 6.0 (4.5-11.0) X10^3/uL RBC 4.49 L (4.5-5.9) X10^6/uL Hgb 12.0 L (13.5-17.5) g/dL Hct 37.3 L (41-53) % MCV 83.1 (80-100) fL MCH 26.6 (26-34) PG MCHC 32.0 (30-36) % RDW 16.5 H (11.6-14.8) % Plt Count 207 (150-400) X10^3/uL Neut % (Auto) 54.7 (50-75) % Lymph % (Auto) 30.1 (25-40) % Clark % (Auto) 11.0 (3-14) % Eos % (Auto) 3.9 (2-4) % Baso % (Auto) 0.3 (0-2) % Neut # (Auto) 3300 (3198-3827) /uL Lymph # (Auto) 1800 (4066-9531) /uL Clark # (Auto) 700 (0-900) /uL Eos # (Auto) 200 (0-450) /uL Baso # (Auto) 0 (0-100) /uL PT 13.0 H (9.4-12.5) SECONDS INR 1.1 (0.9-1.3) APTT 42 H (25.1-36.5) SECONDS Sodium 136 L (137-145) mmol/L Potassium 4.4 (3.4-5.1) mmol/L Chloride 102 (98-107) mmol/L Carbon Dioxide 28 (22-32) mmol/L BUN 24 H (9-20) mg/dL Creatinine 1.01 (0.66-1.25) mg/dL Estimated GFR > 60 (>60) mL/min BUN/Creatinine Ratio 23.8 H (6-22) Glucose 101 (80-110) mg/dL Calcium 9.4 (8.4-10.2) mg/dL Magnesium 1.9 (1.6-2.3) mg/dL Total Bilirubin 0.4 (0.2-1.3) mg/dL AST 24 (17-59) IU/L ALT 16 (<50) IU/L Alkaline Phosphatase 86 (38-126) U/L Total Creatine Kinase 81 (55-170) U/L Troponin I 0.014 (0.01-0.034) ng/mL NT-Pro-B Natriuret Pep 2690 H (<450) pg/mL Total Protein 6.8 (6.3-8.2) g/dL Albumin 4.0 (3.5-5.0) g/dL Globulin 2.8 (1.7-4.1) g/dL Albumin/Globulin Ratio 1.4 (1.0-2.8) Lipase 57 (23-300) U/L ECG Data Attestation: I personally reviewed and interpreted this ECG as follows: Interpretation: Sinus Rhythm HR [address]-t wave changes Unchanged from previous EKG 09/29/24 Discharge Plan Departure Patient Disposition: Home Clinical Impression: CHF (congestive heart failure) Instructions: DI for Heart Failure Activity Restrictions/Additional Instructions: Return with new or worsening symptoms. Take your medicines as directed and follow up with PCP this week. Prescriptions: New furosemide [Lasix] 40 mg tablet 40 mg PO DAILY Qty: 2 0RF No Action (DME) Aerochamber MV Spacer See Rx Instructions .ROUTE .MEDSUPPLY Qty: 1 0RF Rx Instructions: As directed lidocaine 5 % adhesive patch,medicated 2 patch topical DAILY diclofenac sodium 1 % gel 1 % TOPICAL QID Eliquis 5 mg tablet 2.5 mg PO BID Patient Comments: TK 1 T PO BID sennosides [senna] 8.6 mg Tablet 8.6 mg PO DAILY ipratropium-albuterol 0.5 mg-3 mg(2.5 mg base)/3 mL Solution For Nebulization 3 ml INHALATION QID PRN (Reason: Shortness Of Breath Or Wheezing) tizanidine 2 mg Tablet 2 mg PO Q8H PRN (Reason: Muscle Spasm) polyethylene glycol 3350 17 gram Powder In Packet 17 g PO DAILY PRN (Reason: Constipation) famotidine 20 mg Tablet 20 mg PO DAILY metoprolol succinate 25 mg tablet extended release 24 hr 25 mg PO BID doxazosin 2 mg Tablet 2 mg PO BEDTIME potassium chloride 20 mEq Tablet Extended Release 20 meq PO DAILY Repatha SureClick 140 mg/mL pen injector 140 mg SUBCUT Q2W tamsulosin 0.4 mg capsule 0.8 mg PO DAILY@1700 lansoprazole 15 mg capsule,delayed release(DR/EC) 15 mg PO BID gabapentin 100 mg Tablet 100 mg PO TID PRN (Reason: Pain (Scale Score 1-3)) ipratropium bromide 21 mcg (0.03 %) spray,non-aerosol 2 spray intranasal BID PRN (Reason: allergies) acetaminophen 325 mg Tablet 650 mg PO Q6H PRN (Reason: Fever/Mild Pain (1-3)) Qty: 30 0RF furosemide 40 mg Tablet 20 mg PO DAILY Qty: 30 0RF valsartan 80 mg tablet 80 mg PO BID amlodipine 2.5 mg tablet 2.5 mg PO BID ciprofloxacin HCl [Cipro] 500 mg tablet 500 mg PO BID Qty: 14 0RF hydrocodone-acetaminophen 5-325 mg tablet 1 tab PO Q4H PRN (Reason: Pain (Scale Score 4-6)) Qty: 20 0RF Referrals: Elmer Robbins MD [Primary Care Provider] - Stand Alone Forms: Patient Portal/API/Survey
[2024-12-24] MEDS: FUROSEMIDE 40 MG/4 ML VIAL IV (18:04)
== END 2024-12-24 18:28 | disposition home or self-care (01) ==
PROVIDERS: Emergency Provider Family Medicine; PCP Internal Medicine
DX: I11.0 Hypertensive heart disease with heart failure (principal); I50.9 Heart failure, unspecified; I69.365 Other paralytic syndrome following cerebral infarction, bilateral; G82.50 Quadriplegia, unspecified
CPT/HCPCS: 71045; 80053; 82550; 83690; 83735; 83880; 84484; 85025; 85610; 85730; 93005; 93010; 96374; 99284; J1940

== ENCOUNTER 2024-12-31 08:58 | Emergency (ER) | payer MEDICARE, OTHER, SELFPAY ==
[2024-05-14 15:51] VITALS: BMI 29.4
[2024-12-31] VITALS (12 sets, daily range): BP systolic 166–194; BP diastolic 68–89; PULSE 44–80; RESP 9–18; O2SAT 93–99; BMI 32.4
--- NOTE | 2024-12-31 09:25 | ED.AMS ---
HPI - Altered Mental Status General Chief Complaint: Seizure Stated Complaint: seizures Time Seen by Provider: 12/31/24 08:59 History of Present Illness HPI narrative: 79-year-old gentleman history of CVA status post quad quadriplegia, CHF, , hld, lives over in assisted living apparently had a witnessed seizure episode today while having breakfast whereby he bit his tongue per EMS report and had altered mental status the last her for a few seconds. He is now back to baseline he has no complaints head to toe at this point his sugar was normal per EMS report. Other than what is day 14 point review of system is negative. Related Data Home Medications Medication Instructions Recorded Confirmed apixaban 5 mg tablet (Eliquis) 2.5 mg PO BID 10/04/19 05/15/24 diclofenac sodium 1 % topical gel 1 % topical QID 10/04/19 05/15/24 lidocaine 5 % topical patch 2 patch topical DAILY 10/04/19 05/15/24 doxazosin 2 mg tablet 2 mg PO BEDTIME 03/10/24 05/15/24 evolocumab 140 mg/mL subcutaneous 140 mg SUBCUT Q2W 03/10/24 05/15/24 pen injector (Primitivo Abrams) famotidine 20 mg tablet 20 mg PO DAILY 03/10/24 05/15/24 ipratropium 0.5 mg-albuterol 3 mg 3 ml inhalation QID PRN Shortness 03/10/24 05/15/24 (2.5 mg base)/3 mL nebulization Of Breath Or Wheezing soln metoprolol succinate 25 mg 25 mg PO BID 03/10/24 05/15/24 tablet,extended release 24 hr polyethylene glycol 3350 17 gram 17 g PO DAILY PRN Constipation 03/10/24 05/15/24 oral powder packet potassium chloride 20 mEq 20 meq PO DAILY 03/10/24 05/15/24 tablet,extended release sennosides 8.6 mg tablet (senna) 8.6 mg PO DAILY 03/10/24 05/15/24 tizanidine 2 mg tablet 2 mg PO Q8H PRN Muscle Spasm 03/10/24 05/15/24 lansoprazole 15 mg capsule,delayed 15 mg PO BID 03/11/24 05/15/24 release tamsulosin 0.4 mg capsule 0.8 mg PO DAILY@1700 03/11/24 05/15/24 gabapentin 100 mg tablet 100 mg PO TID PRN Pain (Scale 04/09/24 05/15/24 Score 1-3) ipratropium bromide 21 mcg (0.03 2 spray intranasal BID PRN 04/11/24 05/15/24 %) nasal spray allergies amlodipine 2.5 mg tablet 2.5 mg PO BID 05/15/24 05/15/24 valsartan 80 mg tablet 80 mg PO BID 05/15/24 05/15/24 Previous Rx's Medication Instructions Recorded inhalational spacing device #1 ea 09/08/22 (Aerochamber MV spacer) acetaminophen 325 mg tablet 650 mg (2 x 325 mg) PO Q6H PRN 04/12/24 Fever/Mild Pain (1-3) #30 tabs furosemide 40 mg tablet 20 mg (1/2 x 40 mg) PO DAILY #30 04/12/24 tabs ciprofloxacin HCl 500 mg tablet 500 mg PO BID #14 tabs 05/18/24 (Cipro) hydrocodone 5 mg-acetaminophen 325 1 tab PO Q4H PRN Pain (Scale Score 05/18/24 mg tablet 4-6) #20 tabs furosemide 40 mg tablet (Lasix) 40 mg PO DAILY #2 tabs 12/24/24 levetiracetam 500 mg tablet 500 mg PO BID #60 tabs 12/31/24 (Keppra) Allergies Allergy/AdvReac Type Severity Reaction Status Date / Time Orlfshr-SGW-TzI Reductase Allergy Unknown Verified 05/14/24 11:39 Inhibitor [[id number] REDUCTASE INHIBITOR] ciprofloxacin Allergy Verified 05/14/24 11:39 cortisone Allergy Verified 05/14/24 11:39 ezetimibe Allergy Verified 05/14/24 11:39 hydromorphone Allergy Verified 05/14/24 11:39 Review of Systems Review of Systems ROS Unobtainable: All systems reviewed & are unremarkable except as noted in HPI and below Patient History Medical History HTN (hypertension) TIA (transient ischemic attack) Paroxysmal atrial fibrillation Endocarditis NGHIA (obstructive sleep apnea) Septic embolism Pressure ulcer of sacral region, stage 3 Social History household members: none Smoking Status: Never smoker alcohol intake: former Smoking Status: Never smoker alcohol intake frequency: 0-2 drinks per day Exam Narrative Exam Narrative: GENERAL: [79] year old patient appears stated age. Well-developed patient, in mild distress. HEAD: Atraumatic. Normocephalic. EYES: Pupils equal round and reactive. Extraocular motions intact. No scleral icterus. No injection or drainage. ENT: Nose without bleeding, purulent drainage. Throat without erythema, tonsillar hypertrophy or exudate. Airway patent. NECK: Trachea midline. Non tender CARDIOVASCULAR: Regular rate and rhythm without murmurs, gallops, or rubs. RESPIRATORY: Clear to auscultation. Breath sounds equal bilaterally. No wheezes, rales, or rhonchi. GASTROINTESTINAL: Abdomen soft, non-tender, nondistended. EXTREMITIES: No edema or joint tenderness. BACK: Nontender without deformity or crepitance. No flank tenderness. NEURO: AOx3 but chronic weakness of bilateral upper limbs and lower bilateral limbs Initial Vital Signs Initial Vital Signs: Vital Signs Pulse Rate 44 L 12/31/24 09:04 Respiratory Rate 18 12/31/24 09:04 Blood Pressure 184/84 H 12/31/24 09:04 Pulse Oximetry 99 12/31/24 09:04 Oxygen Delivery Method Room Air 12/31/24 09:04 Course Orders Ordered: ED Orders 12/31/24 08:50 Complete Blood Count AUTO DIFF Stat Comprehensive Metabolic Panel Stat Lipase Stat Procalcitonin Stat Troponin & CK Cardiac Panel Stat 12/31/24 09:30 CT head/brain wo con Stat Urine Microscopic Stat 12/31/24 09:31 XR chest 1V Stat EKG-12 Lead Stat Discontinued Medications Levetiracetam 750 mg/ Sodium (Chloride) 107.5 mls @ 430 mls/hr IV NOW ONE Stop: 12/31/24 10:55 Vital Signs Vital signs: Vital Signs - 8 hr 12/31/24 09:04 Pulse Rate 44 L Respiratory Rate 18 Blood Pressure 184/84 H Pulse Oximetry 99 Oxygen Delivery Method Room Air MDM - Altered Mental Status Lab Data 12/31/24 08:50 12/31/24 08:50 Labs: Lab Results 12/31/24 Range/Units 08:50 WBC 6.7 (4.5-11.0) X10^3/uL RBC 4.70 (4.5-5.9) X10^6/uL Hgb 12.8 L (13.5-17.5) g/dL Hct 39.1 L (41-53) % MCV 83.2 (80-100) fL MCH 27.3 (26-34) PG MCHC 32.8 (30-36) % RDW 16.6 H (11.6-14.8) % Plt Count 183 (150-400) X10^3/uL Neut % (Auto) 45.3 L (50-75) % Lymph % (Auto) 42.3 H (25-40) % [place] % (Auto) 8.2 (3-14) % Eos % (Auto) 3.8 (2-4) % Baso % (Auto) 0.4 (0-2) % Neut # (Auto) 3100 (8023-8166) /uL Lymph # (Auto) 2800 (2516-8072) /uL [place] # (Auto) 600 (0-900) /uL Eos # (Auto) 300 (0-450) /uL Baso # (Auto) 0 (0-100) /uL Sodium 140 (137-145) mmol/L Potassium 4.3 (3.4-5.1) mmol/L Chloride 103 (98-107) mmol/L Carbon Dioxide 23 (22-32) mmol/L BUN 23 H (9-20) mg/dL Creatinine 1.12 (0.66-1.25) mg/dL Estimated GFR > 60 (>60) mL/min BUN/Creatinine Ratio 20.5 (6-22) Glucose 113 H (80-110) mg/dL Calcium 9.8 (8.4-10.2) mg/dL Total Bilirubin 0.8 (0.2-1.3) mg/dL AST 25 (17-59) IU/L ALT 21 (<50) IU/L Alkaline Phosphatase 107 (38-126) U/L Total Creatine Kinase 63 (55-170) U/L Troponin I < 0.012 (0.01-0.034) ng/mL Total Protein 7.6 (6.3-8.2) g/dL Albumin 4.6 (3.5-5.0) g/dL Globulin 3.0 (1.7-4.1) g/dL Albumin/Globulin Ratio 1.5 (1.0-2.8) Lipase 59 (23-300) U/L Procalcitonin 0.034 (<0.5) ng/mL Point of Care Testing Glucose POC [address] scan - head: Radiologist's Impression: [address] [address] [address] Scan Report Signed Patient: Darryl Bentley MR#: [id number] : 1945 Acct:[id number] Age/Sex: 79 / M Date of Service: 12/31/24 Loc: ED Accession Number: [id number] Procedure: CT head/brain wo con Ordering Provider: Partha Son D.O. PROCEDURE: CT HEAD/BRAIN WO CON INDICATIONS: altered mental status TECHNIQUE: Noncontrast 4.5 mm thick angled axial sections acquired from the foramen magnum to the vertex, with coronal and sagittal reformats. For radiation dose reduction, the following was used: automated exposure control, adjustment of mA and/or kV according to patient size. COMPARISON: [facility], CT, CT STROKE, 09/29/2024, 9:19. FINDINGS: Image quality: Diagnostic. CSF spaces: Basal cisterns are patent. No extra-axial fluid collections. The ventricles are symmetric in size and shape. Brain: No intracranial bleeds or masses. Chronic bilateral VITO distribution infarcts are stable. There is cerebral volume loss for age, with resultant ventricular and sulcal prominence. There are periventricular and deep white matter chronic small vessel ischemic changes. There is intracranial internal carotid artery atherosclerosis. Skull and face: Calvarium and visualized facial bones appear intact, without suspicious lesions. Sinuses: Visualized sinuses and mastoids are clear. IMPRESSION: No acute intracranial pathology. Dictated by: Vibha Robledo MD, PhD on 12/31/2024 at 10:01 Approved by: Vibha Robledo MD, PhD on 12/31/2024 at 10:[address] [address] XRay Report Signed Patient: Darryl Bentley MR#: [id number] : 1945 Acct:[id number] Age/Sex: 79 / M Date of Service: 12/31/24 Loc: ED Accession Number: [id number] Procedure: XR chest 1V Ordering Provider: Partha Son D.O. PROCEDURE: XR CHEST 1V INDICATIONS: chest pain TECHNIQUE: One view of the chest was acquired. COMPARISON: [facility], , XR CHEST 1V, 12/24/2024, 17:08. FINDINGS: Surgical changes and devices: Stable CABG postsurgical changes, aortic valve prosthesis and atrial appendage clip. Lungs and pleura: Lungs are clear. No pleural effusions or pneumothorax. Mediastinum: Mediastinal contours appear normal. Heart size is normal. Bones and chest wall: No suspicious bony lesions. Overlying soft tissues appear unremarkable. IMPRESSION: No acute cardiopulmonary abnormality is seen. Dictated by: Vibha Robledo MD, PhD on 12/31/2024 at 10:03 Approved by: Vibha Robledo MD, PhD on 12/31/2024 at 10:04 all lab work vital signs EKG imaging modalities including CT scan and chest x-ray have all been reviewed and as well as all previous ER visits vital signs and medication list. Patient was given 1 dose of Keppra 750 mg IV here. Differential diagnosis includes subarachnoid hemorrhage, epidural hemorrhage, STEMI, NSTEMI, pneumonia, sepsis, UTI, seizure, syncope. Case discussed with [facility] neurologist Dr. Hines who recommended pt to be referred to his clinic for further workup to r/o seizure. D/c home on keppra rx for now. ECG Data Attestation: I personally reviewed and interpreted this ECG as follows: Interpretation: SR with PVC LAD LVH CT 208 QRS [address]-t wave changes Unchanged from 12/24/24 Discharge Plan Departure Patient Disposition: Home Clinical Impression: Altered awareness, transient Instructions: DI for Seizure Disorder -- Adult Activity Restrictions/Additional Instructions: Return with new or worsening symptoms. Take your medications as directed. Call Neurologist office for appointment at [facility] Prescriptions: New levetiracetam [Keppra] 500 mg tablet 500 mg PO BID Qty: 60 0RF No Action (DME) Aerochamber MV Spacer See Rx Instructions .ROUTE .MEDSUPPLY Qty: 1 0RF Rx Instructions: As directed lidocaine 5 % adhesive patch,medicated 2 patch topical DAILY diclofenac sodium 1 % gel 1 % TOPICAL QID Eliquis 5 mg tablet 2.5 mg PO BID Patient Comments: TK 1 T PO BID sennosides [senna] 8.6 mg Tablet 8.6 mg PO DAILY ipratropium-albuterol 0.5 mg-3 mg(2.5 mg base)/3 mL Solution For Nebulization 3 ml INHALATION QID PRN (Reason: Shortness Of Breath Or Wheezing) tizanidine 2 mg Tablet 2 mg PO Q8H PRN (Reason: Muscle Spasm) polyethylene glycol 3350 17 gram Powder In Packet 17 g PO DAILY PRN (Reason: Constipation) famotidine 20 mg Tablet 20 mg PO DAILY metoprolol succinate 25 mg tablet extended release 24 hr 25 mg PO BID doxazosin 2 mg Tablet 2 mg PO BEDTIME potassium chloride 20 mEq Tablet Extended Release 20 meq PO DAILY Repatha SureClick 140 mg/mL pen injector 140 mg SUBCUT Q2W tamsulosin 0.4 mg capsule 0.8 mg PO DAILY@1700 lansoprazole 15 mg capsule,delayed release(DR/EC) 15 mg PO BID gabapentin 100 mg Tablet 100 mg PO TID PRN (Reason: Pain (Scale Score 1-3)) ipratropium bromide 21 mcg (0.03 %) spray,non-aerosol 2 spray intranasal BID PRN (Reason: allergies) acetaminophen 325 mg Tablet 650 mg PO Q6H PRN (Reason: Fever/Mild Pain (1-3)) Qty: 30 0RF furosemide 40 mg Tablet 20 mg PO DAILY Qty: 30 0RF valsartan 80 mg tablet 80 mg PO BID amlodipine 2.5 mg tablet 2.5 mg PO BID ciprofloxacin HCl [Cipro] 500 mg tablet 500 mg PO BID Qty: 14 0RF hydrocodone-acetaminophen 5-325 mg tablet 1 tab PO Q4H PRN (Reason: Pain (Scale Score 4-6)) Qty: 20 0RF furosemide [Lasix] 40 mg tablet 40 mg PO DAILY Qty: 2 0RF Referrals: Elmer Robbins MD [Primary Care Provider] - Stand Alone Forms: Patient Portal/API/Survey
--- NOTE | 2024-12-31 09:30 | DI.CT.S_ITS ---
PROCEDURE: CT HEAD/BRAIN WO CON INDICATIONS: altered mental status TECHNIQUE: Noncontrast 4.5 mm thick angled axial sections acquired from the foramen magnum to the vertex, with coronal and sagittal reformats. For radiation dose reduction, the following was used: automated exposure control, adjustment of mA and/or kV according to patient size. COMPARISON: [facility], CT, CT STROKE, 09/29/2024, 9:19. FINDINGS: Image quality: Diagnostic. CSF spaces: Basal cisterns are patent. No extra-axial fluid collections. The ventricles are symmetric in size and shape. Brain: No intracranial bleeds or masses. Chronic bilateral VITO distribution infarcts are stable. There is cerebral volume loss for age, with resultant ventricular and sulcal prominence. There are periventricular and deep white matter chronic small vessel ischemic changes. There is intracranial internal carotid artery atherosclerosis. Skull and face: Calvarium and visualized facial bones appear intact, without suspicious lesions. Sinuses: Visualized sinuses and mastoids are clear. IMPRESSION: No acute intracranial pathology. Dictated by: Vibha Robledo MD, PhD on 12/31/2024 at 10:01 Approved by: Vibha Robledo MD, PhD on 12/31/2024 at 10:02
--- NOTE | 2024-12-31 09:31 | DI.RAD.S_ITS ---
PROCEDURE: XR CHEST 1V INDICATIONS: chest pain TECHNIQUE: One view of the chest was acquired. COMPARISON: [facility], CR, XR CHEST 1V, 12/24/2024, 17:08. FINDINGS: Surgical changes and devices: Stable CABG postsurgical changes, aortic valve prosthesis and atrial appendage clip. Lungs and pleura: Lungs are clear. No pleural effusions or pneumothorax. Mediastinum: Mediastinal contours appear normal. Heart size is normal. Bones and chest wall: No suspicious bony lesions. Overlying soft tissues appear unremarkable. IMPRESSION: No acute cardiopulmonary abnormality is seen. Dictated by: Vibha Robledo MD, PhD on 12/31/2024 at 10:03 Approved by: Vibha Robledo MD, PhD on 12/31/2024 at 10:04
[2024-12-31 09:38] LABS: Add Manual Diff / Slide Review NO; Basophils Absolute Auto 0 /uL (0-100); Basophils Percent Auto 0.4 % (0-2); Eosinophils Absolute Auto 300 /uL (0-450); Eosinophils Percent Auto 3.8 % (2-4); Hematocrit 39.1 % (41-53); Hemoglobin 12.8 g/dL (13.5-17.5); Lymphocytes Absolute Auto 2800 /uL (1100-4500); Lymphocytes Percent Auto 42.3 % (25-40); Mean Corpuscular HGB Conc 32.8 % (30-36); Mean Corpuscular Hemoglobin 27.3 PG (26-34); Mean Corpuscular Volume 83.2 fL (80-100); Monocytes Absolute Auto 600 /uL (0-900); Monocytes Percent Auto 8.2 % (3-14); Neutrophils Absolute Auto 3100 /uL (1500-7000); Neutrophils Percent Auto 45.3 % (50-75); Platelet Count 183 X10^3/uL (150-400); Red Cell Distribution Width 16.6 % (11.6-14.8); White Blood Cell Count 6.7 X10^3/uL (4.5-11.0)
--- NOTE | 2024-12-31 09:41 | EKG_ITS ---
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
[2024-12-31 09:47] LABS: Alanine Aminotransferase 21 IU/L (<50); Albumin 4.6 g/dL (3.5-5.0); Albumin Globulin Ratio 1.5 (1.0-2.8); Alkaline Phosphatase 107 U/L (38-126); Aspartate Aminotransferase 25 IU/L (17-59); BUN Creatinine Ratio 20.5 (6-22); Bilirubin Total 0.8 mg/dL (0.2-1.3); Blood Urea Nitrogen 23 mg/dL (9-20); Calcium 9.8 mg/dL (8.4-10.2); Carbon Dioxide 23 mmol/L (22-32); Chloride 103 mmol/L (98-107); Creatine Kinase 63 U/L (55-170); Estimated Glomerular Filt Rate > 60 mL/min (>60); Glucose 113 mg/dL (80-110); HEMOLYSIS < 15 (0-50); Lipase 59 U/L (23-300); Potassium 4.3 mmol/L (3.4-5.1); Sodium 140 mmol/L (137-145); Total Protein 7.6 g/dL (6.3-8.2)
[2024-12-31 09:59] LABS: Troponin I < 0.012 ng/mL (0.01-0.034)
[2024-12-31 10:04] LABS: Procalcitonin 0.034 ng/mL (<0.5)
[2024-12-31] MEDS: levETIRAcetam 750 MG in SODIUM CHLORIDE 0.9% 100 ML 430 MG IV (11:16)
== END 2024-12-31 12:20 | disposition home or self-care (01) ==
PROVIDERS: Emergency Provider Family Medicine; PCP Internal Medicine
DX: R40.4 Transient alteration of awareness (principal); R56.9 Unspecified convulsions; I69.365 Other paralytic syndrome following cerebral infarction, bilateral; G82.50 Quadriplegia, unspecified; I11.0 Hypertensive heart disease with heart failure; I50.9 Heart failure, unspecified; I49.3 Ventricular premature depolarization
CPT/HCPCS: 70450; 71045; 80053; 82550; 82962; 83690; 84145; 84484; 85025; 93005; 96365; 99284; J1953

== ENCOUNTER 2025-01-20 15:23 | Emergency (ER) | payer MEDICARE, OTHER, SELFPAY ==
[2024-05-14 15:51] VITALS: BMI 29.4
[2025-01-20] VITALS (22 sets, daily range): BP systolic 116–197; BP diastolic 56–95; PULSE 54–63; RESP 9–18; TEMP 36.7; O2SAT 93–99; BMI 29.5
--- NOTE | 2025-01-20 15:28 | DI.RAD.S_ITS ---
PROCEDURE: XR CHEST 1V INDICATIONS: chest pain TECHNIQUE: One view of the chest was acquired. COMPARISON: [facility], CR, XR CHEST 1V, 12/31/2024, 9:40. [facility], CR, XR CHEST 1V, 12/24/2024, 17:08. [facility], CR, XR CHEST 1V, 09/29/2024, 9:42. [facility], CR, XR CHEST 1V, 08/19/2024, 14:52. FINDINGS: Surgical changes and devices: Median sternotomy wires. Atrial appendage closure device. Aortic valve prosthesis. Partially identified left shoulder arthroplasty. Lungs and pleura: Lungs are clear. No pleural effusions or pneumothorax. Mediastinum: Mediastinal contours appear normal. Heart size is normal. Bones and chest wall: No suspicious bony lesions. Overlying soft tissues appear unremarkable. IMPRESSION: No acute cardiothoracic process. Dictated by: Dontae Petersen M.D. on 01/20/2025 at 15:47 Approved by: Dontae Petersen M.D. on 01/20/2025 at 15:48
--- NOTE | 2025-01-20 15:34 | EKG_ITS ---
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 Left axis deviation Electronically Signed On 01-20-2025 15:43:28 PDT by Alberto Casper
[2025-01-20 15:36] LABS: Add Manual Diff / Slide Review NO; Basophils Absolute Auto 0 /uL (0-100); Basophils Percent Auto 0.4 % (0-2); Eosinophils Absolute Auto 200 /uL (0-450); Eosinophils Percent Auto 4.8 % (2-4); Hematocrit 34.9 % (41-53); Hemoglobin 11.5 g/dL (13.5-17.5); Lymphocytes Absolute Auto 1800 /uL (1100-4500); Lymphocytes Percent Auto 37.3 % (25-40); Mean Corpuscular Hemoglobin 27.4 PG (26-34); Monocytes Absolute Auto 500 /uL (0-900); Monocytes Percent Auto 9.6 % (3-14); Neutrophils Absolute Auto 2300 /uL (1500-7000); Neutrophils Percent Auto 47.9 % (50-75); Platelet Count 170 X10^3/uL (150-400); Red Blood Cell Count 4.21 X10^6/uL (4.5-5.9); Red Cell Distribution Width 16.4 % (11.6-14.8); White Blood Cell Count 4.8 X10^3/uL (4.5-11.0)
[2025-01-20 15:51] LABS: Prothrombin Time 11.4 SECONDS (9.4-12.5)
[2025-01-20 15:54] LABS: PTT Partial Thromboplastin Tim 43 SECONDS (25.1-36.5)
[2025-01-20 15:55] LABS: Alanine Aminotransferase 13 IU/L (<50); Albumin 3.7 g/dL (3.5-5.0); Albumin Globulin Ratio 1.3 (1.0-2.8); Alkaline Phosphatase 96 U/L (38-126); Aspartate Aminotransferase 17 IU/L (17-59); BUN Creatinine Ratio 19.7 (6-22); Bilirubin Total 0.3 mg/dL (0.2-1.3); Blood Urea Nitrogen 24 mg/dL (9-20); Calcium 8.8 mg/dL (8.4-10.2); Carbon Dioxide 30 mmol/L (22-32); Chloride 103 mmol/L (98-107); Creatine Kinase 37 U/L (55-170); Estimated Glomerular Filt Rate 60 mL/min (>60); Globulin 2.9 g/dL (1.7-4.1); Glucose 109 mg/dL (80-110); HEMOLYSIS < 15 (0-50); Lipase 54 U/L (23-300); Magnesium 1.9 mg/dL (1.6-2.3); Potassium 4.5 mmol/L (3.4-5.1); Sodium 138 mmol/L (137-145); Total Protein 6.6 g/dL (6.3-8.2)
[2025-01-20 16:08] LABS: NT-proBNP (BNP-Adult 18+) 2200 pg/mL (<450); Troponin I < 0.012 ng/mL (0.01-0.034)
--- NOTE | 2025-01-20 18:40 | ED.WEAKNESS ---
HPI - Weakness General Chief complaint: Weakness Stated complaint: Weakness Time Seen by Provider: 01/20/25 18:40 History of Present Illness HPI Narrative: 79-year-old male history of CVA, quadriplegia, CHF, hyperlipidemia, presents from living facility for increased weakness. Patient is bed-bound at baseline secondary to his quadriplegia, was brought in due to the fact that the facility stated that he seemed a lot weaker than normal. However at time of evaluation patient not complaining of any symptoms, states that he does not know why he is here. He denies any symptoms such as headache visual disturbances chest pain shortness breath fever chills nausea vomiting abdominal pain or any other GI/ symptoms. Related Data Home Medications Medication Instructions Recorded Confirmed apixaban 5 mg tablet (Eliquis) 2.5 mg PO BID 10/04/19 05/15/24 diclofenac sodium 1 % topical gel 1 % topical QID 10/04/19 05/15/24 lidocaine 5 % topical patch 2 patch topical DAILY 10/04/19 05/15/24 doxazosin 2 mg tablet 2 mg PO BEDTIME 03/10/24 05/15/24 evolocumab 140 mg/mL subcutaneous 140 mg SUBCUT Q2W 03/10/24 05/15/24 pen injector (Primitivo Abrams) famotidine 20 mg tablet 20 mg PO DAILY 03/10/24 05/15/24 ipratropium 0.5 mg-albuterol 3 mg 3 ml inhalation QID PRN Shortness 03/10/24 05/15/24 (2.5 mg base)/3 mL nebulization Of Breath Or Wheezing soln metoprolol succinate 25 mg 25 mg PO BID 03/10/24 05/15/24 tablet,extended release 24 hr polyethylene glycol 3350 17 gram 17 g PO DAILY PRN Constipation 03/10/24 05/15/24 oral powder packet potassium chloride 20 mEq 20 meq PO DAILY 03/10/24 05/15/24 tablet,extended release sennosides 8.6 mg tablet (senna) 8.6 mg PO DAILY 03/10/24 05/15/24 tizanidine 2 mg tablet 2 mg PO Q8H PRN Muscle Spasm 03/10/24 05/15/24 lansoprazole 15 mg capsule,delayed 15 mg PO BID 03/11/24 05/15/24 release tamsulosin 0.4 mg capsule 0.8 mg PO DAILY@1700 03/11/24 05/15/24 gabapentin 100 mg tablet 100 mg PO TID PRN Pain (Scale 04/09/24 05/15/24 Score 1-3) ipratropium bromide 21 mcg (0.03 2 spray intranasal BID PRN 04/11/24 05/15/24 %) nasal spray allergies amlodipine 2.5 mg tablet 2.5 mg PO BID 05/15/24 05/15/24 valsartan 80 mg tablet 80 mg PO BID 05/15/24 05/15/24 Previous Rx's Medication Instructions Recorded inhalational spacing device #1 ea 09/08/22 (Aerochamber MV spacer) acetaminophen 325 mg tablet 650 mg (2 x 325 mg) PO Q6H PRN 04/12/24 Fever/Mild Pain (1-3) #30 tabs furosemide 40 mg tablet 20 mg (1/2 x 40 mg) PO DAILY #30 04/12/24 tabs ciprofloxacin HCl 500 mg tablet 500 mg PO BID #14 tabs 05/18/24 (Cipro) hydrocodone 5 mg-acetaminophen 325 1 tab PO Q4H PRN Pain (Scale Score 05/18/24 mg tablet 4-6) #20 tabs furosemide 40 mg tablet (Lasix) 40 mg PO DAILY #2 tabs 12/24/24 levetiracetam 500 mg tablet 500 mg PO BID #60 tabs 12/31/24 (Keppra) cephalexin 500 mg capsule 500 mg PO Q8H 7 days #21 caps 01/20/25 Allergies Allergy/AdvReac Type Severity Reaction Status Date / Time [id number]-[id number] Reductase Allergy Unknown Verified 05/14/24 11:39 Inhibitor [[id number] REDUCTASE INHIBITOR] ciprofloxacin Allergy Verified 05/14/24 11:39 cortisone Allergy Verified 05/14/24 11:39 ezetimibe Allergy Verified 05/14/24 11:39 hydromorphone Allergy Verified 05/14/24 11:39 Review of Systems Review of Systems Narrative: General: Denies fever, chills, weight loss HEENT: Denies headache, eye drainage, eye irritation, head trauma, sore throat, voice change Cardiovascular: Denies any chest pain, palpitations, tachycardia Respiratory: Denies any shortness of breath, cough, wheeze, stridor GI/: Denies any abdominal pain, nausea, vomiting, diarrhea, bright red blood per rectum, melanotic stools, urinary frequency, urinary retention, dysuria, hematuria MSK: Denies any joint pain, muscle pains, swelling Skin: Denies any rashes, lesions, discoloration Neuro: Denies any headache, lightheadedness, dizziness, fainting, weakness Psych: Denies SI/HI Patient History Medical History HTN (hypertension) TIA (transient ischemic attack) Paroxysmal atrial fibrillation Endocarditis NGHIA (obstructive sleep apnea) Septic embolism Pressure ulcer of sacral region, stage 3 Social History household members: none Smoking Status: Never smoker alcohol intake: former Smoking Status: Never smoker alcohol intake frequency: 0-2 drinks per day Exam Narrative Exam Narrative: GENERAL: No acute distress, cooperative HEAD: Atraumatic. Normocephalic. EYES: Pupils equal round and reactive. Extraocular motions intact. No scleral icterus. No injection or drainage. ENT: Nose without bleeding, purulent drainage. Throat without erythema, tonsillar hypertrophy or exudate. Airway patent. NECK: Trachea midline. Non tender CARDIOVASCULAR: Regular rate and rhythm without murmurs, gallops, or rubs. RESPIRATORY: Clear to auscultation. Breath sounds equal bilaterally. No wheezes, rales, or rhonchi. GASTROINTESTINAL: Abdomen soft, non-tender, nondistended. EXTREMITIES: No edema or joint tenderness. BACK: Nontender without deformity or crepitance. No flank tenderness. NEURO: AOx3 but chronic weakness of bilateral upper limbs and lower bilateral limbs Initial Vital Signs Initial Vital Signs: Vital Signs Blood Pressure 135/63 01/20/25 15:22 Course Orders Ordered: ED Orders 01/20/25 15:25 Complete Blood Count AUTO DIFF Stat Comprehensive Metabolic Panel Stat Lipase Stat Magnesium Stat NT-proBNP (BNP-Adult 18+) Stat PTT Partial Thromboplastin Andrew Stat Prothrombin Time INR Stat Troponin & CK Cardiac Panel Stat 01/20/25 15:28 XR chest 1V Stat EKG-12 Lead Stat 01/20/25 18:47 CT head/brain wo con Stat 01/20/25 21:55 Urine Culture Stat Urine Microscopic Stat Vital Signs Vital signs: Vital Signs - 8 hr 01/20/25 15:30 01/20/25 15:30 01/20/25 16:00 Pulse Rate 56 L 56 L Respiratory Rate 12 12 Blood Pressure 116/59 L Pulse Oximetry 97 97 Oxygen Delivery Method Room Air 01/20/25 16:00 01/20/25 16:30 01/20/25 16:30 Pulse Rate 55 L Respiratory Rate 13 Blood Pressure 128/56 L 170/81 H Pulse Oximetry 98 Oxygen Delivery Method 01/20/25 17:00 01/20/25 17:00 01/20/25 17:30 Pulse Rate 54 L 57 L Respiratory Rate 12 11 L Blood Pressure 172/79 H Pulse Oximetry 98 99 Oxygen Delivery Method Room Air 01/20/25 17:30 01/20/25 18:00 01/20/25 18:30 Pulse Rate 56 L 58 L Respiratory Rate 13 14 Blood Pressure 177/87 H Pulse Oximetry 99 97 Oxygen Delivery Method 01/20/25 18:31 01/20/25 18:31 01/20/25 19:00 Pulse Rate 58 L 61 Respiratory Rate 14 17 Blood Pressure 182/80 H Pulse Oximetry 97 96 Oxygen Delivery Method Room Air Room Air 01/20/25 19:01 01/20/25 19:01 01/20/25 19:30 Pulse Rate 61 63 Respiratory Rate 15 15 Blood Pressure 157/64 H Pulse Oximetry Oxygen Delivery Method 01/20/25 19:34 01/20/25 19:34 01/20/25 20:00 Pulse Rate 63 60 Respiratory Rate 9 L 11 L Blood Pressure 197/95 H Pulse Oximetry 97 97 Oxygen Delivery Method 01/20/25 20:30 01/20/25 21:00 Pulse Rate 61 62 Respiratory Rate 12 18 Blood Pressure Pulse Oximetry 94 94 Oxygen Delivery Method MDM - Weakness Differential Diagnosis Differential diagnosis: Likely acute myocardial infarction, hypothyroidism, dehydration and other (CVA, electrolyte abnormality, urinary tract infection, ACS) Lab Data 01/20/25 15:25 01/20/25 15:25 Labs: Lab Results 01/20/25 01/20/25 Range/Units 15:25 21:55 WBC 4.8 (4.5-11.0) X10^3/uL RBC 4.21 L (4.5-5.9) X10^6/uL Hgb 11.5 L (13.5-17.5) g/dL Hct 34.9 L (41-53) % MCV 83.0 (80-100) fL MCH 27.4 (26-34) PG MCHC 33.0 (30-36) % RDW 16.4 H (11.6-14.8) % Plt Count 170 (150-400) X10^3/uL Neut % (Auto) 47.9 L (50-75) % Lymph % (Auto) 37.3 (25-40) % [place] % (Auto) 9.6 (3-14) % Eos % (Auto) 4.8 H (2-4) % Baso % (Auto) 0.4 (0-2) % Neut # (Auto) 2300 (7576-2926) /uL Lymph # (Auto) 1800 (0940-2901) /uL [place] # (Auto) 500 (0-900) /uL Eos # (Auto) 200 (0-450) /uL Baso # (Auto) 0 (0-100) /uL PT 11.4 (9.4-12.5) SECONDS INR 1.0 (0.9-1.3) APTT 43 H (25.1-36.5) SECONDS Sodium 138 (137-145) mmol/L Potassium 4.5 (3.4-5.1) mmol/L Chloride 103 (98-107) mmol/L Carbon Dioxide 30 (22-32) mmol/L BUN 24 H (9-20) mg/dL Creatinine 1.22 (0.66-1.25) mg/dL Estimated GFR 60 (>60) mL/min BUN/Creatinine Ratio 19.7 (6-22) Glucose 109 (80-110) mg/dL Calcium 8.8 (8.4-10.2) mg/dL Magnesium 1.9 (1.6-2.3) mg/dL Total Bilirubin 0.3 (0.2-1.3) mg/dL AST 17 (17-59) IU/L ALT 13 (<50) IU/L Alkaline Phosphatase 96 (38-126) U/L Total Creatine Kinase 37 L (55-170) U/L Troponin I < 0.012 (0.01-0.034) ng/mL NT-Pro-B Natriuret Pep 2200 H (<450) pg/mL Total Protein 6.6 (6.3-8.2) g/dL Albumin 3.7 (3.5-5.0) g/dL Globulin 2.9 (1.7-4.1) g/dL Albumin/Globulin Ratio 1.3 (1.0-2.8) Lipase 54 (23-300) U/L Urine RBC 0-1/hpf (0-5/HPF) Urine WBC 1-5/hpf (0-5/HPF) Ur Squamous Epith Cells 0-1 /hpf (0-5/HPF) Urine Bacteria Few (2-10) H (None) Ur Culture Indicated? Specimen cultured Vol Urine Centrifuged 10ml (spun) Urine Dip Bedside Urine Glucose Negative Bedside Urine Bilirubin - Negative Bedside Urine Ketone - Negative Urine Specific [place] 1.020 Bedside Urine Occult Blood +/- Bedside Urine pH 6 Bedside Urine Protein - Negative Bedside Urine Urobilinogen - Negative Bedside Urine Nitrite - Negative Bedside Urine Leukocytes +/- 15 Esterase Imaging Data Chest x-ray: Radiologist Impression: [address] [address] XRay Report Signed Patient: Darryl Bentley MR#: [id number] : 1945 Acct:[id number] Age/Sex: 79 / M Date of Service: 01/20/25 Loc: ED Accession Number: [id number] Procedure: XR chest 1V Ordering Provider: Nimco Whitney D.O. PROCEDURE: XR CHEST 1V INDICATIONS: chest pain TECHNIQUE: One view of the chest was acquired. COMPARISON: [facility], CR, XR CHEST 1V, 12/31/2024, 9:40. [facility], XR CHEST 1V, 12/24/2024, 17:08. [facility], CR, XR CHEST 1V, 09/29/2024, 9:42. [facility] CR, XR CHEST 1V, 08/19/2024, 14:52. FINDINGS: Surgical changes and devices: Median sternotomy wires. Atrial appendage closure device. Aortic valve prosthesis. Partially identified left shoulder arthroplasty. Lungs and pleura: Lungs are clear. No pleural effusions or pneumothorax. Mediastinum: Mediastinal contours appear normal. Heart size is normal. Bones and chest wall: No suspicious bony lesions. Overlying soft tissues appear unremarkable. IMPRESSION: No acute cardiothoracic process. CT scan - head: Radiologist Impression: [address] [address] [address] Scan Report Signed Patient: Darryl Bentley MR#: [id number] : 1945 Acct:[id number] Age/Sex: 79 / M Date of Service: 01/20/25 Loc: ED Accession Number: [id number] Procedure: CT head/brain wo con Ordering Provider: Alberto Dumont D.O. PROCEDURE: CT HEAD/BRAIN WO CON INDICATIONS: weakness TECHNIQUE: Noncontrast 4.5 mm thick angled axial sections acquired from the foramen magnum to the vertex, with coronal and sagittal reformats. For radiation dose reduction, the following was used: automated exposure control, adjustment of mA and/or kV according to patient size. COMPARISON: [facility], CT, CT HEAD/BRAIN WO CON, 12/31/2024, 9:50. FINDINGS: Image quality: Diagnostic. CSF spaces: Basal cisterns are patent. No extra-axial fluid collections. The ventricles are symmetric in size and shape. Brain: No intracranial bleeds or mass effect. Old infarctions in bilateral VITO distribution is again seen with encephalomalacia unchanged from prior study. There is cerebral volume loss, with resultant ventricular and sulcal prominence. There are periventricular and deep white matter chronic small vessel ischemic changes. There is intracranial internal carotid artery atherosclerosis. Skull and face: Calvarium and visualized facial bones appear intact, without suspicious lesions. Sinuses: Visualized sinuses and mastoids are clear. IMPRESSION: No acute intracranial pathology. No significant changes from prior study. ECG Data Interpretation: EKG interpreted by ED physician, sinus at 56 beats per minute QTC 459, nonspecific ST changes no STEMI MDM Narrative Medical decision making narrative: 79-year-old male history of CVA bed-bound at baseline due to quadriplegia, paroxysmal AFib on Eliquis presenting from long-term care facility for increased weakness. Patient not complaining of any symptoms at this time. Patient's EKG nonischemic in nature, chest x-ray without any acute cardiopulmonary abnormality, lab work at baseline no leukocytosis, BNP is slightly bumped but near his baseline of 2200's. Troponin negative. At time of evaluation patient with baseline upper and lower extremity weakness, NIH of 0, CT scan of the head without any acute findings, urinalysis can safely acute urinary tract infection therefore will treat patient for UTI. Patient was given strict return precaution verbalized understanding of this and agrees to being discharged home with outpatient follow up Discharge Plan Departure Patient Disposition: Home Clinical Impression: Acute UTI Instructions: DI for Urinary Tract Infection (UTI) Activity Restrictions/Additional Instructions: Please follow up with the primary care doctor Please read the discharge instructions sheet carefully and bring all papers to all doctor follow-up visits, as it may contain information that your doctor may want to see. Disease processes change and evolve, if your symptoms worsen or if you develop any new symptoms that are concerning to you please return for evaluation. Your evaluation today does not show any evidence of any life-threatening/serious illnesses requiring admission to the hospital or surgery. Please follow-up with your doctor for re-evaluation in approximately 1 day. Seek immediate medical attention for any worrisome symptoms. *If you do not have a primary care provider please contact the [facility] Resource line at [phone]. They will ask some questions about your medical history and help get you set up with a doctor in the community. Prescriptions: New cephalexin 500 mg capsule 500 mg PO Q8H 7 Days Qty: 21 0RF No Action (DME) Aerochamber MV Spacer See Rx Instructions .ROUTE .MEDSUPPLY Qty: 1 0RF Rx Instructions: As directed lidocaine 5 % adhesive patch,medicated 2 patch topical DAILY diclofenac sodium 1 % gel 1 % TOPICAL QID Eliquis 5 mg tablet 2.5 mg PO BID Patient Comments: TK 1 T PO BID sennosides [senna] 8.6 mg Tablet 8.6 mg PO DAILY ipratropium-albuterol 0.5 mg-3 mg(2.5 mg base)/3 mL Solution For Nebulization 3 ml INHALATION QID PRN (Reason: Shortness Of Breath Or Wheezing) tizanidine 2 mg Tablet 2 mg PO Q8H PRN (Reason: Muscle Spasm) polyethylene glycol 3350 17 gram Powder In Packet 17 g PO DAILY PRN (Reason: Constipation) famotidine 20 mg Tablet 20 mg PO DAILY metoprolol succinate 25 mg tablet extended release 24 hr 25 mg PO BID doxazosin 2 mg Tablet 2 mg PO BEDTIME potassium chloride 20 mEq Tablet Extended Release 20 meq PO DAILY Repatha SureClick 140 mg/mL pen injector 140 mg SUBCUT Q2W tamsulosin 0.4 mg capsule 0.8 mg PO DAILY@1700 lansoprazole 15 mg capsule,delayed release(DR/EC) 15 mg PO BID gabapentin 100 mg Tablet 100 mg PO TID PRN (Reason: Pain (Scale Score 1-3)) ipratropium bromide 21 mcg (0.03 %) spray,non-aerosol 2 spray intranasal BID PRN (Reason: allergies) acetaminophen 325 mg Tablet 650 mg PO Q6H PRN (Reason: Fever/Mild Pain (1-3)) Qty: 30 0RF furosemide 40 mg Tablet 20 mg PO DAILY Qty: 30 0RF valsartan 80 mg tablet 80 mg PO BID amlodipine 2.5 mg tablet 2.5 mg PO BID ciprofloxacin HCl [Cipro] 500 mg tablet 500 mg PO BID Qty: 14 0RF hydrocodone-acetaminophen 5-325 mg tablet 1 tab PO Q4H PRN (Reason: Pain (Scale Score 4-6)) Qty: 20 0RF furosemide [Lasix] 40 mg tablet 40 mg PO DAILY Qty: 2 0RF levetiracetam [Keppra] 500 mg tablet 500 mg PO BID Qty: 60 0RF Referrals: Elmer Robbins MD [Primary Care Provider] - Stand Alone Forms: Patient Portal/API/Survey
--- NOTE | 2025-01-20 18:47 | DI.CT.S_ITS ---
PROCEDURE: CT HEAD/BRAIN WO CON INDICATIONS: weakness TECHNIQUE: Noncontrast 4.5 mm thick angled axial sections acquired from the foramen magnum to the vertex, with coronal and sagittal reformats. For radiation dose reduction, the following was used: automated exposure control, adjustment of mA and/or kV according to patient size. COMPARISON: [facility], CT, CT HEAD/BRAIN WO CON, 12/31/2024, 9:50. FINDINGS: Image quality: Diagnostic. CSF spaces: Basal cisterns are patent. No extra-axial fluid collections. The ventricles are symmetric in size and shape. Brain: No intracranial bleeds or mass effect. Old infarctions in bilateral VITO distribution is again seen with encephalomalacia unchanged from prior study. There is cerebral volume loss, with resultant ventricular and sulcal prominence. There are periventricular and deep white matter chronic small vessel ischemic changes. There is intracranial internal carotid artery atherosclerosis. Skull and face: Calvarium and visualized facial bones appear intact, without suspicious lesions. Sinuses: Visualized sinuses and mastoids are clear. IMPRESSION: No acute intracranial pathology. No significant changes from prior study. Dictated by: Herbert Flores M.D. on 01/20/2025 at 19:29 Approved by: Herbert Flores M.D. on 01/20/2025 at 19:30
[2025-01-20 23:15] LABS: Bacteria Urine Few (2-10); Culture Indicated Urine Specimen Cultured; RBC Urine 0-1/HPF (0-5/HPF); Squamous Epithelial Cell Urine 0-1 /HPF (0-5/HPF); Urine Volume 10mL (spun); WBC Urine 1-5/HPF (0-5/HPF)
[2025-01-21] VITALS (7 sets, daily range): BP systolic 145–173; BP diastolic 66–79; PULSE 58–59; RESP 11–16; O2SAT 95–98
[2025-01-21] MEDS: cephALEXin 250 MG CAPSULE 500 MG PO (00:03)
== END 2025-01-21 01:50 | disposition home or self-care (01) ==
PROVIDERS: Emergency Medicine; Emergency Provider Student in an Organized Health Care Education/Training Program; PCP Internal Medicine
DX: N39.0 Urinary tract infection, site not specified (principal); Z79.01 Long term (current) use of anticoagulants; R29.700 NIHSS score 0; G82.50 Quadriplegia, unspecified; I50.9 Heart failure, unspecified; R07.9 Chest pain, unspecified; Z86.73 Personal history of transient ischemic attack (TIA), and cerebral infarction without residual deficits
CPT/HCPCS: 70450; 71045; 80053; 81003; 81015; 82550; 83690; 83735; 83880; 84484; 85025; 85610; 85730; 87077; 87086; 87186; 93005; 99283; 99284